=== PATIENT | female | born 1970 | race Caucasian/White ===

== ENCOUNTER → 2017-09-10 10:02 | Outpatient (REF) | payer MEDICAID, SELFPAY ==
[2017-09-10 13:17] LABS: HCT 38.7 % (36.0-46.0); Mean Corpuscular Hemoglobin 24.8 pg (27.0-33.0); Mean Corpuscular Volume 80.1 fL (80-95); Mean Platelet Volume 11.4 fL (8.0-11.0); Platelet Count 305 x1000/uL (130-400); RBC 4.83 m/cumm (4.00-5.20); RBC Distribution Width 16.2 % (11.7-14.6); White Blood Cell Count 11.66 k/cumm (4.4-10.8)
[2017-09-10 14:57] LABS: ALT 29 U/L (12-78); AST 23 U/L (15-37); Albumin 3.2 g/dL (3.4-5.0); Alkaline Phosphatase 134 U/L (46-116); Anion Gap 12.4 mmol/L (3-11); BUN 19 mg/dL (7-18); Bilirubin, Total 0.1 mg/dL (0.2-1.0); CO2 22.6 mmol/L (21.0-32.0); CREATININE 0.82 mg/dL (0.55-1.02); Calcium 9.1 mg/dL (8.5-10.1); Chloride 104 mmol/L (98-107); Glucose 220 mg/dL (70-100); Potassium 4.2 mmol/L (3.5-5.1); Sodium 139 mmol/L (136-145); Total Protein 7.4 g/dL (6.4-8.2)
[2017-09-13 06:36] LABS: Vitamin D 25 Total 29.6 ng/ml (30-100)
== END ==
LOC: NCHCN 10:02
PROVIDERS: PCP Nurse Practitioner Family; Visit Provider Nurse Practitioner Family
DX: D72.9 Disorder of white blood cells, unspecified (principal); E11.9 Type 2 diabetes mellitus without complications; E55.9 Vitamin D deficiency, unspecified
CPT/HCPCS: 80053; 82306; 85027

== ENCOUNTER 2017-10-02 12:30 | Outpatient (RCR) | payer MEDICAID, SELFPAY ==
--- NOTE | 2017-09-19 13:00 | IE_ITS ---
Date: September 19, 2017 Referring: DACIA Rebollar M.D. Diagnosis: Chronic pain due to fibromyalgia: muscle toning, poor core P.T. Diagnosis: Chronic pain, fibromyalgia. SUBJECTIVE: History of Present Illness: Patient presents with complaints of many years of pain specifically the LE's. She states that she had initially worked up for MS after a single lesion was found on MRI, although has not followed up with neurology for many years. She was eventually given a diagnosis of fibromyalgia and chronic Lyme. She was placed on several medications including pain meds and muscle relaxers, although these were discontinued about 2 years ago when she switched primary care. Since then her pain has been significantly increased. She is managing this with medical marijuana which she uses nocturnally only. She is also seeing [facility] where she received bilateral hip injections 2 weeks ago for hip bursitis and has low back injection scheduled for next week for consideration of ablation the following week. She describes pain diffusely throughout the LE's, although most concentrated through the outsides of the hip. She also has severe low back pain, stating that if any touches her low back, it can drop her to her knees. She has had a significant weight gain over the past year, stating she has been unable to continue with the exercise program she had completed regularly. She also complains brain fog, difficulty with word finding and short term memory loss, which she relates to her chronic Lyme. Pain Ratin/10 Pain Location: Lateral hips bilaterally, extending throughout the LE's, central low back, R side of the neck and shoulder, extending down the arm. Prior Level of Function: Patient had been walking up to 5 miles per day, although states she has not been able to complete this for a couple years due to pain levels. She lives with her son in [facility], not currently working. Current Level of Function: Unable to continue with regular exercise program. Patient states she is unable to work and is currently applying for disability. She reports difficulty with day to day activities due to pain levels, particularly community distance ambulation, sleep quality and prolonged positioning. Social: Comorbidities: Chronic Lyme disease, Diabetes, Fibromyalgia, anxiety, arthritis in bilateral knees, recent weight gain, asthma and thyroid dysfunction. Falls in the last year: __X__ No ____Yes - How many? ____ - (if over 2, balance SM needs to be completed) Reported hospitalizations in the last year - __X__ No ____ Yes - Dates of admission/reason: Medications: Patient does not have a list with her today, although she states she has an extensive list which she will bring next time. Quality of Life: ____ Excellent ____ Good __X__ Fair ____ Poor OBJECTIVE: Posture: Patient is obese, she demonstrates bilateral genu valgus, mild rounded shoulder, forward head posturing. Observation: (behavior, atrophy, skin color, etc.) Gait: (+) antalgia with significant hip IR noted during swing phase L greater than R. Palpation: Deferred due to self reports of hypersensitivity. ROM: Trunk motion allows forward flexion fingertips 6 from the floor with reports of pain through the hamstring and low back. Trunk extension allows 15 degrees, lateral flexion allows fingertips 2 from lateral joint line of the knee bilaterally. Hip ROM allows 100 degrees of hip flexion, limited by abdominal girth and accompanied by groin pain bilaterally. ER allows 50 degrees bilaterally, IR 15 degrees bilaterally. Knee motion allows approximately 0 to 115 degrees bilaterally with significant crepitus noted bilaterally. Strength: Hip flexion is 4-/5 R, 4/5 L. During assessment of LE strength the patient has functional core weakness noted relying on UE support and contralateral trunk lean with poor ability to stabilize. Quads are 4+/5 bilaterally, hamstrings 4/5 bilaterally. Ankle dorsiflexion is 5/5 bilaterally. Hip IR is 4/5 bilaterally, ER 4/5 bilaterally. Special Tests: (-) slump test, (-) SLR which allows for 50 degrees bilaterally. Treatment: Today session consisted of evaluation followed by discussion regarding appropriate treatment planning and goals. IE: [id number] Therapeutic procedures ([id number]). Patient was instructed in early stabilization activities with instruction in transverse abdominal activation and hook lying marching. She requires significant verbal cues and reminders for appropriate completion and avoidance of compensatory movement patterns, although with excellent carry over. Direct treatment time: 50 mins Total treatment time: 50 miins ASSESSMENT: Patient is a 47-year-old female, referred for PT services with the diagnosis of chronic pain related to fibromyalgia. Patient presents with clinical signs and symptoms consistent with diagnosis with complicating factors including chronic Lyme disease and active application for disability. During session, the patient also expresses her frustration with previous providers, etc. . . which may influence outcomes. She is currently demonstrating the following impairment level findings: 1: Chronic pain. 2: Biomechanical deficits. 3: Gait deviations. 4: LE weakness. Impairments are contributing to the following functional limitations :1: Decreased activity tolerance. 2: Unable to perform normal walking program. 3: Sleep disturbance. 4: Fear avoidance behaviors. Patient is assessed as: ____ Low 43639 __X__ Moderate 50740 ____ High 87017 complexity, based on the following: History: (list): Chronic pain with patient with fibromyalgia and chronic Lyme disease, with current application for disability and with expression of frustration with medical intervention. See comorbidities and social history. Examination: (list): X See above for functional limitations and impairments. Presentation: X Stable . Evolving Unstable Decision-Making: x Low complexity Moderate complexity High complexity % Disability based on __X__ Patient requires skilled PT intervention to remediate the above functional limitations to return to: __x__ Premorbid level of function __x__ Return to full functional mobility __x__ Improve QOL ____ Other: Prognosis: ____ Excellent ____ Good __X__ Fair ____ Poor STG: __6__ weeks. 1: Patient able to tolerate introduction of therapeutic exercise program in an aquatic setting. 2: Reduce frequency and severity of pain by self report by 25%. LTG: __12__ weeks. 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 2: Patient able to tolerate introduction of walking program. 3: VAS rating of less than 3/10 on average. PLAN: Will plan to see patient 2x a week with tapering visits over the next 12 weeks. Will initiate aquatic therapy for introduction of strengthening activities, and gait training while allowing for passive traction and decompression. Will transition her to land base activities as she is able to tolerate. Began with some early core stabilization activities today and will progress from there. Will focus on an exercise based program with encouragement for self maintenance and management of chronic pain symptoms. We discuss treatment goals at length today and patient understands that the objective is not for her to be painfree, but to be independent with management of her chronic pain symptoms. Thank you for this referral. Please do not hesitate to contact me with any questions or concerns regarding this patient's plan of care.
--- NOTE | 2017-09-25 12:04 | PTTR_ITS ---
DATE: 09/25/17 SUBJECTIVE: Alis apologizes that she is 20 minutes late. OBJECTIVE: Therapeutic procedures ([id number]). Patient completed a therapeutic exercise program in an aquatic setting for LE strengthening and general conditioning with decompression for pain relief, as per flow sheet. Patient required skilled instruction for for proper exercise performance and to avoid compensatory movement patterns. Patient ends with deep end biking, LE flex/ext , and LE abd/add. Direct treatment time: 35 minutes Total treatment time: 50 minutes
--- NOTE | 2017-09-27 11:14 | NT_ITS ---
09/27/17 Cancelled today's scheduled aquatic therapy session. Wendy Alvarez, EMERGENCY SERVICES PROFESSIONAL
--- NOTE | 2017-10-02 11:00 | AT_ITS ---
10/02/17 TPx2 See flow sheet. Complete gross whole body strengthening program with skilled cueing throughout for pro[per movement pattern and scap stabilization and intrinsic core stability. Progressions made for cardiovascular activity for central nervous system desensitization. Total time: 60 minutes Direct 30 minutes with pt able to complete warm up and cool down activities with minimal supervision.
== END 2017-10-05 23:59 | disposition home or self-care (01) ==
LOC: PT 12:30
PROVIDERS: PCP Nurse Practitioner Family; Referring Provider Nurse Practitioner Family; Visit Provider Nurse Practitioner Family
DX: G89.29 Other chronic pain (principal); M79.7 Fibromyalgia
CPT/HCPCS: 97110; 97161

== ENCOUNTER 2017-10-26 18:18 | Emergency (ER) | payer MEDICAID, SELFPAY ==
[2017-10-26 18:23] VITALS: BP 167/96; PULSE 115; RESP 23; TEMP 36.4; O2SAT 98
--- NOTE | 2017-10-26 18:45 | W.ED.GENAD ---
Discharge Plan Disposition Patient Disposition: HOME Discharge Details Chief Complaint: Urinary Clinical Impression: UTI (urinary tract infection) Primary Care Provider: Digna Lemon ED Provider: Albert Hein Home Meds and New Rx's Prescriptions: New phenazopyridine [Pyridium] 100 mg tablet 100 mg PO TID PRN (Reason: pain) 0 Days RF: 0 nitrofurantoin monohyd/m-cryst [Macrobid] 100 mg capsule 100 mg PO BID Qty: 10 RF: 0 No Action sertraline [Zoloft] 100 MG tablet 100 mg PO BID RF: 0 loratadine 10 MG tablet,disintegrating 10 mg PO DAILY RF: 0 epinephrine [EpiPen 2-Fabian] 0.3 MG/0.3 ML auto-injector 0.3 mg IM ONCE RF: 0 fluticasone [Flonase] 16 GM spray,suspension 50 mcg NS DAILY RF: 0 tizanidine 4 MG capsule 4 mg PO PRN PRNRF: 0 pregabalin [Lyrica] 100 MG capsule 150 mg PO BID RF: 0 cholecalciferol (vitamin D3) 1,000 UNITS tablet 5,000 units PO DAILY RF: 0 levalbuterol tartrate [Xopenex HFA] 200 PUFF HFA aerosol inhaler 2 gm Inhalation PRN RF: 0 hydroxyzine HCl 25 MG tablet 25 mg PO BID RF: 0 fluconazole [Diflucan] 200 MG tablet 200 mg PO QAM RF: 0 glipizide 10 MG tablet extended release 24hr 10 mg PO HS RF: 0 nystatin 500,000 UNITS tablet 500,000 units PO DIRECTED RF: 0 rosuvastatin [Crestor] 20 MG tablet 20 mg PO QPM RF: 0 Insulin Glargine,Hum.rec.anlog [Lantus] 100 UNIT/ML Vial 30 unit SQ HS RF: 0 Topiramate [Trokendi Xr] 50 MG Cap.Er.24h 50 mg PO HS RF: 0 Discharge Instructions Instructions: Urinary Tract Infection in Women (ED) Additional Instructions: Please contact your primary care physician to arrange follow-up. Return to the ER for any worsening or new concerning symptoms. Referrals: Digna Lemon [Primary Care Provider] - Medical Decision Making 47-year-old female here with symptoms consistent with urinary tract infection. Urinalysis reviewed and has significant number of red blood cells as well as white blood cells. Plan to treat with nitrofurantoin as well as Pyridium. Patient was instructed to follow-up with her primary care physician. Usual and customary discharge instructions were provided. Lab Data Lab results reviewed: Yes I reviewed the patient's lab results. Lab results narrative: Laboratory Tests 10/26/17 18:40 Urine Color Yellow Urine Clarity Sl cloudy Urine pH 6.0 Ur Specific [place] 1.010 Urine Protein Negative Urine Ketones Negative Urine Blood Large H Urine Nitrite Negative Urine Bilirubin Negative Urine Urobilinogen 0.2 Ur Leukocyte Esterase Negative Urine RBC >50 H Urine WBC 5-10 Ur Epithelial Cells Many Urine Crystals Negative Urine Bacteria Few Urine Casts 0-2 coarse granular Urine Mucus Trace Urine Other Few transitional Ur Culture Indicated? No/sq. contamination Urine Glucose Negative HPI General Mode of arrival: ambulatory. Date/Time Provider Initiated Documentation: 10/26/17 18:33. Limitations to Documentation: no limitations. Information obtained by: patient. HPI Narrative: 47-year-old female with history of insulin dependent diabetes, presents with chief complaint of urinary tract infection. Patient notes that she has had painful urination that started yesterday and has worsened today. She has associated increased urinary frequency, sense of urgency, and decreased urine. She has no associated flank pain. She has had some nausea. No vomiting. No fever. Patient is somewhat anxious and uncomfortable. Patient has had urinary tract infections in the past and notes this feels exactly like that. She states that her blood sugar is monitored closely, she takes her insulin as prescribed, and blood sugar has been normal today. Patient denies associated vaginal discharge or lesions. Related Data Home Medications Medication Instructions Recorded Confirmed cholecalciferol (vitamin D3) 5,000 units PO DAILY 05/03/12 10/26/17 pregabalin [Lyrica] 150 mg PO BID 05/03/12 10/26/17 tizanidine 4 mg PO PRN PRN 05/03/12 10/26/17 sertraline [Zoloft] 100 mg PO BID tab-cap 07/22/12 10/26/17 levalbuterol tartrate [Xopenex HFA] 2 gm INHALATION PRN 05/03/13 10/26/17 epinephrine [EpiPen 2-Fabian] 0.3 mg IM ONCE 02/26/14 10/26/17 fluticasone [Flonase] 50 mcg NS DAILY spray 02/26/14 10/26/17 loratadine 10 mg PO DAILY tab-cap 02/26/14 10/26/17 hydroxyzine HCl 25 mg PO BID 11/09/14 10/26/17 Insulin Glargine,Hum.rec.anlog 30 unit SQ HS 02/06/17 10/26/17 [Lantus] Topiramate [Trokendi Xr] 50 mg PO HS 02/06/17 10/26/17 fluconazole [Diflucan] 200 mg PO QAM 02/06/17 10/26/17 glipizide 10 mg PO HS 02/06/17 10/26/17 nystatin 500,000 units PO DIRECTED 02/06/17 10/26/17 rosuvastatin [Crestor] 20 mg PO QPM 02/06/17 10/26/17 Previous Rx's Medication Instructions Recorded nitrofurantoin monohyd/m-cryst 100 mg PO BID #10 cap 10/26/17 [Macrobid] phenazopyridine [Pyridium] 100 mg PO TID PRN 0 Days tab 10/26/17 Allergies Allergy/AdvReac Type Severity Reaction Status Date / Time amoxicillin trihydrate Allergy Intermediate Hives Unverified 08/29/17 20:35 [From Augmentin] potassium clavulanate Allergy Intermediate Hives Unverified 08/29/17 20:35 [From Augmentin] ammonium lactate AdvReac Intermediate GI UPSET Unverified 08/29/17 20:35 [From Lac-Hydrin] citalopram hydrobromide AdvReac Intermediate CHEST Unverified 08/29/17 20:35 [From Celexa] PAINS, SOB codeine AdvReac Intermediate Nausea Unverified 08/29/17 20:35 duloxetine [Duloxetine] AdvReac Intermediate SPACEY Unverified 08/29/17 20:35 duloxetine HCl AdvReac Intermediate NAUSEA, V/D Unverified 08/29/17 20:35 [From Cymbalta] hydromorphone HCl AdvReac Intermediate NAUSEA,VOMI Unverified 08/29/17 20:35 [From Dilaudid] TING,CONSTI PATION milk AdvReac Mild NAUSEA Unverified 08/29/17 20:35 environmental Allergy Severe Uncoded 08/29/17 20:35 TYLENOL WITH CODEINE AdvReac Mild NAUSEA Uncoded 08/29/17 20:35 General Stated Complaint: Urinary LANIE: 4 Review of Systems Gastrointestinal Denies abdominal pain and Reports nausea Genitourinary Reports as per HPI [facility] Medical History Anxiety Asthma Fibromyalgia Herniated cervical disc Morbid obesity with BMI of 40.0-44.9, adult Social History Smoking/Tobacco Use Status: Former Tobacco Use Surgical History section Ligation of fallopian tube discetomy and spinal fusion Exam Const General: cooperative and no acute distress HENMT Mouth: moist mucous membranes Eyes Conjunctivae: normal conjunctivae Sclera: normal sclerae Resp Auscultation: clear to auscultation bilaterally, no rales, no rhonchi and no wheezes Cardio Jugular venous pressure: no JVD Rate: regular rate and not tachycardic Rhythm: regular rhythm GI Palpation: soft, not firm, no guarding, no masses, not rigid and nontender Skin General skin exam: no rashes or lesions noted Neuro General: alert, awake, oriented x3 and tone normal Psych Appearance: grossly normal Mental Status: mental status grossly normal Speech and Movement: speech and movement normal Course Vital Signs Temperature 36.4 C L 10/26/17 18:23 Pulse 115 H 10/26/17 18:23 Respiratory Rate 23 10/26/17 18:23 Blood Pressure 167/96 H 10/26/17 18:23 Pulse Oximetry 98 10/26/17 18:23 Temperature 36.4 C L 10/26/17 18:23 Pulse 115 H 10/26/17 18:23 Respiratory Rate 23 10/26/17 18:23 Blood Pressure 167/96 H 10/26/17 18:23 Pulse Oximetry 98 10/26/17 18:23
[2017-10-26] MEDS: Phenazopyridine 100 MG TAB PO (18:50)
[2017-10-26] MEDS: MacroBID 100 MG CAP PO (18:50)
[2017-10-26 18:59] LABS: Bilirubin Negative (Negative); Blood Large (Negative); Clarity Sl Cloudy; Glucose Negative (Negative); Ketones Negative (Negative); Leukocyte Esterase Negative (Negative); Nitrite Negative (Negative); Urobilinogen 0.2 EU/dL (Up TO 0.2)
[2017-10-26 19:14] LABS: Bacteria Few HPF (Negative); Epithelial Cells Many HPF (Negative); Other Cells Few Transitional (Negative); RBC >50 (0-2)
[2017-10-26 19:15] LABS: C & S Indicated? No/Sq. Contamination; Casts 0-2 Coarse Granular LPF (Negative); Crystals Negative HPF (Negative); Mucus Trace (Negative)
== END 2017-10-26 19:44 | disposition home or self-care (01) ==
LOC: ER 19:22
PROVIDERS: Emergency Provider Student in an Organized Health Care Education/Training Program; PCP Nurse Practitioner Family
DX: N39.0 Urinary tract infection, site not specified (principal); G35 Multiple sclerosis; E11.9 Type 2 diabetes mellitus without complications; Z79.4 Long term (current) use of insulin; Z87.440 Personal history of urinary (tract) infections
CPT/HCPCS: 99283; 81003; 81015

== ENCOUNTER 2017-10-30 18:56 | Outpatient (REF) | payer MEDICAID, SELFPAY ==
--- NOTE | 2017-10-30 13:45 | PAPFT_PTH ---
PATIENT: Alis Cardenas V LOC: [facility]#:[id number] AGE/SX: 47/F ROOM: RE10/30/[address]: Digna Lemon : 1970 BED: DIS: 10/30/2017 SPEC #: [id number] RECD: 10/31/17 13:05 STATUS: CONNER REAyo #: [id number] PASCUAL: 10/30/17 13:[address]: Digna Lemon DEPT: [facility] Cytology RECD BY: Kim Wray Tissues: 1 - CX/ENDOCX FOR PAP SMEARS Procedures: PAP THIN PREP/UVM Screening HPV DNA PROBE Comments: [id number] (CHLAMYDIA/GC)
[2017-11-01 14:17] LABS: Chlamydia Result Negative; GC Result Negative; Specimen Description SEE COMMENTS
== END 2017-10-30 19:16 ==
LOC: NCHCN 18:56
PROVIDERS: PCP Nurse Practitioner Family; Referring Provider Nurse Practitioner Family; Visit Provider Nurse Practitioner Family
DX: Z12.4 Encounter for screening for malignant neoplasm of cervix (principal); Z11.51 Encounter for screening for human papillomavirus (HPV); Z11.3 Encounter for screening for infections with a predominantly sexual mode of transmission; Z00.00 Encounter for general adult medical examination without abnormal findings
CPT/HCPCS: 87491; 87591; 88142; 87480; 87510; 87624; 87660

== ENCOUNTER 2017-11-05 21:52 | Inpatient (IN) | payer MEDICAID, SELFPAY ==
[2017-11-05 21:55] VITALS: BP 159/98; PULSE 115; RESP 22; TEMP 37; O2SAT 97
--- NOTE | 2017-11-05 22:11 | DI.CT_ITS ---
SYMPTOM/DIAGNOSIS: LEFT FLANK PAIN, HX STONES ABDOMINAL AND PELVIC CT: 11/05 CT examination of the abdomen and pelvis was performed without contrast administration. Images obtained through the lung bases are unremarkable. Note is made of previous cholecystectomy. No biliary dilatation seen. Pancreas is unremarkable. The visualized portions of the liver appear intact. Small multiple splenic calcifications noted consistent with healed granulomatous disease. Abdominal aorta is of normal diameter. No abdominal or pelvic adenopathy seen. No significant abdominal wall hernia seen. Appendix appears normal. No evidence of diverticulitis or bowel obstruction. Adrenals appear normal bilaterally. There are bilateral nonobstructing renal calculi. No right hydronephrosis, hydroureter or ureterolithiasis. On the left there is mild hydronephrosis and hydroureter to the level of the distal ureter where there is an obstructing 5 mm greatest diameter calculus at the ureterovesical junction. Urinary bladder is collapsed. No additional ureteral stones seen. 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 No free pelvic fluid seen. CONCLUSION: Bilateral nephrolithiasis and obstructing 5 mm in diameter calculus of the distal left ureter.
[2017-11-05 22:18] LABS: Clarity Cloudy; Leukocyte Esterase Color Interference (Negative); Nitrite Color Interference (Negative); Specific Gravity 1.015 (1.005-1.025)
[2017-11-05 22:19] LABS: Bilirubin Color Interference (Negative); Blood Color Interference (Negative); Glucose Color Interference mg/dL (Negative); Ketones Color Interference mg/dL (Negative); Urobilinogen Color Interference EU/dL (Up TO 0.2)
--- NOTE | 2017-11-05 22:23 | W.ED.GENAD ---
Discharge Plan Disposition Patient Disposition: [facility] INPATIENT Condition: Fair Discharge Details Chief Complaint: Urinary Clinical Impression: Calculus of distal left ureter, Leukocytosis Reason For Visit: LEFT DISTAL URETERAL STONE Admit Date/Time: 11/06/17 01:04 Admit Provider: Rush Barrett Attending Provider: Rush Barrett Primary Care Provider: Digna Lemon ED Provider: Zachariah Wheatley Discharge Data Discharge Date/Time-TO BE ENTERED AT DEPARTURE: 11/06/17 02:00 Medical Decision Making <Easton Brady DO - Last Filed: 11/07/17 13:54> This is a pleasant 47-year-old female with a past medical history of kidney stones and a recent urinary tract infection. She was treated with Macrobid significant on having an improvement of her symptoms, she then switched to 3 days of Cipro as prescribed by her PCP had notable resolution of her symptomatology. Even though her symptoms improved suddenly this evening she had sudden onset left flank pain. She denies any hematuria, dysuria, increased urinary frequency. She does admit to some pressure in the region of her bladder. She states that the symptoms are similar to previous UTIs. The patient's current pain and symptoms, we will get a CT scan noncontrast to evaluate for stone, urinalysis to evaluate for UTI, and rehydrate and treat her pain. Plan: 20 5 PM Patient's pain is well controlled. We are pending CT results at this time. The case will be signed out to my colleague Dr. Wheatley. HPI <Easton Brady DO - Last Filed: 11/07/17 13:54> General Date/Time Provider Initiated Documentation: 11/05/17 22:10. HPI Narrative: This is a 47-year-old female with a past medical history of 3 C-sections, tubal ligation, diabetes mellitus, chronic Lyme disease, kidney stones, and cholecystectomy. She presents today for left-sided flank pain that began this evening. Per history the patient had a urinary tract infection roughly 11 days ago, she was treated here in the ED given Macrobid for home use. She had no improvement of her symptoms. Then when followed up with her primary care provider who started her on 3 days of Cipro. The patient states that her symptoms notably improved with the Cipro. She had been taking Pyridium during this time. She did admit to a mild burning in her bladder region, but no other significant pain. She is currently 2 days since her last dose of Cipro. Patient states that this evening she had sudden onset of severe left-sided flank pain. It was sharp in nature. There is some radiation down towards her groin. She denies any aggravating or relieving factors. She denies any systemic symptoms of fever, chills, vomiting or diarrhea. She denies any vaginal discharge. She states the symptoms feel slightly similar to her previous kidney stones. Patient denies any other complaints at this time. She denies any IV or illicit drug use or pertinent family history. Related Data Home Medications Medication Instructions Recorded Confirmed cholecalciferol (vitamin D3) 5,000 units PO DAILY 05/03/12 11/06/17 pregabalin [Lyrica] 150 mg PO QPM 05/03/12 11/06/17 tizanidine 4 mg PO PRN PRN 05/03/12 11/06/17 sertraline [Zoloft] 100 mg PO DAILY tab-cap 07/22/12 11/06/17 levalbuterol tartrate [Xopenex HFA] 2 gm INHALATION PRN 05/03/13 11/05/17 epinephrine [EpiPen 2-Fabian] 0.3 mg IM ONCE 02/26/14 11/05/17 fluticasone [Flonase] 50 mcg NS DAILY spray 02/26/14 11/05/17 loratadine 10 mg PO DAILY tab-cap 02/26/14 11/06/17 hydroxyzine HCl 25 mg PO HS 11/09/14 11/06/17 Insulin Glargine,Hum.rec.anlog 30 unit SQ HS 02/06/17 11/06/17 [Lantus] Topiramate [Trokendi Xr] 50 mg PO HS 02/06/17 11/06/17 glipizide 10 mg PO HS 02/06/17 11/06/17 rosuvastatin [Crestor] 20 mg PO QPM 02/06/17 11/06/17 Allergies Allergy/AdvReac Type Severity Reaction Status Date / Time amoxicillin trihydrate Allergy Intermediate Hives Unverified 11/05/17 21:58 [From Augmentin] potassium clavulanate Allergy Intermediate Hives Unverified 11/05/17 21:58 [From Augmentin] ammonium lactate AdvReac Intermediate GI UPSET Unverified 11/05/17 21:58 [From Lac-Hydrin] citalopram hydrobromide AdvReac Intermediate CHEST Unverified 11/05/17 21:58 [From Celexa] PAINS, SOB codeine AdvReac Intermediate Nausea Unverified 11/05/17 21:58 duloxetine [Duloxetine] AdvReac Intermediate SPACEY Unverified 11/05/17 21:58 duloxetine HCl AdvReac Intermediate NAUSEA, V/D Unverified 11/05/17 21:58 [From Cymbalta] hydromorphone HCl AdvReac Intermediate NAUSEA,VOMI Unverified 11/05/17 21:58 [From Dilaudid] TING,CONSTI PATION milk AdvReac Mild NAUSEA Unverified 11/05/17 21:58 environmental Allergy Severe Uncoded 11/05/17 21:58 TYLENOL WITH CODEINE AdvReac Mild NAUSEA Uncoded 11/05/17 21:58 General Stated Complaint: Urinary LANIE: 3 Review of Systems <Easton Brady DO - Last Filed: 11/07/17 13:54> Review of Systems All systems reviewed & are unremarkable except as noted in HPI and below Exam <Easton Brady DO - Last Filed: 11/07/17 13:54> Narrative Exam Narrative: 1.Const: Well-nourished, Well-developed, appearing stated age. Patient appears in moderate distress, pacing around the room, holding her left flank. 2.Eyes: PERRL, no conjunctival injection, and symmetrical lids. 3.ENT: Atraumatic external nose and ears. Moist MM. Neck: Symmetric, trachea midline, No thyromegaly. 4.CVS: +S1/S2, No murmurs or gallops. Peripheral pulses 2+ and equal in all extremities. Brisk capillary refill in all extremities. 5.RESP: Unlabored respiratory effort. Clear to auscultation bilaterally. No wheezes rales or rhonchi 6.GI: Soft, Nontender/Nondistended, No hepatosplenomegaly. No guarding or rebound. Minimal tenderness on palpation of the left flank. No significant CVA tenderness on the left or the right. No pain at McBurney's point. Negative Siu sign 7.MSK: Normocephalic/Atraumatic, Extremities w/o deformity or ttp No cyanosis or clubbing, Normal movement of all extremities 8.Skin: Warm, Dry. No rashes or lesions. 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 Sensation grossly intact, no focal neurologic deficits. 10.Psych: (AAO) x3. Appropriate mood and affect Course <Easton Brady DO - Last Filed: 11/07/17 13:54> Vital Signs Temperature 37 C 11/05/17 21:55 Pulse 115 H 11/05/17 21:55 Respiratory Rate 22 11/05/17 21:55 Blood Pressure 159/98 H 11/05/17 21:55 Pulse Oximetry 97 11/05/17 21:55 Temperature 37 C 11/05/17 21:55 Temperature Source Temporal Artery Scan 11/05/17 21:55 Pulse 115 H 11/05/17 21:55 Respiratory Rate 22 11/05/17 21:55 Blood Pressure 159/98 H 11/05/17 21:55 Pulse Oximetry 97 11/05/17 21:55 Oxygen Delivery Method Room Air 11/05/17 21:55 Oxygen Flow Rate 0 11/05/17 21:55 Pain Level 8 11/05/17 21:55 Lab/Test Results Lab/Test Results: Laboratory Tests Range/Units 11/05/17 22:04 Urine Color (Yellow) [place] Urine Clarity Cloudy Urine pH (5-8) Ur Specific [place] (1.005-1.025) 1.015 Urine Protein (Negative) mg/dL Color interference Urine Ketones (Negative) mg/dL Color interference Urine Blood (Negative) Color interference Urine Nitrite (Negative) Color interference Urine Bilirubin (Negative) Color interference Urine Urobilinogen (Up TO 0.2) EU/dL Color interference Ur Leukocyte Esterase (Negative) Color interference Urine Glucose (Negative) mg/dL Color interference Sign Out <Easton Brady DO - Last Filed: 11/07/17 13:54> Sign Out Data: Sign Out Comment: pending CT Last updated by Easton Brady DO at 11/05/17 23:30 Post-Handoff Eval: Patient signed out to me pending labs and CT scan. She is much more comfortable after pain medication and fluids. Laboratory studies significant for a urinalysis which is negative. Renal function is normal. Glucose is normal. White cell count elevated at almost 18,000. She is not febrile here. She does not think she has had fevers at home though she is not sure. Urinalysis from the is blood mostly with contamination of epithelial cells and never cultured. CT scan tonight shows a 3 x 5 mm left UVJ stone with mild to moderate hydronephrosis. Because of the recent antibiotic use and the elevated white count the possibility of a partially treated infected stone was entertained. Case was discussed with urology at [facility], Dr. Ovalles. Recommendation is to admit for observation with fluids and pain control. Flomax to try to help facilitate passage of stone. Urology consultation with Dr. Ramirez in the morning with the understanding that if patient becomes febrile and septic overnight [facility] would be willing to take her at that time. Case discussed with hospitalist. Patient will be admitted for observation status overnight as described above. I will attempt to contact Dr. Ramirez first thing in the morning to make him aware of the patient.
[2017-11-05 22:26] LABS: Bacteria Negative HPF (Negative); C & S Indicated? No; Casts Negative LPF (Negative); Crystals Negative HPF (Negative); Epithelial Cells Few HPF (Negative); Mucus Negative (Negative); Other Cells Negative (Negative); RBC Negative (0-2); WBC 0-2 HPF (0-5)
[2017-11-05] MEDS: MORPHine 10 MG/ML VIAL 4 MG IVP (22:28)
[2017-11-05] MEDS: Normal Saline 1,000 ML 1000 ML IV (22:28)
[2017-11-05] MEDS: Ketorolac 30 MG/ML VIAL 15 MG IM (22:28)
--- NOTE | 2017-11-05 22:28 | ED.GENADUL_ITS ---
Discharge Plan Disposition Patient Disposition: [facility] INPATIENT Condition: Fair Discharge Details Chief Complaint: Urinary Clinical Impression: Calculus of distal left ureter, Leukocytosis Reason For Visit: LEFT DISTAL URETERAL STONE Admit Date/Time: 11/06/17 01:04 Admit Provider: Rush Barrett Attending Provider: Rush Barrett Primary Care Provider: Digna Lemon ED Provider: Zachariah Wheatley Discharge Data Discharge Date/Time-TO BE ENTERED AT DEPARTURE: 11/06/17 02:00 Medical Decision Making <Easton Brady DO - Last Filed: 11/07/17 13:54> This is a pleasant 47-year-old female with a past medical history of kidney stones and a recent urinary tract infection. She was treated with Macrobid significant on having an improvement of her symptoms, she then switched to 3 days of Cipro as prescribed by her PCP had notable resolution of her symptomatology. Even though her symptoms improved suddenly this evening she had sudden onset left flank pain. She denies any hematuria, dysuria, increased urinary frequency. She does admit to some pressure in the region of her bladder. She states that the symptoms are similar to previous UTIs. The patient's current pain and symptoms, we will get a CT scan noncontrast to evaluate for stone, urinalysis to evaluate for UTI, and rehydrate and treat her pain. Plan: 20 5 PM Patient's pain is well controlled. We are pending CT results at this time. The case will be signed out to my colleague Dr. Wheatley. HPI <Easton Brady DO - Last Filed: 11/07/17 13:54> General Date/Time Provider Initiated Documentation: 11/05/17 22:10 . HPI Narrative: This is a 47-year-old female with a past medical history of 3 C-sections, tubal ligation, diabetes mellitus, chronic Lyme disease , kidney stones, and cholecystectomy. She presents today for left-sided flank pain that began this evening. Per history the patient had a urinary tract infection roughly 11 days ago, she was treated here in the ED given Macrobid for home use. She had no improvement of her symptoms. Then when followed up with her primary care provider who started her on 3 days of Cipro. The patient states that her symptoms notably improved with the Cipro. She had been taking Pyridium during this time. She did admit to a mild burning in her bladder region, but no other significant pain. She is currently 2 days since her last dose of Cipro. Patient states that this evening she had sudden onset of severe left-sided flank pain. It was sharp in nature. There is some radiation down towards her groin. She denies any aggravating or relieving factors. She denies any systemic symptoms of fever, chills, vomiting or diarrhea. She denies any vaginal discharge. She states the symptoms feel slightly similar to her previous kidney stones. Patient denies any other complaints at this time. She denies any IV or illicit drug use or pertinent family history. Related Data Home Medications Medication Instructions Recorded Confirmed cholecalciferol (vitamin D3) 5,000 units PO DAILY 05/03/12 11/06/17 pregabalin [Lyrica] 150 mg PO QPM 05/03/12 11/06/17 tizanidine 4 mg PO PRN PRN 05/03/12 11/06/17 sertraline [Zoloft] 100 mg PO DAILY tab-cap 07/22/12 11/06/17 levalbuterol tartrate [Xopenex HFA] 2 gm INHALATION PRN 05/03/13 11/05/17 epinephrine [EpiPen 2-Fabian] 0.3 mg IM ONCE 02/26/14 11/05/17 fluticasone [Flonase] 50 mcg NS DAILY spray 02/26/14 11/05/17 loratadine 10 mg PO DAILY tab-cap 02/26/14 11/06/17 hydroxyzine HCl 25 mg PO HS 11/09/14 11/06/17 Insulin Glargine,Hum.rec.anlog 30 unit SQ HS 02/06/17 11/06/17 [Lantus] Topiramate [Trokendi Xr] 50 mg PO HS 02/06/17 11/06/17 glipizide 10 mg PO HS 02/06/17 11/06/17 rosuvastatin [Crestor] 20 mg PO QPM 02/06/17 11/06/17 Allergies Allergy/AdvReac Type Severity Reaction Status Date / Time amoxicillin trihydrate Allergy Intermediate Hives Unverified 11/05/17 21:58 [From Augmentin] potassium clavulanate Allergy Intermediate Hives Unverified 11/05/17 21:58 [From Augmentin] ammonium lactate AdvReac Intermediate GI UPSET Unverified 11/05/17 21:58 [From Lac-Hydrin] citalopram hydrobromide AdvReac Intermediate CHEST Unverified 11/05/17 21:58 [From Celexa] PAINS, SOB codeine AdvReac Intermediate Nausea Unverified 11/05/17 21:58 duloxetine [Duloxetine] AdvReac Intermediate SPACEY Unverified 11/05/17 21:58 duloxetine HCl AdvReac Intermediate NAUSEA, V/D Unverified 11/05/17 21:58 [From Cymbalta] hydromorphone HCl AdvReac Intermediate NAUSEA,VOMI Unverified 11/05/17 21:58 [From Dilaudid] TING,CONSTI PATION milk AdvReac Mild NAUSEA Unverified 11/05/17 21:58 environmental Allergy Severe Uncoded 11/05/17 21:58 TYLENOL WITH CODEINE AdvReac Mild NAUSEA Uncoded 11/05/17 21:58 General Stated Complaint: Urinary LANIE: 3 Review of Systems <Easton Brady DO - Last Filed: 11/07/17 13:54> Review of Systems All systems reviewed & are unremarkable except as noted in HPI and below Exam <Easton Brady DO - Last Filed: 11/07/17 13:54> Narrative Exam Narrative: 1.Const: Well-nourished, Well-developed, appearing stated age. Patient appears in moderate distress, pacing around the room, holding her left flank. 2.Eyes: PERRL, no conjunctival injection, and symmetrical lids. 3.ENT: Atraumatic external nose and ears. Moist MM. Neck: Symmetric, trachea midline, No thyromegaly. 4.CVS: +S1/S2, No murmurs or gallops. Peripheral pulses 2+ and equal in all extremities. Brisk capillary refill in all extremities. 5.RESP: Unlabored respiratory effort. Clear to auscultation bilaterally. No wheezes rales or rhonchi 6.GI: Soft, Nontender/Nondistended, No hepatosplenomegaly. No guarding or rebound. Minimal tenderness on palpation of the left flank. No significant CVA tenderness on the left or the right. No pain at McBurney's point. Negative Siu sign 7.MSK: Normocephalic/Atraumatic, Extremities w/o deformity or ttp No cyanosis or clubbing, Normal movement of all extremities 8.Skin: Warm, Dry. No rashes or lesions. 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 Sensation grossly intact, no focal neurologic deficits. 10.Psych: (AAO) x3. Appropriate mood and affect Course <Easton Brady DO - Last Filed: 11/07/17 13:54> Vital Signs Temperature 37 C 11/05/17 21:55 Pulse 115 H 11/05/17 21:55 Respiratory Rate 22 11/05/17 21:55 Blood Pressure 159/98 H 11/05/17 21:55 Pulse Oximetry 97 11/05/17 21:55 Temperature 37 C 11/05/17 21:55 Temperature Source Temporal Artery Scan 11/05/17 21:55 Pulse 115 H 11/05/17 21:55 Respiratory Rate 22 11/05/17 21:55 Blood Pressure 159/98 H 11/05/17 21:55 Pulse Oximetry 97 11/05/17 21:55 Oxygen Delivery Method Room Air 11/05/17 21:55 Oxygen Flow Rate 0 11/05/17 21:55 Pain Level 8 11/05/17 21:55 Lab/Test Results Lab/Test Results: Laboratory Tests Range/Units 11/05/17 22:04 Urine Color (Yellow) [place] Urine Clarity Cloudy Urine pH (5-8) Ur Specific [place] (1.005-1.025) 1.015 Urine Protein (Negative) mg/dL Color interference Urine Ketones (Negative) mg/dL Color interference Urine Blood (Negative) Color interference Urine Nitrite (Negative) Color interference Urine Bilirubin (Negative) Color interference Urine Urobilinogen (Up TO 0.2) EU/dL Color interference Ur Leukocyte Esterase (Negative) Color interference Urine Glucose (Negative) mg/dL Color interference Sign Out <Easton Brady DO - Last Filed: 11/07/17 13:54> Sign Out Data: Sign Out Comment: pending CT Last updated by Easton Brady DO at 11/05/17 23:30 Post-Handoff Eval: Patient signed out to me pending labs and CT scan. She is much more comfortable after pain medication and fluids. Laboratory studies significant for a urinalysis which is negative. Renal function is normal. Glucose is normal. White cell count elevated at almost 18,000. She is not febrile here. She does not think she has had fevers at home though she is not sure. Urinalysis from the is blood mostly with contamination of epithelial cells and never cultured. CT scan tonight shows a 3 x 5 mm left UVJ stone with mild to moderate hydronephrosis. Because of the recent antibiotic use and the elevated white count the possibility of a partially treated infected stone was entertained. Case was discussed with urology at [facility], Dr. Ovalles. Recommendation is to admit for observation with fluids and pain control. Flomax to try to help facilitate passage of stone. Urology consultation with Dr. Ramirez in the morning with the understanding that if patient becomes febrile and septic overnight [facility] would be willing to take her at that time. Case discussed with hospitalist. Patient will be admitted for observation status overnight as described above. I will attempt to contact Dr. Ramirez first thing in the morning to make him aware of the patient.
[2017-11-05 22:39] LABS: ALT 27 U/L (12-78); AST 19 U/L (15-37); Albumin 3.3 g/dL (3.4-5.0); Alkaline Phosphatase 114 U/L (46-116); Anion Gap 11.1 mmol/L (3-11); BUN 17 mg/dL (7-18); Bilirubin, Total 0.2 mg/dL (0.2-1.0); CO2 22.9 mmol/L (21.0-32.0); CREATININE 0.87 mg/dL (0.55-1.02); Chloride 102 mmol/L (98-107); Glucose 139 mg/dL (70-100); Lipase 106 U/L (73-393); Potassium 3.8 mmol/L (3.5-5.1); Sodium 136 mmol/L (136-145); Total Protein 8.1 g/dL (6.4-8.2)
[2017-11-05 22:42] LABS: Abs Immature Grans 0.08 k/cumm (0.0-0.09); Absolute Basophil Count 0.05 k/cumm (0.0-0.2); Absolute Monocyte Count 1.04 k/cumm (0.11-0.7); Basophils % 0.3; Eosinophils % 1.5; HCT 40.4 % (36.0-46.0); HGB 13.1 g/dL (12.0-15.5); Immature Grans % 0.4; Lymphocytes % 29.7; Mean Corp. HGB Concentration 32.4 g/dL (32.0-36.0); Mean Corpuscular Volume 77.2 fL (80-95); Mean Platelet Volume 10.6 fL (8.0-11.0); Monocytes % 5.8; Neutrophils % 62.3; Platelet Count 344 x1000/uL (130-400); RBC 5.23 m/cumm (4.00-5.20); RBC Distribution Width 15.7 % (11.7-14.6)
[2017-11-05 22:50] LABS: Absolute Eosinophil Count 0.27 k/cumm (0.0-0.7); Absolute Lymphocyte Count 5.32 k/cumm (1.2-3.4); Absolute Neutrophil Count 11.15 k/cumm (1.2-6.7)
[2017-11-05 23:02] LABS: Diff Comment Diff Reviewed
[2017-11-05 23:03] LABS: Microcytosis 1+
--- NOTE | 2017-11-05 23:50 | DI.VRAD_ITS ---
EXAM: CT Abdomen and Pelvis Without Intravenous Contrast EXAM DATE/TIME: 11/05/2017 10:13 PM CLINICAL HISTORY: 47 years old, female; Pain; Abdominal pain; Flank; Left; Patient HX: Left flank pain, HX stones TECHNIQUE: Axial computed tomography images of the abdomen and pelvis without intravenous contrast. Coronal and sagittal reformatted images were created and reviewed. COMPARISON: CT ABD PELVIS WITH CONTRAST 03/02/2012 11:23 PM FINDINGS: Lower thorax: No acute findings. ABDOMEN: Liver: The dome of the liver is not imaged. The liver is otherwise normal Gallbladder and bile ducts: The patient is status post cholecystectomy. Pancreas: Normal. No ductal dilation. Spleen: Splenic granuloma noted Adrenals: Normal. No mass. Kidneys and ureters: Bilateral nonobstructing nephrolithiasis noted. Mild to moderate left sided hydronephrosis is present.Stone measures 3 x 5 mm. Stone located in the distal left ureter just proximal to the UVJ. Stomach and bowel: Normal. No obstruction. No mucosal thickening. Appendix: No evidence of appendicitis. PELVIS: Bladder: The urinary bladder is questionably thickwalled. This may reflect incomplete distention. However correlation with UA is recommended to exclude cystitis. Reproductive: See Bladder Finding. ABDOMEN and PELVIS: Intraperitoneal space: Normal. No free air. No significant fluid collection. Bones/joints: No acute fracture. No dislocation. Soft tissues: Unremarkable. Vasculature: Normal. No abdominal aortic aneurysm. Lymph nodes: Normal. No enlarged lymph nodes. IMPRESSION: 1. Obstructing distal left-sided ureteral stone. 2. Equivocal cystitis. Dictated and Authenticated by: Masood Perkins MD. Ordering:OSMAN MCBRIDE MD
[2017-11-06] VITALS (7 sets, daily range): BP systolic 110–129; BP diastolic 51–87; PULSE 79–94; RESP 16–20; TEMP 36.2–36.8; O2SAT 91–99
[2017-11-06] MEDS: Tamsulosin 0.4 MG CAPCR PO (01:33)
[2017-11-06] MEDS: Normal Saline 1,000 ML 150 ML IV ×4 (01:33→19:35)
[2017-11-06] MEDS: Mirtazapine 15 MG TAB 30 MG PO (02:20)
[2017-11-06] MEDS: hydrOXYzine HCL 25 MG TAB PO ×2 (02:20→19:51)
[2017-11-06] MEDS: Normal Saline Flush 10 ML SYR ×6 (03:35→09:34)
--- NOTE | 2017-11-06 06:56 | W.PM.HP.N ---
Date of service: 11/06/17 Time of Service: 06:25 Assessment and Plan (1) Left ureteral stone: Start date: 11/05/17 Current visit: Yes Status: Chronic CT scan renal colic revealed a left ureteral UVJ stone about 5 mm in its largest diameter. Patient will be given IV hydration with increased rate from 150 to 250 cc/hr of normal saline. Urology has been consulted to evaluate. Continue pain control. (2) Diabetes mellitus type 2, uncontrolled: Current visit: Yes Status: Chronic Patient states that her blood sugars have been lower recently and she has not been using Lantus but her last hemoglobin A1c was reported as greater than 8 in September. We will continue her oral therapy except for Jardiance and will hold her Lantus with AC glucometer coverage with the moderate scale. She will be on a diabetic diet and we could follow-up her hemoglobin A1c during this hospitalization with this more appropriate as an outpatient. History of Present Illness Chief Complaint: Left flank pain Narrative: Per ER HPI: This is a 47-year-old female with a past medical history of 3 C-sections, tubal ligation, diabetes mellitus, chronic Lyme disease, kidney stones, and cholecystectomy. She presents today for left-sided flank pain that began this evening. Per history the patient had a urinary tract infection roughly 11 days ago, she was treated here in the ED given Macrobid for home use. She had no improvement of her symptoms. Then when followed up with her primary care provider who started her on 3 days of Cipro. The patient states that her symptoms notably improved with the Cipro. She had been taking Pyridium during this time. She did admit to a mild burning in her bladder region, but no other significant pain. She is currently 2 days since her last dose of Cipro. Patient states that this evening she had sudden onset of severe left-sided flank pain. It was sharp in nature. There is some radiation down towards her groin. She denies any aggravating or relieving factors. She denies any systemic symptoms of fever, chills, vomiting or diarrhea. She denies any vaginal discharge. She states the symptoms feel slightly similar to her previous kidney stones. Patient denies any other complaints at this time. She denies any IV or illicit drug use or pertinent family history. Updating above she denied any fever and did take Pyridium just prior to coming to the ED which made her urine dark and orange. Overnight with IV hydration she has had very little urine output. She denies any thirst. Her diabetes by history has been well-controlled her last hemoglobin A1c was over 8. She does have significant disability with her obesity and myalgias and is not that active. She has had renal lithiasis in the past but not recently. She denies any gross hematuria. Review of Systems Review of Systems Review of systems as per HPI otherwise negative. She has had no respiratory symptoms with denying cough or dyspnea, she denies any GI symptoms with normal bowel movements, no focalizing neurological complaints, no skin rashes. Meds Home Medications Medication Instructions Recorded Confirmed Type cholecalciferol (vitamin D3) 5,000 units PO DAILY 05/03/12 11/06/17 History pregabalin [Lyrica] 150 mg PO BID 05/03/12 11/06/17 History tizanidine 4 mg PO PRN PRN 05/03/12 11/06/17 History sertraline [Zoloft] 100 mg PO BID tab-cap 07/22/12 11/06/17 History levalbuterol tartrate [Xopenex HFA] 2 gm INHALATION PRN 05/03/13 11/05/17 History epinephrine [EpiPen 2-Fabian] 0.3 mg IM ONCE 02/26/14 11/05/17 History fluticasone [Flonase] 50 mcg NS DAILY spray 02/26/14 11/05/17 History loratadine 10 mg PO DAILY tab-cap 02/26/14 11/06/17 History hydroxyzine HCl 25 mg PO BID 11/09/14 11/06/17 History Insulin Glargine,Hum.rec.anlog 30 unit SQ HS 02/06/17 11/06/17 History [Lantus] Topiramate [Trokendi Xr] 50 mg PO HS 02/06/17 11/06/17 History glipizide 10 mg PO HS 02/06/17 11/06/17 History rosuvastatin [Crestor] 20 mg PO QPM 02/06/17 11/06/17 History Allergies Allergy/AdvReac Type Severity Reaction Status Date / Time amoxicillin trihydrate Allergy Intermediate Hives Unverified 11/05/17 21:58 [From Augmentin] potassium clavulanate Allergy Intermediate Hives Unverified 11/05/17 21:58 [From Augmentin] ammonium lactate AdvReac Intermediate GI UPSET Unverified 11/05/17 21:58 [From Lac-Hydrin] citalopram hydrobromide AdvReac Intermediate CHEST Unverified 11/05/17 21:58 [From Celexa] PAINS, SOB codeine AdvReac Intermediate Nausea Unverified 11/05/17 21:58 duloxetine [Duloxetine] AdvReac Intermediate SPACEY Unverified 11/05/17 21:58 duloxetine HCl AdvReac Intermediate NAUSEA, V/D Unverified 11/05/17 21:58 [From Cymbalta] hydromorphone HCl AdvReac Intermediate NAUSEA,VOMI Unverified 11/05/17 21:58 [From Dilaudid] TING,CONSTI PATION milk AdvReac Mild NAUSEA Unverified 11/05/17 21:58 environmental Allergy Severe Uncoded 11/05/17 21:58 TYLENOL WITH CODEINE AdvReac Mild NAUSEA Uncoded 11/05/17 21:58 Exam Narrative Exam Narrative: General: Patient is in no acute distress and very talkative appearing comfortable, alert and oriented x3. She has short stature and obese. HEENT: Normocephalic, eyes normal with pupils equal react to light symmetrically, oropharynx with moist pink mucosa and normal mentation. Neck: Supple without JVD. Lungs: Clear to auscultation percussion with rhonchi vesicular breath sounds diffusely and no increased expiratory phase. Heart: Regular rate and rhythm without murmurs or gallops appreciated. Breast: Exam deferred. Abdomen: Slightly uncomfortable over the left kidney but no palpable masses, soft with bowel sounds positive in all quadrants. No palpable hepatomegaly. Genitalia/rectal: Exam deferred. Extremities: Without clubbing cyanosis or pitting edema. All joints have full range of motion. She does have diffuse muscle tenderness without spasm. Skin: Pale warm and dry with tattoos over her extremities. Neuro: No focalizing motor deficits, cranial nerves II through XII grossly intact. Psych: Patient does have increased somatic complaints with pressured speech, long-term and short-term memory intact, affect slightly euphoric and anxious. No abnormal thought processes. Results Labs : 11/06/17 06:15 11/06/17 06:15 Laboratory Results - last 24 hr 11/05/17 11/05/17 11/05/17 22:04 22:19 22:19 WBC 17.90 H RBC 5.23 H Hgb 13.1 Hct 40.4 MCV 77.2 L MCH 25.0 L MCHC 32.4 RDW 15.7 H Plt Count 344 MPV 10.6 Immature Gran % 0.4 Neutrophils % 62.3 Lymphocytes % 29.7 Monocytes % 5.8 Eosinophils % 1.5 Basophils % 0.3 Absolute Neutrophils 11.15 H Absolute Lymphocytes 5.32 H Absolute Monocytes 1.04 H Absolute Eosinophils 0.27 Absolute Basophils 0.05 Differential Comment Diff reviewed RBC Morphology See below Microcytosis 1+ Sodium 136 Potassium 3.8 Chloride 102 Carbon Dioxide 22.9 Anion Gap 11.1 H BUN 17 Creatinine 0.87 Estimated GFR/1.73 m2 >= 60.00 Glucose 139 H Calcium 9.0 Total Bilirubin 0.2 AST 19 ALT 27 Alkaline Phosphatase 114 Total Protein 8.1 Albumin 3.3 L Lipase 106 Urine Color [place] Urine Clarity Cloudy Urine pH Ur Specific [place] 1.015 Urine Protein Color interference Urine Ketones Color interference Urine Blood Color interference Urine Nitrite Color interference Urine Bilirubin Color interference Urine Urobilinogen Color interference Ur Leukocyte Esterase Color interference Urine RBC Negative Urine WBC 0-2 Ur Epithelial Cells Few Urine Crystals Negative Urine Bacteria Negative Urine Casts Negative Urine Mucus Negative Urine Other Negative Ur Culture Indicated? No Urine Glucose Color interference
[2017-11-06 06:59] LABS: Abs Immature Grans 0.06 k/cumm (0.0-0.09); Absolute Basophil Count 0.03 k/cumm (0.0-0.2); Absolute Eosinophil Count 0.17 k/cumm (0.0-0.7); Absolute Lymphocyte Count 3.36 k/cumm (1.2-3.4); Basophils % 0.3; Eosinophils % 1.5; HCT 35.4 % (36.0-46.0); HGB 11.3 g/dL (12.0-15.5); Immature Grans % 0.5; Lymphocytes % 29.4; Mean Corp. HGB Concentration 31.9 g/dL (32.0-36.0); Mean Corpuscular Hemoglobin 25.1 pg (27.0-33.0); Mean Corpuscular Volume 78.7 fL (80-95); Mean Platelet Volume 10.8 fL (8.0-11.0); Monocytes % 6.6; Neutrophils % 61.7; Platelet Count 240 x1000/uL (130-400); RBC Distribution Width 15.6 % (11.7-14.6); White Blood Cell Count 11.44 k/cumm (4.4-10.8)
[2017-11-06 07:00] LABS: Absolute Monocyte Count 0.76 k/cumm (0.11-0.7); Absolute Neutrophil Count 7.06 k/cumm (1.2-6.7)
[2017-11-06 07:02] LABS: Anion Gap 8.3 mmol/L (3-11); BUN 16 mg/dL (7-18); CO2 22.7 mmol/L (21.0-32.0); Calcium 8.2 mg/dL (8.5-10.1); Chloride 103 mmol/L (98-107); Glucose 160 mg/dL (70-100); Potassium 3.6 mmol/L (3.5-5.1); Sodium 134 mmol/L (136-145)
[2017-11-06] MEDS: Ondansetron 4 MG/2 ML VIAL IVP ×2 (08:10→16:12)
--- NOTE | 2017-11-06 10:56 | PDOC.CMIN ---
- If Service Date Differs Date of service: 11/06/17 Time of Service: 10:56 Care Management Initial Assess REASON FOR HOSPITALIZATION:: (L) ureteral stone PAST MEDICAL HISTORY/PAST SURGICAL HISTORY:: (L) Ureteral stone, Diabetes mellitus type 2, Chronic lyme disease, kidney stones, Cholecystectomy, Tubal ligation PREVIOUS FUNCTIONAL STATUS/SOCIAL/FAMILY SUPPORTS:: Alis resides in [facility]. She is currently applying for disability and is no longer able to work. She is independent at baseline, and has family/friends in the community whom are supportive. CURRENT FUNCTIONAL STATUS:: Currently Alis is lying in bed when this health underwriter visits. She is pleasant and open to discussion. ADVANCE DIRECTIVES:: None on file Has patient been provided with information about the portal?: Yes Did the patient sign up for the portal?: No CODE STATUS:: Full Code INSURANCE COVERAGE / FINANCIAL ISSUES:: Medicaid CURRENT HOME/COMMUNITY SERVICES/EQUIPMENT:: Currently Alis has no services or medical equipment in the community. PRIMARY CARE PHYSICIAN:: Digna Lemon POTENTIAL DISCHARGE NEEDS:: F/U appointment with PCP PATIENT/FAMILY EDUCATION NEEDS:: Review DC instructions, any limitations, and ongoing DC planning discussion. Review Ask Me Three ANTICIPATED BARRIERS TO DISCHARGE:: None identified at this time. TRANSPORTATION:: via private vehicle PLAN:: Alis will return home with no anticipated services. She will F/U with PCP and plan of care as prescribed. Alis to transport via private vehicle.
--- NOTE | 2017-11-06 11:00 | INITIAL_ITS ---
- If Service Date Differs Date of service: 11/06/17 Time of Service: 10:56 Care Management Initial Assess REASON FOR HOSPITALIZATION:: (L) ureteral stone PAST MEDICAL HISTORY/PAST SURGICAL HISTORY:: (L) Ureteral stone, Diabetes mellitus type 2, Chronic lyme disease, kidney stones, Cholecystectomy, Tubal ligation PREVIOUS FUNCTIONAL STATUS/SOCIAL/FAMILY SUPPORTS:: Alis resides in [facility]. She is currently applying for disability and is no longer able to work. She is independent at baseline, and has family/friends in the community whom are supportive. CURRENT FUNCTIONAL STATUS:: Currently Alis is lying in bed when this blurb writer visits. She is pleasant and open to discussion. ADVANCE DIRECTIVES:: None on file Has patient been provided with information about the portal?: Yes Did the patient sign up for the portal?: No CODE STATUS:: Full Code INSURANCE COVERAGE / FINANCIAL ISSUES:: Medicaid CURRENT HOME/COMMUNITY SERVICES/EQUIPMENT:: Currently Alis has no services or medical equipment in the community. PRIMARY CARE PHYSICIAN:: Digna Lemon POTENTIAL DISCHARGE NEEDS:: F/U appointment with PCP PATIENT/FAMILY EDUCATION NEEDS:: Review DC instructions, any limitations, and ongoing DC planning discussion. Review Ask Me Three ANTICIPATED BARRIERS TO DISCHARGE:: None identified at this time. TRANSPORTATION:: via private vehicle PLAN:: Alis will return home with no anticipated services. She will F/U with PCP and plan of care as prescribed. Alis to transport via private vehicle.
[2017-11-06] MEDS: Insulin Aspart 300 UNITS/3 ML PEN SC ×2 (13:33→17:13)
[2017-11-06] MEDS: oxyCODONE 5 mg/Acetaminophen 325 mg TAB PO ×3 (13:33→21:50)
--- NOTE | 2017-11-06 15:23 | CHAPLAIN ---
Alis was sitting up in bed working on [email or web address] puzzles when I stopped in. Her mom has been in to visit her and she may bring Alis's two teenage boys to visit later. Alis is especially missing her husky dog. She was pleasant and easily engaged in a conversation.
--- NOTE | 2017-11-06 15:32 | W.PM.PROGNOT ---
Assessment and Plan (1) Left ureteral stone: Current visit: Yes Status: Chronic CT scan revealed Bilateral nephrolithiasis and obstructing 5 mm in diameter calculus of the distal left ureter at the UVJ. There was note made of left mild hydronephrosis and hydroureter. A urology consult was placed, however, urology is not available this week. Plan to try to manage her pain with oral analgesics. If this can be accomplished, she could possibly be discharged home with close urology follow up in place. Continue analgesics, antiemetics and IV fluids. (2) Diabetes mellitus type 2, uncontrolled: Current visit: Yes Status: Chronic Her blood sugars have been in an acceptable range. Continue current regimen, continue fingersticks and carbohydrate controlled diet. Subjective Interval history since last seen: This is a 47-year-old female with a past medical history of 3 C-sections, tubal ligation, diabetes mellitus, chronic Lyme disease, kidney stones, and cholecystectomy. She oresented to the ED yesterday, on 11/05/17 with reports of left-sided flank pain. She had been seen in the ED and treated for a UTI with Macrobid previously. She did not have improvement in her symptoms and followed up with her primary care provider who started her on Cipro for 3 more days. She felt that her symptoms improved on the Cipro. 2 days later she presented back to the emergency department on 11/05/2017 with a report of a sudden onset of severe left-sided flank pain. She also noted some radiation toward her groin and nausea. She has had kidney stones in the past. She had a CT scan in the emergency department which revealed a 5 mm stone at the UVJ. She was given IV fluids overnight as well as analgesics and antiemetics. A urology consult was placed. Today she continues to report significant pain that comes in waves. Her pain is sharp in nature and is primarily left flank around to left groin. She also continues to have nausea although she was able to eat some breakfast this morning. Urology is not available this week. Will attempt to transition her to oral pain medication. If her pain is well managed on oral we could consider discharge home with follow-up with urology. If we are unable to manage her pain with oral analgesics, consider discussion with outside urologist. Other than her left-sided pain and nausea she denies any other symptoms. She denies dysuria, hematuria, urinary frequency or urgency. She has no shortness of breath, cough, wheeze, no chest pain/pressure, palpitations, no vomiting. She has not moved her bowels today, she had a normal bowel movement yesterday. Exam Const General: cooperative and comfortable Orientation: alert and oriented x3 [facility] Head: normocephalic and atraumatic Mouth: moist mucous membranes Neck Neck: supple Resp Effort & Inspection: normal respiratory effort Auscultation: clear to auscultation bilaterally, no rales, no rhonchi and no wheezes Cardio Rate: regular rate and not tachycardic Heart Sounds: S1 normal, S2 normal, no gallops, no murmurs and no rubs Pulses: dorsalis pedis pulses present GI Palpation: soft, no masses and tender (Left sided abdominal tenderness and left CVA tenderness.) Auscultation: normal bowel sounds Skin General skin exam: no rashes or lesions noted Extrem General: no clubbing, cyanosis or edema Objective Objective Clinical Data: Abnormal lab results 11/05/17 11/05/17 11/06/17 Range/Units 22:19 22:19 06:15 WBC 17.90 H (4.4-10.8) k/cumm RBC 5.23 H (4.00-5.20) m/cumm Hgb (12.0-15.5) g/dL Hct (36.0-46.0) % MCV 77.2 L (80-95) fL MCH 25.0 L (27.0-33.0) pg MCHC (32.0-36.0) g/dL RDW 15.7 H (11.7-14.6) % Absolute Neutrophils 11.15 H (1.2-6.7) k/cumm Absolute Lymphocytes 5.32 H (1.2-3.4) k/cumm Absolute Monocytes 1.04 H (0.11-0.7) k/cumm Sodium 134 L (136-145) mmol/L Anion Gap 11.1 H (3-11) mmol/L Glucose 139 H 160 H (70-100) mg/dL Calcium 8.2 L (8.5-10.1) mg/dL Albumin 3.3 L (3.4-5.0) g/dL 11/06/17 Range/Units 06:15 WBC 11.44 H D (4.4-10.8) k/cumm RBC (4.00-5.20) m/cumm Hgb 11.3 L (12.0-15.5) g/dL Hct 35.4 L (36.0-46.0) % MCV 78.7 L (80-95) fL MCH 25.1 L (27.0-33.0) pg MCHC 31.9 L (32.0-36.0) g/dL RDW 15.6 H (11.7-14.6) % Absolute Neutrophils 7.06 H (1.2-6.7) k/cumm Absolute Lymphocytes (1.2-3.4) k/cumm Absolute Monocytes 0.76 H (0.11-0.7) k/cumm Sodium (136-145) mmol/L Anion Gap (3-11) mmol/L Glucose (70-100) mg/dL Calcium (8.5-10.1) mg/dL Albumin (3.4-5.0) g/dL Vital Signs Temperature 36.3 C L 11/06/17 15:28 Temperature Source Tympanic 11/06/17 15:28 Pulse 90 11/06/17 15:28 Pulse Rhythm Regular 11/06/17 07:45 Respiratory Rate 16 11/06/17 15:28 Respiratory Effort 11/06/17 07:45 Respiratory Depth Normal 11/06/17 07:45 Respiratory Pattern Normal 11/06/17 07:45 Blood Pressure 119/83 11/06/17 15:28 Pulse Oximetry 96 11/06/17 15:28 Oxygen Delivery Method Room Air 11/06/17 15:28 Oxygen Flow Rate 0 11/06/17 15:28 Pain Level 4 11/06/17 15:28 Intake & Output 11/05/17 11/06/17 11/06/17 23:59 11:59 23:59 Intake Total 3000 / 3000 240 / 240 Output Total 500 / 500 Balance 2500 / 2500 240 / 240 Weight 141.067 kg 141.067 kg Intake: IV 3000 / 3000 Oral 240 / 240 Output: Urine 500 / 500 Other: Urine Color [place] Urine Appearance Clear Urine Odor Foul Strain Urine Result Negative-No Stones/Gravel Comment No stone found. Voiding Methods Toilet Laboratory Results WBC 11.44 k/cumm (4.4-10.8) H D 11/06/17 06:15 RBC 4.50 m/cumm (4.00-5.20) 11/06/17 06:15 Hgb 11.3 g/dL (12.0-15.5) L 11/06/17 06:15 Hct 35.4 % (36.0-46.0) L 11/06/17 06:15 MCV 78.7 fL (80-95) L 11/06/17 06:15 MCH 25.1 pg (27.0-33.0) L 11/06/17 06:15 MCHC 31.9 g/dL (32.0-36.0) L 11/06/17 06:15 RDW 15.6 % (11.7-14.6) H 11/06/17 06:15 Plt Count 240 x1000/uL (130-400) D 11/06/17 06:15 MPV 10.8 fL (8.0-11.0) 11/06/17 06:15 Immature Gran % 0.5 11/06/17 06:15 Neutrophils % 61.7 11/06/17 06:15 Lymphocytes % 29.4 11/06/17 06:15 Monocytes % 6.6 11/06/17 06:15 Eosinophils % 1.5 11/06/17 06:15 Basophils % 0.3 11/06/17 06:15 Absolute Neutrophils 7.06 k/cumm (1.2-6.7) H 11/06/17 06:15 Absolute Lymphocytes 3.36 k/cumm (1.2-3.4) 11/06/17 06:15 Absolute Monocytes 0.76 k/cumm (0.11-0.7) H 11/06/17 06:15 Absolute Eosinophils 0.17 k/cumm (0.0-0.7) 11/06/17 06:15 Absolute Basophils 0.03 k/cumm (0.0-0.2) 11/06/17 06:15 Differential Comment Diff reviewed 11/05/17 22:19 RBC Morphology See below 11/05/17 22:19 Microcytosis 1+ 11/05/17 22:19 Sodium 134 mmol/L (136-145) L 11/06/17 06:15 Potassium 3.6 mmol/L (3.5-5.1) 11/06/17 06:15 Chloride 103 mmol/L (98-107) 11/06/17 06:15 Carbon Dioxide 22.7 mmol/L (21.0-32.0) 11/06/17 06:15 Anion Gap 8.3 mmol/L (3-11) 11/06/17 06:15 BUN 16 mg/dL (7-18) 11/06/17 06:15 Creatinine 0.70 mg/dL (0.55-1.02) 11/06/17 06:15 Estimated GFR/1.73 m2 >= 60.00 (mL/min/1.73m2) 11/06/17 06:15 Glucose 160 mg/dL (70-100) H 11/06/17 06:15 Calcium 8.2 mg/dL (8.5-10.1) L 11/06/17 06:15 Total Bilirubin 0.2 mg/dL (0.2-1.0) 11/05/17 22:19 AST 19 U/L (15-37) 11/05/17 22:19 ALT 27 U/L (12-78) 11/05/17 22:19 Alkaline Phosphatase 114 U/L (46-116) 11/05/17 22:19 Total Protein 8.1 g/dL (6.4-8.2) 11/05/17 22:19 Albumin 3.3 g/dL (3.4-5.0) L 11/05/17 22:19 Lipase 106 U/L (73-393) 11/05/17 22:19 Urine Color [place] (Yellow) 11/05/17 22:04 Urine Clarity Cloudy 11/05/17 22:04 Urine pH (5-8) 11/05/17 22:04 Ur Specific [place] 1.015 (1.005-1.025) 11/05/17 22:04 Urine Protein Color interference mg/dL (Negative) 11/05/17 22:04 Urine Ketones Color interference mg/dL (Negative) 11/05/17 22:04 Urine Blood Color interference (Negative) 11/05/17 22:04 Urine Nitrite Color interference (Negative) 11/05/17 22:04 Urine Bilirubin Color interference (Negative) 11/05/17 22:04 Urine Urobilinogen Color interference EU/dL (Up TO 0.2) 11/05/17 22:04 Ur Leukocyte Esterase Color interference (Negative) 11/05/17 22:04 Urine RBC Negative (0-2) 11/05/17 22:04 Urine WBC 0-2 HPF (0-5) 11/05/17 22:04 Ur Epithelial Cells Few HPF (Negative) 11/05/17 22:04 Urine Crystals Negative HPF (Negative) 11/05/17 22:04 Urine Bacteria Negative HPF (Negative) 11/05/17 22:04 Urine Casts Negative LPF (Negative) 11/05/17 22:04 Urine Mucus Negative (Negative) 11/05/17 22:04 Urine Other Negative (Negative) 11/05/17 22:04 Ur Culture Indicated? No 11/05/17 22:04 Urine Glucose Color interference mg/dL (Negative) 11/05/17 22:04
[2017-11-06] MEDS: Rosuvastatin 10 MG TAB 20 MG PO (19:51)
[2017-11-06] MEDS: Pregabalin 50 MG CAP 150 MG PO (19:51)
[2017-11-06] MEDS: Sertraline 50 MG TAB 100 MG PO (19:52)
[2017-11-06] MEDS: Ketorolac 30 MG/ML VIAL IVP (19:52)
[2017-11-07] VITALS (9 sets, daily range): BP systolic 101–153; BP diastolic 60–87; PULSE 86–113; RESP 12–21; TEMP 36.1–37.4; O2SAT 89–99
[2017-11-07] MEDS: Normal Saline 1,000 ML 150 ML IV ×4 (01:46→23:59)
[2017-11-07] MEDS: Ondansetron 4 MG/2 ML VIAL IVP ×2 (01:46→11:05)
[2017-11-07] MEDS: oxyCODONE 5 mg/Acetaminophen 325 mg TAB PO ×3 (01:52→19:28)
[2017-11-07 07:17] LABS: HGB 12.3 g/dL (12.0-15.5); Mean Corp. HGB Concentration 31.5 g/dL (32.0-36.0); Mean Corpuscular Hemoglobin 25.3 pg (27.0-33.0); Mean Corpuscular Volume 80.2 fL (80-95); RBC 4.86 m/cumm (4.00-5.20); White Blood Cell Count 8.98 k/cumm (4.4-10.8)
[2017-11-07] MEDS: Normal Saline Flush 10 ML SYR IVP ×2 (07:22→11:06)
[2017-11-07] MEDS: Ketorolac 30 MG/ML VIAL IVP ×2 (07:23→14:34)
[2017-11-07 07:34] LABS: Anion Gap 7.7 mmol/L (3-11); BUN 13 mg/dL (7-18); CO2 24.3 mmol/L (21.0-32.0); CREATININE 0.66 mg/dL (0.55-1.02); Calcium 8.5 mg/dL (8.5-10.1); Chloride 107 mmol/L (98-107); Glucose 128 mg/dL (70-100); Potassium 4.2 mmol/L (3.5-5.1); Sodium 139 mmol/L (136-145)
[2017-11-07 07:39] LABS: Platelet Count 212 x1000/uL (130-400)
[2017-11-07] MEDS: Tamsulosin 0.4 MG CAPCR PO (10:05)
--- NOTE | 2017-11-07 10:27 | PDOC.CMDIS ---
- If Service Date Differs Date of service: 11/07/17 Time of Service: 10:27 LACE Index Scoring Tool - Questions: Length of Stay (in days): 2 Acuity (Admit via E.D.?): Yes Comorbidities: Diabetes w/o Complication E.D. Visits: 5 - Answers: Total Score: 10 Risk of Readmission: High Risk Care Management Discharge Reason for Hospitalization: (L) ureteral stone Discharge Plan: Alis will return home with no anticipated services. She will F/U with PCP and plan of care as prescribed. Alis's family will transport when ready. Patient/Family Education Needs: Review DC instructions, any limitations, and ongoing DC planning discussion.
[2017-11-07] MEDS: Insulin Aspart 300 UNITS/3 ML PEN SC (12:25)
--- NOTE | 2017-11-07 14:41 | W.PM.PROGNOT ---
Assessment and Plan (1) Left ureteral stone: Current visit: Yes Status: Chronic CT scan revealed Bilateral nephrolithiasis and obstructing 5 mm in diameter calculus of the distal left ureter at the UVJ. There was note made of left mild hydronephrosis and hydroureter. A urology consult was placed, however, urology is not available this week. She has transitioned to oral analgesics. She received IV toradol and zofran overnight. Plan to transition to oral toradol and zofran. If her symptoms can be managed with all oral medications, she could be considered for discharge home with close urology follow up in place. Continue analgesics, antiemetics and IV fluids. (2) Diabetes mellitus type 2, uncontrolled: Current visit: Yes Status: Chronic Her blood sugars have been in an acceptable range. Continue current regimen, continue fingersticks and carbohydrate controlled diet. (3) JOB (obstructive sleep apnea): Current visit: Yes Status: Chronic She has a CPAP at home but does not wear it routinely. She was noted while resting/asleep to have a low oxygen saturation of 89%. She was placed on oxygen via nasal cannula. She has been encouraged to ambulate, cough and deep breathe. After getting OOB, her oxygen saturation improved to 99%. Oxygen has since been discontinued. Oxygen available for PRN use. (4) Discharge planning issues: Current visit: Yes Status: Acute She is a FULL CODE. This case was discussed with Dr. Sanders who is in agreement. Subjective Interval history since last seen: This is a 47-year-old female with a past medical history of 3 C-sections, tubal ligation, diabetes mellitus, chronic Lyme disease, kidney stones, and cholecystectomy. She oresented to the ED yesterday, on 11/05/17 with reports of left-sided flank pain. She had been seen in the ED and treated for a UTI with Macrobid previously. She did not have improvement in her symptoms and followed up with her primary care provider who started her on Cipro for 3 more days. She felt that her symptoms improved on the Cipro. 2 days later she presented back to the emergency department on 11/05/2017 with a report of a sudden onset of severe left-sided flank pain. She also noted some radiation toward her groin and nausea. She has had kidney stones in the past. She had a CT scan in the emergency department which revealed a 5 mm stone at the UVJ. She was admitted to the med/surg floor and given IV hydration, analgesic and antiemetics. She transitioned to oral pain medication yesterday. The plan was to switch to oral pain medication and discharge her home with close urology follow up in place. She has tolerated the oral pain medication, however, nursing reports that her oxygen saturation has dropped to 89% and she was placed on oxygen via nasal cannula. She was also noted to be tachycardic. She is encourgaed to ambulated and cough and deep breathe. She remains afebrile. She has no leukocytosis. She has been straining her urine and has noted gravel, no large stones. Her pain is less in her left lower back and more in her left side. It comes in waves. She also notes that she had a migraine over night, which is improving. She continues to have some nausea. No chest pain, shortness of breath, coughing or wheezing. Exam Const General: cooperative and acute distress (Mild distress getting OOB to BR.) Orientation: alert and oriented x3 HENMT Head: normocephalic and atraumatic Mouth: moist mucous membranes Neck Neck: supple Resp Effort & Inspection: normal respiratory effort Auscultation: clear to auscultation bilaterally, no rales, no rhonchi and no wheezes Cardio Rate: regular rate and not tachycardic Heart Sounds: S1 normal, S2 normal, no gallops, no murmurs and no rubs Pulses: dorsalis pedis pulses present GI Palpation: soft, no masses and tender (Left sided abdominal tenderness and left CVA tenderness.) Auscultation: normal bowel sounds Skin General skin exam: no rashes or lesions noted Extrem General: no clubbing, cyanosis or edema Objective Objective Clinical Data: Abnormal lab results 11/07/17 11/07/17 Range/Units 06:45 06:45 MCH 25.3 L (27.0-33.0) pg MCHC 31.5 L (32.0-36.0) g/dL RDW 16.0 H (11.7-14.6) % Glucose 128 H (70-100) mg/dL Vital Signs Temperature 36.3 C L 11/07/17 11:36 Temperature Source Temporal Artery Scan 11/07/17 11:36 Pulse 100 H 11/07/17 12:12 Pulse Rhythm Regular 11/07/17 09:45 Respiratory Rate 14 11/07/17 12:12 Respiratory Effort Non-Labored 11/07/17 09:45 Respiratory Depth Normal 11/07/17 09:45 Respiratory Pattern Normal 11/07/17 09:45 Blood Pressure 109/71 11/07/17 11:36 Pulse Oximetry 98 11/07/17 12:12 Oxygen Delivery Method Nasal Cannula 11/07/17 12:12 Oxygen Flow Rate 2 11/07/17 12:12 Pain Level 5 11/07/17 14:34 Comment 11/07/17 12:12 Intake & Output 11/06/17 11/07/17 11/07/17 23:59 11:59 23:59 Intake Total 1480 / 1480 1277.5 / 1277.5 Output Total 350 / 350 1150 / 1150 Balance 1130 / 1130 127.5 / 127.5 Weight 142.6 kg Intake: IV 1000 / 1000 927.5 / 927.5 Oral 480 / 480 350 / 350 Output: Urine 350 / 350 1150 / 1150 Other: Urine Color Dark Paula Yellow [place] Urine Appearance Stones/Calculi Clear Urine Odor Strong Normal Comment gravel in the urine, no stones gravel Voiding Methods Toilet Toilet Laboratory Results WBC 8.98 k/cumm (4.4-10.8) 11/07/17 06:45 RBC 4.86 m/cumm (4.00-5.20) 11/07/17 06:45 Hgb 12.3 g/dL (12.0-15.5) 11/07/17 06:45 Hct 39.0 % (36.0-46.0) 11/07/17 06:45 MCV 80.2 fL (80-95) 11/07/17 06:45 MCH 25.3 pg (27.0-33.0) L 11/07/17 06:45 MCHC 31.5 g/dL (32.0-36.0) L 11/07/17 06:45 RDW 16.0 % (11.7-14.6) H 11/07/17 06:45 Plt Count 212 x1000/uL (130-400) 11/07/17 06:45 MPV 11.0 fL (8.0-11.0) 11/07/17 06:45 Immature Gran % 0.5 11/06/17 06:15 Neutrophils % 61.7 11/06/17 06:15 Lymphocytes % 29.4 11/06/17 06:15 Monocytes % 6.6 11/06/17 06:15 Eosinophils % 1.5 11/06/17 06:15 Basophils % 0.3 11/06/17 06:15 Absolute Neutrophils 7.06 k/cumm (1.2-6.7) H 11/06/17 06:15 Absolute Lymphocytes 3.36 k/cumm (1.2-3.4) 11/06/17 06:15 Absolute Monocytes 0.76 k/cumm (0.11-0.7) H 11/06/17 06:15 Absolute Eosinophils 0.17 k/cumm (0.0-0.7) 11/06/17 06:15 Absolute Basophils 0.03 k/cumm (0.0-0.2) 11/06/17 06:15 Differential Comment Diff reviewed 11/05/17 22:19 RBC Morphology See below 11/05/17 22:19 Microcytosis 1+ 11/05/17 22:19 Sodium 139 mmol/L (136-145) 11/07/17 06:45 Potassium 4.2 mmol/L (3.5-5.1) 11/07/17 06:45 Chloride 107 mmol/L (98-107) 11/07/17 06:45 Carbon Dioxide 24.3 mmol/L (21.0-32.0) 11/07/17 06:45 Anion Gap 7.7 mmol/L (3-11) 11/07/17 06:45 BUN 13 mg/dL (7-18) 11/07/17 06:45 Creatinine 0.66 mg/dL (0.55-1.02) 11/07/17 06:45 Estimated GFR/1.73 m2 >= 60.00 (mL/min/1.73m2) 11/07/17 06:45 Glucose 128 mg/dL (70-100) H 11/07/17 06:45 Calcium 8.5 mg/dL (8.5-10.1) 11/07/17 06:45 Total Bilirubin 0.2 mg/dL (0.2-1.0) 11/05/17 22:19 AST 19 U/L (15-37) 11/05/17 22:19 ALT 27 U/L (12-78) 11/05/17 22:19 Alkaline Phosphatase 114 U/L (46-116) 11/05/17 22:19 Total Protein 8.1 g/dL (6.4-8.2) 11/05/17 22:19 Albumin 3.3 g/dL (3.4-5.0) L 11/05/17 22:19 Lipase 106 U/L (73-393) 11/05/17 22:19 Urine Color [place] (Yellow) 11/05/17 22:04 Urine Clarity Cloudy 11/05/17 22:04 Urine pH (5-8) 11/05/17 22:04 Ur Specific Happy 1.015 (1.005-1.025) 11/05/17 22:04 Urine Protein Color interference mg/dL (Negative) 11/05/17 22:04 Urine Ketones Color interference mg/dL (Negative) 11/05/17 22:04 Urine Blood Color interference (Negative) 11/05/17 22:04 Urine Nitrite Color interference (Negative) 11/05/17 22:04 Urine Bilirubin Color interference (Negative) 11/05/17 22:04 Urine Urobilinogen Color interference EU/dL (Up TO 0.2) 11/05/17 22:04 Ur Leukocyte Esterase Color interference (Negative) 11/05/17 22:04 Urine RBC Negative (0-2) 11/05/17 22:04 Urine WBC 0-2 HPF (0-5) 11/05/17 22:04 Ur Epithelial Cells Few HPF (Negative) 11/05/17 22:04 Urine Crystals Negative HPF (Negative) 11/05/17 22:04 Urine Bacteria Negative HPF (Negative) 11/05/17 22:04 Urine Casts Negative LPF (Negative) 11/05/17 22:04 Urine Mucus Negative (Negative) 11/05/17 22:04 Urine Other Negative (Negative) 11/05/17 22:04 Ur Culture Indicated? No 11/05/17 22:04 Urine Glucose Color interference mg/dL (Negative) 11/05/17 22:04
--- NOTE | 2017-11-07 15:27 | PHARADMIT ---
Admission Pharmacy Clinical Review left distal ureteral stone Code Status Full Code Current Weight 142.6 kg Renally Cleared and Narrow Therapeutic Index Meds Crcl ~73.46 mL/min current meds okay QTc Value / Action Taken BP Control, Fever BP 127/85 afebrile Electrolytes reviewed within normal limits DVT Prophylaxis none Opiate Usage / Scheduled Bowel Regimen Ordered prn/prn Plt/SCr for Heparin / Enoxaparin plt 212 SCr 0.66 INR for Warfarin n/a H/H stable, WBC/Bands h/h 12.3/39.0 wbc 8.98 Antibiotic appropriateness n/a Cultures and Sensitivities urine culture grew gram+ yanique (possible contamination) Surgical ABX d/c within 24 hr n/a DM control / Insulin Dosing BG 128 sliding scale aspart Heart Failure (Check EF%) (CHEKO's, B-Block, Diuretics) none IV to PO Switch n/a Home Meds Reviewed yes Home Meds Not Ordered epinephrine, fluticasone(nasal), insulin glargine, vitamin D Comments
[2017-11-07] MEDS: Rosuvastatin 10 MG TAB 20 MG PO (19:27)
[2017-11-07] MEDS: Ondansetron O.D.T. 4 MG TABEF PO (21:04)
[2017-11-07] MEDS: hydrOXYzine HCL 25 MG TAB PO (21:05)
[2017-11-07] MEDS: Pregabalin 50 MG CAP 150 MG PO (21:06)
[2017-11-07] MEDS: Ketorolac 10 MG TAB PO (21:12)
[2017-11-08] MEDS: oxyCODONE 5 mg/Acetaminophen 325 mg TAB PO ×3 (00:38→12:22)
[2017-11-08 01:00] VITALS: BP 107/70; PULSE 91; RESP 22; TEMP 36.7; O2SAT 96
[2017-11-08] MEDS: Normal Saline 1,000 ML 150 ML IV ×2 (06:13→12:30)
[2017-11-08] MEDS: Ketorolac 10 MG TAB PO ×2 (06:27→12:21)
[2017-11-08] MEDS: Tamsulosin 0.4 MG CAPCR PO (07:39)
[2017-11-08] MEDS: Loratidine 10 MG TAB PO (07:39)
[2017-11-08 07:40] VITALS: BP 146/71; PULSE 98; RESP 20; TEMP 36.6; O2SAT 95
[2017-11-08] MEDS: Sertraline 50 MG TAB 100 MG PO (07:40)
[2017-11-08] MEDS: Ondansetron O.D.T. 4 MG TABEF PO (10:48)
[2017-11-08 11:52] VITALS: BP 115/76; PULSE 96; RESP 19; TEMP 37.1; O2SAT 94
[2017-11-08] MEDS: Insulin Aspart 300 UNITS/3 ML PEN SC (12:22)
--- NOTE | 2017-11-08 13:04 | W.PM.DS.N ---
Documented by User: Kateryna Galvez NP 11/08/17 14:54 Documented by User: Kateryna Galvez NP 11/08/17 14:54 Date of service: Time of Service: Exam Const General: Orientation: [facility] Head: Mouth: Neck Neck: Resp Effort & Inspection: GI Palpation: Skin General skin exam: Extrem General: DS: Data Vitals/I&O Vitals and I&O: Vital Signs Temperature 36.6 C 11/08/17 07:40 Temperature Source Tympanic 11/08/17 07:40 Pulse 98 H 11/08/17 07:40 Pulse Rhythm Regular 11/08/17 07:47 Respiratory Rate 20 11/08/17 07:40 Respiratory Effort Non-Labored 11/08/17 07:47 Respiratory Depth Normal 11/08/17 07:47 Respiratory Pattern Normal 11/08/17 07:47 Blood Pressure 146/71 H 11/08/17 07:40 Pulse Oximetry 95 11/08/17 07:40 Oxygen Delivery Method Room Air 11/08/17 07:40 Oxygen Flow Rate 0 11/08/17 07:40 Pain Level 5 11/08/17 12:22 Comment 11/07/17 12:12 Intake & Output 11/07/17 11/08/17 11/08/17 23:59 11:59 23:59 Intake Total 1986. / 1986.5 1680 / 1680 942.5 / 942.5 Output Total 200 / 200 750 / 750 Balance 1787.5 / 1787.5 930 / 930 942.5 / 942.5 Weight 150.1 kg Intake: IV 1986. / 1986. 1000 / 1000 942.5 / 942.5 Oral 680 / 680 Output: Urine 200 / 200 750 / 750 Other: Urine Color Yellow Yellow Urine Appearance Clear Clear Urine Odor Normal Strain Urine Result Negative-No Stones/Gravel Negative-No Stones/Gravel Comment gravel Strained urine no stones no gravel. Voiding Methods Toilet Toilet Completed studies during hospitalization [Text1]: ABDOMINAL AND PELVIC CT: 11/05 CT examination of the abdomen and pelvis was performed without contrast administration. Images obtained through the lung bases are unremarkable. Note is made of previous cholecystectomy. No biliary dilatation seen. Pancreas is unremarkable. The visualized portions of the liver appear intact. Small multiple splenic calcifications noted consistent with healed granulomatous disease. Abdominal aorta is of normal diameter. No abdominal or pelvic adenopathy seen. No significant abdominal wall hernia seen. Appendix appears normal. No evidence of diverticulitis or bowel obstruction. Adrenals appear normal bilaterally. There are bilateral nonobstructing renal calculi. No right hydronephrosis, hydroureter or ureterolithiasis. On the left there is mild hydronephrosis and hydroureter to the level of the distal ureter where there is an obstructing 5 mm greatest diameter calculus at the ureterovesical junction. Urinary bladder is collapsed. No additional ureteral stones seen. [employer] structures appear intact. No free pelvic fluid seen. CONCLUSION: Bilateral nephrolithiasis and obstructing 5 mm in diameter calculus of the distal left ureter. Pending studies at discharge: Closed [endoscopic] biopsy of large intestine (05/03/12) Closed [endoscopic] biopsy of rectum (05/03/12) DIGITAL RECTAL EXAM (04/17/96) DX ULTRASOUND NEC (04/17/96) MONITORING NOS (11/18/02) GYNECOLOGIC EXAMINATION (04/17/96) INTRAOPER CHOLANGIOGRAM (03/13/03) LAPAROSCOPIC CHOLECYSTECTOMY (03/13/03) LOW CERVICAL (12/07/02) WBC 8.98 k/cumm (4.4-10.8) 11/07/17 06:45 RBC 4.86 m/cumm (4.00-5.20) 11/07/17 06:45 Hgb 12.3 g/dL (12.0-15.5) 11/07/17 06:45 Hct 39.0 % (36.0-46.0) 11/07/17 06:45 MCV 80.2 fL (80-95) 11/07/17 06:45 MCH 25.3 pg (27.0-33.0) L 11/07/17 06:45 MCHC 31.5 g/dL (32.0-36.0) L 11/07/17 06:45 RDW 16.0 % (11.7-14.6) H 11/07/17 06:45 Plt Count 212 x1000/uL (130-400) 11/07/17 06:45 MPV 11.0 fL (8.0-11.0) 11/07/17 06:45 Immature Gran % 0.5 11/06/17 06:15 Neutrophils % 61.7 11/06/17 06:15 Lymphocytes % 29.4 11/06/17 06:15 Monocytes % 6.6 11/06/17 06:15 Eosinophils % 1.5 11/06/17 06:15 Basophils % 0.3 11/06/17 06:15 Absolute Neutrophils 7.06 k/cumm (1.2-6.7) H 11/06/17 06:15 Absolute Lymphocytes 3.36 k/cumm (1.2-3.4) 11/06/17 06:15 Absolute Monocytes 0.76 k/cumm (0.11-0.7) H 11/06/17 06:15 Absolute Eosinophils 0.17 k/cumm (0.0-0.7) 11/06/17 06:15 Absolute Basophils 0.03 k/cumm (0.0-0.2) 11/06/17 06:15 Differential Comment Diff reviewed 11/05/17 22:19 RBC Morphology See below 11/05/17 22:19 Microcytosis 1+ 11/05/17 22:19 Sodium 139 mmol/L (136-145) 11/07/17 06:45 Potassium 4.2 mmol/L (3.5-5.1) 11/07/17 06:45 Chloride 107 mmol/L (98-107) 11/07/17 06:45 Carbon Dioxide 24.3 mmol/L (21.0-32.0) 11/07/17 06:45 Anion Gap 7.7 mmol/L (3-11) 11/07/17 06:45 BUN 13 mg/dL (7-18) 11/07/17 06:45 Creatinine 0.66 mg/dL (0.55-1.02) 11/07/17 06:45 Estimated GFR/1.73 m2 >= 60.00 (mL/min/1.73m2) 11/07/17 06:45 Glucose 128 mg/dL (70-100) H 11/07/17 06:45 Calcium 8.5 mg/dL (8.5-10.1) 11/07/17 06:45 Total Bilirubin 0.2 mg/dL (0.2-1.0) 11/05/17 22:19 AST 19 U/L (15-37) 11/05/17 22:19 ALT 27 U/L (12-78) 11/05/17 22:19 Alkaline Phosphatase 114 U/L (46-116) 11/05/17 22:19 Total Protein 8.1 g/dL (6.4-8.2) 11/05/17 22:19 Albumin 3.3 g/dL (3.4-5.0) L 11/05/17 22:19 Lipase 106 U/L (73-393) 11/05/17 22:19 Urine Color [place] (Yellow) 11/05/17 22:04 Urine Clarity Cloudy 11/05/17 22:04 Urine pH (5-8) 11/05/17 22:04 Ur Specific [place] 1.015 (1.005-1.025) 11/05/17 22:04 Urine Protein Color interference mg/dL (Negative) 11/05/17 22:04 Urine Ketones Color interference mg/dL (Negative) 11/05/17 22:04 Urine Blood Color interference (Negative) 11/05/17 22:04 Urine Nitrite Color interference (Negative) 11/05/17 22:04 Urine Bilirubin Color interference (Negative) 11/05/17 22:04 Urine Urobilinogen Color interference EU/dL (Up TO 0.2) 11/05/17 22:04 Ur Leukocyte Esterase Color interference (Negative) 11/05/17 22:04 Urine RBC Negative (0-2) 11/05/17 22:04 Urine WBC 0-2 HPF (0-5) 11/05/17 22:04 Ur Epithelial Cells Few HPF (Negative) 11/05/17 22:04 Urine Crystals Negative HPF (Negative) 11/05/17 22:04 Urine Bacteria Negative HPF (Negative) 11/05/17 22:04 Urine Casts Negative LPF (Negative) 11/05/17 22:04 Urine Mucus Negative (Negative) 11/05/17 22:04 Urine Other Negative (Negative) 11/05/17 22:04 Ur Culture Indicated? No 11/05/17 22:04 Urine Glucose Color interference mg/dL (Negative) 11/05/17 22:04 Documented by User: Tapan Sanders MD 11/08/17 17:26 Discharge Plan Disposition Patient Disposition: HOME Condition: Fair Discharge Details Chief Complaint: Urinary Reason For Visit: LEFT DISTAL URETERAL STONE Admit Date/Time: 11/06/17 01:05 Admit Provider: Rush Barrett Attending Provider: Rush Barrett Primary Care Provider: Digna Lemon ED Provider: Zachariah Wheatley [place] [facility] Hospital Course: Alis torres is a 47-year-old female with a past medical history of 3 C-sections, tubal ligation, diabetes mellitus, chronic Lyme disease, kidney stones, and cholecystectomy. She presented to the ED on 11/05/17 with reports of left-sided flank pain. She had been seen in the ED and treated for a UTI with Macrobid previously. She did not have improvement in her symptoms and followed up with her primary care provider who started her on Cipro for 3 more days. She felt that her symptoms improved on the Cipro. 2 days later she presented back to the emergency department on 11/05/2017 with a report of a sudden onset of severe left-sided flank pain. She also noted some radiation toward her groin and nausea. She has had kidney stones in the past. She had a CT scan in the emergency department which revealed bilateral nephrolithiasis and a 5 mm stone at the UVJ, with mild hydronephrosis and hydroureter. She initially had leukocytosis with a white blood cell count of 17.9, however this resolved, her white count came down to 8.98. Her kidney function remaind normal. Her blood sugars were in an acceptable range. Her urine culture grew mixed yanique, possible contaminated specimen. She was admitted to the med/surg floor and given IV hydration, analgesic and antiemetics. She eventually transitioned to oral analgesics and antiemetics. Her symptoms were tolerable on the oral medications. Her urine has been strained, she has passed gravel, no stones as of the time of discharge. She reports intermittent nausea, but she has been able to tolerate oral intake. A Urology consultation was placed on admission, however, the Urologist was not available this week. She will be discharged home with analgesics and antiemetics. She is encouraged to take plenty of PO fluids. She will follow up in the Urology clinic as an outpatient on 11/13/17 at 9am. She will follow up with her PCP as scheduled, Digna Lemon on 11/19/17 at 1330. She will strain her urine at home. If she experiences fevers or if her pain is not controlled at home with oral analgesics, she is advised to return to the hospital. Home Meds and New Rx's Prescriptions: New ketorolac 10 mg Tablet 10 mg PO Q6H PRN PRNQty: 20 RF: 0 oxycodone-acetaminophen 5-325 mg Tablet 1 - 2 tab PO Q6H PRN PRNQty: 20 RF: 0 tamsulosin 0.4 mg Capsule 0.4 mg PO DAILY Qty: 5 RF: 0 ondansetron 4 mg Tablet,Disintegrating 4 mg PO Q8H PRN PRNQty: 20 RF: 0 Continue sertraline [Zoloft] 100 MG tablet 100 mg PO DAILY RF: 0 loratadine 10 MG tablet,disintegrating 10 mg PO DAILY RF: 0 epinephrine [EpiPen 2-Fabian] 0.3 MG/0.3 ML auto-injector 0.3 mg IM ONCE RF: 0 fluticasone [Flonase] 16 GM spray,suspension 50 mcg NS DAILY RF: 0 tizanidine 4 MG capsule 4 mg PO PRN PRNRF: 0 pregabalin [Lyrica] 100 MG capsule 150 mg PO QPM RF: 0 cholecalciferol (vitamin D3) 1,000 UNITS tablet 5,000 units PO DAILY RF: 0 levalbuterol tartrate [Xopenex HFA] 200 PUFF HFA aerosol inhaler 2 gm Inhalation PRN RF: 0 hydroxyzine HCl 25 MG tablet 25 mg PO HS RF: 0 glipizide 10 MG tablet extended release 24hr 10 mg PO HS RF: 0 rosuvastatin [Crestor] 20 MG tablet 20 mg PO QPM RF: 0 Insulin Glargine,Hum.rec.anlog [Lantus] 100 UNIT/ML Vial 30 unit SQ HS RF: 0 Topiramate [Trokendi Xr] 50 MG Cap.Er.24h 50 mg PO HS RF: 0 Discharge Instructions Instructions: Kidney Stones (DC) Additional Instructions: Take percocet as needed for pain. Take toradol as needed for pain (helps with inflammation as well). Continue to take flomax daily. Take zofran as needed for nausea. Be sure to drink plenty of fluids. A heating pad may help relieve some discomfort. Strain all urine. If you pass a stone collect it in the collection container and bring it in. If you spike a fever or if your symptoms worsen, return to the emergency department. Stand Alone Forms: Nursing Discharge Form Referrals: Lorena Castellanos NP [NURSE PRACTITIONER] - 11/13/17 8:45 am (UROLOGY follow up. Arrive at 8:45 am for a 9:00 appointment.) Digna Lemon [Primary Care Provider] - 11/19/17 1:30 pm Activity:: Activity as Tolerated Equipment/Supplies:: No Equipment Needed Diet:: Carb Counting Discharge Orders Discharge Orders: Discharge Order (Routine); Ordered 11/08/17 Ordered By: Kateryna Galvez Documented by User: Tapan Sanders MD 11/08/17 17:26 Documented by User: Kateryna Galvez NP 11/08/17 14:54 Date of service: Time of Service: Exam Const General: Orientation: [facility] Head: Mouth: Neck Neck: Resp Effort & Inspection: GI Palpation: Skin General skin exam: Extrem General: DS: Data Vitals/I&O Vitals and I&O: Vital Signs Temperature 36.6 C 11/08/17 07:40 Temperature Source Tympanic 11/08/17 07:40 Pulse 98 H 11/08/17 07:40 Pulse Rhythm Regular 11/08/17 07:47 Respiratory Rate 20 11/08/17 07:40 Respiratory Effort Non-Labored 11/08/17 07:47 Respiratory Depth Normal 11/08/17 07:47 Respiratory Pattern Normal 11/08/17 07:47 Blood Pressure 146/71 H 11/08/17 07:40 Pulse Oximetry 95 11/08/17 07:40 Oxygen Delivery Method Room Air 11/08/17 07:40 Oxygen Flow Rate 0 11/08/17 07:40 Pain Level 5 11/08/17 12:22 Comment 11/07/17 12:12 Intake & Output 11/07/17 11/08/17 11/08/17 23:59 11:59 23:59 Intake Total 1986.5 / 1986.5 1680 / 1680 942.5 / 942.5 Output Total 200 / 200 750 / 750 Balance 1787.5 / 1787.5 930 / 930 942.5 / 942.5 Weight 150.1 kg Intake: IV 1986.5 / 1986.5 1000 / 1000 942.5 / 942.5 Oral 680 / 680 Output: Urine 200 / 200 750 / 750 Other: Urine Color Yellow Yellow Urine Appearance Clear Clear Urine Odor Normal Strain Urine Result Negative-No Stones/Gravel Negative-No Stones/Gravel Comment gravel Strained urine no stones no gravel. Voiding Methods Toilet Toilet Completed studies during hospitalization [Text1]: ABDOMINAL AND PELVIC CT: 11/05 CT examination of the abdomen and pelvis was performed without contrast administration. Images obtained through the lung bases are unremarkable. Note is made of previous cholecystectomy. No biliary dilatation seen. Pancreas is unremarkable. The visualized portions of the liver appear intact. Small multiple splenic calcifications noted consistent with healed granulomatous disease. Abdominal aorta is of normal diameter. No abdominal or pelvic adenopathy seen. No significant abdominal wall hernia seen. Appendix appears normal. No evidence of diverticulitis or bowel obstruction. Adrenals appear normal bilaterally. There are bilateral nonobstructing renal calculi. No right hydronephrosis, hydroureter or ureterolithiasis. On the left there is mild hydronephrosis and hydroureter to the level of the distal ureter where there is an obstructing 5 mm greatest diameter calculus at the ureterovesical junction. Urinary bladder is collapsed. No additional ureteral stones seen. [employer] structures appear intact. No free pelvic fluid seen. CONCLUSION: Bilateral nephrolithiasis and obstructing 5 mm in diameter calculus of the distal left ureter. Pending studies at discharge: Closed [endoscopic] biopsy of large intestine (05/03/12) Closed [endoscopic] biopsy of rectum (05/03/12) DIGITAL RECTAL EXAM (04/17/96) DX ULTRASOUND NEC (04/17/96) MONITORING NOS (11/18/02) GYNECOLOGIC EXAMINATION (04/17/96) INTRAOPER CHOLANGIOGRAM (03/13/03) LAPAROSCOPIC CHOLECYSTECTOMY (03/13/03) LOW CERVICAL (12/07/02) WBC 8.98 k/cumm (4.4-10.8) 11/07/17 06:45 RBC 4.86 m/cumm (4.00-5.20) 11/07/17 06:45 Hgb 12.3 g/dL (12.0-15.5) 11/07/17 06:45 Hct 39.0 % (36.0-46.0) 11/07/17 06:45 MCV 80.2 fL (80-95) 11/07/17 06:45 MCH 25.3 pg (27.0-33.0) L 11/07/17 06:45 MCHC 31.5 g/dL (32.0-36.0) L 11/07/17 06:45 RDW 16.0 % (11.7-14.6) H 11/07/17 06:45 Plt Count 212 x1000/uL (130-400) 11/07/17 06:45 MPV 11.0 fL (8.0-11.0) 11/07/17 06:45 Immature Gran % 0.5 11/06/17 06:15 Neutrophils % 61.7 11/06/17 06:15 Lymphocytes % 29.4 11/06/17 06:15 Monocytes % 6.6 11/06/17 06:15 Eosinophils % 1.5 11/06/17 06:15 Basophils % 0.3 11/06/17 06:15 Absolute Neutrophils 7.06 k/cumm (1.2-6.7) H 11/06/17 06:15 Absolute Lymphocytes 3.36 k/cumm (1.2-3.4) 11/06/17 06:15 Absolute Monocytes 0.76 k/cumm (0.11-0.7) H 11/06/17 06:15 Absolute Eosinophils 0.17 k/cumm (0.0-0.7) 11/06/17 06:15 Absolute Basophils 0.03 k/cumm (0.0-0.2) 11/06/17 06:15 Differential Comment Diff reviewed 11/05/17 22:19 RBC Morphology See below 10/01/18 22:19 Microcytosis 1+ 10/01/18 22:19 Sodium 139 mmol/L (136-145) 11/07/17 06:45 Potassium 4.2 mmol/L (3.5-5.1) 11/07/17 06:45 Chloride 107 mmol/L (98-107) 11/07/17 06:45 Carbon Dioxide 24.3 mmol/L (21.0-32.0) 11/07/17 06:45 Anion Gap 7.7 mmol/L (3-11) 11/07/17 06:45 BUN 13 mg/dL (7-18) 11/07/17 06:45 Creatinine 0.66 mg/dL (0.55-1.02) 11/07/17 06:45 Estimated GFR/1.73 m2 >= 60.00 (mL/min/1.73m2) 11/07/17 06:45 Glucose 128 mg/dL (70-100) H 11/07/17 06:45 Calcium 8.5 mg/dL (8.5-10.1) 11/07/17 06:45 Total Bilirubin 0.2 mg/dL (0.2-1.0) 11/05/17 22:19 AST 19 U/L (15-37) 11/05/17 22:19 ALT 27 U/L (12-78) 11/05/17 22:19 Alkaline Phosphatase 114 U/L (46-116) 11/05/17 22:19 Total Protein 8.1 g/dL (6.4-8.2) 11/05/17 22:19 Albumin 3.3 g/dL (3.4-5.0) L 11/05/17 22:19 Lipase 106 U/L (73-393) 11/05/17 22:19 Urine Color [place] (Yellow) 11/05/17 22:04 Urine Clarity Cloudy 11/05/17 22:04 Urine pH (5-8) 11/05/17 22:04 Ur Specific [place] 1.015 (1.005-1.025) 11/05/17 22:04 Urine Protein Color interference mg/dL (Negative) 11/05/17 22:04 Urine Ketones Color interference mg/dL (Negative) 11/05/17 22:04 Urine Blood Color interference (Negative) 11/05/17 22:04 Urine Nitrite Color interference (Negative) 11/05/17 22:04 Urine Bilirubin Color interference (Negative) 11/05/17 22:04 Urine Urobilinogen Color interference EU/dL (Up TO 0.2) 11/05/17 22:04 Ur Leukocyte Esterase Color interference (Negative) 11/05/17 22:04 Urine RBC Negative (0-2) 11/05/17 22:04 Urine WBC 0-2 HPF (0-5) 11/05/17 22:04 Ur Epithelial Cells Few HPF (Negative) 11/05/17 22:04 Urine Crystals Negative HPF (Negative) 11/05/17 22:04 Urine Bacteria Negative HPF (Negative) 11/05/17 22:04 Urine Casts Negative LPF (Negative) 11/05/17 22:04 Urine Mucus Negative (Negative) 11/05/17 22:04 Urine Other Negative (Negative) 11/05/17 22:04 Ur Culture Indicated? No 11/05/17 22:04 Urine Glucose Color interference mg/dL (Negative) 11/05/17 22:04 Documented by User: Tapan Sanders MD 11/08/17 17:26 Discharge Plan Disposition Patient Disposition: HOME Condition: Fair Discharge Details Chief Complaint: Urinary Reason For Visit: LEFT DISTAL URETERAL STONE Admit Date/Time: 11/06/17 01:05 Admit Provider: Rush Barrett Attending Provider: Rush Barrett Primary Care Provider: Digna Lemon ED Provider: Zachariah Wheatley [place] [facility] Hospital Course: Alis torres is a 47-year-old female with a past medical history of 3 C-sections, tubal ligation, diabetes mellitus, chronic Lyme disease, kidney stones, and cholecystectomy. She presented to the ED on 11/05/17 with reports of left-sided flank pain. She had been seen in the ED and treated for a UTI with Macrobid previously. She did not have improvement in her symptoms and followed up with her primary care provider who started her on Cipro for 3 more days. She felt that her symptoms improved on the Cipro. 2 days later she presented back to the emergency department on 11/05/2017 with a report of a sudden onset of severe left-sided flank pain. She also noted some radiation toward her groin and nausea. She has had kidney stones in the past. She had a CT scan in the emergency department which revealed bilateral nephrolithiasis and a 5 mm stone at the UVJ, with mild hydronephrosis and hydroureter. She initially had leukocytosis with a white blood cell count of 17.9, however this resolved, her white count came down to 8.98. Her kidney function remaind normal. Her blood sugars were in an acceptable range. Her urine culture grew mixed yanique, possible contaminated specimen. She was admitted to the med/surg floor and given IV hydration, analgesic and antiemetics. She eventually transitioned to oral analgesics and antiemetics. Her symptoms were tolerable on the oral medications. Her urine has been strained, she has passed gravel, no stones as of the time of discharge. She reports intermittent nausea, but she has been able to tolerate oral intake. A Urology consultation was placed on admission, however, the Urologist was not available this week. She will be discharged home with analgesics and antiemetics. She is encouraged to take plenty of PO fluids. She will follow up in the Urology clinic as an outpatient on 11/13/17 at 9am. She will follow up with her PCP as scheduled, Digna Lemon on 11/19/17 at 1330. She will strain her urine at home. If she experiences fevers or if her pain is not controlled at home with oral analgesics, she is advised to return to the hospital. Home Meds and New Rx's Prescriptions: New ketorolac 10 mg Tablet 10 mg PO Q6H PRN PRNQty: 20 RF: 0 oxycodone-acetaminophen 5-325 mg Tablet 1 - 2 tab PO Q6H PRN PRNQty: 20 RF: 0 tamsulosin 0.4 mg Capsule 0.4 mg PO DAILY Qty: 5 RF: 0 ondansetron 4 mg Tablet,Disintegrating 4 mg PO Q8H PRN PRNQty: 20 RF: 0 Continue sertraline [Zoloft] 100 MG tablet 100 mg PO DAILY RF: 0 loratadine 10 MG tablet,disintegrating 10 mg PO DAILY RF: 0 epinephrine [EpiPen 2-Fabian] 0.3 MG/0.3 ML auto-injector 0.3 mg IM ONCE RF: 0 fluticasone [Flonase] 16 GM spray,suspension 50 mcg NS DAILY RF: 0 tizanidine 4 MG capsule 4 mg PO PRN PRNRF: 0 pregabalin [Lyrica] 100 MG capsule 150 mg PO QPM RF: 0 cholecalciferol (vitamin D3) 1,000 UNITS tablet 5,000 units PO DAILY RF: 0 levalbuterol tartrate [Xopenex HFA] 200 PUFF HFA aerosol inhaler 2 gm Inhalation PRN RF: 0 hydroxyzine HCl 25 MG tablet 25 mg PO HS RF: 0 glipizide 10 MG tablet extended release 24hr 10 mg PO HS RF: 0 rosuvastatin [Crestor] 20 MG tablet 20 mg PO QPM RF: 0 Insulin Glargine,Hum.rec.anlog [Lantus] 100 UNIT/ML Vial 30 unit SQ HS RF: 0 Topiramate [Trokendi Xr] 50 MG Cap.Er.24h 50 mg PO HS RF: 0 Discharge Instructions Instructions: Kidney Stones (DC) Additional Instructions: Take percocet as needed for pain. Take toradol as needed for pain (helps with inflammation as well). Continue to take flomax daily. Take zofran as needed for nausea. Be sure to drink plenty of fluids. A heating pad may help relieve some discomfort. Strain all urine. If you pass a stone collect it in the collection container and bring it in. If you spike a fever or if your symptoms worsen, return to the emergency department. Stand Alone Forms: Nursing Discharge Form Referrals: Lorena Castellanos NP [NURSE PRACTITIONER] - 11/13/17 8:45 am (UROLOGY follow up. Arrive at 8:45 am for a 9:00 appointment.) Digna Lmeon [Primary Care Provider] - 11/19/17 1:30 pm Activity:: Activity as Tolerated Equipment/Supplies:: No Equipment Needed Diet:: Carb Counting Discharge Orders Discharge Orders: Discharge Order (Routine); Ordered 11/08/17 Ordered By: Kateryna Galvez
--- NOTE | 2017-11-08 13:08 | DSE_ITS ---
Addendum entered and electronically signed by Kateryna Galvez NP 11/08/17 14:54 : Urology discussed this case with Raul vu as a potential OR case. It was determined that it would not be safe for Alis Cardenas to undergo surgery here at [facility] should she need that service. She would require transfer to a facility that has equipment that could manage her safely as her BMI is 58.6. This case was discussed with Dr. Sanders who is in agreement. Original Note: Documented by User: Kateryna Galvez NP 11/08/17 14:54 Documented by User: Kateryna Galvez NP 11/08/17 14:54 Date of service: Time of Service: Exam Const General: Orientation: [facility] Head: Mouth: Neck Neck: Resp Effort & Inspection: GI Palpation: Skin General skin exam: Extrem General: DS: Data Vitals/I&O Vitals and I&O: Vital Signs Temperature 36.6 C 11/08/17 07:40 Temperature Source Tympanic 11/08/17 07:40 Pulse 98 H 11/08/17 07:40 Pulse Rhythm Regular 11/08/17 07:47 Respiratory Rate 20 11/08/17 07:40 Respiratory Effort Non-Labored 11/08/17 07:47 Respiratory Depth Normal 11/08/17 07:47 Respiratory Pattern Normal 11/08/17 07:47 Blood Pressure 146/71 H 11/08/17 07:40 Pulse Oximetry 95 11/08/17 07:40 Oxygen Delivery Method Room Air 11/08/17 07:40 Oxygen Flow Rate 0 11/08/17 07:40 Pain Level 5 11/08/17 12:22 Comment 11/07/17 12:12 Intake & Output 11/07/17 11/08/17 11/08/17 23:59 11:59 23:59 Intake Total 1680 / 1680 942.5 / 942.5 Output Total 200 / 200 750 / 750 Balance 1787.5 / 1787.5 930 / 930 942.5 / 942.5 Weight 150.1 kg Intake: IV 1000 / 1000 942.5 / 942.5 Oral 680 / 680 Output: Urine 200 / 200 750 / 750 Other: Urine Color Yellow Yellow Urine Appearance Clear Clear Urine Odor Normal Strain Urine Result Negative-No Stones/Gravel Negative-No Stones/Gravel Comment gravel Strained urine no stones no gravel. Voiding Methods Toilet Toilet Completed studies during hospitalization [Text1]: ABDOMINAL AND PELVIC CT: 11/05 CT examination of the abdomen and pelvis was performed without contrast administration. Images obtained through the lung bases are unremarkable. Note is made of previous cholecystectomy. No biliary dilatation seen. Pancreas is unremarkable. The visualized portions of the liver appear intact. Small multiple splenic calcifications noted consistent with healed granulomatous disease. Abdominal aorta is of normal diameter. No abdominal or pelvic adenopathy seen. No significant abdominal wall hernia seen. Appendix appears normal. No evidence of diverticulitis or bowel obstruction. Adrenals appear normal bilaterally. There are bilateral nonobstructing renal calculi. No right hydronephrosis, hydroureter or ureterolithiasis. On the left there is mild hydronephrosis and hydroureter to the level of the distal ureter where there is an obstructing 5 mm greatest diameter calculus at the ureterovesical junction. Urinary bladder is collapsed. No additional ureteral stones seen. [employer] structures appear intact. No free pelvic fluid seen. CONCLUSION: Bilateral nephrolithiasis and obstructing 5 mm in diameter calculus of the distal left ureter. Pending studies at discharge: Closed [endoscopic] biopsy of large intestine (05/03/12) Closed [endoscopic] biopsy of rectum (05/03/12) DIGITAL RECTAL EXAM (04/17/96) DX ULTRASOUND NEC (04/17/96) MONITORING NOS (11/18/02) GYNECOLOGIC EXAMINATION (04/17/96) INTRAOPER CHOLANGIOGRAM (03/13/03) LAPAROSCOPIC CHOLECYSTECTOMY (03/13/03) LOW CERVICAL (12/07/02) WBC 8.98 k/cumm (4.4-10.8) 11/07/17 06:45 RBC 4.86 m/cumm (4.00-5.20) 11/07/17 06:45 Hgb 12.3 g/dL (12.0-15.5) 11/07/17 06:45 Hct 39.0 % (36.0-46.0) 11/07/17 06:45 MCV 80.2 fL (80-95) 11/07/17 06:45 MCH 25.3 pg (27.0-33.0) L 11/07/17 06:45 MCHC 31.5 g/dL (32.0-36.0) L 11/07/17 06:45 RDW 16.0 % (11.7-14.6) H 11/07/17 06:45 Plt Count 212 x1000/uL (130-400) 11/07/17 06:45 MPV 11.0 fL (8.0-11.0) 11/07/17 06:45 Immature Gran % 0.5 11/06/17 06:15 Neutrophils % 61.7 11/06/17 06:15 Lymphocytes % 29.4 11/06/17 06:15 Monocytes % 6.6 11/06/17 06:15 Eosinophils % 1.5 11/06/17 06:15 Basophils % 0.3 11/06/17 06:15 Absolute Neutrophils 7.06 k/cumm (1.2-6.7) H 11/06/17 06:15 Absolute Lymphocytes 3.36 k/cumm (1.2-3.4) 11/06/17 06:15 Absolute Monocytes 0.76 k/cumm (0.11-0.7) H 11/06/17 06:15 Absolute Eosinophils 0.17 k/cumm (0.0-0.7) 11/06/17 06:15 Absolute Basophils 0.03 k/cumm (0.0-0.2) 11/06/17 06:15 Differential Comment Diff reviewed 11/05/17 22:19 RBC Morphology See below 11/05/17 22:19 Microcytosis 1+ 11/05/17 22:19 Sodium 139 mmol/L (136-145) 11/07/17 06:45 Potassium 4.2 mmol/L (3.5-5.1) 11/07/17 06:45 Chloride 107 mmol/L (98-107) 11/07/17 06:45 Carbon Dioxide 24.3 mmol/L (21.0-32.0) 11/07/17 06:45 Anion Gap 7.7 mmol/L (3-11) 11/07/17 06:45 BUN 13 mg/dL (7-18) 11/07/17 06:45 Creatinine 0.66 mg/dL (0.55-1.02) 11/07/17 06:45 Estimated GFR/1.73 m2 >= 60.00 (mL/min/1.73m2) 11/07/17 06:45 Glucose 128 mg/dL (70-100) H 11/07/17 06:45 Calcium 8.5 mg/dL (8.5-10.1) 11/07/17 06:45 Total Bilirubin 0.2 mg/dL (0.2-1.0) 11/05/17 22:19 AST 19 U/L (15-37) 11/05/17 22:19 ALT 27 U/L (12-78) 11/05/17 22:19 Alkaline Phosphatase 114 U/L (46-116) 11/05/17 22:19 Total Protein 8.1 g/dL (6.4-8.2) 11/05/17 22:19 Albumin 3.3 g/dL (3.4-5.0) L 11/05/17 22:19 Lipase 106 U/L (73-393) 11/05/17 22:19 Urine Color [place] (Yellow) 11/05/17 22:04 Urine Clarity Cloudy 11/05/17 22:04 Urine pH (5-8) 11/05/17 22:04 Ur Specific [place] 1.015 (1.005-1.025) 11/05/17 22:04 Urine Protein Color interference mg/dL (Negative) 11/05/17 22:04 Urine Ketones Color interference mg/dL (Negative) 11/05/17 22:04 Urine Blood Color interference (Negative) 11/05/17 22:04 Urine Nitrite Color interference (Negative) 11/05/17 22:04 Urine Bilirubin Color interference (Negative) 11/05/17 22:04 Urine Urobilinogen Color interference EU/dL (Up TO 0.2) 11/05/17 22:04 Ur Leukocyte Esterase Color interference (Negative) 11/05/17 22:04 Urine RBC Negative (0-2) 11/05/17 22:04 Urine WBC 0-2 HPF (0-5) 11/05/17 22:04 Ur Epithelial Cells Few HPF (Negative) 11/05/17 22:04 Urine Crystals Negative HPF (Negative) 11/05/17 22:04 Urine Bacteria Negative HPF (Negative) 11/05/17 22:04 Urine Casts Negative LPF (Negative) 11/05/17 22:04 Urine Mucus Negative (Negative) 11/05/17 22:04 Urine Other Negative (Negative) 11/05/17 22:04 Ur Culture Indicated? No 11/05/17 22:04 Urine Glucose Color interference mg/dL (Negative) 11/05/17 22:04 Documented by User: Tapan Sanders MD 11/08/17 17:26 Discharge Plan Disposition Patient Disposition: HOME Condition: Fair Discharge Details Chief Complaint: Urinary Reason For Visit: LEFT DISTAL URETERAL STONE Admit Date/Time: 11/06/17 01:05 Admit Provider: Rush Barrett Attending Provider: Rush Barrett Primary Care Provider: Digna Lemon ED Provider: Zachariah Wheatley [facility] Course Hospital Course: Alis torres is a 47-year-old female with a past medical history of 3 C-sections, tubal ligation, diabetes mellitus, chronic Lyme disease, kidney stones, and cholecystectomy. She presented to the ED on 11/05/17 with reports of left-sided flank pain. She had been seen in the ED and treated for a UTI with Macrobid previously. She did not have improvement in her symptoms and followed up with her primary care provider who started her on Cipro for 3 more days. She felt that her symptoms improved on the Cipro. 2 days later she presented back to the emergency department on 11/05/2017 with a report of a sudden onset of severe left-sided flank pain. She also noted some radiation toward her groin and nausea. She has had kidney stones in the past. She had a CT scan in the emergency department which revealed bilateral nephrolithiasis and a 5 mm stone at the UVJ, with mild hydronephrosis and hydroureter. She initially had leukocytosis with a white blood cell count of 17.9, however this resolved, her white count came down to 8.98. Her kidney function remaind normal. Her blood sugars were in an acceptable range. Her urine culture grew mixed yanique, possible contaminated specimen. She was admitted to the med/surg floor and given IV hydration, analgesic and antiemetics. She eventually transitioned to oral analgesics and antiemetics. Her symptoms were tolerable on the oral medications. Her urine has been strained, she has passed gravel, no stones as of the time of discharge. She reports intermittent nausea, but she has been able to tolerate oral intake. A Urology consultation was placed on admission, however, the Urologist was not available this week. She will be discharged home with analgesics and antiemetics. She is encouraged to take plenty of PO fluids. She will follow up in the Urology clinic as an outpatient on 11/13/17 at 9am. She will follow up with her PCP as scheduled, Digna Lemon on 11/19/17 at 1330. She will strain her urine at home. If she experiences fevers or if her pain is not controlled at home with oral analgesics, she is advised to return to the hospital. Home Meds and New Rx's Prescriptions: New ketorolac 10 mg Tablet 10 mg PO Q6H PRN PRNQty: 20 RF: 0 oxycodone-acetaminophen 5-325 mg Tablet 1 - 2 tab PO Q6H PRN PRNQty: 20 RF: 0 tamsulosin 0.4 mg Capsule 0.4 mg PO DAILY Qty: 5 RF: 0 ondansetron 4 mg Tablet,Disintegrating 4 mg PO Q8H PRN PRNQty: 20 RF: 0 Continue sertraline [Zoloft] 100 MG tablet 100 mg PO DAILY RF: 0 loratadine 10 MG tablet,disintegrating 10 mg PO DAILY RF: 0 epinephrine [EpiPen 2-Fabian] 0.3 MG/0.3 ML auto-injector 0.3 mg IM ONCE RF: 0 fluticasone [Flonase] 16 GM spray,suspension 50 mcg NS DAILY RF: 0 tizanidine 4 MG capsule 4 mg PO PRN PRNRF: 0 pregabalin [Lyrica] 100 MG capsule 150 mg PO QPM RF: 0 cholecalciferol (vitamin D3) 1,000 UNITS tablet 5,000 units PO DAILY RF: 0 levalbuterol tartrate [Xopenex HFA] 200 PUFF HFA aerosol inhaler 2 gm Inhalation PRN RF: 0 hydroxyzine HCl 25 MG tablet 25 mg PO HS RF: 0 glipizide 10 MG tablet extended release 24hr 10 mg PO HS RF: 0 rosuvastatin [Crestor] 20 MG tablet 20 mg PO QPM RF: 0 Insulin Glargine,Hum.rec.anlog [Lantus] 100 UNIT/ML Vial 30 unit SQ HS RF: 0 Topiramate [Trokendi Xr] 50 MG Cap.Er.24h 50 mg PO HS RF: 0 Discharge Instructions Instructions: Kidney Stones (DC) Additional Instructions: Take percocet as needed for pain. Take toradol as needed for pain (helps with inflammation as well). Continue to take flomax daily. Take zofran as needed for nausea. Be sure to drink plenty of fluids. A heating pad may help relieve some discomfort. Strain all urine. If you pass a stone collect it in the collection container and bring it in. If you spike a fever or if your symptoms worsen, return to the emergency department. Stand Alone Forms: Nursing Discharge Form Referrals: Lorena Castellanos NP [NURSE PRACTITIONER] - 11/13/17 8:45 am (UROLOGY follow up. Arrive at 8:45 am for a 9:00 appointment.) Digna Lemon [Primary Care Provider] - 11/19/17 1:30 pm Activity:: Activity as Tolerated Equipment/Supplies:: No Equipment Needed Diet:: Carb Counting Discharge Orders Discharge Orders: Discharge Order (Routine); Ordered 11/08/17 Ordered By: Kateryna Galvez Documented by User: Tapan Sanders MD 11/08/17 17:26 Documented by User: Kateryna Galvez NP 11/08/17 14:54 Date of service: Time of Service: Exam Const General: Orientation: [facility] Head: Mouth: Neck Neck: Resp Effort & Inspection: GI Palpation: Skin General skin exam: Extrem General: DS: Data Vitals/I&O Vitals and I&O: Vital Signs Temperature 36.6 C 11/08/17 07:40 Temperature Source Tympanic 11/08/17 07:40 Pulse 98 H 11/08/17 07:40 Pulse Rhythm Regular 11/08/17 07:47 Respiratory Rate 20 11/08/17 07:40 Respiratory Effort Non-Labored 11/08/17 07:47 Respiratory Depth Normal 11/08/17 07:47 Respiratory Pattern Normal 11/08/17 07:47 Blood Pressure 146/71 H 11/08/17 07:40 Pulse Oximetry 95 11/08/17 07:40 Oxygen Delivery Method Room Air 11/08/17 07:40 Oxygen Flow Rate 0 11/08/17 07:40 Pain Level 5 11/08/17 12:22 Comment 11/07/17 12:12 Intake & Output 11/07/17 11/08/17 11/08/17 23:59 11:59 23:59 Intake Total 1986.5 / 1986.5 1680 / 1680 942.5 / 942.5 Output Total 200 / 200 750 / 750 Balance 1787.5 / 1787.5 930 / 930 942.5 / 942.5 Weight 150.1 kg Intake: IV 1986.5 / 1986.5 1000 / 1000 942.5 / 942.5 Oral 680 / 680 Output: Urine 200 / 200 750 / 750 Other: Urine Color Yellow Yellow Urine Appearance Clear Clear Urine Odor Normal Strain Urine Result Negative-No Stones/Gravel Negative-No Stones/Gravel Comment gravel Strained urine no stones no gravel. Voiding Methods Toilet Toilet Completed studies during hospitalization [Text1]: ABDOMINAL AND PELVIC CT: 11/05 CT examination of the abdomen and pelvis was performed without contrast administration. Images obtained through the lung bases are unremarkable. Note is made of previous cholecystectomy. No biliary dilatation seen. Pancreas is unremarkable. The visualized portions of the liver appear intact. Small multiple splenic calcifications noted consistent with healed granulomatous disease. Abdominal aorta is of normal diameter. No abdominal or pelvic adenopathy seen. No significant abdominal wall hernia seen. Appendix appears normal. No evidence of diverticulitis or bowel obstruction. Adrenals appear normal bilaterally. There are bilateral nonobstructing renal calculi. No right hydronephrosis, hydroureter or ureterolithiasis. On the left there is mild hydronephrosis and hydroureter to the level of the distal ureter where there is an obstructing 5 mm greatest diameter calculus at the ureterovesical junction. Urinary bladder is collapsed. No additional ureteral stones seen. [employer] structures appear intact. No free pelvic fluid seen. CONCLUSION: Bilateral nephrolithiasis and obstructing 5 mm in diameter calculus of the distal left ureter. Pending studies at discharge: Closed [endoscopic] biopsy of large intestine (05/03/12) Closed [endoscopic] biopsy of rectum (05/03/12) DIGITAL RECTAL EXAM (04/17/96) DX ULTRASOUND NEC (04/17/96) MONITORING NOS (11/18/02) GYNECOLOGIC EXAMINATION (04/17/96) INTRAOPER CHOLANGIOGRAM (03/13/03) LAPAROSCOPIC CHOLECYSTECTOMY (03/13/03) LOW CERVICAL (12/07/02) WBC 8.98 k/cumm (4.4-10.8) 11/07/17 06:45 RBC 4.86 m/cumm (4.00-5.20) 11/07/17 06:45 Hgb 12.3 g/dL (12.0-15.5) 11/07/17 06:45 Hct 39.0 % (36.0-46.0) 11/07/17 06:45 MCV 80.2 fL (80-95) 11/07/17 06:45 MCH 25.3 pg (27.0-33.0) L 11/07/17 06:45 MCHC 31.5 g/dL (32.0-36.0) L 11/07/17 06:45 RDW 16.0 % (11.7-14.6) H 11/07/17 06:45 Plt Count 212 x1000/uL (130-400) 11/07/17 06:45 MPV 11.0 fL (8.0-11.0) 11/07/17 06:45 Immature Gran % 0.5 11/06/17 06:15 Neutrophils % 61.7 11/06/17 06:15 Lymphocytes % 29.4 11/06/17 06:15 Monocytes % 6.6 11/06/17 06:15 Eosinophils % 1.5 11/06/17 06:15 Basophils % 0.3 11/06/17 06:15 Absolute Neutrophils 7.06 k/cumm (1.2-6.7) H 11/06/17 06:15 Absolute Lymphocytes 3.36 k/cumm (1.2-3.4) 11/06/17 06:15 Absolute Monocytes 0.76 k/cumm (0.11-0.7) H 11/06/17 06:15 Absolute Eosinophils 0.17 k/cumm (0.0-0.7) 11/06/17 06:15 Absolute Basophils 0.03 k/cumm (0.0-0.2) 11/06/17 06:15 Differential Comment Diff reviewed 11/05/17 22:19 RBC Morphology See below 11/05/17 22:19 Microcytosis 1+ 11/05/17 22:19 Sodium 139 mmol/L (136-145) 11/07/17 06:45 Potassium 4.2 mmol/L (3.5-5.1) 11/07/17 06:45 Chloride 107 mmol/L (98-107) 11/07/17 06:45 Carbon Dioxide 24.3 mmol/L (21.0-32.0) 11/07/17 06:45 Anion Gap 7.7 mmol/L (3-11) 11/07/17 06:45 BUN 13 mg/dL (7-18) 11/07/17 06:45 Creatinine 0.66 mg/dL (0.55-1.02) 11/07/17 06:45 Estimated GFR/1.73 m2 >= 60.00 (mL/min/1.73m2) 11/07/17 06:45 Glucose 128 mg/dL (70-100) H 11/07/17 06:45 Calcium 8.5 mg/dL (8.5-10.1) 11/07/17 06:45 Total Bilirubin 0.2 mg/dL (0.2-1.0) 11/05/17 22:19 AST 19 U/L (15-37) 11/05/17 22:19 ALT 27 U/L (12-78) 11/05/17 22:19 Alkaline Phosphatase 114 U/L (46-116) 11/05/17 22:19 Total Protein 8.1 g/dL (6.4-8.2) 11/05/17 22:19 Albumin 3.3 g/dL (3.4-5.0) L 11/05/17 22:19 Lipase 106 U/L (73-393) 11/05/17 22:19 Urine Color [place] (Yellow) 11/05/17 22:04 Urine Clarity Cloudy 11/05/17 22:04 Urine pH (5-8) 11/05/17 22:04 Ur Specific [place] 1.015 (1.005-1.025) 11/05/17 22:04 Urine Protein Color interference mg/dL (Negative) 11/05/17 22:04 Urine Ketones Color interference mg/dL (Negative) 11/05/17 22:04 Urine Blood Color interference (Negative) 11/05/17 22:04 Urine Nitrite Color interference (Negative) 11/05/17 22:04 Urine Bilirubin Color interference (Negative) 11/05/17 22:04 Urine Urobilinogen Color interference EU/dL (Up TO 0.2) 11/05/17 22:04 Ur Leukocyte Esterase Color interference (Negative) 11/05/17 22:04 Urine RBC Negative (0-2) 11/05/17 22:04 Urine WBC 0-2 HPF (0-5) 11/05/17 22:04 Ur Epithelial Cells Few HPF (Negative) 11/05/17 22:04 Urine Crystals Negative HPF (Negative) 11/05/17 22:04 Urine Bacteria Negative HPF (Negative) 11/05/17 22:04 Urine Casts Negative LPF (Negative) 11/05/17 22:04 Urine Mucus Negative (Negative) 11/05/17 22:04 Urine Other Negative (Negative) 11/05/17 22:04 Ur Culture Indicated? No 11/05/17 22:04 Urine Glucose Color interference mg/dL (Negative) 11/05/17 22:04 Documented by User: Tapan Sanders MD 11/08/17 17:26 Discharge Plan Disposition Patient Disposition: HOME Condition: Fair Discharge Details Chief Complaint: Urinary Reason For Visit: LEFT DISTAL URETERAL STONE Admit Date/Time: 11/06/17 01:05 Admit Provider: Rush Barrett Attending Provider: Rush Barrett Primary Care Provider: Digna Lemon ED Provider: Dioni,Zachariah J Hospital Course Hospital Course: Alis Anair is is a 47-year-old female with a past medical history of 3 C-sections, tubal ligation, diabetes mellitus, chronic Lyme disease, kidney stones, and cholecystectomy. She presented to the ED on 11/05/17 with reports of left-sided flank pain. She had been seen in the ED and treated for a UTI with Macrobid previously. She did not have improvement in her symptoms and followed up with her primary care provider who started her on Cipro for 3 more days. She felt that her symptoms improved on the Cipro. 2 days later she presented back to the emergency department on 11/05/2017 with a report of a sudden onset of severe left-sided flank pain. She also noted some radiation toward her groin and nausea. She has had kidney stones in the past. She had a CT scan in the emergency department which revealed bilateral nephrolithiasis and a 5 mm stone at the UVJ, with mild hydronephrosis and hydroureter. She initially had leukocytosis with a white blood cell count of 17.9, however this resolved, her white count came down to 8.98. Her kidney function remaind normal. Her blood sugars were in an acceptable range. Her urine culture grew mixed yanique, possible contaminated specimen. She was admitted to the med/surg floor and given IV hydration, analgesic and antiemetics. She eventually transitioned to oral analgesics and antiemetics. Her symptoms were tolerable on the oral medications. Her urine has been strained, she has passed gravel, no stones as of the time of discharge. She reports intermittent nausea, but she has been able to tolerate oral intake. A Urology consultation was placed on admission, however, the Urologist was not available this week. She will be discharged home with analgesics and antiemetics. She is encouraged to take plenty of PO fluids. She will follow up in the Urology clinic as an outpatient on 11/13/17 at 9am. She will follow up with her PCP as scheduled, Digna Lemon on 11/19/17 at 1330. She will strain her urine at home. If she experiences fevers or if her pain is not controlled at home with oral analgesics, she is advised to return to the hospital. Home Meds and New Rx's Prescriptions: New ketorolac 10 mg Tablet 10 mg PO Q6H PRN PRNQty: 20 RF: 0 oxycodone-acetaminophen 5-325 mg Tablet 1 - 2 tab PO Q6H PRN PRNQty: 20 RF: 0 tamsulosin 0.4 mg Capsule 0.4 mg PO DAILY Qty: 5 RF: 0 ondansetron 4 mg Tablet,Disintegrating 4 mg PO Q8H PRN PRNQty: 20 RF: 0 Continue sertraline [Zoloft] 100 MG tablet 100 mg PO DAILY RF: 0 loratadine 10 MG tablet,disintegrating 10 mg PO DAILY RF: 0 epinephrine [EpiPen 2-Fabian] 0.3 MG/0.3 ML auto-injector 0.3 mg IM ONCE RF: 0 fluticasone [Flonase] 16 GM spray,suspension 50 mcg NS DAILY RF: 0 tizanidine 4 MG capsule 4 mg PO PRN PRNRF: 0 pregabalin [Lyrica] 100 MG capsule 150 mg PO QPM RF: 0 cholecalciferol (vitamin D3) 1,000 UNITS tablet 5,000 units PO DAILY RF: 0 levalbuterol tartrate [Xopenex HFA] 200 PUFF HFA aerosol inhaler 2 gm Inhalation PRN RF: 0 hydroxyzine HCl 25 MG tablet 25 mg PO HS RF: 0 glipizide 10 MG tablet extended release 24hr 10 mg PO HS RF: 0 rosuvastatin [Crestor] 20 MG tablet 20 mg PO QPM RF: 0 Insulin Glargine,Hum.rec.anlog [Lantus] 100 UNIT/ML Vial 30 unit SQ HS RF: 0 Topiramate [Trokendi Xr] 50 MG Cap.Er.24h 50 mg PO HS RF: 0 Discharge Instructions Instructions: Kidney Stones (DC) Additional Instructions: Take percocet as needed for pain. Take toradol as needed for pain (helps with inflammation as well). Continue to take flomax daily. Take zofran as needed for nausea. Be sure to drink plenty of fluids. A heating pad may help relieve some discomfort. Strain all urine. If you pass a stone collect it in the collection container and bring it in. If you spike a fever or if your symptoms worsen, return to the emergency department. Stand Alone Forms: Nursing Discharge Form Referrals: Lorena Castellanos NP [NURSE PRACTITIONER] - 11/13/17 8:45 am (UROLOGY follow up. Arrive at 8:45 am for a 9:00 appointment.) Digna Lemon [Primary Care Provider] - 11/19/17 1:30 pm Activity:: Activity as Tolerated Equipment/Supplies:: No Equipment Needed Diet:: Carb Counting Discharge Orders Discharge Orders: Discharge Order (Routine); Ordered 11/08/17 Ordered By: Kateryna Galvez
--- NOTE | 2017-11-08 14:38 | PDOC.CMDIS ---
- If Service Date Differs Date of service: 11/08/17 Time of Service: 14:38 LACE Index Scoring Tool - Questions: Length of Stay (in days): 3 Acuity (Admit via E.D.?): Yes Comorbidities: Diabetes w/o Complication E.D. Visits: 5 - Answers: Total Score: 11 Risk of Readmission: High Risk Care Management Discharge Reason for Hospitalization: (L) ureteral stone Discharge Plan: Alis will return home today with no services. She will transport via private vehicle. Alis will F/U with PCP and plan of care as prescribed. Patient/Family Education Needs: Review DC instructions, any limitations, and discuss Ask Me Three
== END 2017-11-08 17:11 | disposition home or self-care (01) | DRG 694 ==
LOC: ER 11-06 01:18 → MS 11-06 02:07
PROVIDERS: Nurse Practitioner; Student in an Organized Health Care Education/Training Program; Admitting Provider Family Medicine; Emergency Provider Emergency Medicine; PCP Nurse Practitioner Family; Visit Provider Internal Medicine
DX: N13.2 Hydronephrosis with renal and ureteral calculous obstruction; Z68.43 Body mass index [BMI] 50.0-59.9, adult; N20.0 Calculus of kidney; Z87.442 Personal history of urinary calculi; E11.65 Type 2 diabetes mellitus with hyperglycemia; E66.01 Morbid (severe) obesity due to excess calories; G47.33 Obstructive sleep apnea (adult) (pediatric); R09.02 Hypoxemia
CPT/HCPCS: 36415; 80048; 80053; 81025; 83690; 85027; 96361; 96372; 96374; 96376; 99220; 99225; 99232; 99239; 99285; 74176; 81003; 81015; 85025; 87086; 99238; G0378; J1885; J2270; J2405

== ENCOUNTER 2017-12-04 12:13 | Outpatient (CLI) | payer MEDICAID, SELFPAY ==
[2017-12-04 13:02] LABS: Abs Immature Grans 0.06 k/cumm (0.0-0.09); Absolute Basophil Count 0.03 k/cumm (0.0-0.2); Absolute Eosinophil Count 0.29 k/cumm (0.0-0.7); Absolute Lymphocyte Count 3.37 k/cumm (1.2-3.4); Absolute Monocyte Count 0.63 k/cumm (0.11-0.7); Basophils % 0.2; Eosinophils % 2.3; HCT 41.4 % (36.0-46.0); HGB 13.2 g/dL (12.0-15.5); Immature Grans % 0.5; Lymphocytes % 26.6; Mean Corp. HGB Concentration 31.9 g/dL (32.0-36.0); Mean Corpuscular Hemoglobin 25.2 pg (27.0-33.0); Mean Platelet Volume 10.2 fL (8.0-11.0); Neutrophils % 65.4; Platelet Count 323 x1000/uL (130-400); RBC 5.24 m/cumm (4.00-5.20); RBC Distribution Width 16.1 % (11.7-14.6); White Blood Cell Count 12.68 k/cumm (4.4-10.8)
[2017-12-04 13:03] LABS: Absolute Neutrophil Count 8.29 k/cumm (1.2-6.7)
[2017-12-04 14:04] LABS: ALT 25 U/L (12-78); AST 18 U/L (15-37); Albumin 3.4 g/dL (3.4-5.0); Alkaline Phosphatase 100 U/L (46-116); Anion Gap 8.7 mmol/L (3-11); BUN 20 mg/dL (7-18); Bilirubin, Total 0.3 mg/dL (0.2-1.0); C-Reactive Protein 2.01 mg/dL (0.0-0.3); CO2 27.3 mmol/L (21.0-32.0); CREATININE 0.75 mg/dL (0.55-1.02); Calcium 9.2 mg/dL (8.5-10.1); Chloride 102 mmol/L (98-107); Glucose 189 mg/dL (70-100); Potassium 4.2 mmol/L (3.5-5.1); Sodium 138 mmol/L (136-145); Total Protein 7.7 g/dL (6.4-8.2)
[2017-12-04 14:10] LABS: ESR 46 MM/HR (0-20)
[2017-12-05 16:27] LABS: Angiotensin Converting Enzyme 62 U/L (8 - 53)
[2017-12-06 07:12] LABS: Rheumatoid Factor <8 IU/mL (<12.5)
[2017-12-06 10:02] LABS: Lysozyme (Muramidase), P 5.9 mcg/mL (2.7 - 9.4)
== END 2017-12-04 12:33 ==
PROVIDERS: PCP Nurse Practitioner Family; Visit Provider Internal Medicine Rheumatology
DX: M25.50 Pain in unspecified joint (principal); R70.0 Elevated erythrocyte sedimentation rate; Z79.899 Other long term (current) drug therapy
CPT/HCPCS: 36415; 80053; 82164; 85549; 85652; 85025; 86140; 86431

== ENCOUNTER 2017-12-11 12:28 | Outpatient (CLI) | payer MEDICAID, SELFPAY ==
[2017-12-11 14:20] LABS: Glucose 127 mg/dL (70-100); TSH 1.04 uIU/mL (0.358-3.74)
[2017-12-12 17:20] LABS: Fructosamine 241 mcmol/L (200 - 285)
== END 2017-12-11 12:48 ==
PROVIDERS: PCP Nurse Practitioner Family; Visit Provider Internal Medicine Endocrinology, Diabetes & Metabolism
DX: E11.65 Type 2 diabetes mellitus with hyperglycemia (principal); Z68.43 Body mass index [BMI] 50.0-59.9, adult
CPT/HCPCS: 36415; 82533; 82947; 82985; 84439; 84443

== ENCOUNTER 2018-01-16 12:31 | Outpatient (REF) | payer MEDICAID, SELFPAY ==
[2018-01-19 16:11] LABS: Midnight Cortisol <50 ng/dL (<100)
== END 2018-01-16 12:51 ==
LOC: LBN 12:31
PROVIDERS: PCP Nurse Practitioner Family; Visit Provider Internal Medicine Endocrinology, Diabetes & Metabolism
DX: E11.65 Type 2 diabetes mellitus with hyperglycemia (principal); Z68.43 Body mass index [BMI] 50.0-59.9, adult
CPT/HCPCS: 82530

== ENCOUNTER 2018-03-07 13:10 | Emergency (ER) | payer MEDICAID, SELFPAY ==
[2018-03-07 13:12] VITALS: BP 150/87; PULSE 95; RESP 16; TEMP 36.6; O2SAT 98
--- NOTE | 2018-03-07 13:42 | DI.CT_ITS ---
SYMPTOM/DIAGNOSIS: ABD PAIN, TENDERNESS UPPER ABD ABDOMEN AND PELVIC CT: Comparison is made with noncontrast exam dated 11/05/17. There are two adjacent non obstructing stones at the lower pole of the left kidney. There is a tiny stone in the right kidney. There are no ureteral or bladder calculi or evidence of hydronephrosis. The lung bases show respiratory motion but appear clear. The liver shows fatty infiltration. The patient is status post cholecystectomy. There is no biliary dilatation. The pancreas, adrenals and spleen appear normal. The appendix appears normal. There is bowl dilatation or inflammatory change. There is no free air or free fluid or evidence of adenopathy. The uterus, ovaries and bladder appear normal. No inguinal or abdominal wall hernias are seen. IMPRESSION: No acute abnormality. There are non obstructing renal calculi but no evidence of hydronephrosis.
--- NOTE | 2018-03-07 13:48 | W.ED.GENAD ---
Discharge Plan Disposition Patient Disposition: HOME Discharge Details Chief Complaint: Abd Prob Clinical Impression: Abdominal pain Primary Care Provider: Digna Lemon ED Provider: Albert Hein Home Meds and New Rx's Prescriptions: New famotidine [Pepcid] 20 mg tablet 20 mg PO BID 42 Days Qty: 84 RF: 0 ondansetron 4 mg tablet,disintegrating 4 mg PO TID PRN (Reason: nausea and vomiting) 5 Days Qty: 7 RF: 0 Continued tamsulosin 0.4 mg capsule 0.8 mg PO DAILY Qty: 20 RF: 0 ondansetron 4 mg tablet,disintegrating 4 mg PO Q8H PRN PRN (Reason: nausea and vomiting) Qty: 20 RF: 0 sertraline [Zoloft] 100 MG tablet 100 mg PO DAILY RF: 0 loratadine 10 MG tablet,disintegrating 10 mg PO DAILY RF: 0 epinephrine [EpiPen 2-Fabian] 0.3 MG/0.3 ML auto-injector 0.3 mg IM ONCE RF: 0 fluticasone [Flonase] 16 GM spray,suspension 50 mcg NS DAILY RF: 0 tizanidine 4 MG capsule 4 mg PO PRN PRNRF: 0 Lyrica 100 MG capsule 150 mg PO QPM RF: 0 cholecalciferol (vitamin D3) 1,000 UNITS tablet 5,000 units PO DAILY RF: 0 levalbuterol tartrate [Xopenex HFA] 200 PUFF HFA aerosol inhaler 2 gm Inhalation PRN RF: 0 hydroxyzine HCl 25 MG tablet 25 mg PO HS RF: 0 glipizide 10 MG tablet extended release 24hr 10 mg PO HS RF: 0 rosuvastatin [Crestor] 20 MG tablet 20 mg PO QPM RF: 0 Insulin Glargine,Hum.rec.anlog [Lantus] 100 UNIT/ML Vial 30 unit SQ HS RF: 0 Topiramate [Trokendi Xr] 50 MG Cap.Er.24h 50 mg PO HS RF: 0 Discharge Instructions Instructions: Abdominal Pain (ED) Additional Instructions: Please do not use any medications containing ibuprofen. Avoid NSAIDs. Please contact your primary care physician to arrange follow-up. If pain persist, you may need additional diagnostic testing including an endoscopy. Return to the ER for any worsening or new concerning symptoms. Stand Alone Forms: Work Release Referrals: Vivian Enriquez MD [ [facility] STAFF PHYSICIAN] - Digna Lemon [Primary Care Provider] - Medical Decision Making 13:53 --47-year-old female with history of diverticulitis here with severe abdominal pain worsening over the past 3 days. Tender in her upper abdomen with rebound tenderness. Patient is also had foul smelling belching. Plan to check screening labs for pancreatitis and hepatitis. Consider acute surgical intra-abdominal process. Plan to CT abdomen pelvis. 15:22 --labs reviewed and nondiagnostic. Leukocytosis noted. Normal LFTs. Normal lipase. Slightly elevated BUN with no anion gap. Suspect gastric ulcer versus gastritis. Plan to have the patient follow-up with primary care physician and she will likely need an endoscopy should symptoms persist. CT of the abdomen and pelvis interpreted by radiology: Fatty liver present, status post cholecystectomy, nonobstructing stone lower pole left kidney. Results were discussed with the patient. Disposition decision was made weighing the risks and benefits of hospitalization versus outpatient treatment, the risk for further decompensation, and the patient's wishes. The patient was stable and requested discharge. Prior to discharge, my usual and customary return precautions were reviewed with the patient - this included follow-up instructions and reason to return to the emergency department if condition worsens, does not improve as expected, or other new concerns arise. HPI General Mode of arrival: ambulatory. Date/Time Provider Initiated Documentation: 03/07/18 13:27. Limitations to Documentation: no limitations. Information obtained by: patient. HPI Narrative: 47-year-old female with history of other insulin-dependent diabetes, diverticulitis here with chief complaint of abdominal pain. Patient notes that for the past 3 days she has had persistent abdominal pain. Pain is now severe. No modifiers. Pain is localized to her upper abdomen. She is associated nausea. No vomiting. She has been using Zofran which did not help today. Patient notes she has had excessive burping that smells strongly like sulfur. She denies associated fever. No bright red blood per rectum. No black stool. Related Data Home Medications Medication Instructions Recorded Confirmed Lyrica 150 mg PO QPM 05/03/12 03/07/18 cholecalciferol (vitamin D3) 5,000 units PO DAILY 05/03/12 03/07/18 tizanidine 4 mg PO PRN PRN 05/03/12 03/07/18 sertraline [Zoloft] 100 mg PO DAILY tab-cap 07/22/12 03/07/18 levalbuterol tartrate [Xopenex HFA] 2 gm INHALATION PRN 05/03/13 03/07/18 epinephrine [EpiPen 2-Fabian] 0.3 mg IM ONCE 02/26/14 03/07/18 fluticasone [Flonase] 50 mcg NS DAILY spray 02/26/14 03/07/18 loratadine 10 mg PO DAILY tab-cap 02/26/14 03/07/18 hydroxyzine HCl 25 mg PO HS 11/09/14 03/07/18 Insulin Glargine,Hum.rec.anlog 30 unit SQ HS 02/06/17 03/07/18 [Lantus] Topiramate [Trokendi Xr] 50 mg PO HS 02/06/17 03/07/18 glipizide 10 mg PO HS 02/06/17 03/07/18 rosuvastatin [Crestor] 20 mg PO QPM 02/06/17 03/07/18 ondansetron 4 mg disintegrating 4 mg PO Q8H PRN PRN #20 tab 11/13/17 03/07/18 tablet tamsulosin 0.4 mg capsule 0.8 mg PO DAILY #20 cap 11/13/17 03/07/18 famotidine [Pepcid] 20 mg PO BID 42 Days #84 tab 03/07/18 ondansetron 4 mg PO TID PRN 5 Days #7 tab 03/07/18 Previous Rx's Medication Instructions Recorded ondansetron 4 mg disintegrating 4 mg PO Q8H PRN PRN #20 tab 11/13/17 tablet tamsulosin 0.4 mg capsule 0.8 mg PO DAILY #20 cap 11/13/17 famotidine [Pepcid] 20 mg PO BID 42 Days #84 tab 03/07/18 ondansetron 4 mg PO TID PRN 5 Days #7 tab 03/07/18 Allergies Allergy/AdvReac Type Severity Reaction Status Date / Time amoxicillin trihydrate Allergy Intermediate Hives Verified 03/07/18 13:21 [From Augmentin] potassium clavulanate Allergy Intermediate Hives Verified 03/07/18 13:21 [From Augmentin] ammonium lactate AdvReac Intermediate GI UPSET Verified 03/07/18 13:21 [From Lac-Hydrin] citalopram hydrobromide AdvReac Intermediate CHEST Verified 03/07/18 13:21 [From Celexa] PAINS, SOB codeine AdvReac Intermediate Nausea Verified 03/07/18 13:21 duloxetine [Duloxetine] AdvReac Intermediate SPACEY Verified 03/07/18 13:21 duloxetine HCl AdvReac Intermediate NAUSEA, V/D Verified 03/07/18 13:21 [From Cymbalta] hydromorphone HCl AdvReac Intermediate NAUSEA,VOMI Verified 03/07/18 13:21 [From Dilaudid] TING,CONSTI PATION milk AdvReac Mild NAUSEA Verified 03/07/18 13:21 environmental Allergy Severe Uncoded 03/07/18 13:21 General Stated Complaint: Abd Prob LANIE: 4 Review of Systems Cardiovascular Denies chest pain Respiratory Denies cough Gastrointestinal Reports as per HPI [facility] Medical History Anxiety Asthma Fibromyalgia Herniated cervical disc Morbid obesity with BMI of 40.0-44.9, adult Surgical History section Ligation of fallopian tube discetomy and spinal fusion Social History Smoking/Tobacco Use Status: Former Tobacco Use alcohol intake: never substance use type: marijuana Exam Const General: cooperative, uncomfortable and no acute distress HENMT Head: normocephalic and atraumatic Mouth: moist mucous membranes Eyes Conjunctivae: normal conjunctivae Sclera: normal sclerae EOM: EOM intact bilaterally Neck Neck: trachea midline and supple Resp Auscultation: clear to auscultation bilaterally, no rales, no rhonchi and no wheezes Cardio Jugular venous pressure: no JVD Rate: regular rate and not tachycardic Rhythm: regular rhythm GI Palpation: soft, not firm, no guarding, no masses, not rigid and tender in the epigastrum, in the LUQ and in the RUQ Auscultation: normal bowel sounds Skin General skin exam: no rashes or lesions noted Neuro General: alert, awake, oriented x3 and tone normal Extrem General: no edema Psych Appearance: grossly normal Mental Status: mental status grossly normal Speech and Movement: speech and movement normal Course Vital Signs Temperature 36.6 C 03/07/18 13:12 Pulse 95 H 03/07/18 13:12 Respiratory Rate 16 03/07/18 13:12 Blood Pressure 150/87 H 03/07/18 13:12 Pulse Oximetry 98 03/07/18 13:12 Temperature 36.6 C 03/07/18 13:12 Temperature Source Skin 03/07/18 13:12 Pulse 95 H 03/07/18 13:12 Respiratory Rate 16 03/07/18 13:12 Respiratory Effort Non-Labored 03/07/18 13:17 Blood Pressure 150/87 H 03/07/18 13:12 Blood Pressure Position Sitting 03/07/18 13:12 Pulse Oximetry 98 03/07/18 13:12 Oxygen Delivery Method Room Air 03/07/18 13:12 Oxygen Flow Rate 0 03/07/18 13:12 Pain Level 9 03/07/18 13:12
[2018-03-07] MEDS: FAMOTIDINE 20 MG/50 ML BAG 200 MG IVPB (13:51)
[2018-03-07] MEDS: Lactated Ringers 1,000 ML 1000 ML IV (13:51)
--- NOTE | 2018-03-07 13:54 | ED.GENADUL_ITS ---
Discharge Plan Disposition Patient Disposition: HOME Discharge Details Chief Complaint: Abd Prob Clinical Impression: Abdominal pain Primary Care Provider: Digna Lemon ED Provider: Ablert Hein Home Meds and New Rx's Prescriptions: New famotidine [Pepcid] 20 mg tablet 20 mg PO BID 42 Days Qty: 84 RF: 0 ondansetron 4 mg tablet,disintegrating 4 mg PO TID PRN (Reason: nausea and vomiting) 5 Days Qty: 7 RF: 0 Continued tamsulosin 0.4 mg capsule 0.8 mg PO DAILY Qty: 20 RF: 0 ondansetron 4 mg tablet,disintegrating 4 mg PO Q8H PRN PRN (Reason: nausea and vomiting) Qty: 20 RF: 0 sertraline [Zoloft] 100 MG tablet 100 mg PO DAILY RF: 0 loratadine 10 MG tablet,disintegrating 10 mg PO DAILY RF: 0 epinephrine [EpiPen 2-Fabian] 0.3 MG/0.3 ML auto-injector 0.3 mg IM ONCE RF: 0 fluticasone [Flonase] 16 GM spray,suspension 50 mcg NS DAILY RF: 0 tizanidine 4 MG capsule 4 mg PO PRN PRNRF: 0 Lyrica 100 MG capsule 150 mg PO QPM RF: 0 cholecalciferol (vitamin D3) 1,000 UNITS tablet 5,000 units PO DAILY RF: 0 levalbuterol tartrate [Xopenex HFA] 200 PUFF HFA aerosol inhaler 2 gm Inhalation PRN RF: 0 hydroxyzine HCl 25 MG tablet 25 mg PO HS RF: 0 glipizide 10 MG tablet extended release 24hr 10 mg PO HS RF: 0 rosuvastatin [Crestor] 20 MG tablet 20 mg PO QPM RF: 0 Insulin Glargine,Hum.rec.anlog [Lantus] 100 UNIT/ML Vial 30 unit SQ HS RF: 0 Topiramate [Trokendi Xr] 50 MG Cap.Er.24h 50 mg PO HS RF: 0 Discharge Instructions Instructions: Abdominal Pain (ED) Additional Instructions: Please do not use any medications containing ibuprofen. Avoid NSAIDs. Please contact your primary care physician to arrange follow-up. If pain persist, you may need additional diagnostic testing including an en doscopy. Return to the ER for any worsening or new concerning symptoms. Stand Alone Forms: Work Release Referrals: Vivian Enriquez MD [ [facility] STAFF PHYSICIAN] - Digna Lemon [Primary Care Provider] - Medical Decision Making 13:53 --47-year-old female with history of diverticulitis here with severe abdominal pain worsening over the past 3 days. Tender in her upper abdomen with rebound tenderness. Patient is also had foul smelling belching. Plan to check screening labs for pancreatitis and hepatitis. Consider acute surgical intra-abdominal process. Plan to CT abdomen pelvis. 15:22 --labs reviewed and nondiagnostic. Leukocytosis noted. Normal LFTs. Normal lipase. Slightly elevated BUN with no anion gap. Suspect gastric ulcer versus gastritis. Plan to have the patient follow-up with primary care physician and she will likely need an endoscopy should symptoms persist. CT of the abdomen and pelvis interpreted by radiology: Fatty liver present, status post cholecystectomy, nonobstructing stone lower pole left kidney. Results were discussed with the patient. Disposition decision was made weighing the risks and benefits of hospitalization versus outpatient treatment, the risk for further decompensation, and the patient's wishes. The patient was stable and requested discharge. Prior to discharge, my usual and customary return precautions were reviewed with the patient - this included follow-up instructions and reason to return to the emergency department if condition worsens, does not improve as expected, or other new concerns arise. HPI General Mode of arrival: ambulatory . Date/Time Provider Initiated Documentation: 03/07/18 13:27 . Limitations to Documentation: no limitations . Information obtained by: patient . HPI Narrative: 47-year-old female with history of other insulin-dependent diabetes, diverticulitis here with chief complaint of abdominal pain. Patient notes that for the past 3 days she has had persistent abdominal pain. Pain is now severe. No modifiers. Pain is localized to her upper abdomen. She is associated nausea. No vomiting. She has been using Zofran which did not help today. Patient notes she has had excessive burping that smells strongly like sulfur. She denies associated fever. No bright red blood per rectum. No black stool. Related Data Home Medications Medication Instructions Recorded Confirmed Lyrica 150 mg PO QPM 05/03/12 03/07/18 cholecalciferol (vitamin D3) 5,000 units PO DAILY 05/03/12 03/07/18 tizanidine 4 mg PO PRN PRN 05/03/12 03/07/18 sertraline [Zoloft] 100 mg PO DAILY tab-cap 07/22/12 03/07/18 levalbuterol tartrate [Xopenex HFA] 2 gm INHALATION PRN 05/03/13 03/07/18 epinephrine [EpiPen 2-Fabian] 0.3 mg IM ONCE 02/26/14 03/07/18 fluticasone [Flonase] 50 mcg NS DAILY spray 02/26/14 03/07/18 loratadine 10 mg PO DAILY tab-cap 02/26/14 03/07/18 hydroxyzine HCl 25 mg PO HS 11/09/14 03/07/18 Insulin Glargine,Hum.rec.anlog 30 unit SQ HS 02/06/17 03/07/18 [Lantus] Topiramate [Trokendi Xr] 50 mg PO HS 02/06/17 03/07/18 glipizide 10 mg PO HS 02/06/17 03/07/18 rosuvastatin [Crestor] 20 mg PO QPM 02/06/17 03/07/18 ondansetron 4 mg disintegrating 4 mg PO Q8H PRN PRN #20 tab 11/13/17 03/07/18 tablet tamsulosin 0.4 mg capsule 0.8 mg PO DAILY #20 cap 11/13/17 03/07/18 famotidine [Pepcid] 20 mg PO BID 42 Days #84 tab 03/07/18 ondansetron 4 mg PO TID PRN 5 Days #7 tab 03/07/18 Previous Rx's Medication Instructions Recorded ondansetron 4 mg disintegrating 4 mg PO Q8H PRN PRN #20 tab 11/13/17 tablet tamsulosin 0.4 mg capsule 0.8 mg PO DAILY #20 cap 11/13/17 famotidine [Pepcid] 20 mg PO BID 42 Days #84 tab 03/07/18 ondansetron 4 mg PO TID PRN 5 Days #7 tab 03/07/18 Allergies Allergy/AdvReac Type Severity Reaction Status Date / Time amoxicillin trihydrate Allergy Intermediate Hives Verified 03/07/18 13:21 [From Augmentin] potassium clavulanate Allergy Intermediate Hives Verified 03/07/18 13:21 [From Augmentin] ammonium lactate AdvReac Intermediate GI UPSET Verified 03/07/18 13:21 [From Lac-Hydrin] citalopram hydrobromide AdvReac Intermediate CHEST Verified 03/07/18 13:21 [From Celexa] PAINS, SOB codeine AdvReac Intermediate Nausea Verified 03/07/18 13:21 duloxetine [Duloxetine] AdvReac Intermediate SPACEY Verified 03/07/18 13:21 duloxetine HCl AdvReac Intermediate NAUSEA, V/D Verified 03/07/18 13:21 [From Cymbalta] hydromorphone HCl AdvReac Intermediate NAUSEA,VOMI Verified 03/07/18 13:21 [From Dilaudid] TING,CONSTI PATION milk AdvReac Mild NAUSEA Verified 03/07/18 13:21 environmental Allergy Severe Uncoded 03/07/18 13:21 General Stated Complaint: Abd Prob LANIE: 4 Review of Systems Cardiovascular Denies chest pain Respiratory Denies cough Gastrointestinal Reports as per HPI [facility] Medical History Anxiety Asthma Fibromyalgia Herniated cervical disc Morbid obesity with BMI of 40.0-44.9, adult Surgical History section Ligation of fallopian tube discetomy and spinal fusion Social History Smoking/Tobacco Use Status: Former Tobacco Use alcohol intake: never substance use type: marijuana Exam Const General: cooperative, uncomfortable and no acute distress HENMT Head: normocephalic and atraumatic Mouth: moist mucous membranes Eyes Conjunctivae: normal conjunctivae Sclera: normal sclerae EOM: EOM intact bilaterally Neck Neck: trachea midline and supple Resp Auscultation: clear to auscultation bilaterally, no rales, no rhonchi and no wheezes Cardio Jugular venous pressure: no JVD Rate: regular rate and not tachycardic Rhythm: regular rhythm GI Palpation: soft, not firm, no guarding, no masses, not rigid and tender in the epigastrum, in the LUQ and in the RUQ Auscultation: normal bowel sounds Skin General skin exam: no rashes or lesions noted Neuro General: alert, awake, oriented x3 and tone normal Extrem General: no edema Psych Appearance: grossly normal Mental Status: mental status grossly normal Speech and Movement: speech and movement normal Course Vital Signs Temperature 36.6 C 03/07/18 13:12 Pulse 95 H 03/07/18 13:12 Respiratory Rate 16 03/07/18 13:12 Blood Pressure 150/87 H 03/07/18 13:12 Pulse Oximetry 98 03/07/18 13:12 Temperature 36.6 C 03/07/18 13:12 Temperature Source Skin 03/07/18 13:12 Pulse 95 H 03/07/18 13:12 Respiratory Rate 16 03/07/18 13:12 Respiratory Effort Non-Labored 03/07/18 13:17 Blood Pressure 150/87 H 03/07/18 13:12 Blood Pressure Position Sitting 03/07/18 13:12 Pulse Oximetry 98 03/07/18 13:12 Oxygen Delivery Method Room Air 03/07/18 13:12 Oxygen Flow Rate 0 03/07/18 13:12 Pain Level 9 03/07/18 13:12
[2018-03-07 13:55] LABS: Lactate 1.2 mmol/L (0.6-1.4)
[2018-03-07 13:58] VITALS: PULSE 80; TEMP 36.8; O2SAT 97
[2018-03-07 13:58] LABS: Abs Immature Grans 0.05 k/cumm (0.0-0.09); Absolute Lymphocyte Count 3.63 k/cumm (1.2-3.4); Absolute Monocyte Count 0.81 k/cumm (0.11-0.7); Basophils % 0.2; Eosinophils % 2.3; HCT 42.1 % (36.0-46.0); HGB 13.4 g/dL (12.0-15.5); Immature Grans % 0.4; Lymphocytes % 27.2; Mean Corp. HGB Concentration 31.8 g/dL (32.0-36.0); Mean Corpuscular Hemoglobin 25.1 pg (27.0-33.0); Mean Platelet Volume 10.9 fL (8.0-11.0); Monocytes % 6.1; Neutrophils % 63.8; Platelet Count 309 x1000/uL (130-400); RBC 5.33 m/cumm (4.00-5.20); RBC Distribution Width 15.5 % (11.7-14.6); White Blood Cell Count 13.33 k/cumm (4.4-10.8)
[2018-03-07 14:04] LABS: Absolute Basophil Count 0.03 k/cumm (0.0-0.2); Absolute Eosinophil Count 0.31 k/cumm (0.0-0.7)
[2018-03-07 14:14] LABS: ALT 22 U/L (12-78); AST 16 U/L (15-37); Albumin 3.2 g/dL (3.4-5.0); Alkaline Phosphatase 122 U/L (46-116); Anion Gap 10.3 mmol/L (3-11); BUN 26 mg/dL (7-18); Bilirubin, Total 0.2 mg/dL (0.2-1.0); CO2 25.7 mmol/L (21.0-32.0); CREATININE 0.74 mg/dL (0.55-1.02); Calcium 9.1 mg/dL (8.5-10.1); Chloride 102 mmol/L (98-107); Glucose 158 mg/dL (70-100); Lipase 255 U/L (73-393); Potassium 4.1 mmol/L (3.5-5.1); Sodium 138 mmol/L (136-145)
[2018-03-07] MEDS: Omnipaque 350 MG/ML 100 ML BTL IJ (14:27)
[2018-03-07] MEDS: Normal Saline Flush 10 ML SYR IVP (14:41)
[2018-03-07 14:45] VITALS: BP 127/99; PULSE 80; RESP 20; TEMP 36.6; O2SAT 100
== END 2018-03-07 15:32 | disposition home or self-care (01) ==
PROVIDERS: Emergency Provider Student in an Organized Health Care Education/Training Program; PCP Nurse Practitioner Family
DX: R10.10 Upper abdominal pain, unspecified (principal); N20.0 Calculus of kidney; E11.9 Type 2 diabetes mellitus without complications; Z79.4 Long term (current) use of insulin
CPT/HCPCS: 80053; 83690; 96361; 96365; 99285; 74177; 83605; 85025; 99284; J3490

== ENCOUNTER 2018-06-12 21:10 | Emergency (ER) | payer MEDICAID, SELFPAY ==
[2018-06-12 21:18] VITALS: BP 140/80; PULSE 100; RESP 18; TEMP 36.4; O2SAT 96
--- NOTE | 2018-06-12 21:19 | W.ED.GENAD ---
Discharge Plan Disposition Patient Disposition: HOME Condition: Stable Discharge Details Chief Complaint: Orthopedic Clinical Impression: Hamstring strain, Acute pain of left knee Primary Care Provider: Digna Lemon ED Provider: Saskia Patel Home Meds and New Rx's Prescriptions: Continued sertraline [Zoloft] 100 MG tablet 100 mg PO DAILY RF: 0 loratadine 10 MG tablet,disintegrating 10 mg PO DAILY RF: 0 epinephrine [EpiPen 2-Fabian] 0.3 MG/0.3 ML auto-injector 0.3 mg IM ONCE RF: 0 fluticasone propionate [Flonase] 16 GM spray,suspension 50 mcg NS DAILY RF: 0 tizanidine 4 MG capsule 4 mg PO PRN PRNRF: 0 Lyrica 100 MG capsule 150 mg PO QPM RF: 0 cholecalciferol (vitamin D3) 1,000 UNITS tablet 5,000 units PO DAILY RF: 0 levalbuterol tartrate [Xopenex HFA] 200 PUFF HFA aerosol inhaler 2 gm Inhalation PRN RF: 0 hydroxyzine HCl 25 MG tablet 25 mg PO HS RF: 0 glipizide 10 MG tablet extended release 24hr 10 mg PO HS RF: 0 rosuvastatin [Crestor] 20 MG tablet 20 mg PO QPM RF: 0 Insulin Glargine,Hum.rec.anlog [Lantus] 100 UNIT/ML Vial 30 unit SQ HS RF: 0 Topiramate [Trokendi Xr] 50 MG Cap.Er.24h 50 mg PO HS RF: 0 Discharge Instructions Instructions: Muscle Strain (ED), Knee Pain (ED) Additional Instructions: Encourage rest, ice, elevation. Tylenol and/or Ibuprofen as needed for pain. At this point, your pain is diffuse about the knee and hamstring, consistent with strain. No evidence of ligamentous injury or fracture. If you develop redness, warmth, increased pain, fevers/chills, shortness of breath, fevers/chills or other new/worsening symptoms please seek care urgently once again. Follow up with primary care in one week if not improving. Stand Alone Forms: Work Release Referrals: Digna Lemon [Primary Care Provider] - Medical Decision Making Patient is a 47 year old female presenting today with c/c of left knee pain. States that pain began yesterday after stretching' in the car. Immediately noted pain in posterior and lateral knee. No trauma. Pain particularly with ambulation, pain largely subsides when at rest. Pain can radiate proximally. No previous injury or surgery. No erythema, warmth, no open areas of skin. No recent travel, no estrogen use. Patient is a nonsmoker. No personal or immediate family history of clot. On exam, irving is obese. She is diffusely tender about the joint line of the left knee. Ligamentous exam intact although she has tender with palpation during the exam. Calf is soft and nontender, 2+ distal pulses. Pain diffusely about posterior thigh. Pain maximal with flexion against resistance of the knee. Pain follows the hamstring and ends at proximal insertion. Concidered dx of DVT, find this unlikely without risk factors, physical exam supporting this or history to suggest clot. Pain came on suddenly primarily in the knee after provocative movement. Wells' score for DVT -2 putting patient low risk. Do not suspect fracture as patient did not fall or have true trauma. No bony tenderness on exam. Advised strain. Ivan wrap applied. Encouraged rest, ice, elevation. Tyelnol and/or Ibuprofen as needed for discomfort. We discussed new/worsening symptpoms and when to seek care urgently once again. ADvised f/u with PCP in 1 week if pain persists. All of her questions and concerns were addressed, she is in agreement with this plan. HPI General Mode of arrival: ambulatory. Date/Time Provider Initiated Documentation: 06/12/18 21:18. Limitations to Documentation: no limitations. Information obtained by: patient, family and RN notes reviewed. History of Present Illness 47 year old F presents to the emergency department with the chief complaint of left knee pain, described as moderate, with intensity rated at 8. Quality is described as aching and sharp, and is localized to the left and lower extremity. Patient proximal. Patient started experiencing this day(s) (1) and it has been constant. Immobilization improves symptom(s), Movement worsens symptoms . Patient notes no other symptoms.. Patient did receive the following treatments prior to arrival, none Related Data Home Medications Medication Instructions Recorded Confirmed Lyrica 150 mg PO QPM 05/03/12 06/12/18 cholecalciferol (vitamin D3) 5,000 units PO DAILY 05/03/12 06/12/18 tizanidine 4 mg PO PRN PRN 05/03/12 06/12/18 sertraline [Zoloft] 100 mg PO DAILY tab-cap 07/22/12 06/12/18 levalbuterol tartrate [Xopenex HFA] 2 gm INHALATION PRN 05/03/13 06/12/18 epinephrine [EpiPen 2-Fabian] 0.3 mg IM ONCE 02/26/14 06/12/18 fluticasone propionate [Flonase] 50 mcg NS DAILY spray 02/26/14 06/12/18 loratadine 10 mg PO DAILY tab-cap 02/26/14 06/12/18 hydroxyzine HCl 25 mg PO HS 11/09/14 06/12/18 Insulin Glargine,Hum.rec.anlog 30 unit SQ HS 02/06/17 06/12/18 [Lantus] Topiramate [Trokendi Xr] 50 mg PO HS 02/06/17 06/12/18 glipizide 10 mg PO HS 02/06/17 06/12/18 rosuvastatin [Crestor] 20 mg PO QPM 02/06/17 06/12/18 Allergies Allergy/AdvReac Type Severity Reaction Status Date / Time amoxicillin trihydrate Allergy Intermediate Hives Verified 06/12/18 21:22 [From Augmentin] potassium clavulanate Allergy Intermediate Hives Verified 06/12/18 21:22 [From Augmentin] ammonium lactate AdvReac Intermediate GI UPSET Verified 06/12/18 21:22 [From Lac-Hydrin] citalopram hydrobromide AdvReac Intermediate CHEST Verified 06/12/18 21:22 [From Celexa] PAINS, SOB codeine AdvReac Intermediate Nausea Verified 06/12/18 21:22 duloxetine [Duloxetine] AdvReac Intermediate SPACEY Verified 06/12/18 21:22 duloxetine HCl AdvReac Intermediate NAUSEA, V/D Verified 06/12/18 21:22 [From Cymbalta] hydromorphone HCl AdvReac Intermediate NAUSEA,VOMI Verified 06/12/18 21:22 [From Dilaudid] TING,CONSTI PATION milk AdvReac Mild NAUSEA Verified 06/12/18 21:22 environmental Allergy Severe Uncoded 06/12/18 21:22 General LANIE: 4 Review of Systems Constitutional Reports as per HPI, Denies chills, Denies fever(s), Denies headache(s) and Denies weakness ENT Denies headache(s) Cardiovascular Reports as per HPI, Denies chest pain, Denies dyspnea and Denies dyspnea on exertion Respiratory Reports as per HPI, Denies cough, Denies dyspnea and Denies dyspnea on exertion Musculoskeletal Reports as per HPI, Denies muscle cramps, Denies muscle weakness, Denies numbness, Reports radiating pain into limb and Denies tingling Integumentary/Breasts Reports as per HPI, Denies rash and Denies wounds Neurologic Reports as per HPI, Denies headache(s), Denies numbness, Denies tingling, Denies paresthesias and Denies weakness [facility] Medical History Anxiety Asthma Fibromyalgia Herniated cervical disc Morbid obesity with BMI of 40.0-44.9, adult Surgical History section Ligation of fallopian tube discetomy and spinal fusion Social History Smoking/Tobacco Use Status: Former Tobacco Use Alcohol Intake: never Drug use: Daily Substance use type: marijuana Do you feel safe in your relationship?: Yes Exam Const General: cooperative, healthy appearing, comfortable, no acute distress, well developed and well groomed Nutritional Appearance: well nourished and obese Orientation: alert and awake Resp Effort & Inspection: normal respiratory effort, able to speak in complete sentences and no respiratory distress Cardio Rate: regular rate Rhythm: regular rhythm Skin General skin exam: no rashes or lesions noted Lesions: no lesions Rashes: no rashes Trauma: no lacerations or abrasions Neuro General: alert and awake Cognition: normal cognition Speech: speech normal Gait: normal gait Motor: muscle tone normal throughout Sensory Exam: no sensory deficits noted Extrem General: full ROM, normal capillary refill, no joint enlargement, no pedal edema and no calf tenderness Right lower extremity: full ROM, normal capillary refill, no joint enlargement, hip/thigh Details: tenderness Location: of the mid upper leg (diffusely tender) Location: posteriorly and normal ROM; no abrasions, no ecchymosis, no crepitus, no deformity and no unusual warmth, knee Details: tenderness (diffusely tender, maximal lateral joint line), normal ROM and knee ligament exam normal Details: anterior drawer test normal, posterior drawer test normal, valgus stress test normal and varus stress test normal; no pain with axial loading; no swelling, no abrasions, no deformity and no unusual warmth and lower leg Details: no edema; no erythema, no tenderness, no localized swelling, no palpable cords, no lacerations, no ecchymosis, no crepitus and no unusual warmth; no edema Psych Appearance: grossly normal and well kempt Mental Status: mental status grossly normal Speech and Movement: speech and movement normal
--- NOTE | 2018-06-12 21:49 | ED.GENADUL_ITS ---
Discharge Plan Disposition Patient Disposition: HOME Condition: Stable Discharge Details Chief Complaint: Orthopedic Clinical Impression: Hamstring strain, Acute pain of left knee Primary Care Provider: Digna Lemon ED Provider: Saskia Patel Home Meds and New Rx's Prescriptions: Continued sertraline [Zoloft] 100 MG tablet 100 mg PO DAILY RF: 0 loratadine 10 MG tablet,disintegrating 10 mg PO DAILY RF: 0 epinephrine [EpiPen 2-Fabian] 0.3 MG/0.3 ML auto-injector 0.3 mg IM ONCE RF: 0 fluticasone propionate [Flonase] 16 GM spray,suspension 50 mcg NS DAILY RF: 0 tizanidine 4 MG capsule 4 mg PO PRN PRNRF: 0 Lyrica 100 MG capsule 150 mg PO QPM RF: 0 cholecalciferol (vitamin D3) 1,000 UNITS tablet 5,000 units PO DAILY RF: 0 levalbuterol tartrate [Xopenex HFA] 200 PUFF HFA aerosol inhaler 2 gm Inhalation PRN RF: 0 hydroxyzine HCl 25 MG tablet 25 mg PO HS RF: 0 glipizide 10 MG tablet extended release 24hr 10 mg PO HS RF: 0 rosuvastatin [Crestor] 20 MG tablet 20 mg PO QPM RF: 0 Insulin Glargine,Hum.rec.anlog [Lantus] 100 UNIT/ML Vial 30 unit SQ HS RF: 0 Topiramate [Trokendi Xr] 50 MG Cap.Er.24h 50 mg PO HS RF: 0 Discharge Instructions Instructions: Muscle Strain (ED), Knee Pain (ED) Additional Instructions: Encourage rest, ice, elevation. Tylenol and/or Ibuprofen as needed for pain. At this point, your pain is diffuse about the knee and hamstring, consistent with strain. No evidence of ligamentous injury or fracture. If you develop redness, warmth, increased pain, fevers/chills, shortness of breath, fevers/chills or other new/worsening symptoms please seek care urgently once again. Follow up with primary care in one week if not improving. Stand Alone Forms: Work Release Referrals: Digna Lemon [Primary Care Provider] - Medical Decision Making Patient is a 47 year old female presenting today with c/c of left knee pain. States that pain began yesterday after stretching' in the car. Immediately noted pain in posterior and lateral knee. No trauma. Pain particularly with ambulation, pain largely subsides when at rest. Pain can radiate proximally. No previous injury or surgery. No erythema, warmth, no open areas of skin. No recent travel, no estrogen use. Patient is a nonsmoker. No personal or immediate family history of clot. On exam, irving is obese. She is diffusely tender about the joint line of the left knee. Ligamentous exam intact although she has tender with palpation during the exam. Calf is soft and nontender, 2+ distal pulses. Pain diffusely about posterior thigh. Pain maximal with flexion against resistance of the knee. Pain follows the hamstring and ends at proximal insertion. Concidered dx of DVT, find this unlikely without risk factors, physical exam supporting this or history to suggest clot. Pain came on suddenly primarily in the knee after provocative mov ement. Wells' score for DVT -2 putting patient low risk. Do not suspect fracture as patient did not fall or have true trauma. No bony tenderness on exam. Advised strain. Ivan wrap applied. Encouraged rest, ice, elevation. Tyelnol and/or Ibuprofen as needed for discomfort. We discussed new/worsening symptpoms and when to seek care urgently once again. ADvised f/u with PCP in 1 week if pain persists. All of her questions and concerns were addressed, she is in agreement with this plan. [facility] General Mode of arrival: ambulatory . Date/Time Provider Initiated Documentation: 06/12/18 21:18 . Limitations to Documentation: no limitations . Information obtained by: patient, family and RN notes reviewed . History of Present Illness 47 year old F presents to the emergency department with the chief complaint of left knee pain, described as moderate, with intensity rated at 8. Quality is described as aching and sharp, and is localized to the left and lower extremity. Patient proximal. Patient started experiencing this day(s) (1) and it has been constant. Immobilization improves symptom(s), Movement worsens symptoms . Patient notes no other symptoms.. Patient did receive the following treatments prior to arrival, none Related Data Home Medications Medication Instructions Recorded Confirmed Lyrica 150 mg PO QPM 05/03/12 06/12/18 cholecalciferol (vitamin D3) 5,000 units PO DAILY 05/03/12 06/12/18 tizanidine 4 mg PO PRN PRN 05/03/12 06/12/18 sertraline [Zoloft] 100 mg PO DAILY tab-cap 07/22/12 06/12/18 levalbuterol tartrate [Xopenex HFA] 2 gm INHALATION PRN 05/03/13 06/12/18 epinephrine [EpiPen 2-Fabian] 0.3 mg IM ONCE 02/26/14 06/12/18 fluticasone propionate [Flonase] 50 mcg NS DAILY spray 02/26/14 06/12/18 loratadine 10 mg PO DAILY tab-cap 02/26/14 06/12/18 hydroxyzine HCl 25 mg PO HS 11/09/14 06/12/18 Insulin Glargine,Hum.rec.anlog 30 unit SQ HS 02/06/17 06/12/18 [Lantus] Topiramate [Trokendi Xr] 50 mg PO HS 02/06/17 06/12/18 glipizide 10 mg PO HS 02/06/17 06/12/18 rosuvastatin [Crestor] 20 mg PO QPM 02/06/17 06/12/18 Allergies Allergy/AdvReac Type Severity Reaction Status Date / Time amoxicillin trihydrate Allergy Intermediate Hives Verified 06/12/18 21:22 [From Augmentin] potassium clavulanate Allergy Intermediate Hives Verified 06/12/18 21:22 [From Augmentin] ammonium lactate AdvReac Intermediate GI UPSET Verified 06/12/18 21:22 [From Lac-Hydrin] citalopram hydrobromide AdvReac Intermediate CHEST Verified 06/12/18 21:22 [From Celexa] PAINS, SOB codeine AdvReac Intermediate Nausea Verified 06/12/18 21:22 duloxetine [Duloxetine] AdvReac Intermediate SPACEY Verified 06/12/18 21:22 duloxetine HCl AdvReac Intermediate NAUSEA, V/D Verified 06/12/18 21:22 [From Cymbalta] hydromorphone HCl AdvReac Intermediate NAUSEA,VOMI Verified 06/12/18 21:22 [From Dilaudid] TING,CONSTI PATION milk AdvReac Mild NAUSEA Verified 06/12/18 21:22 environmental Allergy Severe Uncoded 06/12/18 21:22 General LANIE: 4 Review of Systems Constitutional Reports as per HPI, Denies chills, Denies fever(s), Denies headache(s) and Denies weakness ENT Denies headache(s) Cardiovascular Reports as per HPI, Denies chest pain, Denies dyspnea and Denies dyspnea on exertion Respiratory Reports as per HPI, Denies cough, Denies dyspnea and Denies dyspnea on exertion Musculoskeletal Reports as per HPI, Denies muscle cramps, Denies muscle weakness, Denies numbness, Reports radiating pain into limb and Denies tingling Integumentary/Breasts Reports as per HPI, Denies rash and Denies wounds Neurologic Reports as per HPI, Denies headache(s), Denies numbness, Denies tingling, Denies paresthesias and Denies weakness [facility] Medical History Anxiety Asthma Fibromyalgia Herniated cervical disc Morbid obesity with BMI of 40.0-44.9, adult Surgical History section Ligation of fallopian tube discetomy and spinal fusion Social History Smoking/Tobacco Use Status: Former Tobacco Use Alcohol Intake: never Drug use: Daily Substance use type: marijuana Do you feel safe in your relationship?: Yes Exam Const General: cooperative, healthy appearing, comfortable, no acute distress, well developed and well groomed Nutritional Appearance: well nourished and obese Orientation: alert and awake Resp Effort & Inspection: normal respiratory effort, able to speak in complete sentences and no respiratory distress Cardio Rate: regular rate Rhythm: regular rhythm Skin General skin exam: no rashes or lesions noted Lesions: no lesions Rashes: no rashes Trauma: no lacerations or abrasions Neuro General: alert and awake Cognition: normal cognition Speech: speech normal Gait: normal gait Motor: muscle tone normal throughout Sensory Exam: no sensory deficits noted Extrem General: full ROM, normal capillary refill, no joint enlargement, no pedal edema and no calf tenderness Right lower extremity: full ROM, normal capillary refill, no joint enlargement, hip/thigh Details: tenderness Location: of the mid upper leg (diffusely tender) Location: posteriorly and normal ROM; no abrasions, no ecchymosis, no crepitus, no deformity and no unusual warmth, knee Details: tenderness (diffusely tender, maximal lateral joint line), normal ROM and knee ligament exam normal Details: anterior drawer test normal, posterior drawer test normal, valgus stress test normal and varus stress test normal; no pain with axial loading; no swelling, no abrasions, no deformity and no unusual warmth and lower leg Details: no edema; no erythema, no tenderness, no localized swelling, no palpable cords, no lacerations, no ecchymosis, no crepitus and no unusual warmth; no edema Psych Appearance: grossly normal and well kempt Mental Status: mental status grossly normal Speech and Movement: speech and movement normal
== END 2018-06-12 21:51 | disposition home or self-care (01) ==
PROVIDERS: Emergency Provider Physician Assistant; PCP Nurse Practitioner Family
DX: S76.312A Strain of muscle, fascia and tendon of the posterior muscle group at thigh level, left thigh, initial encounter (principal); M25.562 Pain in left knee; X50.9XXA Other and unspecified overexertion or strenuous movements or postures, initial encounter
CPT/HCPCS: 99282

== ENCOUNTER 2018-11-05 15:41 | Outpatient (REF) | payer MEDICAID, SELFPAY ==
[2018-11-05 19:21] LABS: COMMENT (LAB VIEW ONLY) 50.09 mg/dL; Microalb ug/mg Crea 12.4 ug/mg Cr
[2018-11-05 19:26] LABS: ALT 26 U/L (14-59); AST 18 U/L (15-37); Albumin 3.6 g/dL (3.4-5.0); Alkaline Phosphatase 106 U/L (46-116); Anion Gap 10.7 mmol/L (3-11); BUN 16 mg/dL (7-18); Bilirubin, Total 0.3 mg/dL (0.2-1.0); CO2 24.3 mmol/L (21.0-32.0); CREATININE 0.69 mg/dL (0.55-1.02); Calcium 9.1 mg/dL (8.5-10.1); Calculated LDL 116 mg/dL; Chloride 102 mmol/L (98-107); Cholesterol 182 mg/dL (50-200); Glucose 125 mg/dL (70-100); HDL Cholesterol 49 mg/dL (40-60); Potassium 4.2 mmol/L (3.5-5.1); Sodium 137 mmol/L (136-145); Total Protein 7.6 g/dL (6.4-8.2); Triglyceride 89 mg/dL (30-150)
[2018-11-05 19:31] LABS: HCT 43.1 % (36.0-46.0); HGB 13.8 g/dL (12.0-15.5); Mean Corpuscular Hemoglobin 25.2 pg (27.0-33.0); Mean Corpuscular Volume 78.6 fL (80-95); Mean Platelet Volume 11.3 fL (8.0-11.0); Platelet Count 352 x1000/uL (130-400); RBC 5.48 m/cumm (4.00-5.20); RBC Distribution Width 16.2 % (11.7-14.6); White Blood Cell Count 11.16 k/cumm (4.4-10.8)
== END 2018-11-05 16:01 ==
LOC: NCHCN 15:41
PROVIDERS: PCP Nurse Practitioner Family; Visit Provider Nurse Practitioner Family
DX: E11.9 Type 2 diabetes mellitus without complications (principal); R20.0 Anesthesia of skin; G89.29 Other chronic pain; E66.9 Obesity, unspecified
CPT/HCPCS: 80053; 80061; 85027; 82043; 82570

== ENCOUNTER 2018-12-03 01:50 | Outpatient (CLI) | payer MEDICAID, SELFPAY ==
--- NOTE | 2018-12-03 13:32 | DI.RAD_ITS ---
EXAM: XR LUMBAR SPINE COMPLETE INDICATION: LOW BACK PAIN CHRONIC, M54.5. COMPARISON: No exams were available for comparison TECHNIQUE: 2D digital imaging was performed. FINDINGS: There are 5 lumbar-type vertebral bodies. No spondylolysis or spondylolisthesis is present. The dis c heights are well maintained. Small anterior osteophytes are seen in the lower lumbar spine. There are mild degenerative changes of the facets at L4-5 and L5-S1. No acute fracture or subluxation is seen. There are surgical clips in the upper abdomen. There is a rounded calcification to the left o f the spine, which may represent a renal stone. IMPRESSION: Mild degenerative changes in the lumbar spine.
--- NOTE | 2018-12-03 14:18 | DI.RAD_ITS ---
EXAM: XR HIP AND PELVIS ADULT BL INDICATION: HEATHER HIP PAIN, [id number]. COMPARISON: No exams were available for comparison TECHNIQUE: 2D digital imaging was performed. FINDINGS: No bone, joint or soft tissue abnormalities appreciated. IMPRESSION: Negative examination.
== END 2018-12-03 02:10 ==
PROVIDERS: PCP Nurse Practitioner Family; Visit Provider Nurse Practitioner Family
DX: M54.5 Low back pain (principal); M47.817 Spondylosis without myelopathy or radiculopathy, lumbosacral region; M25.551 Pain in right hip; M25.552 Pain in left hip
CPT/HCPCS: 73521; 72110

== ENCOUNTER 2019-01-09 13:03 | Outpatient (REF) | payer MEDICAID, SELFPAY ==
[2019-01-13 15:09] LABS: 2-Hydroxy Ethyl Flurazepam Not Detected ng/mL (Cutoff: 10); 6-monoacetylmorphine Not Detected ng/mL (Cutoff: 25); Alpha-Hydroxy Midazolam Not Detected ng/mL (Cutoff: 10); Alpha-Hydroxy Triazolam Not Detected ng/mL (Cutoff: 10); Alpha-Hydroxyalprazolam Not Detected ng/mL (Cutoff: 10); Alpha-OH-alprazolam Glucuronid Not Detected ng/mL (Cutoff: 50); Alprazolam Not Detected ng/mL (Cutoff: 10); Amphetamines Negative ng/mL (Cutoff: 500); Barbiturates Negative ng/mL (Cutoff: 200); Buprenorphine Not Detected ng/mL (Cutoff: 5); Chlordiazepoxide Not Detected ng/mL (Cutoff: 10); Clobazam Not Detected ng/mL (Cutoff: 10); Clonazepam Not Detected ng/mL (Cutoff: 10); Cocaine Negative ng/mL (Cutoff: 150); Codeine Not Detected ng/mL (Cutoff: 25); Comment Normal; Creatinine, U 45.4 mg/dL; Diazepam Not Detected ng/mL (Cutoff: 10); Dihydrocodeine Not Detected ng/mL (Cutoff: 25); EDDP Not Detected ng/mL (Cutoff: 25); Fentanyl Not Detected ng/mL (Cutoff: 2); Flurazepam Not Detected ng/mL (Cutoff: 10); Hydrocodone Not Detected ng/mL (Cutoff: 25); Hydromorphone Not Detected ng/mL (Cutoff: 25); Hydromorphone-3-beta-glucuroni Not Detected ng/mL (Cutoff: 100); Lorazepam Not Detected ng/mL (Cutoff: 10); Lorazepam Glucuronide Not Detected ng/mL (Cutoff: 50); Meperidine Not Detected ng/mL (Cutoff: 25); Methadone Not Detected ng/mL (Cutoff: 25); Midazolam Not Detected ng/mL (Cutoff: 10); Morphine Not Detected ng/mL (Cutoff: 25); N-Desmethylclobazam Not Detected ng/mL (Cutoff: 200); N-desmethyltapentadol Not Detected ng/mL (Cutoff: 50); Naloxone Not Detected ng/mL (Cutoff: 25); Norbuprenorphine Not Detected ng/mL (Cutoff: 5); Norfentanyl Not Detected ng/mL (Cutoff: 2); Norhydrocodone Not Detected ng/mL (Cutoff: 25); Normeperidine Not Detected ng/mL (Cutoff: 25); Noroxycodone Not Detected ng/mL (Cutoff: 25); Noroxymorphone Not Detected ng/mL (Cutoff: 25); O-desmethyltramadol Not Detected ng/mL (Cutoff: 25); Oxazepam Glucuronide Not Detected ng/mL (Cutoff: 50); Phencyclidine Negative ng/mL (Cutoff: 25); Prazepam Not Detected ng/mL (Cutoff: 10); Propoxyphene Not Detected ng/mL (Cutoff: 25); Tapentadol Not Detected ng/mL (Cutoff: 25); Temazepam Not Detected ng/mL (Cutoff: 10); Temazepam Glucuronide Not Detected ng/mL (Cutoff: 50); Tetrahydrocannabinol Presumptive Positive ng/mL (Cutoff: 50); Tramadol Not Detected ng/mL (Cutoff: 25); Triazolam Not Detected ng/mL (Cutoff: 10); Zolpidem Phenyl-4-Carboxy acid Not Detected ng/mL (Cutoff: 10); pH 5.3
[2019-01-13 20:25] LABS: Carboxy-THC Interpretation Positive.; Delta-9 CarboxyThc by LC-MS/MS 31 ng/mL (Cutoff:<3)
== END 2019-01-09 13:23 ==
LOC: LBN 13:03
PROVIDERS: PCP Nurse Practitioner Family; Visit Provider Nurse Practitioner Family
DX: M96.1 Postlaminectomy syndrome, not elsewhere classified (principal); Z79.899 Other long term (current) drug therapy
CPT/HCPCS: 80307; 80347; 80349; 80364

== ENCOUNTER 2020-04-07 15:39 | Outpatient (REF) | payer MEDICAID, SELFPAY ==
[2020-04-07 20:24] LABS: HCT 40.6 % (36.0-46.0); HGB 12.6 g/dL (11.2-15.7); MCH 24.6 pg (27.0-33.0); MCV 79.3 fL (80-95); MPV 11.7 fL (8.0-11.0); Platelet Count 327 10^3/uL (130-400); RBC 5.12 10^6/uL (3.93-5.22); RDW 14.6 % (11.7-14.6); WBC 12.52 10^3/uL (4.4-10.8)
[2020-04-07 20:40] LABS: COMMENT (LAB VIEW ONLY) 173.37 mg/dL; Microalb ug/mg Crea 5.8 ug/mg Cr
[2020-04-07 20:50] LABS: ALT 41 U/L (14-59); AST 43 U/L (15-37); Albumin 3.3 g/dL (3.4-5.0); Alkaline Phosphatase 105 U/L (46-116); Anion Gap 8.5 mmol/L (3-11); BUN 16 mg/dL (7-18); Bilirubin, Total 0.2 mg/dL (0.2-1.0); CO2 24.5 mmol/L (21.0-32.0); CREATININE 0.7 mg/dL (0.55-1.02); Calcium 8.8 mg/dL (8.5-10.1); Calculated LDL 68 mg/dL (<100); Chloride 105 mmol/L (98-107); Cholesterol 131 mg/dL (<200); Glucose 186 mg/dL (74-106); HDL Cholesterol 44 mg/dL (40-60); Potassium 4.3 mmol/L (3.5-5.1); Sodium 138 mmol/L (136-145); Total Protein 7.2 g/dL (6.4-8.2); Triglyceride 96 mg/dL (<150)
== END 2020-04-07 15:40 | disposition home or self-care (01) ==
LOC: NCHCN 15:39
PROVIDERS: PCP Nurse Practitioner Family; Visit Provider Nurse Practitioner Family
DX: E11.9 Type 2 diabetes mellitus without complications (principal); D72.9 Disorder of white blood cells, unspecified; E78.5 Hyperlipidemia, unspecified
CPT/HCPCS: 80053; 80061; 85027; 82043; 82570

== ENCOUNTER 2020-06-22 20:21 | Emergency (ER) | payer MEDICAID, SELFPAY ==
[2020-06-22 20:30] VITALS: BP 147/107; PULSE 108; RESP 18; TEMP 36.5; O2SAT 96
--- NOTE | 2020-06-22 20:33 | ED.GENADUL_ITS ---
Discharge Plan Disposition Patient Disposition: HOME Condition: Improving Discharge Details Clinical Impression: Migraine Primary Care Provider: Ashleigh Gaston ED Provider: Florencia Guzman Home Meds and New Rx's Prescriptions: New prochlorperazine maleate [Compazine] 10 mg tablet 10 mg PO TID PRN (Reason: nausea and vomiting) Qty: 7 RF: 0 Continued Victoza 2-Fabian 0.6 mg/0.1 mL (18 mg/3 mL) Pen Injector 0.6 mg SUBCUT DAILY RF: 0 sumatriptan succinate 25 mg Tablet 25 mg PO ONCE RF: 0 omeprazole 40 mg Capsule,Delayed Release(Dr/Ec) 40 mg PO DAILY RF: 0 hydroxyzine HCl 25 mg Tablet 25 mg PO HS PRNRF: 0 mirtazapine [Remeron] 15 mg Tablet 15 mg PO DAILY RF: 0 albuterol sulfate [Proventil HFA] 90 mcg/actuation Hfa Aerosol Inhaler 2 puff INHALATION Q4H PRNRF: 0 cholecalciferol (vitamin D3) [Vitamin D3] 1,000 unit Capsule 1,000 unit PO DAILY RF: 0 Advair HFA 115-21 mcg/actuation Hfa Aerosol Inhaler 2 puff INHALATION BID RF: 0 Bydureon 2 mg/0.65 mL Pen Injector 2 mg SUBCUT Q7D RF: 0 Jardiance 25 mg Tablet 25 mg PO DAILY RF: 0 tamsulosin 0.4 mg Capsule 0.8 mg PO DAILY RF: 0 rosuvastatin 40 mg Tablet 40 mg PO DAILY RF: 0 Lantus Solostar U-100 Insulin 100 unit/mL (3 mL) Insulin Pen 60 unit SUBCUT QPM RF: 0 ibuprofen 800 mg Tablet 800 mg PO TID PRNRF: 0 sertraline [Zoloft] 100 MG tablet 200 mg PO DAILY RF: 0 loratadine 10 MG tablet,disintegrating 10 mg PO DAILY RF: 0 epinephrine [EpiPen 2-Fabian] 0.3 MG/0.3 ML auto-injector 0.3 mg IM ONCE RF: 0 fluticasone propionate [Flonase] 16 GM spray,suspension 50 mcg NS DAILY RF: 0 tizanidine 4 MG capsule 4 mg PO BID RF: 0 pregabalin [Lyrica] 100 MG capsule 150 mg PO BID RF: 0 Topiramate [Trokendi Xr] 50 MG Cap.Er.24h 50 mg PO BID RF: 0 Discharge Instructions Instructions: Migraine Headache (ED) Additional Instructions: Drink plenty of fluids and get plenty of rest. Alternate tylenol and motrin as needed and directed for pain. Take your sumatriptan that you have at home as needed and directed for pain. Take the Compazine as needed and directed for nausea and vomiting. Your prescription has been sent electronically to your pharmacy. Call the pharmacy to make sure your prescription is ready before pickup. Take the prescription as directed. You can take your next dose of ibuprofen or Motrin at 3 AM. You can take your next dose of Compazine for your nausea or vomiting at 3 AM. Follow-up with your primary care doctor in 1 week. Return to the emergency department with any worsening or new concerning symptoms. Discharge Data Discharge Date/Time-TO BE ENTERED AT DEPARTURE: 06/22/20 22:45 Discharge Physician: Florencia Guzman Medical Decision Making 2044 -- 49-year-old female with a history of migraines presents with right-sided headache consistent with her usual migraine for the past few days. Patient appears uncomfortable. She is covering her eyes and complaining of nausea. Blood pressure mildly hypertensive. Heart rate low 100s. She has no focal deficits. Suspect most likely migraine. Do not see indication for labs and imaging at this time. Presentation does not appear consistent with meningitis or acute CVA. Will place an IV, bolus IV fluids, IV Toradol, Decadron, Compazine and Benadryl. He has history of she has a history of tubal ligation and denies any chance of . 2149 -- patient reassessed -still complaining of head pressure. She admits to some relief but still with some pain. Will give another liter of fluids and a dose of morphine. Her chart notes an allergy to Dilaudid but she states this was not an allergy and only cause constipation. 2229 --patient reassessed and she feels much better and is requesting to go home. She was given Compazine here to go as well as a prescription sent electronically to her pharmacy. Advised to follow up with the primary care doctor for re-evaluation. Usual and customary return precautions given prior to discharge. Medical Records Medical records reviewed: Yes I reviewed the patient's medical records. HPI General Mode of arrival: ambulatory . Date/Time Provider Initiated Documentation: 06/22/20 20:25 . Limitations to Documentation: no limitations . Information obtained by: patient . HPI Narrative: Patient is a 49-year-old female with a history of migraines presents to the ED with a complaint of migraine type headache for the past few days. Patient states the headache is located on the right side of her neck and head and radiating up to the top of her head and forehead. She states the pain is aching and throbbing and feels consistent with her usual migraines. She states she has taken her usual medication that she takes at home for her migraines including sumatriptan and, but has not had any relief. She denies take any medication for her headache today. She admits to nausea but denies any vomiting. She does also admits to sensitivity to light and intermittent dizziness. She denies any fever, neck p ain, sore throat. Related Data Home Medications Medication Instructions Recorded Confirmed pregabalin [Lyrica] 150 mg PO BID 05/03/12 06/22/20 tizanidine 4 mg PO BID 05/03/12 06/22/20 sertraline [Zoloft] 200 mg PO DAILY tab-cap 07/22/12 06/22/20 epinephrine [EpiPen 2-Fabian] 0.3 mg IM ONCE 02/26/14 06/22/20 fluticasone propionate [Flonase] 50 mcg NS DAILY spray 02/26/14 06/22/20 loratadine 10 mg PO DAILY tab-cap 02/26/14 06/22/20 Topiramate [Trokendi Xr] 50 mg PO BID 02/06/17 06/22/20 Advair HFA 2 puff INHALATION BID 12/30/18 06/22/20 Bydureon 2 mg SUBCUT Q7D 12/30/18 06/22/20 Jardiance 25 mg PO DAILY 12/30/18 06/22/20 albuterol sulfate [Proventil HFA] 2 puff INHALATION Q4H PRN 12/30/18 06/22/20 cholecalciferol (vitamin D3) 1,000 unit PO DAILY 12/30/18 06/22/20 [Vitamin D3] hydroxyzine HCl 25 mg PO HS PRN 12/30/18 06/22/20 mirtazapine [Remeron] 15 mg PO DAILY 12/30/18 06/22/20 omeprazole 40 mg PO DAILY 12/30/18 06/22/20 sumatriptan succinate 25 mg PO ONCE 12/30/18 06/22/20 Lantus Solostar U-100 Insulin 60 unit SUBCUT QPM 08/11/19 06/22/20 ibuprofen 800 mg PO TID PRN 08/11/19 06/22/20 rosuvastatin 40 mg PO DAILY 08/11/19 06/22/20 tamsulosin 0.8 mg PO DAILY 08/11/19 06/22/20 Victoza 2-Fabian 0.6 mg SUBCUT DAILY 06/09/20 06/22/20 prochlorperazine maleate 10 mg PO TID PRN #7 tab 06/22/20 [Compazine] Previous Rx's Medication Instructions Recorded prochlorperazine maleate 10 mg PO TID PRN #7 tab 06/22/20 [Compazine] Allergies Allergy/AdvReac Type Severity Reaction Status Date / Time amoxicillin trihydrate Allergy Intermediate Hives Verified 08/11/19 15:54 [From Augmentin] potassium clavulanate Allergy Intermediate Hives Verified 08/11/19 15:54 [From Augmentin] lactose Allergy Unverified 08/11/19 15:54 Milk Containing Products Allergy Unverified 08/11/19 15:54 ammonium lactate AdvReac Intermediate GI UPSET Verified 01/09/19 11:51 [From Lac-Hydrin] citalopram hydrobromide AdvReac Intermediate CHEST Verified 01/09/19 11:51 [From Celexa] PAINS, SOB codeine AdvReac Intermediate Nausea Verified 01/09/19 11:51 duloxetine [Duloxetine] AdvReac Intermediate SPACEY Verified 01/09/19 11:51 duloxetine HCl AdvReac Intermediate NAUSEA, V/D Verified 08/11/19 15:54 [From Cymbalta] hydromorphone HCl AdvReac Intermediate NAUSEA,VOMI Verified 08/11/19 15:54 [From Dilaudid] TING,CONSTI PATION milk AdvReac Mild NAUSEA Verified 01/09/19 11:51 environmental Allergy Severe Uncoded 01/09/19 11:51 General Stated Complaint: Headache LANIE: 3 Review of Systems All systems reviewed & are unremarkable except as noted in HPI and below Constitutional Constitutional: Reports as per HPI, Denies chills, Denies fever(s) and Reports headache(s) Eyes Eyes: Denies blurry vision ENT Ears, Nose, Mouth, and Throat: Denies dizziness, Reports headache(s), Denies sore throat and Denies throat swelling Cardiovascular Cardiovascular: Denies chest pain and Denies dyspnea Respiratory Respiratory: Denies cough and Denies dyspnea Gastrointestinal Gastrointestinal: Denies abdominal pain, Denies diarrhea, Reports nausea and Denies vomiting Genitourinary Genitourinary: Denies hematuria and Denies dysuria Musculoskeletal Musculoskeletal: Denies back pain and Denies numbness Integumentary/Breasts Skin/Breast: Denies lesions and Denies rash Neurologic Neurologic: Denies dizziness, Reports headache(s), Denies localized weakness and Denies numbness Allergic/Immunologic Allergic/Immunologic: Denies throat swelling [facility] Medical History (Updated 06/22/20 @ 22:27 by Florencia Guzman DO) Abnormal white blood cell leukocytes Allergic rhinitis Anxiety Anxiety and depression Asthma Flores's esophagus Bilateral hand numbness Chronic low back pain Chronic pain Diabetes mellitus, type II Fibromyalgia Herniated cervical disc Hip pain, bilateral History of tobacco use Hyperlipidemia Lyme disease Migraine headache Morbid obesity with BMI of 40.0-44.9, adult Renal calculus Sleep apnea Vitamin D deficiency Surgical History section x 3 discetomy and spinal fusion Ligation of fallopian tube Social History (Updated 01/09/19 @ 11:56 by Letty Delarosa RN) Smoking/Tobacco Use Status: Former Tobacco Use Smoking risk assessment performed?: Yes Alcohol Intake: never Drug use: Daily Substance use type: marijuana Household members: children Housing: apartment Number of Children: 3 current occupation: [employer] What is your relationship status?: Panel score (0-1 are the most socially isolated patients): 0 What type of physical activity do you participate in: walking Do you feel safe in your relationship?: Yes Exam Const General: cooperative and uncomfortable Nutritional Appearance: obese morbidly obese Orientation: alert, awake and oriented x3 HENMT Head: normal to inspection Face and sinus: normal facial exam Eyes General: appearance normal, both eyes and all related structures Pupils: PERRL EOM: EOM intact bilaterally Direct ophthalmoscopy: photophobia Neck Neck: normal visual inspection and No submandibular swelling Lymphatic: no lymphadenopathy noted Chest Chest: normal inspection of the chest and no tenderness Resp Effort & Inspection: normal respiratory effort and able to speak in complete sentences Auscultation: clear to auscultation bilaterally Cardio Rate: regular rate Rhythm: regular rhythm GI Inspection: normal to inspection and obesity Palpation: soft, not firm, not rigid and nontender Auscultation: normal bowel sounds Skin General skin exam: no rashes or lesions noted Neuro General: patient alert, patient awake, patient oriented x3, moves all extremities, no meningeal signs and no focal motor deficits Cranial Nerves: CN's II-XI intact bilaterally Cognition: normal cognition Speech: speech normal Motor: muscle tone normal throughout and strength 5/5 throughout Sensory Exam: no sensory deficits noted Extrem General: normal to inspection, full ROM, capillary refill normal, no calf tenderness bilaterally and no edema Psych Appearance: grossly normal Mental Status: mental status grossly normal Speech and Movement: speech and movement normal Affect: normal affect Course Vital Signs Vital signs: Vital Signs Temperature 97.7 F 06/22/20 20:30 Pulse 108 H 06/22/20 20:30 Respiratory Rate 18 06/22/20 20:30 Blood Pressure 147/107 H 06/22/20 20:30 Pulse Oximetry 96 06/22/20 20:30 Temperature 97.7 F 06/22/20 20:30 Temperature Source Temporal Artery Scan 06/22/20 20:30 Pulse 108 H 06/22/20 20:30 Respiratory Rate 18 06/22/20 20:30 Blood Pressure 147/107 H 06/22/20 20:30 Blood Pressure Position Sitting 06/22/20 20:30 Pulse Oximetry 96 06/22/20 20:30 Oxygen Delivery Method Room Air 06/22/20 20:30 Oxygen Flow Rate 0 06/22/20 20:30 Pain Level 8 06/22/20 20:30
[2020-06-22] MEDS: Normal Saline 1,000 ML 1000 ML IV ×2 (21:06→22:04)
[2020-06-22] MEDS: diphenhydrAMINE 50 MG/ML VIAL 25 MG IVP (21:06)
[2020-06-22] MEDS: Dexamethasone 10 MG/ML VIAL IVP (21:06)
[2020-06-22] MEDS: Ketorolac 30 MG/ML VIAL IVP (21:06)
[2020-06-22] MEDS: Prochlorperazine 10 MG/2 ML VIAL IVP (21:07)
[2020-06-22 22:31] VITALS: BP 135/76; PULSE 71; RESP 18; TEMP 36.4; O2SAT 97
== END 2020-06-22 22:45 | disposition home or self-care (01) ==
PROVIDERS: Emergency Provider Physician Assistant; PCP Nurse Practitioner Family
DX: G43.809 Other migraine, not intractable, without status migrainosus (principal)
CPT/HCPCS: 96374; 96375; 99284; 99283; J0780; J1100; J1200; J1885

== ENCOUNTER 2020-07-16 14:30 | Outpatient (CLI) | payer MEDICAID, SELFPAY ==
--- NOTE | 2020-07-16 13:52 | DI.RAD_ITS ---
Exam(s) XR CHEST 2V PA LATERAL EXAM: XR CHEST 2V PA LATERAL CLINICAL HISTORY: SUSPICION FOR SARCOIDOSIS AND LOFGRENS, FIBROMYALGIA, POLYARTHRALGIA TECHNIQUE: 2D digital imaging was performed. COMPARISON: CR CHEST 2 VIEWS PA,LAT from 05/21/2017 FINDINGS: HEART: Normal. PULMONARY VASCULATURE: Normal. LUNGS: Clear. No fibrotic changes are visible emphysematous changes. No pulmonary nodules visible. PLEURAL SPACE: No pleural effusion or pneumothorax. BONE:Mild degenerative disc changes. OTHER FINDINGS:Normal. IMPRESSION: No acute pulmonary findings. DATA REPOSITORY: RADIATION DOSE DELIVERED:
--- OUTSIDE RECORDS SUMMARY | 2020-07-18 05:13 | XMS_ITS ---
:1970 Author Care Team Providers Name Role Phone ENY CASTRO Primary Care Provider [phone] NEY M. JASEN Referring Provider [phone] Allergies Code Code System Name Reaction Severity Status Onset 736345 RxNorm Augmentin ? ? Active ? 879181 RxNorm Cymbalta ? ? Active ? 768120 RxNorm Dilaudid ? ? Active ? 6211 RxNorm Lactose ? ? Active ? 333443 RxNorm Milk ? ? Active ? 651428 RxNorm Tylenol-codein ? ? Active ? e #3 Medications Name Status Start Date Stop Date ? ? Accu-Chek Saniya Plus test strp Active ? N ot available Advair HFA 115 mcg-21 mcg/actuation aerosol inhaler Active ? Not available Inhale 2 puffs twice a day by inhalation route. Bio-Statin 1 million unit capsule Completed ? 12/05/2017 Take 2 capsules 4 times a day by oral route. Bydureon 2 mg/0.65 mL subcutaneous pen injector Active ? Not available Inject 2 mg every week by subcutaneous route for 28 days. cholecalciferol(vit D3) 1,000 unit-vit K2 90 mcg disintegrating tablet Active ? Not available Take 1 tablet every day by oral route. Crestor 40 mg tablet Active ? Not availab le Take 1 tablet every day by oral route. Flonase 50 mcg/actuation nasal spray,suspension Active ? Not available [place] 1 spray every day by intranasal route. Glipizide XL 10 mg tablet,extended release Active ? Not available Take 1 tablet every day by oral route. hydroxyzine HCl 25 mg tablet Active ? Not available Take 1 tablet every day by oral route at bedtime. ibuprofen 800 mg tablet Active ? Not avai lable Take 1 tablet 3 times a day by oral route. Imitrex 25 mg tablet Active ? Not availab le take 1 tablet as needed for headache, may repeat in 2 hours if not improved iron 325 mg (65 mg iron) tablet Active ? Not available Take 1 tablet every day by oral route. Jardiance 25 mg tablet Active ? Not avail able Take 1 tablet every day by oral route. Lantus Solostar U-100 Insulin 100 unit/mL (3 mL) subcutaneous pe n Active ? Not available inject 25 units in the morning and 35 units at bedtime loratadine 10 mg tablet Active ? Not avai lable Take 1 tablet every day by oral route as needed. Lyrica 150 mg capsule Active ? Not availa ble Take 1 capsule twice a day by oral route. OneTouch UltraMini Active ? Not available Pen [place] 31 X 5/16 Active ? Not avail able Proventil HFA 90 mcg/actuation aerosol inhaler Active ? Not available Inhale 2 puffs every 4 hours by inhalation route as needed. Remeron 15 mg tablet Active ? Not availab le Take 1 tablet every day by oral route. tizanidine 4 mg tablet Active ? Not avail able Take 1 tablet twice a day by oral route. Topamax 50 mg tablet Active ? Not availab le Take 1 tablet twice a day by oral route. Zoloft 100 mg tablet Active ? Not availab le Take 2 tablets every day by oral route. Problems Name Status Onset Date Source ? Type II Diabetes Mellitus Uncontrolled Active 8 ? Lyme Disease Active ? ? Type 2 Diabetes Mellitus Unknown ? ? Vitamin Deficiency Active ? ? Obesity Active ? ? Mixed Anxiety and Depressive Disorder Active ? ? Chronic Pain Active ? ? Migraine Active ? ? Asthma Active ? ? Flores's Esophagus Active ? ? Kidney Stone Active ? ? Hip Pain Active ? ? Low Back Pain Active ? ? Fibromyalgia Active ? ? Sleep Apnea Active ? ? Malaise and Fatigue Active ? ? Nausea Active ? ? White Blood Cell Count Abnormal Active ? ? History of Tobacco Use Active ? ? History of Cervical Discectomy Active ? ? Procedures Date Name Performed by ? ? Tonsilectomy/adenoids Information not av ailable ? Cholecystectomy Information not avai lable ? Neck Spine Disk Surgery Information not available ? Delivery Information not avai lable Notes: x3 Results Lab Results Date Name Specimen Result Interpretation Description Value Range Status Address ? 01/14/2018 Cortisol, ? No observation ? ? ? [facility] Baseline, recorded. [facility]: [address] [place] [address] 12/11/2017 TSH + Free ? No observation ? ? ? [facility] T4, Serum recorded. [facility]: [address] [place] 12/11/2017 Fructosamine ? No observation ? ? ? [facility] , Serum recorded. [facility]: [address] [place] 12/11/2017 Cortisol, ? No observation ? ? ? [facility] Saliva recorded. [facility]: [address] [place] 12/05/2017 Glucose, Blood ? Blood 172 ? ? [facility] - Fingerstick, capillary Glucose: mg/dl Specialty: [address] [place] [address] Past Encounters None recorded. Social History Tobacco Smoking Status Current Every Day Smoker Notes: me dical marijuana for pain Vaccine List None recorded. Plan of Care Reminders Provider Appointments None ? ? recorded. Lab None ? ? recorded. Referral None ? ? recorded. Procedures None ? ? recorded. Surgeries None ? ? recorded. Imaging None ? ? recorded. Vitals Height Weight BMI Blood Pressure 160.02 cm 138.35 kg 54 kg/m2 120/90 mm[Hg]
== END 2020-07-16 14:50 ==
PROVIDERS: PCP Nurse Practitioner Family; Visit Provider Internal Medicine
DX: M25.59 Pain in other specified joint (principal); M79.7 Fibromyalgia; Z13.83 Encounter for screening for respiratory disorder NEC
CPT/HCPCS: 71046

== ENCOUNTER 2021-06-09 21:06 | Outpatient (REF) | payer MEDICAID, SELFPAY ==
[2021-06-09 15:11] LABS: Abs Immature Grans 0.04 10^3/uL (0.0-0.06); Absolute Basophil Count 0.07 10^3/uL (0.0-0.2); Absolute Lymphocyte Count 3.32 10^3/uL (1.2-3.4); Absolute Monocyte Count 0.45 10^3/uL (0.1-0.8); Absolute Neutrophil Count 6.82 10^3/uL (1.2-6.7); Basophils % 0.6; Eosinophils % 1.8; HCT 42.5 % (36.0-46.0); HGB 13.3 g/dL (11.2-15.7); Immature Grans % 0.4; Lymphocytes % 30.5; MCH 24.9 pg (27.0-33.0); MCHC 31.3 % (32.0-36.0); MCV 79 fL (80-95); MPV 11.1 fL (8.0-11.0); Monocytes % 4.1; Neutrophils % 62.6; Platelet Count 332 10^3/uL (130-400); RBC 5.35 10^6/uL (3.93-5.22); RDW 15.2 % (11.7-14.6); RDW-SD 43.7 fL
[2021-06-09 15:28] LABS: ALT 29 U/L (14-59); AST 25 U/L (15-37); Albumin 3.6 g/dL (3.4-5.0); Alkaline Phosphatase 123 U/L (46-116); Anion Gap 13.1 mmol/L (3-11); BUN 17 mg/dL (7-18); Bilirubin, Total 0.2 mg/dL (0.2-1.0); CO2 21.9 mmol/L (21.0-32.0); CREATININE 0.7 mg/dL (0.55-1.02); Calcium 8.9 mg/dL (8.5-10.1); Calculated LDL 135 mg/dL (<100); Chloride 106 mmol/L (98-107); Cholesterol 214 mg/dL (<200); Glucose 171 mg/dL (74-106); HDL Cholesterol 49 mg/dL (40-60); Potassium 3.9 mmol/L (3.5-5.1); Sodium 141 mmol/L (136-145); Total Protein 7.5 g/dL (6.4-8.2); Triglyceride 153 mg/dL (<150)
== END 2021-06-09 21:07 | disposition home or self-care (01) ==
LOC: NCHCN 21:06
PROVIDERS: PCP Nurse Practitioner Family; Visit Provider Nurse Practitioner Family
DX: E78.5 Hyperlipidemia, unspecified (principal); E11.9 Type 2 diabetes mellitus without complications; D72.9 Disorder of white blood cells, unspecified
CPT/HCPCS: 80053; 80061; 85025

== ENCOUNTER 2021-12-09 16:22 | Outpatient (REF) | payer MEDICAID, SELFPAY ==
[2021-12-09 18:20] LABS: Abs Immature Grans 0.05 10^3/uL (0.0-0.06); Absolute Eosinophil Count 0.24 10^3/uL (0.0-0.7); Absolute Lymphocyte Count 3.64 10^3/uL (1.2-3.4); Absolute Monocyte Count 0.47 10^3/uL (0.1-0.8); Basophils % 0.6; Eosinophils % 2.2; HCT 42.2 % (36.0-46.0); Immature Grans % 0.5; Lymphocytes % 33.5; MCH 25.3 pg (27.0-33.0); MCHC 30.8 % (32.0-36.0); MCV 82 fL (80-95); MPV 10.5 fL (8.0-11.0); Monocytes % 4.3; Neutrophils % 58.9; Platelet Count 270 10^3/uL (130-400); RBC 5.13 10^6/uL (3.93-5.22); RDW 13.9 % (11.7-14.6); RDW-SD 41.4 fL; WBC 10.86 10^3/uL (4.4-10.8)
[2021-12-09 18:21] LABS: Absolute Basophil Count 0.07 10^3/uL (0.0-0.2)
== END 2021-12-09 16:23 | disposition home or self-care (01) ==
LOC: NCHCN 16:22
PROVIDERS: PCP Nurse Practitioner Family; Visit Provider Nurse Practitioner Family
DX: D72.9 Disorder of white blood cells, unspecified (principal)
CPT/HCPCS: 85025

== ENCOUNTER 2022-05-30 16:56 | Outpatient (REF) | payer MEDICAID, SELFPAY ==
[2022-05-30 19:41] LABS: Abs Immature Grans 0.05 10^3/uL (0.0-0.06); Absolute Basophil Count 0.04 10^3/uL (0.0-0.2); Absolute Eosinophil Count 0.21 10^3/uL (0.0-0.7); Absolute Lymphocyte Count 3.26 10^3/uL (1.2-3.4); Absolute Monocyte Count 0.42 10^3/uL (0.1-0.8); Absolute Neutrophil Count 4.72 10^3/uL (1.2-6.7); Basophils % 0.5; Eosinophils % 2.4; HCT 37.2 % (36.0-46.0); HGB 12.1 g/dL (11.2-15.7); Immature Grans % 0.6; Lymphocytes % 37.5; MCHC 32.5 % (32.0-36.0); MCV 80 fL (80-95); MPV 11.5 fL (8.0-11.0); Monocytes % 4.8; Neutrophils % 54.2; Platelet Count 328 10^3/uL (130-400); RBC 4.66 10^6/uL (3.93-5.22); RDW 13.9 % (11.7-14.6); RDW-SD 40.2 fL
[2022-05-30 19:44] LABS: ALT 29 U/L (14-59); AST 31 U/L (15-37); Albumin 3.1 g/dL (3.4-5.0); Alkaline Phosphatase 152 U/L (46-116); BUN 14 mg/dL (7-18); Bilirubin, Total 0.2 mg/dL (0.2-1.0); CREATININE 1.1 mg/dL (0.55-1.02); Calcium 8.8 mg/dL (8.5-10.1); Calculated LDL 104 mg/dL (<100); Chloride 99 mmol/L (98-107); Cholesterol 177 mg/dL (<200); Glucose 413 mg/dL (74-106); HDL Cholesterol 42 mg/dL (40-60); Sodium 135 mmol/L (136-145); Total Protein 7.5 g/dL (6.4-8.2); Triglyceride 158 mg/dL (<150)
[2022-05-30 19:51] LABS: Bilirubin Negative (Negative); Blood Large (Negative); Clarity Cloudy (Clear); Glucose >=1000 mg/dL (Negative); Ketones Trace mg/dL (Negative); Leukocyte Esterase Negative (Negative); Nitrite Negative (Negative); Specific Gravity 1.015 (1.005-1.025); Urobilinogen 0.2 mg/dL (Up to 0.2)
[2022-05-30 20:05] LABS: Bacteria Negative HPF (Negative); C & S Indicated? No; Casts Negative LPF (Negative); Crystals Negative HPF (Negative); Epithelial Cells Few HPF (Negative); Mucus Negative (Negative); RBC >50 HPF (0-2); WBC 0-2 HPF (0-5)
[2022-05-30 20:10] LABS: Hemoglobin A1C 10.4 % (<5.7)
[2022-06-01 15:21] LABS: Chlamydia Result Negative (Negative); GC Result Negative (Negative)
== END 2022-05-30 16:57 | disposition home or self-care (01) ==
LOC: NCHCN 16:56
PROVIDERS: PCP Nurse Practitioner Family; Visit Provider Nurse Practitioner Family
DX: R10.2 Pelvic and perineal pain (principal); E11.9 Type 2 diabetes mellitus without complications; Z11.3 Encounter for screening for infections with a predominantly sexual mode of transmission; R79.89 Other specified abnormal findings of blood chemistry; R82.998 Other abnormal findings in urine
CPT/HCPCS: 80053; 80061; 87491; 87591; 81003; 81015; 83036; 85025

== ENCOUNTER 2022-05-31 08:49 | Outpatient (CLI) | payer MEDICAID, SELFPAY ==
--- NOTE | 2022-05-31 | DI.US_ITS ---
Exam(s) US PELVIS TRANSVAGINAL EXAM: US PELVIS TRANSVAGINAL CLINICAL HISTORY: PELVIC PAIN R10.2 AUB N93.9 TECHNIQUE: Transabdominal and transvaginal imaging was performed using standard protocol. FINDINGS: Exam somewhat limited by patient body habitus. The bladder was empty. UTERUS: Not visible transabdominally due to lack of urinary bladder distention. Heterogeneous. Anteverted. 7.3 x 4.7 x 4.7 cm Endometrium: 9 mm question of a hypoechoic focus. Myometrium: Heterogeneous. Question of a 2.5 centimeter posterior fundal fibroid. Cervix: Unremarkable. OVARIES: Not visualized. Ovaries are unremarkable on prior CT. CUL-DE-SAC: Free fluid: None. IMPRESSION: 1. Limited exam. Heterogeneous myometrium with question of 2.5 centimeter fibroid. 2. Endometrium heterogeneous with question of small hypoechoic focus. 3. Ovaries not visualized. DATA REPOSITORY:
== END 2022-05-31 09:09 ==
LOC: DI 08:51
PROVIDERS: PCP Nurse Practitioner Family; Visit Provider Nurse Practitioner Family
DX: R10.2 Pelvic and perineal pain (principal); N93.9 Abnormal uterine and vaginal bleeding, unspecified
CPT/HCPCS: 76830; 76856

== ENCOUNTER 2022-06-26 02:14 | Outpatient (CLI) | payer MEDICAID, SELFPAY ==
[2022-06-26 16:31] LABS: HCT 40.6 % (36.0-46.0); HGB 13.4 g/dL (11.2-15.7); MCH 26.3 pg (27.0-33.0); MCV 80 fL (80-95); Platelet Count 359 10^3/uL (130-400); RDW-SD 40.6 fL; WBC 13.07 10^3/uL (4.4-10.8)
[2022-06-26 18:16] LABS: BUN 14 mg/dL (7-18); CREATININE 0.8 mg/dL (0.55-1.02); Calcium 8.8 mg/dL (8.5-10.1); Chloride 105 mmol/L (98-107); Estimated GFR 90.27 (mL/min/1.73m2); Glucose 342 mg/dL (74-106); Potassium 3.6 mmol/L (3.5-5.1); Sodium 136 mmol/L (136-145)
[2022-06-26 18:18] LABS: HCG Quant, Pregnancy < 1 mIU/mL (1-3)
== END 2022-06-26 02:15 | disposition home or self-care (01) ==
LOC: LBO 02:14
PROVIDERS: Obstetrics & Gynecology Gynecology; PCP Nurse Practitioner Family; Visit Provider Obstetrics & Gynecology
DX: Z01.812 Encounter for preprocedural laboratory examination (principal)
CPT/HCPCS: 36415; 80048; 85027; 86850; 86900; 86901; 84702

== ENCOUNTER 2022-06-28 11:04 | Day surgery (SDC) | payer MEDICAID, SELFPAY ==
[2022-06-28] VITALS (10 sets, daily range): BP systolic 121–171; BP diastolic 50–107; PULSE 86–103; RESP 15–24; TEMP 35.6–36.6; O2SAT 93–98; BMI 48.4
[2022-06-28] MEDS: Lactated Ringers 1,000 ML 125 ML IV (11:48)
--- NOTE | 2022-06-28 13:33 | W.ANESPRE ---
General Info Date of Service Date Performed: 06/28/22 Height: 5 ft 2 in Weight: 120 kg Body Mass Index (BMI): 48.4 Surgical Procedure: Operation Date: 06/28/22 12:40 Proposed Procedure Side Surgeon p Dilation & Curettage with Hysteroscopy Luz Elena Stahl DO Meds Allergies and Home Medications Allergies Allergy/AdvReac Type Severity Reaction Status Date / Time amoxicillin trihydrate Allergy Intermediate Hives Verified 06/27/22 15:29 [From Augmentin] potassium clavulanate Allergy Intermediate Hives Verified 06/27/22 15:29 [From Augmentin] lactose Allergy Unverified 06/27/22 15:29 Milk Containing Products Allergy Unverified 06/27/22 15:29 (Dairy) [Milk Containing Products] ammonium lactate AdvReac Intermediate GI UPSET Verified 06/27/22 15:29 [From Lac-Hydrin] citalopram hydrobromide AdvReac Intermediate CHEST Verified 06/27/22 15:29 [From Celexa] PAINS, SOB codeine AdvReac Intermediate Nausea Verified 06/27/22 15:29 duloxetine [Duloxetine] AdvReac Intermediate SPACEY Verified 06/27/22 15:29 duloxetine HCl AdvReac Intermediate NAUSEA, V/D Verified 06/27/22 15:29 [From Cymbalta] hydromorphone HCl AdvReac Intermediate NAUSEA,VOMI Verified 06/27/22 15:29 [From Dilaudid] TING,CONSTI PATION milk AdvReac Mild NAUSEA Verified 06/27/22 15:29 environmental Allergy Severe Uncoded 06/27/22 15:29 Home Medication Medication Instructions Recorded pregabalin 100 mg capsule (Lyrica) 150 mg PO BID 05/03/12 tizanidine 4 mg capsule 4 mg PO BID 05/03/12 sertraline 100 mg tablet (Zoloft) 200 mg PO DAILY 07/22/12 epinephrine 0.3 mg/0.3 mL 0.3 mg IM ONCE 02/26/14 injection, auto-injector (EpiPen 2-Fabian) fluticasone propionate 50 50 mcg NS DAILY 02/26/14 mcg/actuation nasal spray,suspension (Flonase) loratadine 10 mg disintegrating 10 mg PO DAILY 02/26/14 tablet Topiramate [Trokendi Xr] 50 mg PO BID 02/06/17 albuterol sulfate 90 mcg/actuation 2 puff inhalation Q4H PRN 12/30/18 aerosol inhaler (Proventil HFA) cholecalciferol (vitamin D3) 25 1,000 unit PO DAILY 12/30/18 mcg (1,000 unit) capsule (Vitamin D3) fluticasone propionate 115 2 puff inhalation BID 12/30/18 mcg-salmeterol 21 mcg/actuation HFA inhaler (Advair HFA) hydroxyzine HCl 25 mg tablet 25 mg PO HS PRN 12/30/18 omeprazole 40 mg capsule,delayed 40 mg PO DAILY 12/30/18 release sumatriptan succinate 25 mg tablet 25 mg PO ONCE 12/30/18 ibuprofen 800 mg tablet 800 mg PO TID PRN 08/11/19 insulin glargine 100 unit/mL (3 60 unit subcut QPM 08/11/19 mL) subcutaneous pen (Lantus Solostar U-100 Insulin) rosuvastatin 40 mg tablet 40 mg PO DAILY 08/11/19 liraglutide 0.6 mg/0.1 mL (18 mg/3 0.6 mg subcut DAILY 06/09/20 mL) subcutaneous pen injector (Workspot 2-Fabian) prochlorperazine maleate 10 mg 10 mg PO TID PRN nausea and 06/22/20 tablet (Compazine) vomiting #7 tabs norethindrone acetate 5 mg tablet 10 mg PO BID #120 tabs 06/19/22 (Aygestin) Current Visit Medications: Current Medications Generic Name Dose Route Start Last Admin Trade Name Marc PRN Reason Stop Dose Admin Ringer's Solution 1,000 mls @ 125 mls/hr 06/28/22 06:00 06/28/22 11:48 IV 07/27/22 23:59 125 mls/hr INFUSION RALF Administration IV Miscellaneous Supplies 1 each 06/28/22 06:00 Iv Access IV 07/27/22 23:59 DIRECTED RALF Sodium Chloride 0 ml 06/28/22 06:00 Normal Saline Flush 10 Ml Syr IV 07/27/22 23:59 PRN PRN Sodium Chloride 0 ml 06/28/22 06:00 Normal Saline 10 Ml Vial IJ 07/27/22 23:59 DIRECTED PRN Sterile Water 0 ml 06/28/22 06:00 Water,Injection,Sterile 10 Ml Vial IJ 07/27/22 23:59 DIRECTED PRN PFSH Active Problems Active Problems: Problem Status Onset Code Pre-operative laboratory examination Z01.812 Uterine fibroid D25.9 Thickened endometrium R93.89 Obesity E66.9 Migraine G43.909 Menorrhagia 09/10/13 N92.0 Cervical myelopathy 07/25/12 G95.9 History of kidney stones Z87.442 History of cholecystectomy Z90.49 Discharge planning issues Z02.9 JOB (obstructive sleep apnea) G47.33 Left ureteral stone N20.1 Diabetes mellitus type 2, uncontrolled E11.65 Medical History Medical History Abnormal white blood cell leukocytes Allergic rhinitis Anxiety Anxiety and depression Asthma Flores's esophagus Bilateral hand numbness Chronic low back pain Chronic pain Diabetes mellitus, type II Fibromyalgia Herniated cervical disc Hip pain, bilateral History of tobacco use Hyperlipidemia Lyme disease Migraine headache Morbid obesity with BMI of 40.0-44.9, adult Renal calculus Sleep apnea Vitamin D deficiency Surgical History Surgical History section x 3 discetomy and spinal fusion Ligation of fallopian tube Tobacco Smoking/Tobacco Use Status: Former Tobacco Use Alcohol Alcohol Intake: never Substance Use Substance use: Never Substance use type: does not use Prental History History 5 Para 3 Hx # Term Pregnancies 2 Multiple births Hx # Pregnancies 1 Ectopic pregnancies AB induced 2 Hx Number of Living Children 3 AB spontaneous Past Pregnancies Del. Date GA/Weeks # Preg Succ Route Wgt Sex Labor Lgth Anesthesia Location Prov Complic 12/31/93 36 Yes 2721.554 g Male [facility] 05/08/01 38 Yes Male [facility] 12/07/02 37 Yes Male [facility] Delivery Date: 12/31/93 Last Updated by: Kesha Barrett patient reports preeclampsia, post infection Vital Signs and Lab Results Vital Signs Most Recent Vital Signs in EMR: Most Recent Vital Signs Temp Pulse Resp BP Pulse Ox 35.9 C L 103 H 18 122/91 H 96 06/28/22 11:27 06/28/22 11:27 06/28/22 11:27 06/28/22 11:27 06/28/22 11:27 Point of Care Results Point of Care Results: Finger Stick Blood Glucose 226 06/28/22 11:55 Lab Results Blood Type / Crossmatch: Patient ABO/Rh O Positive 06/26/22 Antibody Screen NEGATIVE 06/26/22 Complete Blood Count: White Blood Count 13.07 10^3/uL (4.4-10.8) H 06/26/22 16:23 Red Blood Count 5.10 10^6/uL (3.93-5.22) 06/26/22 16:23 Hemoglobin 13.4 g/dL (11.2-15.7) 06/26/22 16:23 Hematocrit 40.6 % (36.0-46.0) 06/26/22 16:23 Platelet Count 359 10^3/uL (130-400) 06/26/22 16:23 Complete Metabolic Panel: Sodium 136 mmol/L (136-145) 06/26/22 16:23 Potassium 3.6 mmol/L (3.5-5.1) 06/26/22 16:23 Chloride 105 mmol/L (98-107) 06/26/22 16:23 Carbon Dioxide 20.0 mmol/L (21.0-32.0) L 06/26/22 16:23 BUN 14 mg/dL (7-18) 06/26/22 16:23 Creatinine 0.8 mg/dL (0.55-1.02) 06/26/22 16:23 Est GFR (CKD-EPI 2020) 90.27 (mL/min/1.73m2) 06/26/22 16:23 Calcium 8.8 mg/dL (8.5-10.1) 06/26/22 16:23 Albumin 3.1 g/dL (3.4-5.0) L 05/30/22 14:30 Glucose 342 mg/dL (74-106) H 06/26/22 16:23 Hemoglobin A1c 10.4 % (<5.7) H 05/30/22 14:30 Liver Function Panel: Alanine Aminotransferase (ALT/SGPT) 29 U/L (14-59) 05/30/22 14:30 Aspartate Amino Transf (AST/SGOT) 31 U/L (15-37) 05/30/22 14:30 Coagulation Panel: No Data to Display Cardiac Panel: No Data to Display Arterial Blood Gas: No Data to Display Venous Blood Gas: No Data to Display Pancreas Panel: No Data to Display Thyroid Panel: No Data to Display Infectious Disease: Neisseria gonorrhoeae DNA Probe Negative (Negative) 05/30/22 14:30 Blood Cultures: No Data to Display Toxicology Panel: No Data to Display Panel: Beta HCG, Quantitative < 1 mIU/mL (1-3) L 06/26/22 16:23 Anesthesia Assessment and Plan Anesthesia History Personal History: Delayed Emergence Family History: No Family History of Anesthesia Complications Exercise Tolerance Exercise Tolerance: Metabolic Equivalents>4 Pertinent Negatives Pertinent Negatives: No Symptoms of GERD and No Major Cardiovascular Symptoms or Complaints Cardiac & Pulmonary Exam Cardiac Exam: Normal S1/S2 Heart Sounds Pulmonary Exam: Clear Bilateral Breath Sounds Implantable Cardiac Device Does patient have a Pacemaker or an ICD?: No Airway Exam Known Difficult Airway: No Mallampati Class: 2 Mouth Opening: Narrow (< 3cm) Thyromental Distance: Less than 3 cm Neck Range of Motion: Full ROM Neck Circumference: Normal Teeth Condition: Normal Dentition ASA Classification ASA Score: ASA 3 Emergency Case?: No NPO Status NPO Status: NPO Clears >2 hours, Solids >8 hours Status Status: Negative HCG Anesthesia Plan Resuscitation Status: Full Code Anesthesia Technique: General Anesthesia Airway Planned: Endotracheal Tube Monitors Used: Standard Monitors
--- NOTE | 2022-06-28 15:05 | ENDO_PTH ---
PATIENT: Alis Cardenas V LOC: [facility] U#:[id number] AGE/SX: 51/F ROOM: RE06/28/[address]: Luz Elena Stahl DO : 1970 BED: DIS: 06/28/2022 SPEC #: [id number] RECD: 06/28/22 17:18 STATUS: CONNER REQ #: [id number] PASCUAL: 06/28/22 15:[address]: Luz Elena Stahl DEPT: Surgical Specimen RECD BY: Kim Wray ENTERED: 06/28/22 17:19 SP TYPE: Endo OTHR DR: ADALGISA ANTOINE Tissues: 1 - ENDOCERVICAL BX/CURRETTE 2 - ENDOMETRIUM BX/CURRETTE Procedures: GROSS AND MICRO LEVEL 4 Comments: [id number]
--- NOTE | 2022-06-28 15:15 | W.PM.OP ---
Date of service: 06/28/22 Time of Service: 15:15 Operative Note Operative Note DATE OF PROCEDURE: 06/28/22 PRE-OP DIAGNOSIS: Thickened endometrium, postmenopausal bleeding POST-OP DIAGNOSIS: same PROCEDURE: Hysteroscopy with dilation and curettage SURGEON: Luz Elena Stahl ANESTHESIA TYPE: General:No Airway Refer to Anesthesia Record ESTIMATED BLOOD LOSS: 10 PATHOLOGY: other (1. Endocervical curettage 2. Endometrial curettage) COMPLICATIONS: None Patient was transported to: same day Patient's condition: stable Indications: Thickened endometrium, postmenopausal bleeding Findings: Globally diffusely thickened endometrium Procedure Description: After full informed consent was obtained, patient was taken the operating suite where she had general anesthesia administered via natural air. She was then placed in the modified dorsolithotomy position and prepped and draped in the usual fashion. Exam under anesthesia was limited due to body habitus though the uterus was mobile and midline. Speculum was inserted into the vaginal vault and a single-tooth tenaculum used to grasp the anterior lip of the cervix. Cervical os dilated to the point that a 5 mm hysteroscope could be passed with ease. With instillation of normal saline, the endometrial cavity was inspected and found to be diffusely thickened plush, without any other irregularities. At this point the hysteroscope portion was terminated and a fractional dilation and curettage was performed with initial collection of endocervical cells followed by endometrial curettage. Single-tooth tenaculum was removed and puncture sites were hemostatic. Speculum was removed and the patient was returned to the dorsal supine position. She awoke from anesthesia with ease and was taken the recovery room in stable condition. Fluids: Crystalloid per anesthesia Findings: Diffusely thickened endometrium Pathology: 1. Endocervical curettage 2. Endometrial curettage Complications: None apparent EBL: 10 mL.
[2022-06-28] MEDS: fentaNYL 100 MCG/2 ML VIAL IVP ×2 (15:39→15:49)
--- NOTE | 2022-06-28 15:40 | W.ANESPOSTOP ---
Postoperative Evaluation Date, Time and Location Date Performed: 06/28/22 Time Performed: 15:41 Patient Location: PACU Vital Signs Most Recent Imported Vital Signs: Most Recent Vital Signs Temp Pulse Resp BP Pulse Ox 35.9 C L 103 H 18 122/91 H 96 06/28/22 11:27 06/28/22 11:27 06/28/22 11:27 06/28/22 11:27 06/28/22 11:27 Pain Score Most Recent Pain Score: Most Recent Pain Score Pain Level 0 06/28/22 11:27 Assessment Mental Status: Awake (Alert & Oriented to Patient Baseline) Airway and Respiratory Function: Patent airway with normal (patient baseline) respiratory exam Cardiovascular Function: Hemodynamically Stable Hydration Status: Adequately Hydrated Nausea & Vomiting: No Nausea or Vomiting Pain: Pt. Denies Any Pain Peripheral Nerve Block: Patient did not receive a nerve block
== END 2022-06-28 17:30 | disposition home or self-care (01) ==
PROVIDERS: PCP Nurse Practitioner Family; Visit Provider Obstetrics & Gynecology
PROC: 0UDB8ZZ Extraction of Endometrium, Via Natural or Artificial Opening Endoscopic (ICD-10-PCS; CPT 58558; principal; 2022-06-28 12:30)
DX: N95.0 Postmenopausal bleeding (principal); R93.89 Abnormal findings on diagnostic imaging of other specified body structures; N85.8 Other specified noninflammatory disorders of uterus
CPT/HCPCS: 58558; 88305; J1100; J1885; J2001; J2250; J2405; J2704; J3010

== ENCOUNTER 2022-09-10 18:35 | Emergency (ER) | payer MEDICAID, SELFPAY ==
[2022-09-10] VITALS (23 sets, daily range): BP systolic 113–133; BP diastolic 71–101; PULSE 94–141; RESP 11–22; TEMP 36.6; O2SAT 95–99
--- NOTE | 2022-09-10 18:30 | RT.EKG_ITS ---
APPROVED REPORT Exam: Resting ECG Reason for Exam: sob Patient Location: E HR:115 bpm ECG Measurements Heart Rate 115 AXIS LA 172 P 46 QRSd 81 QRS 254 QT 331 T -4 QTc 459 Conclusion Sinus tachycardia...rate> 99 Left anterior fascicular block...axis(240,-40), init forces inf Anterior infarct, old...Q >40mS, abnormal ST-T, V2-V5 inf Q waves, Q wave in V1-V#. No STEMI
--- NOTE | 2022-09-10 19:30 | DI.RAD_ITS ---
Exam(s) XR CHEST 2V PA LATERAL EXAM: XR CHEST 2V PA LATERAL CLINICAL HISTORY: Shortness of breath TECHNIQUE: 2D digital imaging was performed. COMPARISON: CR XR CHEST 2V PA LATERAL from 07/16/2020 FINDINGS: HEART: Normal size. Aorta: Not dilated. PULMONARY VASCULATURE: Normal. LUNGS: Clear. PLEURAL SPACE: No pleural effusion or pneumothorax. BONE:Unremarkable for age. IMPRESSION: No acute abnormality. DATA REPOSITORY: RADIATION DOSE DELIVERED:
--- NOTE | 2022-09-10 19:30 | DI.RAD_ITS ---
Exam(s) XR SINUS COMPLETE 3+V EXAM: XR SINUS COMPLETE 3+V CLINICAL HISTORY: cough, SOB. TECHNIQUE: 2D digital imaging was performed. COMPARISON: No exams were available for comparison FINDINGS: BONES: No evidence of fracture. Temporomandibular joints appear normally aligned. Sinuses: No evidence sinus opacification. No air-fluid levels. SOFT TISSUES: Unremarkable. IMPRESSION: Unremarkable radiographs of the facial bones. No sinus opacification. DATA REPOSITORY: RADIATION DOSE DELIVERED:
--- NOTE | 2022-09-10 19:42 | W.ED.GENAD ---
Discharge Plan Disposition Patient Disposition: Home Discharge Details Clinical Impression: Viral URI Primary Care Provider: Clari Hernandez ED Provider: Jessica Guthrie Home Meds and New Rx's Prescriptions: New cetirizine 10 mg capsule 10 mg PO DAILY PRNQty: 7 0RF fluticasone propionate 50 mcg/actuation spray,suspension 1 spray intranasal DAILY PRNQty: 16 0RF Rx Instructions: administer into each nostril Continued Ozempic 0.25 mg or 0.5 mg (2 mg/3 mL) pen injector 0.5 mg subcut QWEEK medroxyprogesterone [Provera] 10 mg tablet 10 mg PO BID Qty: 90 1RF sumatriptan succinate 25 mg Tablet 25 mg PO ONCE Rx Instructions: may repeat in 2 hours if needed omeprazole 40 mg Capsule,Delayed Release(Dr/Ec) 40 mg PO DAILY hydroxyzine HCl 25 mg Tablet 25 mg PO HS PRN albuterol sulfate [Proventil HFA] 90 mcg/actuation Hfa Aerosol Inhaler 2 puff INHALATION Q4H PRN cholecalciferol (vitamin D3) [Vitamin D3] 1,000 unit Capsule 1,000 unit PO DAILY fluticasone propion-salmeterol [Advair HFA] 115-21 mcg/actuation Hfa Aerosol Inhaler 2 puff INHALATION BID rosuvastatin 40 mg Tablet 40 mg PO DAILY insulin glargine [Lantus Solostar U-100 Insulin] 100 unit/mL (3 mL) Insulin Pen 60 unit SUBCUT QPM ibuprofen 800 mg Tablet 800 mg PO TID PRN sertraline [Zoloft] 100 MG tablet 200 mg PO DAILY loratadine 10 MG tablet,disintegrating 10 mg PO DAILY epinephrine [EpiPen 2-Fabian] 0.3 MG/0.3 ML auto-injector 0.3 mg IM ONCE fluticasone propionate [Flonase] 16 GM spray,suspension 50 mcg NS DAILY Victoza 2-Fabian 0.6 mg/0.1 mL (18 mg/3 mL) Pen Injector 0.6 mg SUBCUT DAILY tizanidine 4 MG capsule 4 mg PO BID pregabalin [Lyrica] 100 MG capsule 150 mg PO BID prochlorperazine maleate [Compazine] 10 mg tablet 10 mg PO TID PRN (Reason: nausea and vomiting) Qty: 7 0RF mirtazapine 30 mg tablet 30 mg PO DAILY Patient Comments: TAKE 1 TABLET BY MOUTH EVERY NIGHT NEEDED FOR SLEEP Topiramate [Trokendi Xr] 50 MG Cap.Er.24h 50 mg PO BID Discharge Instructions Instructions: Upper Respiratory Infection (ED) Additional Instructions: Please read all of the information that accompanies these instructions. You were seen in the emergency department for your cough and cold symptoms. Your x-rays showed no sign of any pneumonias nor any signs of infections. Please schedule an appointment with your primary care provider later this week. Please return to the emergency department if develop fevers chills cannot eat or drink or have any other concerns. 2 medications have been sent to pharmacy which should help with your symptoms. Medical Decision Making Medical Records Medical records narrative: This is a pleasant 52-year-old female who presents with cold symptoms. Initially states that she was short of breath but did not endorse that on my history. She does state that she has had a cough rhinorrhea and a and sneezing. She has not done a COVID test at home and has not had changes in taste or smell. She certainly could have COVID or another respiratory viral illness. Other considerations are pneumonia, RSV. I doubt she has a PE since she has had fever and her 2 sons have also had similar symptoms. My plan is to check blood work including a CBC and LFTs in case she does have COVID needs Paxlovid. We will check a Monospot test on her and obtain an x-ray of her chest and sinuses. HPI General Date/Time Provider Initiated Documentation: 09/10/22 19:36. Information obtained by: patient. History of Present Illness described as moderate, Quality is described as aching, HPI Narrative: The patient is a 52-year-old female who presents with sore throat and cold symptoms that began approximately a week ago. Her to sons have also had similar symptoms that preceded her own. 2 weeks ago she had a stomach bug. She states she has had a cough sneezing feeling tired bilateral ear pain radiating from a sore throat. She does have a history of asthma. She has had a subjective fever at home. She denies any change in taste. She did not do a COVID test at home. She has had sneezing rhinorrhea and fatigue. She has been immunized against COVID. She denies any facial pain. She denies any other aggravating or alleviating factors. She has had previous symptoms in the past which were similar. Related Data Home Medications Medication Instructions Recorded Confirmed pregabalin 100 mg capsule (Lyrica) 150 mg PO BID 05/03/12 09/10/22 tizanidine 4 mg capsule 4 mg PO BID 05/03/12 09/10/22 sertraline 100 mg tablet (Zoloft) 200 mg PO DAILY 07/22/12 09/10/22 epinephrine 0.3 mg/0.3 mL 0.3 mg IM ONCE 02/26/14 09/10/22 injection, auto-injector (EpiPen 2-Fabian) fluticasone propionate 50 50 mcg NS DAILY 02/26/14 09/10/22 mcg/actuation nasal spray,suspension (Flonase) loratadine 10 mg disintegrating 10 mg PO DAILY 02/26/14 09/10/22 tablet Topiramate [Trokendi Xr] 50 mg PO BID 02/06/17 09/10/22 albuterol sulfate 90 mcg/actuation 2 puff inhalation Q4H PRN 12/30/18 09/10/22 aerosol inhaler (Proventil HFA) cholecalciferol (vitamin D3) 25 1,000 unit PO DAILY 12/30/18 09/10/22 mcg (1,000 unit) capsule (Vitamin D3) fluticasone propionate 115 2 puff inhalation BID 12/30/18 09/10/22 mcg-salmeterol 21 mcg/actuation HFA inhaler (Advair HFA) hydroxyzine HCl 25 mg tablet 25 mg PO HS PRN 12/30/18 09/10/22 omeprazole 40 mg capsule,delayed 40 mg PO DAILY 12/30/18 09/10/22 release sumatriptan succinate 25 mg tablet 25 mg PO ONCE 12/30/18 09/10/22 ibuprofen 800 mg tablet 800 mg PO TID PRN 08/11/19 09/10/22 insulin glargine 100 unit/mL (3 60 unit subcut QPM 08/11/19 09/10/22 mL) subcutaneous pen (Lantus Solostar U-100 Insulin) rosuvastatin 40 mg tablet 40 mg PO DAILY 08/11/19 09/10/22 liraglutide 0.6 mg/0.1 mL (18 mg/3 0.6 mg subcut DAILY 06/09/20 09/10/22 mL) subcutaneous pen injector (Playchemyza 2-Fabian) prochlorperazine maleate 10 mg 10 mg PO TID PRN nausea and 06/22/20 09/10/22 tablet (Compazine) vomiting #7 tabs semaglutide 0.25 mg or 0.5 mg (2 0.5 mg subcut QWEEK 07/25/22 09/10/22 mg/3 mL) subcutaneous pen injector (Ozempic) medroxyprogesterone 10 mg tablet 10 mg PO BID #90 tabs 08/03/22 09/10/22 (Provera) cetirizine 10 mg capsule 10 mg PO DAILY PRN #7 caps 09/10/22 fluticasone propionate 50 1 spray intranasal DAILY PRN #16 09/10/22 mcg/actuation nasal grams spray,suspension mirtazapine 30 mg tablet 30 mg PO DAILY 09/10/22 09/10/22 Previous Rx's Medication Instructions Recorded prochlorperazine maleate 10 mg 10 mg PO TID PRN nausea and 06/22/20 tablet (Compazine) vomiting #7 tabs medroxyprogesterone 10 mg tablet 10 mg PO BID #90 tabs 08/03/22 (Provera) cetirizine 10 mg capsule 10 mg PO DAILY PRN #7 caps 09/10/22 fluticasone propionate 50 1 spray intranasal DAILY PRN #16 09/10/22 mcg/actuation nasal grams spray,suspension Allergies Allergy/AdvReac Type Severity Reaction Status Date / Time amoxicillin trihydrate Allergy Intermediate Hives Verified 09/10/22 19:12 [From Augmentin] potassium clavulanate Allergy Intermediate Hives Verified 09/10/22 19:12 [From Augmentin] lactose Allergy Unverified 09/10/22 19:12 Milk Containing Products Allergy Unverified 09/10/22 19:12 (Dairy) [Milk Containing Products] ammonium lactate AdvReac Intermediate GI UPSET Verified 09/10/22 19:12 [From Lac-Hydrin] citalopram hydrobromide AdvReac Intermediate CHEST Verified 09/10/22 19:12 [From Celexa] PAINS, SOB codeine AdvReac Intermediate Nausea Verified 09/10/22 19:12 duloxetine [Duloxetine] AdvReac Intermediate SPACEY Verified 09/10/22 19:12 duloxetine HCl AdvReac Intermediate NAUSEA, V/D Verified 09/10/22 19:12 [From Cymbalta] hydromorphone HCl AdvReac Intermediate NAUSEA,VOMI Verified 09/10/22 19:12 [From Dilaudid] LIA WILSON PATION milk AdvReac Mild NAUSEA Verified 09/10/22 19:12 environmental Allergy Severe Uncoded 09/10/22 19:12 General Stated Complaint: SOB LANIE: 2 Review of Systems Eyes Eyes: Denies photophobia ENT Ears, Nose, Mouth, and Throat: Denies dysphagia Comments: Sore throat and swollen glands pain radiates to both the ears. No discharge no change in hearing Cardiovascular Cardiovascular: Denies dyspnea Comments: No chest pain Respiratory Respiratory: Denies dyspnea Comments: Cough primarily nonproductive occasionally productive of nonpurulent sputum. Wheezing Gastrointestinal Gastrointestinal: Denies dysphagia Genitourinary Comments: No urinary symptoms Musculoskeletal Comments: No leg pain or swelling Neurologic Comments: History of migraines no headache presently PFSH All Active Problems Diabetes mellitus type 2, uncontrolled (Chronic) JOB (obstructive sleep apnea) (Chronic) Cervical myelopathy (Acute 07/25/12) Migraine (Chronic) Obesity (Chronic) Abnormal uterine bleeding (Acute) Viral URI (Acute) Medical History Abnormal white blood cell leukocytes Allergic rhinitis Anxiety and depression Asthma Flores's esophagus Bilateral hand numbness Chronic low back pain Chronic pain Discharge planning issues Fibromyalgia Herniated cervical disc Hip pain, bilateral History of kidney stones History of tobacco use Hyperlipidemia Left ureteral stone Lyme disease Migraine headache Morbid obesity with BMI of 40.0-44.9, adult Sleep apnea Thickened endometrium Uterine fibroid Vitamin D deficiency Surgical History section x 3 discetomy and spinal fusion History of cholecystectomy Ligation of fallopian tube Postoperative state Status post hysteroscopy with dilation and curettage 06/28/2022 Family History Other Blood clotting disorder Breast cancer Diabetes Heart disease Hyperlipidemia Hypertension Osteoporosis Ovarian cancer Stroke Thyroid disorder Social History Smoking/Tobacco Use Status: Former Tobacco Use Quit Date: 02/06/16 Smoking risk assessment performed?: Yes Alcohol Intake: never Drug use: Never Substance use type: marijuana Household members: children Housing: apartment Number of Children: 3 current occupation: [employer] What is your relationship status?: Panel score (0-1 are the most socially isolated patients): 0 What type of physical activity do you participate in: walking Do you feel safe at home: Yes Do you feel safe in your relationship?: Yes Female Reproductive History Menstrual Age of Menarche: 12 Duration of menses: other control method: permanent sterilization History History 5 Para 3 Hx # Term Pregnancies 2 Multiple births Hx # Pregnancies 1 Ectopic pregnancies AB induced 2 Hx Number of Living Children 3 AB spontaneous Past Pregnancies Del. Date GA/Weeks # Preg Succ Route Wgt Sex Labor Lgth Anesthesia Location Prov Complic 12/31/93 36 Yes 2721.554 g Male [facility] 05/08/01 38 Yes Male [facility] 12/07/02 37 Yes Male [facility] Delivery Date: 12/31/93 Last Updated by: Kesha Barrett patient reports preeclampsia, post infection Exam Const General: cooperative, healthy appearing, comfortable, no acute distress, well developed, well groomed and well hydrated Nutritional Appearance: average body habitus and well nourished Orientation: alert, awake and oriented x3 HENMT Head: normal to inspection, normocephalic and atraumatic Ears: hearing grossly normal bilaterally and external ears normal General nose exam: external nose normal, nares normal and no nasal discharge Face and sinus: normal facial exam, sinuses nontender and face symmetric Mouth: oral mucosae normal, lip normal, tongue normal, oropharynx normal, moist mucous membranes and other (Normal phonation. The patient is handling secretions.) Throat: posterior oropharynx normal and uvula midline Eyes General: appearance normal, both eyes and all related structures Eyelids: eyelids normal Conjunctivae: conjunctivae normal Sclera: sclerae normal Cornea: corneas normal Pupils: PERRL EOM: EOM intact bilaterally and No nystagmus Neck Neck: normal visual inspection, full ROM, no lymphadenopathy, no meningeal signs, trachea midline and supple Lymphatic: no lymphadenopathy noted Chest Chest: normal inspection of the chest Resp Effort & Inspection: normal respiratory effort, able to speak in complete sentences, no audible wheezes, no nasal flaring, no respiratory distress, no retractions, no stridor, not tachypneic, no tracheal deviation, no use of accessory muscles, No prolonged expiratory phase and other (Normal inspiratory to expiratory ratio.) Auscultation: clear to auscultation bilaterally, no rales, no rhonchi, no wheezes and no rubs Tactile Fremitus: tactile fremitus absent Cardio Jugular venous pressure: no JVD Palpation: normal PMI Rate: regular rate Rhythm: regular rhythm Heart Sounds: S1 normal, S2 normal, no gallops, no murmurs and no rubs GI Inspection: normal to inspection and non-distended Palpation: soft, no hepatosplenomegaly, no guarding and nontender Percussion: normal to percussion Auscultation: normal bowel sounds General: No CVA tenderness Back/Spine/Pelvis Back: no CVA tenderness and No back tenderness Cervical Spine: normal cervical lordosis, cervical ROM normal, No cervical muscular tenderness, No pain with cervical ROM, No cervical spinal tenderness and No step off deformity Thoracic/Lumbar Spine: thoracic and lumbar spine normal to inspection, No thoracic spinal tenderness and No lumbar spinal tenderness Pelvis: no pain with anterior-posterior compression and no pain with lateral compression Skin General skin exam: no rashes or lesions noted, turgor normal, no petechiae, no purpura and other (Skin is normal for ethnicity.) Lesions: no lesions Rashes: no rashes Trauma: no lacerations or abrasions Neuro General: patient alert, patient awake, patient oriented x3, moves all extremities, no meningeal signs, no focal motor deficits and CN's II-XI intact bilaterally Cranial Nerves: CN's II-XI intact bilaterally, PERRL, accommodation normal, EOM intact bilaterally, no nystagmus, facial strength normal, tongue midline, hearing normal and no nystagmus Cognition: normal cognition Speech: speech normal Gait: normal gait Motor: muscle tone normal throughout and strength 5/5 throughout Sensory Exam: no sensory deficits noted Extrem General: normal to inspection, full ROM, capillary refill normal, no clubbing, cyanosis or edema and no calf tenderness Psych Appearance: grossly normal Affect: normal affect Attitude: cooperative Thought Process: normal Thought Content: normal Insight: insight good Judgment: judgment good Other: The patient appears to have capacity make medical decisions. Course I have signed her out to Dr. Lynn with labs and radiographs pending. Vital Signs Vital signs: Vital Signs Temperature 36.6 C 09/10/22 18:36 Pulse 141 H 09/10/22 18:36 Respiratory Rate 22 09/10/22 18:36 Blood Pressure 133/92 H 09/10/22 18:36 Pulse Oximetry 96 09/10/22 18:36 Temperature 36.6 C 09/10/22 18:36 Temperature Source Tympanic 09/10/22 18:36 Pulse 105 H 09/10/22 19:15 Pulse 101 H 09/10/22 19:20 Respiratory Rate 16 09/10/22 19:23 Respiratory Effort Normal, Short of Breath 09/10/22 19:23 Respiratory Depth Normal 09/10/22 19:23 Respiratory Pattern Normal 09/10/22 19:23 Blood Pressure 123/73 09/10/22 19:15 Blood Pressure Mean 85 09/10/22 19:15 Blood Pressure Position Sitting 09/10/22 18:36 Pulse Oximetry 97 09/10/22 19:20 Oxygen Delivery Method Room Air 09/10/22 18:36 Oxygen Flow Rate 0 09/10/22 18:36 Pain Level 7 09/10/22 18:36
[2022-09-10 20:07] LABS: HCT 40.8 % (36.0-46.0); HGB 13.2 g/dL (11.2-15.7); Lymphocytes % 30.4; MCH 25.8 pg (27.0-33.0); MCHC 32.4 % (32.0-36.0); MCV 80 fL (80-95); MPV 10.8 fL (8.0-11.0); Monocytes % 5.4; Neutrophils % 61.6; Platelet Count 292 10^3/uL (130-400); RBC 5.11 10^6/uL (3.93-5.22); RDW 13.3 % (11.7-14.6); RDW-SD 38.1 fL; WBC 12.21 10^3/uL (4.4-10.8)
[2022-09-10 20:08] LABS: Abs Immature Grans 0.06 10^3/uL (0.0-0.06); Absolute Basophil Count 0.06 10^3/uL (0.0-0.2); Absolute Lymphocyte Count 3.71 10^3/uL (1.2-3.4); Absolute Monocyte Count 0.66 10^3/uL (0.1-0.8); Absolute Neutrophil Count 7.52 10^3/uL (1.2-6.7); Basophils % 0.5; Eosinophils % 1.6; Immature Grans % 0.5
[2022-09-10 20:17] LABS: Mono Screening Negative (Negative)
[2022-09-10 20:18] LABS: ALT 15 U/L (14-59); AST 14 U/L (15-37); Albumin 3.2 g/dL (3.4-5.0); Alkaline Phosphatase 105 U/L (46-116); Anion Gap 12.3 mmol/L (3-11); BUN 16 mg/dL (7-18); Bilirubin, Total 0.3 mg/dL (0.2-1.0); CO2 21.7 mmol/L (21.0-32.0); CREATININE 0.9 mg/dL (0.55-1.02); Chloride 101 mmol/L (98-107); Estimated GFR 77.88 (mL/min/1.73m2); Glucose 326 mg/dL (74-106); Potassium 3.8 mmol/L (3.5-5.1); Sodium 135 mmol/L (136-145); Total Protein 7.6 g/dL (6.4-8.2)
--- NOTE | 2022-09-10 20:51 | DI.VRAD_ITS ---
PROCEDURE INFORMATION: Exam: XR Chest Exam date and time: 09/10/2022 8:22 PM Age: 52 years old Clinical indication: Cough and shortness of breath; Patient HX: SOB, cough TECHNIQUE: Imaging protocol: Radiologic exam of the chest. Views: 2 views. COMPARISON: CR XR CHEST 2V PA LATERAL 07/16/2020 1:48 PM FINDINGS: Lungs: No consolidation. No Mass Pleural spaces: No pleural effusion. No pneumothorax. Heart/Mediastinum: Unremarkable Bones/joints: Small osteophytes in the thoracic spine. IMPRESSION: No acute cardiopulmonary disease Dictated and Authenticated by: Donovan Mejia MD. Ordering:JERRY Lopez MD
--- NOTE | 2022-09-10 20:52 | DI.VRAD_ITS ---
PROCEDURE INFORMATION: Exam: XR Sinus Exam date and time: 09/10/2022 8:28 PM Age: 52 years old Clinical indication: Patient HX: Cough, sinus pain bilat TECHNIQUE: Imaging protocol: XR of the sinuses and paranasal structures. Views: Minimum of 3 views. COMPARISON: No relevant prior studies available. FINDINGS: Sinuses: Well aerated. No opacification. No air-fluid levels Bones/joints: No fracture. Soft tissues: Unremarkable. IMPRESSION: No sinus disease Dictated and Authenticated by: Donovan Mejia MD. Ordering:JERRY Lopez MD
--- NOTE | 2022-09-10 21:02 | ED.PROG_ITS ---
Date of service: 09/10/22 Time of Service: 21:03 Medical Decision Making I received signout on this 52-year-old female with a 2-week history of cough. She arrived as an LANIE level 2 secondary to tachycardia into the 140s in triage box. She had an ECG showing sinus tachycardia which was improving to the 110s. On the monitor at the time of signout her heart rate was in the 90s. This change occurred without intervention. She was pending an x-ray of her chest and her sinuses. Both of these were negative for any acute processes. Her comprehensive metabolic panel showed a very mild anion gap with hyperglycemia but a normal bicarbonate not consistent with DKA. She had no HERMILO. She had mild hypoalbuminemia similar to prior. She had a Monospot drawn which was negative. Her CBC did show leukocytosis but this was improved compared to prior. No anemia nor thrombocytopenia. We will discharge with prescription for Flonase and cetirizine. Patient most likely has a viral URI. I met with the patient and explained her reassuring evaluation in the ED. We will give return indications including any fevers worsening shortness of breath. Patient was not hypoxic in the ED. Discharge Plan Disposition Patient Disposition: Home Discharge Details Clinical Impression: Viral URI Primary Care Provider: Clari Hernandez ED Provider: Jessica Guthrie Home Meds and New Rx's Prescriptions: New cetirizine 10 mg capsule 10 mg PO DAILY PRNQty: 7 0RF fluticasone propionate 50 mcg/actuation spray,suspension 1 spray intranasal DAILY PRNQty: 16 0RF Rx Instructions: administer into each nostril Continued Ozempic 0.25 mg or 0.5 mg (2 mg/3 mL) pen injector 0.5 mg subcut QWEEK medroxyprogesterone [Provera] 10 mg tablet 10 mg PO BID Qty: 90 1RF sumatriptan succinate 25 mg Tablet 25 mg PO ONCE Rx Instructions: may repeat in 2 hours if needed omeprazole 40 mg Capsule,Delayed Release(Dr/Ec) 40 mg PO DAILY hydroxyzine HCl 25 mg Tablet 25 mg PO HS PRN albuterol sulfate [Proventil HFA] 90 mcg/actuation Hfa Aerosol Inhaler 2 puff INHALATION Q4H PRN cholecalciferol (vitamin D3) [Vitamin D3] 1,000 unit Capsule 1,000 unit PO DAILY fluticasone propion-salmeterol [Advair HFA] 115-21 mcg/actuation Hfa Aerosol Inhaler 2 puff INHALATION BID rosuvastatin 40 mg Tablet 40 mg PO DAILY insulin glargine [Lantus Solostar U-100 Insulin] 100 unit/mL (3 mL) Insulin Pen 60 unit SUBCUT QPM ibuprofen 800 mg Tablet 800 mg PO TID PRN sertraline [Zoloft] 100 MG tablet 200 mg PO DAILY loratadine 10 MG tablet,disintegrating 10 mg PO DAILY epinephrine [EpiPen 2-Fabian] 0.3 MG/0.3 ML auto-injector 0.3 mg IM ONCE fluticasone propionate [Flonase] 16 GM spray,suspension 50 mcg NS DAILY Victoza 2-Fabian 0.6 mg/0.1 mL (18 mg/3 mL) Pen Injector 0.6 mg SUBCUT DAILY tizanidine 4 MG capsule 4 mg PO BID pregabalin [Lyrica] 100 MG capsule 150 mg PO BID prochlorperazine maleate [Compazine] 10 mg tablet 10 mg PO TID PRN (Reason: nausea and vomiting) Qty: 7 0RF mirtazapine 30 mg tablet 30 mg PO DAILY Patient Comments: TAKE 1 TABLET BY MOUTH EVERY NIGHT NEEDED FOR SLEEP Topiramate [Trokendi Xr] 50 MG Cap.Er.24h 50 mg PO BID Discharge Instructions Instructions: Upper Respiratory Infection (ED) Additional Instructions: Please read all of the information that accompanies these instructions. You were seen in the emergency department for your cough and cold symptoms. Your x- rays showed no sign of any pneumonias nor any signs of infections. Please schedule an appointment with your primary care provider later this week. Please return to the emergency department if develop fevers chills cannot eat or drink or have any other concerns. 2 medications have been sent to pharmacy which should help with your symptoms.
== END 2022-09-10 21:42 | disposition home or self-care (01) ==
PROVIDERS: Emergency Provider Emergency Medicine Emergency Medical Services; PCP Nurse Practitioner Family
DX: J06.9 Acute upper respiratory infection, unspecified (principal); R06.02 Shortness of breath
CPT/HCPCS: 36415; 80053; 87426; 93005; 99283; 70220; 71046; 85025; 86308; 93010; 99284

== ENCOUNTER 2023-02-08 17:16 | Emergency (ER) | payer MEDICAID, SELFPAY ==
[2023-02-08] VITALS (24 sets, daily range): BP systolic 95–138; BP diastolic 56–89; PULSE 86–142; RESP 12–23; TEMP 36–36.5; O2SAT 96–99
--- OUTSIDE RECORDS SUMMARY | 2023-02-08 17:22 | XMS_ITS | Continuity of Care Document ---
Author Name Unknown Organization [facility] Address [address] [place] [address] Care Team Providers Care Wholesale Account Manager Name Role Phone Clari Hernandez MD Primary Care Physician Encounter [facility] NBR [id number] Date(s): 11/14/22 - 11/14/22 [facility] [address] [place] [address]- [place] Encounter Diagnosis Abnormal uterine bleeding(Discharge Diagnosis) - 11/14/22 Discharge Disposition: Home or Self Care Attending Physician: Nghia Lorenz MD Allergies, Adverse Reactions, Alerts Substance Reaction Severity Status Augmentin Hives Unknown Active Tylenol with Codeine Nausea Unknown Active Dilaudid Unknown Active Tylenol with Codeine #3 Unknown Acti ve Cymbalta Nausea and vomiting Unknown Active Lactose Nausea Unknown Active Milk Unknown Active Seasonal Moderate Active Medications Advair HFA 115 mcg-21 mcg/inh inhalation aerosol 2 puffs, Inhale, BID, 0 Refill(s) Start Date: 10/27/22 Status: Ordered Blood Glucose Lancets Accu-check soft touch lancets. use 1 strip three times a day as directed., Supply, See instructions, # 1 EA, 0 Refill(s) Start Date: 10/31/22 Status: Ordered blood glucose monitor Accu-Chek Saniya Plus Meter (blood glucose meter). Use once a day as directed., Supply, See instructions, # 1 EA, 0 Refill(s) Start Date: 10/31/22 Status: Ordered Blood Glucose Monitor Kit OneTouch UltraMini Kit (blood glucose meter) may substitute with any onetouch model., Supply, See instructions, # 1 EA, 0 Refill(s) Start Date: 10/31/22 Status: Ordered Crestor 40 mg oral tablet 40 mg = 1 tab, Oral, every night at bedtime, 0 Refill(s) Start Date: 10/31/22 Status: Ordered Delica Lancets Onetouch Delica safety lancet 30 gauge 30 gauge (lancets). Use 1 lancet as directed four times a day, 0 Refill(s) Start Date: 10/31/22 Status: Ordered diazePAM 10 mg oral tablet 10 mg = 1 tab, Oral, Once, Take 1 hour prior to procedure, # 1 tab, 0 Refill(s), Pharmacy: [id number] Start Date: 11/03/22 Status: Ordered EpiPen 2-Fabian 0.3 mg injectable kit EpiPen 2-Fabian 0.3mg/0.3mL auto-injector (epinephrine). Use 1 pen injector intramuscularly as directed., 0 Refill(s) Start Date: 10/27/22 Status: Ordered Flonase 50 mcg, 2 spray in both nostrils once a day as needed., 0 Refill(s) Start Date: 10/31/22 Status: Ordered hydrOXYzine hydrochloride 25 mg oral tablet 25 mg = 1 tab, Oral, every night as needed., 0 Refill(s) Start Date: 10/27/22 Status: Ordered ibuprofen 800 mg =, take 1 tablet by mouth three times a day as needed., 0 Refill(s) Start Date: 10/31/22 Status: Ordered insulin pen needles 32G 5 mm Easy comfort pen needles 32 gauge x 5/32' needle (pen needle, diabetic) use 2 needle every night, Supply, See instructions, # 1 EA, 0 Refill(s) Start Date: 10/31/22 Status: Ordered Lantus Solostar Pen 100 units/mL subcutaneous solution Lantus solostar U-100 insulin 100 unit/mL (3mL) insulin pen (insulin glargine). Inject 60 unit subcutaneously every night., 0 Refill(s) Start Date: 10/27/22 Status: Ordered loratadine 10 mg =, Oral, Daily, tablet, as needed., 0 Refill(s) Start Date: 10/31/22 Status: Ordered Lyrica 150 mg =, Oral, Daily, 0 Refill(s) Start Date: 10/27/22 Status: Ordered medroxyPROGESTERone 10 mg oral tablet 10 mg = 1 tab, Oral, BID, 0 Refill(s) Start Date: 10/27/22 Status: Ordered mirtazapine 30 mg oral tablet 30 mg = 1 tab, Oral, every night at bedtime, as needed for sleep, 0 Refill(s) Start Date: 10/27/22 Status: Ordered omeprazole 40 mg =, Delayed release (DR/EC). Omeprazole take 1 tablet by mouth once a day., 0 Refill(s) Start Date: 10/31/22 Status: Ordered One Touch Verio Test Strips use 1 strip three times a day, Supply, See instructions, # 1 EA, 0 Refill(s) Start Date: 10/31/22 Status: Ordered Ozempic (1 mg dose) 4 mg/3 mL subcutaneous solution 1 mg =, Subcutaneous, once a week for 4 weeks, then bump up to 0.5mg once a week., 0 Refill(s) Start Date: 10/27/22 Status: Ordered tiZANidine 4 mg oral tablet 4 mg = 1 tab, Oral, BID, as needed., 0 Refill(s) Start Date: 10/27/22 Status: Ordered Topamax 50 mg oral tablet 50 mg = 1 tab, Oral, BID, 0 Refill(s) Start Date: 10/31/22 Status: Ordered Valium 10 mg oral tablet See Instructions, 1 tab Orally to be taken immediately prior to procedure., # 1 tab, 0 Refill(s), Pharmacy: [id number] Start Date: 11/01/22 Status: Ordered Ventolin HFA 90 mcg/inh inhalation aerosol 2 puffs, every 4-6 hours as needed, 0 Refill(s) Start Date: 10/27/22 Status: Ordered Vitamin D3 25 mcg =, Chewed, Daily, 0 Refill(s) Start Date: 10/31/22 Status: Ordered Zoloft 100 mg oral tablet 200 mg = 2 tab, Oral, Daily, 0 Refill(s) Start Date: 10/27/22 Status: Ordered Problem List Condition Confirmation Course Effective Dates Status H ealth Status Informant Perimenopausal menorrhagia Confirmed Active Abnormal uterine bleeding Confirmed Active Allergic rhinitis, unspecified 1 Confirmed Active Asthma Confirmed Active Barretts esophagus Confirmed Active BMI 45.0-49.9, adult Confirmed Active Chronic low back pain Confirmed Active Depression Confirmed Active Diabetes 2 Confirmed Active Fibromyalgia Confirmed Active History of tobacco use Confirmed Active Pain, generalized 3 Confirmed Active History of back pain Confirmed Active History of depression Confirmed Active History of stomach ulcers Confirmed Active Hx of migraines Confirmed Active History of allergy to milk products Confirmed Active Hip pain, bilateral Confirmed Active Hyperlipidemia Confirmed Active Disc disorder 4 Confirmed Active Renal calculus Confirmed Active Kidney stones 5 Confirmed Active Lyme disease Confirmed Active Headache, migraine 6 Confirmed Active Asthma, mild persistent Confirmed Active Anxiety and depression Confirmed Active Morbid obesity Confirmed Active Pelvic pain in female Confirmed Active Encounter for preventive care Confirmed Active Perimenopausal Confirmed Active Persistent cough Confirmed Active Reactive airway disease Confirmed Active Apnea, sleep Confirmed Active Uterine fibroid Confirmed Active Viral meningitis 7 Confirmed Active Vitamin D deficiency Confirmed Active 1NOS 2Type 2 3Chronic 4History of slipped disc 5Nephrolithiasis times two, 05/1994 & ?. 6Abdominal migraine 7Hospitalized at age 6 months in 11/1994. Procedures Procedure Date Related Diagnosis Body Site Status Biopsy 2022 Completed Anterior Disckectomy and cer vical fusion C5-6 Completed section 2 Comple sonu History of blood transfusion Completed History of spinal fusion 3 Completed Insertion of subclavian line Completed Laparoscopic cholecystectomy Completed [facility] Uterus 23x. Multiple terminations. 3T&A Anterior Discectomy & Spinal Fusion C5-6, hardware in place 03/19/08 Vital Signs Most recent to oldest [Reference Range]: 1 Blood Pressure [90-140/60-90 mmHg] 118/8 4mmHg (11/14/22 11:27 AM) Weight 119.6 kg (11/14/22 11:27 AM) Weight Measured (lbs) 263.673 lb (11/14/22 11:27 AM) Social History Social History Type Response Smoking Status Smoking tobacco use: Former tobacco user;Never; Number used per day: Patient stopped smoking 10-15 years ago.; entered on: 10/31/22 Sex Physician Outpatient Note * Nghia Lorenz MD: PERFORM Event Display: Office Clinic Note Physician Authored Date: [id number] BRIAN COOLEY V :1970 Age:52 years Sex:Female Visit Date:11/14/2022 Primary Care Physician: Clari Hernandez MD Chief Complaint Mirena insertion. No questions. History of Present Illness 52-year-old??presents today for IUD insertion. ??She has been managed for abnormal bleeding.?? She did have a hysteroscopy D&C??earlier in the year??at [facility]??with findings of a possible benign endometrial polyp.?? Her ultrasound did reveal??a 2.5 cm posterior fundal fibroid.?? Her bleeding has been irregular since the procedure and she had originally desired to undergo hysterectomy for management. It was elected to attempt IUD placement for management of her bleeding. Review of Systems As per [facility] Physical Exam Vitals & Measurements BP:??118/84?? WT:??119.6??kg?? Attempted IUD placement ?? The patient has been pretreated with 10 mg of oral Valium prior to the procedure. ??A speculum was placed in the vagina.?? The patient was??very intolerant of??the speculum and it was difficult toaccess her cervix on exam.?? It was felt that she would not be able to tolerate??a paracervical block or IUD placement and the procedure was abandoned. Assessment/Plan 1.??Abnormal uterine bleeding??N93.9 Attempted IUD placement today. ??Patient was intolerant??of even placement of the speculum.?? We discussed options. ??I do feel that she is a high??risk in terms of surgery??and that with a benign endometrium??she may be better off??continue to pursue IUD placement. ??We will schedule her for hysteroscopy D&C and IUD placement or anesthesia. ??We will add hysteroscopy D&C??due to her previous findings of thickened endometrium and endometrial polyp.?? Problem List/Past Medical History Ongoing Abnormal uterine bleeding Allergic rhinitis, unspecified Anxiety and depression Apnea, sleep Asthma Asthma, mild persistent Barretts esophagus BMI 45.0-49.9, adult Chronic low back pain Depression Diabetes Disc disorder Encounter for preventive care Fibromyalgia Headache, migraine Hip pain, bilateral History of allergy to milk products History of back pain History of depression History of stomach ulcers History of tobacco use Hx of migraines Hyperlipidemia Kidney stones Lyme disease Morbid obesity Pain, generalized Pelvic pain in female Perimenopausal Perimenopausal menorrhagia Persistent cough Reactive airway disease Renal calculus Uterine fibroid Viral meningitis Vitamin D deficiency Historical Procedure/Surgical History ???Biopsy (2022)??? section???Anterior Disckectomy and cervical fusion C5-6???History of blood transfusion???History of spinal fusion???Insertion of subclavian line???Laparoscopic cholecystectomy???Lumbar puncture Medications Advair HFA 115 mcg-21 mcg/inh inhalation aerosol, 2 puffs, Inhale, BID Blood Glucose Lancets, See instructions blood glucose monitor, See instructions Blood Glucose Monitor Kit, See instructions Crestor 40 mg oral tablet, 40 mg= 1 tab, Oral, every night at bedtime Delica Lancets diazePAM 10 mg oral tablet, 10 mg= 1 tab, Oral, Once EpiPen 2-Fabian 0.3 mg injectable kit Flonase, 50 mcg hydrOXYzine hydrochloride 25 mg oral tablet, 25 mg= 1 tab, Oral ibuprofen, 800 mg insulin pen needles 32G 5 mm, See instructions Lantus Solostar Pen 100 units/mL subcutaneous solution loratadine, 10 mg, Oral, Daily Lyrica, 150 mg, Oral, Daily medroxyPROGESTERone 10 mg oral tablet, 10 mg= 1 tab, Oral, BID mirtazapine 30 mg oral tablet, 30 mg= 1 tab, Oral, every night at bedtime omeprazole, 40 mg One Touch Verio Test Strips, See instructions Ozempic (1 mg dose) 4 mg/3 mL subcutaneous solution, 1 mg, Subcutaneous tiZANidine 4 mg oral tablet, 4 mg= 1 tab, Oral, BID Topamax 50 mg oral tablet, 50 mg= 1 tab, Oral, BID Valium 10 mg oral tablet, See Instructions Ventolin HFA 90 mcg/inh inhalation aerosol, 2 puffs Vitamin D3, 25 mcg, Chewed, Daily Zoloft 100 mg oral tablet, 200 mg= 2 tab, Oral, Daily Allergies Seasonal Augmentin??(Hives) Cymbalta??(Nausea and vomiting) Dilaudid Lactose??(Nausea) Milk Tylenol with Codeine??(Nausea) Tylenol with Codeine #3 Social History Alcohol Past Electronic Cigarette/Vaping Electronic Cigarette Use: Never. Employment/School Employed, Work/School description: Full-time. [employer]. Home/Environment Lives with Children. Living situation: Home/Independent. Sexual Sexually active: No. Substance Use Current, Marijuana, Daily- Comments: Per patient once night. Tobacco Former tobacco user Tobacco Use:. Patient stopped smoking 10-15 years ago. per day. Never SmokelessTobacco use:. Family History Breast cancer: Mother and Aunt/Uncle. Multiple sclerosis: Father. Electronically Signed on 11/14/22 02:17 PM Nghia Lorenz MD Patient Care team information Care Team Personnel Name: Clari Hernandez MD Position: Physician Member Role: Primary Care Physician Address: Address: [address] [place] [id number]
--- OUTSIDE RECORDS SUMMARY | 2023-02-08 17:22 | XMS_ITS | Continuity of Care Document ---
Author Name Unknown Organization [facility] Address [address] [place] [address] Encounter [facility] NBR [id number] Date(s): 10/31/22 - 10/31/22 [facility] [address] [place] [address]- [place] Encounter Diagnosis Abnormal uterine and vaginal bleeding, unspecified(Final) - Discharge Disposition: Home or Self Care Attending Physician: Nghia Lorenz MD Admitting Physician: Nghia Lorenz MD Allergies, Adverse Reactions, Alerts Substance Reaction Severity Status Augmentin Hives Unknown Active Tylenol with Codeine Nausea Unknown Active Dilaudid Unknown Active Tylenol with Codeine #3 Unknown Acti ve Cymbalta Nausea and vomiting Unknown Active Lactose Nausea Unknown Active Milk Unknown Active Seasonal Moderate Active Assessment and Plan Future Appointments Medications Advair HFA 115 mcg-21 mcg/inh inhalation [...] 0 Refill(s) Start Date: 10/31/22 Status: Ordered EpiPen 2-Fabian 0.3 mg injectable [...] procedure., # 1 tab, 0 Refill(s), Pharmacy: [id number] Start Date: 11/01/22 Status: Ordered Ventolin [...] Completed Laparoscopic cholecystectomy Completed [facility] Uterus 23x. Multiple terminations. 3T&A Anterior Discectomy & Spinal Fusion C5-6, hardware in place 03/19/08 Results Laboratory List Name Date Automated Diff 10/31/22 CBC w/ Diff 10/31/22 Comprehensive Metabolic Panel (CMP) 10/31 Hgb A1c 10/31/22 Iron Panel 10/31/22 TSH w/ Rflx to Free T4 10/31/22 Most recent to oldest [Reference Range]: 1 WBC [4.8-10.8 K/mcL] 12.7 K/mcL *HI* (10/31/22 10:36 AM) RBC [4.20-5.40 Million/mcL] 5.18 Million /mcL (10/31/22 10:36 AM) Neutro Auto [42.2-75.2 %] 63.3 % (10/31/22 10:36 AM) Lymph Auto [20.5-51.1 %] 28.5 % (10/31/22 10:36 AM) [place] Auto [1.7-9.3 %] 5.0 % (10/31/22 10:36 AM) Basophil Auto [0.0-0.8 %] 0.6 % (10/31/22 10:36 AM) BUN [8-26 mg/dL] 18 mg/dL (10/31/22 10:36 AM) Glucose Level [74-106 mg/dL] 159 mg/dL *HI* (10/31/22 10:36 AM) Potassium Level [3.5-5.1 mmol/L] 4.0 mmo l/L (10/31/22 10:36 AM) Baso Absolute [0.0-0.2 K/mcL] 0.1 K/mcL (10/31/22 10:36 AM) MCV [81.0-99.0 fL] 81.1 fL (10/31/22 10:36 AM) AST [15-41 IntlUnit/L] 35 IntlUnit/L (10/31/22 10:36 AM) ALT [14-54 IntlUnit/L] 25 IntlUnit/L (10/31/22 10:36 AM) MCHC [32.0-36.0 g/dL] 32.4 g/dL (10/31/22 10:36 AM) Osmolality [275-295 mOsm/kg] 277 mOsm/kg (10/31/22 10:36 AM) Sodium Level [134-143 mmol/L] 136 mmol/L (10/31/22 10:36 AM) Lymph Absolute [1.2-3.4 K/mcL] 3.6 K/mcL *HI* (10/31/22 10:36 AM) Hct [37.0-47.0 %] 42.0 % (10/31/22 10:36 AM) Calcium Level [8.9-10.3 mg/dL] 9.2 mg/dL (10/31/22 10:36 AM) [place] Absolute [0.1-0.6 K/mcL] 0.6 K/mcL (10/31/22 10:36 AM) Albumin Level [3.5-5.0 g/dL] 3.7 g/dL (10/31/22 10:36 AM) Protein Total [6.5-8.1 g/dL] 6.8 g/dL (10/31/22 10:36 AM) Iron Sat [20-55 %] 14 % *LOW* (10/31/22 10:36 AM) MCH [27.0-31.0 pg] 26.3 pg *LOW* (10/31/22 10:36 AM) Neutro Absolute [1.4-6.5 K/mcL] 8.0 K/mc L *HI* (10/31/22 10:36 AM) Bilirubin Total [0.2-1.2 mg/dL] 0.5 mg/d L (10/31/22 10:36 AM) Hgb [12.0-16.0 g/dL] 13.6 g/dL (10/31/22 10:36 AM) Transferrin [192-382 mg/dL] 253 mg/dL (10/31/22 10:36 AM) Alk Phos [38-130 IntlUnit/L] 85 IntlUnit /L (10/31/22 10:36 AM) MPV [7.4-10.4 fL] 10.0 fL (10/31/22 10:36 AM) Platelets [130-400 K/mcL] 323 K/mcL (10/31/22 10:36 AM) CO2 [22-32 mmol/L] 23 mmol/L (10/31/22 10:36 AM) Eos Absolute [0.0-0.2 K/mcL] 0.3 K/mcL *HI* (10/31/22 10:36 AM) TIBC 354 *NA* (10/31/22 10:36 AM) TSH [0.45-5.33 mcIntlUnit/mL] 0.88 mcInt lUnit/mL (10/31/22 10:36 AM) Iron [28-170 mcg/dL] 50 mcg/dL (10/31/22 10:36 AM) eAvg Glucose [70-105 mg/dL] 200 mg/dL *HI* (10/31/22 10:36 AM) Chloride Level [98-111 mmol/L] 104 mmol/ L (10/31/22 10:36 AM) RDW-CV [11.5-14.5 %] 13.8 % (10/31/22 10:36 AM) A/G Ratio [1.0-2.5 g/dL] 1.2 g/dL (10/31/22 10:36 AM) BUN/Creat Ratio [8.0-20.0] 26.5 *HI* (10/31/22 10:36 AM) Globulin [2.3-3.5 g/dL] 3.1 g/dL (10/31/22 10:36 AM) Imm Gran Absolute 0.06 *NA* (10/31/22 10:36 AM) Imm Gran Auto [0.0-0.5 %] 0.5 % (10/31/22 10:36 AM) Slide Review Not Indicated (10/31/22 10:36 AM) Hgb A1c Percent [4.0-6.0 %] 8.6 % *HI* (10/31/22 10:36 AM) .Hb 14.2 g/dL *NA* (10/31/22 10:36 AM) .Hgb A1c 1.0 g/dL *NA* (10/31/22 10:36 AM) Creatinine Level [0.44-1.00 mg/dL] 0.68 mg/dL (10/31/22 10:36 AM) Anion Gap [3.0-12.0] 9.0 (10/31/22 10:36 AM) Eos, Auto [0.00-3.00 %] 2.10 % (10/31/22 10:36 AM) eGFR CKD-EPI [>=60 mL/min/1.73 m2] 106 m L/min/1.73 m2 (10/31/22 10:36 AM) Social History Social History Type Response Smoking Status Smoking tobacco use: Former tobacco user;Never; Number used per day: Patient stopped smoking 10-15 years ago.; entered on: 10/31/22 Sex
--- OUTSIDE RECORDS SUMMARY | 2023-02-08 17:22 | XMS_ITS | Continuity of Care Document ---
Author Name Unknown Organization [facility] Address [address] [place] [address] Care Team Providers Care Shank Pinner Name Role Phone Clari Hernandez MD Primary Care Physician Encounter [facility] FIN NBR [id number] Date(s): 01/02/23 - 01/02/[address] [phone] Encounter Diagnosis Abnormal uterine bleeding(Discharge Diagnosis) - 01/02/23 Discharge Disposition: Home or Self Care Attending Physician: Nghia Lorenz MD Admitting Physician: Nghia Lorenz MD Referring Physician: Nghia Lorenz MD Allergies, Adverse Reactions, Alerts Substance Reaction Severity Status Adhesive Bandage Rash Mild Active Augmentin Hives Mild Active Tylenol with Codeine Nausea Mild Active Dilaudid Unknown Active Cymbalta Nausea and vomiting Mild Active Lactose Nausea Mild Active Milk Unknown Active Seasonal Moderate Active Assessment and Plan Future Appointments Diagnostic Tests Pending * Pathology Request 01/02/23 Functional Status 01/02/23 ADLs Independent Medications Advair HFA 115 mcg-21 mcg/inh inhalation aerosol 2 puffs, Inhale, BID, 0 Refill(s) Start Date: 10/27/22 Status: Ordered Crestor 40 mg oral tablet 40 mg = 1 tab, Oral, every night at bedtime, 0 Refill(s) Start Date: 10/31/22 Status: Ordered EpiPen 2-Fabian 0.3 mg injectable kit 0.3 mg =, IM, PRN anaphylaxis, 0 Refill(s) Start Date: 10/27/22 Status: Ordered Flonase 50 mcg, Subacromial, Daily, PRN allergy symptoms, 0 Refill(s) Start Date: 10/31/22 Status: Ordered hydrOXYzine hydrochloride 25 mg oral tablet 25 mg = 1 tab, Oral, every night at bedtime, PRN as needed for anxiety, 0 Refill(s) Start Date: 10/27/22 Status: Ordered ibuprofen 800 mg =, Oral, every 8 hr, PRN as needed for pain, 0 Refill(s) Start Date: 10/31/22 Status: Ordered Lantus Solostar Pen 100 units/mL subcutaneous solution 60 units =, Subcutaneous, every night at bedtime, 0 Refill(s) Start Date: 10/27/22 Status: Ordered loratadine 10 mg =, Oral, Daily, tablet, as needed., 0 Refill(s) Start Date: 10/31/22 Status: Ordered Lyrica 150 mg oral capsule 150 mg = 1 cap, Oral, every evening, 0 Refill(s) Start Date: 12/26/22 Status: Ordered medroxyPROGESTERone 10 mg oral tablet 10 mg = 1 tab, Oral, BID, PRN bleeding, 0 Refill(s) Start Date: 10/27/22 Status: Ordered mirtazapine 30 mg oral tablet 30 mg = 1 tab, Oral, every night at bedtime, PRN sleep, 0 Refill(s) Start Date: 10/27/22 Status: Ordered Ozempic (1 mg dose) 4 mg/3 mL subcutaneous solution 1 mg =, Subcutaneous, every week, 0 Refill(s) Start Date: 10/27/22 Status: Ordered SUMAtriptan 25 mg oral tablet 25 mg = 1 tab, Oral, Daily, PRN as needed for migraine headache, 0 Refill(s) Start Date: 12/26/22 Status: Ordered tiZANidine 4 mg oral tablet 4 mg = 1 tab, Oral, BID, PRN muscle pain, 0 Refill(s) Start Date: 10/27/22 Status: Ordered Topamax 50 mg oral tablet 50 mg = 1 tab, Oral, every night at bedtime, 0 Refill(s) Start Date: 10/31/22 Status: Ordered Ventolin HFA 90 mcg/inh inhalation aerosol 2 puffs, Inhale, every 4 hr, PRN as needed for wheezing, 0 Refill(s) Start Date: 10/27/22 Status: Ordered Vitamin D3 25 mcg =, Chewed, Daily, 0 Refill(s) Start Date: 10/31/22 Status: Ordered Zoloft 100 mg oral tablet 200 mg = 2 tab, Oral, every night at bedtime, 0 Refill(s) Start Date: 10/27/22 Status: Ordered Problem List Condition Confirmation Course Effective Dates Status H ealth Status Informant Perimenopausal menorrhagia Confirmed Active Abnormal uterine bleeding Confirmed Active Allergic rhinitis, unspecified 1 Confirmed Active Asthma Confirmed Active Barretts esophagus Confirmed Active 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 2 Confirmed Active Bilateral TMJ (temporomandibular joint) pain Confirmed Active BMI 45.0-49.9, adult Confirmed Active Chronic low back pain Confirmed Active Depression Confirmed Active Diabetes 3 Confirmed Active Fibromyalgia Confirmed Active History of tobacco use Confirmed Active Pain, generalized 4 Confirmed Active History of back pain Confirmed Active History of depression Confirmed Active History of stomach ulcers Confirmed Active Hx of migraines Confirmed Active History of allergy to milk products Confirmed Active Hip pain, bilateral Confirmed Active Hyperlipidemia Confirmed Active Disc disorder 5 Confirmed Active Renal calculus Confirmed Active Kidney stones 6 Confirmed Active Lyme disease Confirmed Active Headache, migraine 7 Confirmed Active Asthma, mild persistent Confirmed Active Anxiety and depression Confirmed Active Morbid obesity Confirmed Active Numbness 8 Confirmed Active Pelvic pain in female Confirmed Active Encounter for preventive care Confirmed Active Perimenopausal Confirmed Active Persistent cough Confirmed Active Reactive airway disease Confirmed Active Apnea, sleep 9 Confirmed Active Uterine fibroid Confirmed Active Vitamin D deficiency Confirmed Active 1NOS 2slight per pt 3Type 2 4Chronic 5History of slipped disc 6Nephrolithiasis times two, 05/1994 & ?. 7Abdominal migraine 8right side of body 9wears cpap at [facility] Procedures Procedure Date Related Diagnosis Body Site Status Hysteroscopy 1 01/02/23 Completed Insertion Device Intrauterine 2 01/02/23 Completed Biopsy 3 2022 Completed 4 Completed Anterior Disckectomy and cer vical fusion C5-6 Completed section 5 Comple sonu History of blood transfusion Completed History of spinal fusion 6 Completed Insertion of subclavian line Completed Laparoscopic cholecystectomy Completed Lumbar puncture Completed 1auto-populated from documented surgical case 2auto-populated from documented surgical case 3[facility]. Uterus 4x2 53x. Multiple terminations. 6T&A Anterior Discectomy & Spinal Fusion C5-6, hardware in place 03/19/08 Results Laboratory List Name Date Glucose POCT 01/02/23 Most recent to oldest [Reference Range]: 1 Glucose POC 225 *NA* (01/02/23 7:19 AM) Vital Signs Most recent to oldest [Reference Range]: 1 2 3 Temperature Temporal Artery [36-38 Deg C] 36 Deg C (01/02/23 8:00 AM) 36 Deg C (01/02/23 6:41 AM) Temperature Temporal Artery (DegF) [97.3-100 Deg F] 96.8 Deg F *LOW* (01/02/23 8:00 AM) Peripheral Pulse Rate [60-100 bpm] 93 bpm (01/02/23 8:30 AM) 101 bpm *HI* (01/02/23 8:15 AM) 118 bpm *HI* (01/02/23 8:00 AM) Heart Rate Monitored [60-100 bpm] 93 bpm (01/02/23 8:30 AM) 102 bpm *HI* (01/02/23 8:15 AM) 116 bpm *HI* (01/02/23 8:00 AM) Respiratory Rate [12-24 br/min] 18 br/min (01/02/23 6:41 AM) Blood Pressure [90-140/60-90 mmHg] 134/50mmHg (01/02/23 8:30 AM) 141/74mmHg *HI* (01/02/23 8:15 AM) 132/69mmHg (01/02/23 8:00 AM) Mean Arterial Pressure, Cuff [70-110 mmHg] 78 mmHg (01/02/23 8:30 AM) 96 mmHg (01/02/23 8:15 AM) 90 mmHg (01/02/23 8:00 AM) Mean Arterial Pressure Cuff 72 mmHg (01/02/23 8:30 AM) 93 mmHg (01/02/23 8:15 AM) 88 mmHg (01/02/23 8:00 AM) Blood Pressure Location Left arm (01/02/23 8:00 AM) Blood Pressure Method Automatic (01/02/23 8:00 AM) Weight 122 kg (01/01/23 5:09 PM) Weight Dosing 122.000 kg (01/01/23 5:09 PM) Height 160 cm (01/01/23 5:09 PM) Social History Social History Type Response Smoking Status Smoking tobacco use: Former tobacco user;Never; Number used per day: Patient stopped smoking 10-15 years ago.; entered on: 10/31/22 Sex Implantable Device List Procedure Provider Procedure Date Device Type Site Insertion of intrauterine device (IUD) Unknown 01/02/23 Unknown Uterus Device Identifier Serial Number Lot or Batch Number Manufacturing Date Expiration Date Distinct Identification Code MRI Safety Implantable Status Assigning Authority Unknown Unknown [id number] Unknown 12/04/24 Unknown Unknown Active Un known Discharge instructions * Nela Jorge: PERFORM Event Display: Discharge Instructions Authored Date: [id number] PRINCESS COOLEYAMIRA Snow :1970 Age:52 years Sex:Female Visit Date:01/02/2023 Primary Care Physician: Clari Hernandez MD Hospital Discharge Instructions We would like to thank you for allowing us to assist you with your healthcare needs. The following includes patient education materials and information regarding your injury/illness. Your Next Steps Discharge Orders Discharge Follow Up Instructions, 01/02/23 8:08:00 EST, When following are met: Alert and awake, Follow-up appointment as scheduled Scheduled Future Appointments Sunday 1:00 PM EST ?? With: Nghia Lorenz MD Where: [facility] Status: Confirmed Sunday 1:00 PM EST ?? With: Nghia Lorenz MD Where: [facility] Status: Confirmed Medications What How Much When Instructions Next Dose Changed pregabalin (Lyrica 150 mg oral capsule) 1 Capsules Oral (given by mouth) Every evening Unchanged albuterol (Ventolin HFA 90 mcg/ inh inhalation aerosol) 2 Puffs Inhale (breathe in) Every 4 hours as needed for as needed for wheezing Unchanged cholecalciferol (Vitamin D3) 25 Micrograms Chewed Every day Unchanged EPINEPHrine (EpiPen 2-Fabian 0.3 mg injectable kit) 0.3 Milligrams Intramuscular (in a muscle) As needed for anaphylaxis Unchanged fluticasone nasal (Flonase) 50 Micrograms Subacromial Every day as needed for allergy symptoms Unchanged fluticasone-salmeterol (Advair HFA 115 mcg-21 mcg/ inh inhalation aerosol) 2 Puffs Inhale (breathe in) 2 times a day Unchanged hydrOXYzine (hydrOXYzine hydrochloride 25 mg oral tablet) 1 tab Oral (given by mouth) Every night at bedtime as needed for as needed for anxiety Unchanged ibuprofen 800 Milligrams Oral (given by mouth) Every 8 hours as needed for as needed for pain Unchanged insulin glargine (Lantus Solostar Pen 100 units/ mL subcutaneous solution) 60 Units Subcutaneous (under the skin) Every night at bedtime Unchanged loratadine 10 Milligrams Oral (given by mouth) Every day tablet, as needed. ?? Unchanged medroxyPROGESTERone (medroxyPROGESTERone 10 mg oral tablet) 1 tab Oral (given by mouth) 2 times a day as needed for bleeding Unchanged mirtazapine (mirtazapine 30 mg oral tablet) 1 tab Oral (given by mouth) Every night at bedtime as needed for sleep Unchanged rosuvastatin (Crestor 40 mg oral tablet) 1 tab Oral (given by mouth) Every night at bedtime Unchanged semaglutide (Ozempic (1 mg dose) 4 mg/ 3 mL subcutaneous solution) 1 Milligrams Subcutaneous (under the skin) Every week Unchanged sertraline (Zoloft 100 mg oral tablet) 2 tab Oral (given by mouth) Every night at bedtime Unchanged SUMAtriptan (SUMAtriptan 25 mg oral tablet) 1 tab Oral (given by mouth) Every day as needed for as needed for migraine headache Unchanged tiZANidine (tiZANidine 4 mg oral tablet) 1 tab Oral (given by mouth) 2 times a day as needed for muscle pain Unchanged topiramate (Topamax 50 mg oral tablet) 1 tab Oral (given by mouth) Every night at bedtime Your Summary Your Care Team Admitting Physician - Nghia Lorenz MD Attending Physician - Nghia Lorenz MD Primary Care Physician - Clari Hernandez MD Referring Physician - Nghia Lorenz MD Your Diagnosis Abnormal uterine bleeding Problems Ongoing - Any problem that you are currently receiving treatment for. 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 Bilateral TMJ (temporomandibular joint) pain BMI 45.0-49.9, adult Chronic low back pain Depression Diabetes Disc disorder Encounter for preventive care Fibromyalgia Headache, migraine Hip pain, bilateral History of allergy to milk products History of back pain History of depression History of stomach ulcers History of tobacco use Hx of migraines Hyperlipidemia Kidney stones Lyme disease Morbid obesity Numbness Pain, generalized Pelvic pain in female Perimenopausal Perimenopausal menorrhagia Persistent cough Reactive airway disease Renal calculus Uterine fibroid Vitamin D deficiency Historical - Any problem that you are no longer receiving treatment for. Viral meningitis Procedures Performed ???Hysteroscopy (01/02/2023)???Insertion Device Intrauterine (01/02/2023)??? Tests Performed/Pending Glucose POCT Discharge Vitals Temperature??(Temporal Artery) 96.8 ??F (36 ??C) Heart Rate??(Peripheral) 93 Heart Rate??(Monitored) 93 Respiratory Rate?? 18 Blood Pressure?? 134/50?? Height?? 62.99 in (160 cm) Weight?? 269.01 lb (122 kg) Allergies Seasonal Adhesive Bandage??(Rash) Augmentin??(Hives) Cymbalta??(Nausea and vomiting) Lactose??(Nausea) Tylenol with Codeine??(Nausea) Dilaudid Milk Devices Implanted/Removed This Visit Notice: You have devices implanted this visit that may not be MRI compatible. Implanted Insertion Device Intrauterine Uterus ???IUD KIT MIRENA 01/02/2023 Patient/Android Software Engineer Signature Patient Name:LENORA BRIAN V I have received this information and my questions have been answered. Patient/Android Software Engineer Name: Patient/Android Software Engineer Signature: Relationship to Patient: Witness Name/Signature: Date: Electronically Signed on: 01/02/2023 09:08 ESTSigned by:AM History and physical note * Nghia Lorenz MD: PERFORM Event Display: History and Physical Authored Date: [id number] BRIAN COOLEY V :1970 Age:52 years Sex:Female Visit Date:01/02/2023 Primary Care Physician: Clari Hernandez MD Chief Complaint hysteroscopy D&C with mirena insertion History of Present Illness 52 year old presents today for hysteroscopy, D&C and Mirena IUD placement. She has had difficulty with irregular and heavy vaginal bleeding and did undergo hysteroscopy D&C at [facility] earlier inthe year. An endometrial polyp had been identified on US leading up to the procedure. Following this her bleeding continued to be abnormal and we attempted IUD placement in the office which was unsuccessful due to intolerance. It was elected to perform this under anesthesia. Review of Systems Constitutional:?No??fevers,?No??chills,?No??sweats Eye:?No??recent visual problems ENT:?No??ear pain,?No??nasal congestion,?No??sore throat Respiratory:?No??shortness of breath,?No??cough Cardiovascular:?No??Chest pain,?No??palpitations,?No??syncope Gastrointestinal:?Nonausea,?No??vomiting,?No??diarrhea Genitourinary:?No??hematuria Remigio/Lymph:?No??bruising tendency,?No??swollen lymph glands Endocrine:?No??excessive thirst,??No??excessive hunger Musculoskeletal:??No??back pain,??No??neck pain,??No??joint pain,??No??muscle pain,??No??decreased range of motion Integumentary:?No??rash,?No??pruritus,?No??abrasions Neurologic: Alert & oriented X 4 Psychiatric:?No??anxiety,?No??depression Physical Exam Vitals & Measurements T:??36?C ??(Temporal Artery)?? HR:??118??(Peripheral)?? HR:??116??(Monitored)?? RR:??18?? BP:??132/69?? SpO2:??91%?? HT:??160??cm?? WT:??122??kg?? Pain Score:??6?? O2 Flow Rate:??2?? O2 Therapy:??Nasal cannula?? Lungs: CTA CVS: RRR Assessment/Plan 1.??Abnormal uterine bleeding??N93.9 Plan to proceed with hysteroscopy, D&C and Mirena IUD placement under anesthesia. Risk of surgery were reviewed. All questions answered and consent was obtained. Orders: Lactated Ringers Injection 1,000 mL, Total Volume (mL): 1,000, 1,000 mL, Soln- IV, IV, 125 mL/hr, Start Date: 01/02/23 6:40:00 EST, 122 kg, Populate Charting Weight From Order, 2.33, m2 Lactated Ringers Injection 1,000 mL, Total Volume (mL): 1,000, 1,000 mL, Soln- IV, IV, 125 mL/hr, Start Date: 01/02/23 5:40:00 EST, 122 kg, Populate Charting Weight From Order, 2.33, m2 Normal Saline Flush, 10 mL, IV Flush, Injection, As Directed, PRN line worker, First Dose: 01/02/23 6:40:00 EST, Routine Ambulate, 01/02/23 5:40:00 EST, Stop date 01/02/23 5:40:00 EST, As tolerated Peripheral IV Insertion, 01/02/23 6:40:00 EST Vital Signs, 01/02/23 5:40:00 EST, Stop date 01/02/23 5:40:00 EST, as per PACU standard of care Vital Signs, 01/02/23 6:40:00 EST, Stop date 01/02/23 6:40:00 EST, Routine Vital Signs, 01/02/23 5:40:00 EST, Stop date 01/02/23 5:40:00 EST, as per SDS standard of care Problem List/Past Medical History Ongoing 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 Bilateral TMJ (temporomandibular joint) pain BMI 45.0-49.9, adult Chronic low back pain Depression Diabetes Disc disorder Encounter for preventive care Fibromyalgia Headache, migraine Hip pain, bilateral History of allergy to milk products History of back pain History of depression History of stomach ulcers History of tobacco use Hx of migraines Hyperlipidemia Kidney stones Lyme disease Morbid obesity Numbness Pain, generalized Pelvic pain in female Perimenopausal Perimenopausal menorrhagia Persistent cough Reactive airway disease Renal calculus Uterine fibroid Vitamin D deficiency Historical Viral meningitis Procedure/Surgical History ???Hysteroscopy (01/02/2023)???Insertion Device Intrauterine (01/02/2023)???Biopsy (2022)? section???Anterior Disckectomy and cervical fusion C5-6???History of blood transfusion???History of spinal fusion???Insertion of subclavian line???Laparoscopic cholecystectomy???Lumbar puncture Medications Inpatient fentaNYL, 25 mcg= 0.5 mL, IV Push, every 5 min, PRN HYDROmorphone, 0.25 mg= 0.13 mL, IV Push, every 5 min, PRN Lactated Ringers Injection 1,000 mL, 1000 mL, IV Lactated Ringers Injection 1,000 mL, 1000 mL, IV metoclopramide, 10 mg= 2 mL, IV Push, Once, PRN Normal Saline Flush, 10 mL, IV Flush, As Directed, PRN ondansetron, 4 mg= 2 mL, IV Push, every 1 hr, PRN oxyCODONE, 5 mg= 1 tab, Oral, Once, PRN oxyCODONE, 10 mg= 2 tab, Oral, Once, PRN Home Advair HFA 115 mcg-21 mcg/inh inhalation aerosol, 2 puffs, Inhale, BID Crestor 40 mg oral tablet, 40 mg= 1 tab, Oral, every night at bedtime EpiPen 2-Fabian 0.3 mg injectable kit, 0.3 mg, Intramuscular, PRN Flonase, 50 mcg, Subacromial, Daily, PRN hydrOXYzine hydrochloride 25 mg oral tablet, 25 mg= 1 tab, Oral, every night at bedtime, PRN ibuprofen, 800 mg, Oral, every 8 hr, PRN Lantus Solostar Pen 100 units/mL subcutaneous solution, 60 units, Subcutaneous, every night at bedtime loratadine, 10 mg, Oral, Daily Lyrica 150 mg oral capsule, 150 mg= 1 cap, Oral, every evening medroxyPROGESTERone 10 mg oral tablet, 10 mg= 1 tab, Oral, BID, PRN mirtazapine 30 mg oral tablet, 30 mg= 1 tab, Oral, every night at bedtime, PRN Ozempic (1 mg dose) 4 mg/3 mL subcutaneous solution, 1 mg, Subcutaneous, every week SUMAtriptan 25 mg oral tablet, 25 mg= 1 tab, Oral, Daily, PRN tiZANidine 4 mg oral tablet, 4 mg= 1 tab, Oral, BID, PRN Topamax 50 mg oral tablet, 50 mg= 1 tab, Oral, every night at bedtime Ventolin HFA 90 mcg/inh inhalation aerosol, 2 puffs, Inhale, every 4 hr, PRN Vitamin D3, 25 mcg, Chewed, Daily Zoloft 100 mg oral tablet, 200 mg= 2 tab, Oral, every night at bedtime Allergies Seasonal Adhesive Bandage??(Rash) Augmentin??(Hives) Cymbalta??(Nausea and vomiting) Lactose??(Nausea) Tylenol with Codeine??(Nausea) Dilaudid Milk Social History Alcohol Past Electronic Cigarette/Vaping Electronic Cigarette Use: Never. Employment/School Employed, Work/School description: Full-time. [employer]. Home/Environment Lives with Children. Living situation: Home/Independent. Sexual Sexually active: No. Substance Use Current, Marijuana, Daily- Comments: Per patient once night. Tobacco Former tobacco user Tobacco Use:. Patient stopped smoking 10-15 years ago. per day. Never SmokelessTobacco use:. Family History Breast cancer: Mother and Aunt/Uncle. Multiple sclerosis: Father. Implanted Devices Notice: This patient has devices implanted this visit that may not be MRI compatible. Implanted This Visit Insertion Device Intrauterine Uterus ???IUD KIT MIRENA 01/02/2023 Lab Results Test Name Test Result Date/Time Glucose POC 225 01/02/2023 07:19 EST Electronically Signed on 01/02/23 08:07 AM Nghia Lorenz MD Patient Care team information Care Team Personnel Name: Clari Hernandez MD Position: No Access Member Role: Primary Care Physician Address: Address: [address] [place] [id number]
--- OUTSIDE RECORDS SUMMARY | 2023-02-08 17:22 | XMS_ITS | Continuity of Care Document ---
Author Name Unknown Organization [facility] Ambulatory Clinics Address [address] [place] [address] Encounter [facility] FIN NBR [id number] Date(s): 10/31/22 - 10/31/22 [facility] Ambulatory Clinics [address] [place] [address]- [place] Encounter Diagnosis Abnormal uterine bleeding(Discharge Diagnosis) - 11/01/22 Uterine fibroid(Discharge Diagnosis) - 11/01/22 Discharge Disposition: Home or Self Care Attending [...] procedure., # 1 tab, 0 Refill(s), Pharmacy: [id number] Start Date: 11/01/22 Status: Ordered Ventolin [...] Completed Laparoscopic cholecystectomy Completed [facility]bar [facility] Uterus 23x. Multiple terminations. 3T&A Anterior Discectomy & Spinal Fusion C5-6, hardware in place 03/19/08 Vital Signs Most recent to oldest [Reference Range]: 1 Blood Pressure [90-140/60-90 mmHg] 120/7 6mmHg (10/31/22 9:41 AM) Weight 119.9 kg (10/31/22 9:41 AM) Weight Measured (lbs) 264.334 lb (10/31/22 9:41 AM) [place] Body Weight Calculated 52.4 kg (10/31/22 9:41 AM) Height 160.02 cm (10/31/22 9:41 AM) Height/Length Measured (inches) 63 inch (10/31/22 9:41 AM) BSA Measured 2.31 m2 (10/31/22 9:41 AM) Body Mass Index 46.82 kg/m2 (10/31/22 9:41 AM) Social History Social History Type Response Smoking Status Smoking tobacco use: Former tobacco user;Never; Number used per day: Patient stopped smoking 10-15 years ago.; entered on: 10/31/22 Sex Physician Outpatient Note * Nghia Lorenz MD: PERFORM Event Display: Office Clinic Note Physician Authored Date: [id number] BRIAN COOLEY V :1970 Age:52 years Sex:Female Visit Date:10/31/2022 Chief Complaint Consult. Fibroids on uterus, would like surgery. Patient was experiencing discomfort along with fatigue. Patient explained she has had D&Cs and scrappings completed as well. She stated [facility] exmplained the fibroid is embeeded into the uterus. Additional Information ?? Terminations between oldest - middle soon. History of Present Illness 52-year-old??para 3 presents today??for??evaluation of abnormal bleeding.?? She recently sought care at [facility] and??had desired to undergo hysterectomy??but was told??that due to medical comorbidities??that hysterectomy was not recommended. She reports??uterine fibroids on ultrasound??that she feels may be contributing to??her abnormal bleeding pattern.?? She??had initially been placed on Aygestin??and previously Provera which she states??greatly affected her blood sugars which subsequently went to the 600s. ??She reports her last A1c was 10??and has had??a lot of difficulty with??glycemic control. ?? She does report that her last episode of bleeding was began in April and lasted for??weeks??thereafter??but currently has no bleeding at this point.?? She did have a hysteroscopy D&C in June??which returned endometrial polyps??and pathology was benign.?? Her ultrasound did demonstrate??a normal size uterus??and a 2.5 cm posterior fundal fibroid. ??Ovaries were not visualized. ?? Obstetrical history significant for x3 Review of Systems As per HPI Physical Exam Vitals & Measurements BP:??120/76?? HT:??160.02??cm?? WT:??119.9??kg?? BMI:??46.82?? BSA:??2.31?? Deferred Assessment/Plan 1.??Abnormal uterine bleeding??N93.9 She really has not had much??difficulty with bleeding since her??D&C with Dr. Stahl??at [facility].?? Based on her imaging the fibroid that she notes is very small and not impinging on the endometrial cavity. ??Likely this is not contributing to her bleeding. ?? In the long-term the patient does have??risk factors for endometrial hyperplasia and I do not??feel??comfortable with endometrial ablation??in her case as this would limit??ability to adequately sample her endometrium in the future.?? I also feel that because of her poor glycemic control that perhaps??surgical intervention should approach with caution. ??I discussed that her 3 prior C- sections also puts her at high risk for??complications such as??bladder injury??when it comes to hysterectomy. ?? Her abnormal bleeding pattern may be nothing more than menopausal transition??and we will check a CBC and A1c today as well as thyroid function.?? We discussed??a Mirena IUD as an option which I feel would be??the least invasive??form of management for her.?? She is concerned about??significant d iscomfort when it comes to an attempted endometrial biopsy in the office.?? After some discussion she is agreeable to an attempt??and I feel that we could pretreat her with Valium and a paracervical block.?? Should this fail then we certainly could revisit??the idea of surgical intervention at thatpoint. 2.??Uterine fibroid??D25.9 Orders: Valium 10 mg oral tablet, See Instructions, 1 tab Orally to be taken immediately prior to procedure., # 1 tab, 0 Refill(s), Pharmacy: [id number] Problem List/Past Medical History Ongoing Abnormal uterine [...] 1 tab, Oral, every night at bedtime Delherminio Lancets EpiPen 2-Fabian 0.3 mg injectable kit Flonase, [...] Use: Never. Employment/School Employed, Work/School description: Full-time. [employer]. Home/Environment Lives with Children. Living situation: Home/Independent. Sexual Sexually active: No. Substance Use Current, Marijuana, Daily- Comments: Per patient once night. Tobacco Former tobacco user Tobacco Use:. Patient stopped smoking 10-15 years ago. per day. Never SmokelessTobacco use:. Family History Breast cancer: Mother and Aunt/Uncle. Multiple sclerosis: Father. Electronically Signed on 11/01/22 08:12 AM Nghia Lorenz MD Reviewed by: Clari Hernandez MD
--- NOTE | 2023-02-08 17:30 | DI.RAD_ITS ---
Exam(s) XR CHEST 2V PA LATERAL EXAM: XR CHEST 2V PA LATERAL CLINICAL HISTORY: fever tachycardia TECHNIQUE: 2D digital imaging was performed. COMPARISON: CR,XR XR CHEST 2V PA LATERAL from 09/10/2022 FINDINGS: HEART: Normal size. Aorta: Not dilated. PULMONARY VASCULATURE: Normal. LUNGS: Clear. PLEURAL SPACE: No pleural effusion or pneumothorax. BONE:Unremarkable for age. Soft tissues: Unremarkable. IMPRESSION: No acute abnormality. DATA REPOSITORY: RADIATION DOSE DELIVERED:
[2023-02-08] MEDS: Ondansetron 4 MG/2 ML VIAL IVP (17:35)
[2023-02-08] MEDS: Normal Saline 1,000 ML 1000 ML IV (17:35)
[2023-02-08] MEDS: ACETAMINOPHEN 1,000 MG/100 ML BTL 400 MG IVPB (17:35)
--- NOTE | 2023-02-08 17:35 | W.ED.GENAD ---
HPI General Stated Complaint: Nausea/Vomit/Diar LANIE: 3 Date/Time Provider Initiated Documentation: 02/08/23 17:19. HPI Narrative: 52-year-old female history of diabetes presents with body ache fatigue nausea vomiting diarrhea over the last couple of days. Related Data Home Medications Medication Instructions Recorded Confirmed pregabalin 100 mg capsule (Lyrica) 150 mg PO BID 05/03/12 02/08/23 tizanidine 4 mg capsule 4 mg PO BID 05/03/12 02/08/23 sertraline 100 mg tablet (Zoloft) 200 mg PO DAILY 07/22/12 02/08/23 epinephrine 0.3 mg/0.3 mL 0.3 mg IM ONCE 02/26/14 02/08/23 injection, auto-injector (EpiPen 2-Fabian) fluticasone propionate 50 50 mcg NS DAILY 02/26/14 09/10/22 mcg/actuation nasal spray,suspension (Flonase) loratadine 10 mg disintegrating 10 mg PO DAILY 02/26/14 02/08/23 tablet Topiramate [Trokendi Xr] 50 mg PO BID 02/06/17 02/08/23 albuterol sulfate 90 mcg/actuation 2 puff inhalation Q4H PRN 12/30/18 02/08/23 aerosol inhaler (Proventil HFA) cholecalciferol (vitamin D3) 25 1,000 unit PO DAILY 12/30/18 02/08/23 mcg (1,000 unit) capsule (Vitamin D3) fluticasone propionate 115 2 puff inhalation BID 12/30/18 02/08/23 mcg-salmeterol 21 mcg/actuation HFA inhaler (Advair HFA) hydroxyzine HCl 25 mg tablet 25 mg PO HS PRN 12/30/18 02/08/23 sumatriptan succinate 25 mg tablet 25 mg PO ONCE 12/30/18 02/08/23 ibuprofen 800 mg tablet 800 mg PO TID PRN 08/11/19 02/08/23 insulin glargine 100 unit/mL (3 60 unit subcut QPM 08/11/19 02/08/23 mL) subcutaneous pen (Lantus Solostar U-100 Insulin) rosuvastatin 40 mg tablet 40 mg PO DAILY 08/11/19 02/08/23 semaglutide 0.25 mg or 0.5 mg (2 0.5 mg subcut QWEEK 07/25/22 02/08/23 mg/3 mL) subcutaneous pen injector (Ozempic) cetirizine 10 mg capsule 10 mg PO DAILY PRN #7 caps 09/10/22 02/08/23 fluticasone propionate 50 1 spray intranasal DAILY PRN #16 09/10/22 02/08/23 mcg/actuation nasal grams spray,suspension mirtazapine 30 mg tablet 30 mg PO DAILY 09/10/22 02/08/23 Previous Rx's Medication Instructions Recorded cetirizine 10 mg capsule 10 mg PO DAILY PRN #7 caps 09/10/22 fluticasone propionate 50 1 spray intranasal DAILY PRN #16 09/10/22 mcg/actuation nasal grams spray,suspension Allergies Allergy/AdvReac Type Severity Reaction Status Date / Time amoxicillin trihydrate Allergy Intermediate Hives Verified 02/08/23 17:24 [From Augmentin] potassium clavulanate Allergy Intermediate Hives Verified 02/08/23 17:24 [From Augmentin] lactose Allergy Unverified 02/08/23 17:24 Milk Containing Products Allergy Unverified 02/08/23 17:24 (Dairy) [Milk Containing Products] ammonium lactate AdvReac Intermediate GI UPSET Verified 02/08/23 17:24 [From Lac-Hydrin] citalopram hydrobromide AdvReac Intermediate CHEST Verified 02/08/23 17:24 [From Celexa] PAINS, SOB codeine AdvReac Intermediate Nausea Verified 02/08/23 17:24 duloxetine [Duloxetine] AdvReac Intermediate SPACEY Verified 02/08/23 17:24 duloxetine HCl AdvReac Intermediate NAUSEA, V/D Verified 02/08/23 17:24 [From Cymbalta] hydromorphone HCl AdvReac Intermediate NAUSEA,VOMI Verified 02/08/23 17:24 [From Dilaudid] TING,CONSTI PATION milk AdvReac Mild NAUSEA Verified 02/08/23 17:24 environmental Allergy Severe Uncoded 02/08/23 17:24 Review of Systems Narrative: Review of Systems Constitutional: Fever fatigue Eyes: negative ENT: negative Cardiovascular: negative Respiratory: Nausea vomiting diarrhea Gastrointestinal: negative : negative Musculoskeletal: negative Skin: negative Neurologic: negative Psych: negative PFSH All Active Problems (Updated 02/08/23 @ 21:37 by Praveen Benito MD) Vomiting (Acute) Diarrhea (Acute) Abnormal uterine bleeding (Acute) Obesity (Chronic) Migraine (Chronic) Cervical myelopathy (Acute 07/25/12) JOB (obstructive sleep apnea) (Chronic) Diabetes mellitus type 2, uncontrolled (Chronic) Medical History Abnormal white blood cell leukocytes Allergic rhinitis Anxiety and depression Asthma Flores's esophagus Bilateral hand numbness Chronic low back pain Chronic pain Discharge planning issues Fibromyalgia Herniated cervical disc Hip pain, bilateral History of kidney stones History of tobacco use Hyperlipidemia Left ureteral stone Lyme disease Migraine headache Morbid obesity with BMI of 40.0-44.9, adult Sleep apnea Thickened endometrium Uterine fibroid Vitamin D deficiency Surgical History section x 3 discetomy and spinal fusion History of cholecystectomy Ligation of fallopian tube Postoperative state Status post hysteroscopy with dilation and curettage 06/28/2022 Family History Other Blood clotting disorder Breast cancer Diabetes Heart disease Hyperlipidemia Hypertension Osteoporosis Ovarian cancer Stroke Thyroid disorder Social History Smoking/Tobacco Use Status: Former Tobacco Use Quit Date: 02/06/16 Smoking risk assessment performed?: Yes Alcohol Intake: never Drug use: Never Substance use type: marijuana Household members: children Housing: apartment Number of Children: 3 current occupation: [employer] What is your relationship status?: Panel score (0-1 are the most socially isolated patients): 0 What type of physical activity do you participate in: walking Do you feel safe at home: Yes Do you feel safe in your relationship?: Yes Female Reproductive History Menstrual Age of Menarche: 12 Duration of menses: other control method: permanent sterilization History History 5 Para 3 Hx # Term Pregnancies 2 Multiple births Hx # Pregnancies 1 Ectopic pregnancies AB induced 2 Hx Number of Living Children 3 AB spontaneous Past Pregnancies Del. Date GA/Weeks # Preg Succ Route Wgt Sex Labor Lgth Anesthesia Location Prov Complic 12/31/93 36 Yes 2721.554 g Male [facility] 05/08/01 38 Yes Male [facility] 12/07/02 37 Yes Male [facility] Delivery Date: 12/31/93 Last Updated by: Kesha Barrett patient reports preeclampsia, post infection Exam Narrative Exam Narrative: Physical Examination General: alert, awake, cooperative, resting comfortably, no acute distress HEENT: normocephalic, atraumatic; PERRL, EOM intact, conjunctiva normal; no nasal discharge; moist mucous membranes, oral and pharyngeal mucosa normal, tolerating secretions Neck: supple, trachea midline; full ROM Chest: normal to inspection Respiratory: normal respiratory effort, speaking in full sentences, clear to auscultation, no wheezing, rales or rhonchi Cardiac: Tachycardia, regular rhythm, S1S2 intact, no murmurs rubs or gallops GI: abdomen soft, non-tender, non-distended; no palpable mass or hepatosplenomegaly Skin: no lesions, rashes or trauma appreciated Neuro: AAOx3, normal speech, moving all extremities Psych: Appropriate mood and affect Course Vital Signs Vital signs: Vital Signs Temperature 36.0 C L 02/08/23 17:19 Pulse 142 H 02/08/23 17:19 Respiratory Rate 18 02/08/23 17:19 Blood Pressure 113/72 02/08/23 17:19 Pulse Oximetry 96 02/08/23 17:19 Temperature 36.0 C L 02/08/23 17:19 Pulse 142 H 02/08/23 17:19 Respiratory Rate 18 02/08/23 17:19 Respiratory Effort Normal 02/08/23 17:23 Blood Pressure 113/72 02/08/23 17:19 Blood Pressure Position Sitting 02/08/23 17:19 Pulse Oximetry 96 02/08/23 17:19 Oxygen Delivery Method Room Air 02/08/23 17:19 Oxygen Flow Rate 0 02/08/23 17:19 Medical Decision Making 52-year-old female presents with nausea vomiting diarrhea body aches fatigue over the last couple of days. Noted be tachycardic to the 140s. Normotensive nontoxic however appears mildly uncomfortable. Abdomen soft nontender nondistended. Consider flu versus COVID versus other viral illness versus gastroenteritis versus enterocolitis versus low suspicion for pneumonia versus UTI. Screening labs chest x-ray, flu and COVID swab, fluids antiemetics analgesia anti-inflammatory. 18: 59 patient resting comfortably, no further vomiting, heart rate greatly improved now at 98 bpm. Will continue with another fluid bolus. 21: 36 patient resting actively no acute distress. No further vomiting or diarrhea here in department. Feeling much better after hydration. Likely viral gastroenteritis resolving. Home care instructions and return precautions given Quality:SDOH Health Related Social Needs: No Data to Display Discharge Plan Disposition Patient Disposition: Home Condition: Improving Discharge Details Chief Complaint: Nausea/Vomit/Diar Clinical Impression: Diarrhea, Vomiting Primary Care Provider: Clari Hernandez ED Provider: Praveen Benito Home Meds and New Rx's Prescriptions: No Action Ozempic 0.25 mg or 0.5 mg (2 mg/3 mL) pen injector 0.5 mg subcut QWEEK sumatriptan succinate 25 mg Tablet 25 mg PO ONCE Rx Instructions: may repeat in 2 hours if needed hydroxyzine HCl 25 mg Tablet 25 mg PO HS PRN albuterol sulfate [Proventil HFA] 90 mcg/actuation Hfa Aerosol Inhaler 2 puff INHALATION Q4H PRN cholecalciferol (vitamin D3) [Vitamin D3] 1,000 unit Capsule 1,000 unit PO DAILY fluticasone propion-salmeterol [Advair HFA] 115-21 mcg/actuation Hfa Aerosol Inhaler 2 puff INHALATION BID rosuvastatin 40 mg Tablet 40 mg PO DAILY insulin glargine [Lantus Solostar U-100 Insulin] 100 unit/mL (3 mL) Insulin Pen 60 unit SUBCUT QPM ibuprofen 800 mg Tablet 800 mg PO TID PRN sertraline [Zoloft] 100 MG tablet 200 mg PO DAILY loratadine 10 MG tablet,disintegrating 10 mg PO DAILY epinephrine [EpiPen 2-Faiban] 0.3 MG/0.3 ML auto-injector 0.3 mg IM ONCE fluticasone propionate [Flonase] 16 GM spray,suspension 50 mcg NS DAILY tizanidine 4 MG capsule 4 mg PO BID pregabalin [Lyrica] 100 MG capsule 150 mg PO BID mirtazapine 30 mg tablet 30 mg PO DAILY Patient Comments: TAKE 1 TABLET BY MOUTH EVERY NIGHT NEEDED FOR SLEEP cetirizine 10 mg capsule 10 mg PO DAILY PRNQty: 7 0RF fluticasone propionate 50 mcg/actuation spray,suspension 1 spray intranasal DAILY PRNQty: 16 0RF Rx Instructions: administer into each nostril Topiramate [Trokendi Xr] 50 MG Cap.Er.24h 50 mg PO BID Discharge Instructions Instructions: Acute Diarrhea (ED) Additional Instructions: Please follow-up closely with your primary care physician Stand Alone Forms: Work Release
[2023-02-08 17:46] LABS: Abs Immature Grans 0.05 10^3/uL (0.0-0.06); Absolute Basophil Count 0.05 10^3/uL (0.0-0.2); Absolute Neutrophil Count 12.26 10^3/uL (1.2-6.7); Basophils % 0.3; Eosinophils % 0.8; HCT 48.3 % (36.0-46.0); HGB 15.6 g/dL (11.2-15.7); Immature Grans % 0.3; MCH 25.2 pg (27.0-33.0); MCHC 32.3 % (32.0-36.0); MCV 78 fL (80-95); Monocytes % 3.9; Neutrophils % 76.7; Platelet Count 402 10^3/uL (130-400); RDW 14.3 % (11.7-14.6); RDW-SD 39.8 fL; WBC 15.98 10^3/uL (4.4-10.8)
[2023-02-08 17:47] LABS: Absolute Eosinophil Count 0.13 10^3/uL (0.0-0.7); Absolute Lymphocyte Count 2.88 10^3/uL (1.2-3.4); Absolute Monocyte Count 0.62 10^3/uL (0.1-0.8)
[2023-02-08 18:09] LABS: ALT 32 U/L (14-59); AST 25 U/L (15-37); Alkaline Phosphatase 97 U/L (46-116); Anion Gap 16.1 mmol/L (3-11); BUN 21 mg/dL (7-18); Bilirubin, Total 0.5 mg/dL (0.2-1.0); CO2 20.9 mmol/L (21.0-32.0); CREATININE 1.2 mg/dL (0.55-1.02); Calcium 9.6 mg/dL (8.5-10.1); Chloride 101 mmol/L (98-107); Estimated GFR 55.15 (mL/min/1.73m2); Glucose 201 mg/dL (74-106); Lipase 23 U/L (16-77); Potassium 3.1 mmol/L (3.5-5.1); Sodium 138 mmol/L (136-145); TSH (W/Ref FT4) 0.93 uIU/mL (0.36-3.74); Total Protein 9.1 g/dL (6.4-8.2)
[2023-02-08] MEDS: Lactated Ringers 1,000 ML 1000 ML IV (19:29)
[2023-02-08 21:16] LABS: Bilirubin Small (Negative); Blood Moderate (Negative); Clarity Clear (Clear); Glucose Negative (Negative); Ketones Negative (Negative); Leukocyte Esterase Negative (Negative); Nitrite Negative (Negative); Specific Gravity >= 1.030 (1.005-1.025); Urobilinogen 0.2 mg/dL (Up to 0.2); pH 5.5 (5-8)
[2023-02-08 21:31] LABS: Bacteria Few HPF (Negative); Epithelial Cells Many HPF (Negative); WBC Negative HPF (0-5)
[2023-02-08 21:32] LABS: C & S Indicated? No/Sq. Contamination; Casts Negative LPF (Negative); Crystals Negative HPF (Negative); Mucus Negative (Negative)
[2023-02-08] MEDS: Ondansetron O.D.T. 4 MG TABEF, 3 TABS/BTL PO (21:48)
== END 2023-02-08 21:59 | disposition home or self-care (01) ==
PROVIDERS: Emergency Provider Emergency Medicine; PCP Nurse Practitioner Family
DX: R11.2 Nausea with vomiting, unspecified (principal); R19.7 Diarrhea, unspecified; R50.9 Fever, unspecified; E11.9 Type 2 diabetes mellitus without complications; Z79.84 Long term (current) use of oral hypoglycemic drugs; Z87.891 Personal history of nicotine dependence
CPT/HCPCS: 80053; 83690; 96361; 96374; 96375; 99284; 71046; 81003; 81015; 84443; 85025; 99283; J0131; J2405

== ENCOUNTER 2023-02-13 15:09 | Outpatient (REF) | payer MEDICAID, SELFPAY ==
[2023-02-13 20:19] LABS: COMMENT (LAB VIEW ONLY) 200.89 mg/dL; Microalb ug/mg Crea 6.1 ug/mg Cr
== END 2023-02-13 15:10 | disposition home or self-care (01) ==
LOC: NCHCN 15:09
PROVIDERS: PCP Nurse Practitioner Family; Visit Provider Nurse Practitioner Family
DX: E11.9 Type 2 diabetes mellitus without complications (principal)
CPT/HCPCS: 82043; 82570

== ENCOUNTER 2023-10-18 18:34 | Emergency (ER) | payer MEDICAID, SELFPAY ==
[2023-10-18] VITALS (69 sets, daily range): BP systolic 134–154; BP diastolic 83–94; PULSE 87–125; RESP 10–28; TEMP 36.6–37.2; O2SAT 93–98
--- NOTE | 2023-10-18 18:45 | DI.CT_ITS ---
Exam(s) CT ABDOMEN PELVIS W EXAM: CT ABDOMEN PELVIS W CLINICAL HISTORY: llq pain, tachycardia. TECHNIQUE: Imaging Protocol: Axial computed tomography images with coronal and sagittal reformatted images were created and reviewed CONTRAST MATERIAL: Intravenous: Omnipaque 350 Contrast volume:85ml Oral: no FINDINGS: ABDOMEN and PELVIS: Lung Bases: No acute findings. Liver: Mild hepatic steatosis.. No suspicious mass. Gallbladder and biliary tract: Status post cholecystectomy. No biliary dilation. Pancreas: Normal density. No abnormal calcifications or inflammatory process. No evidence of mass. Spleen: Normal. Kidneys: Normal size, contour and axis. 7 millimeter stone lower pole left kidney. No obstructive u ropathy. No suspicious masses seen. Adrenal glands: No masses seen. Vasculature: Abdominal aorta non-dilated. Soft tissues: Unremarkable. Bladder: No gross wall thickening. No calculi.No focal mass. Bowel: No obstruction. Mild wall thickening of the distal rectum. Mild nonspecific dilatation of lo ops of small bowel with fluid. Some fluid in the right side of the colon. The left colon is nearly empty. The findings could indicate enteritis/diarrheal illness.. Appendix normal. Peritoneal cavity: No ascites. No focal collection. No mesenteric inflammatory response. Bones: Unremarkable for age. Reproductive organs: Unremarkable. IUD in place. Lymph nodes: No pathologically enlarged lymph nodes. IMPRESSION:: Mild distal rectal wall thickening could indicate proctitis. Clinical correlation rambo mmended. Some fluid in the colon and small bowel could indicate diarrheal illness. Nonobstructing stone lower pole left kidney. RADIATION DOSE DELIVERED: 1,073.78mGy.cm Total DLP DATA REPOSITORY: All CT scans at this facility are submitted to the National Radiology Data Registry (NRDR) Dose Index Registry (DIR) with the [employer] (ACR). RADIATION OPTIMIZATION: All CT scans at this facility use at least one of these dose optimization te chniques: automated exposure control; mA and/or kV adjustment per patient size (includes targeted exa ms where dose is matched to clinical indication); or iterative reconstruction.
--- NOTE | 2023-10-18 19:15 | RT.EKG_ITS ---
APPROVED REPORT Exam: Resting ECG Reason for Exam: abd epigastric pain Patient Location: E HR:92 bpm ECG Measurements Heart Rate 92 AXIS IL 184 P 34 QRSd 93 QRS -33 QT 369 T 2 QTc 457 Conclusion Age and gender not entered, assume 52 yo male for purpose of ECG interpretation Sinus rhythm...normal P axis, V-rate 60- 99 Left axis deviation...QRS axis (-30,-90) Low voltage, precordial leads...precordial leads <1.0mV sinus rhtyhm, left axis, normal intervals, no ischemic
[2023-10-18 19:51] LABS: Abs Immature Grans 0.05 10^3/uL (0.0-0.06); Absolute Basophil Count 0.05 10^3/uL (0.0-0.2); Absolute Lymphocyte Count 3.07 10^3/uL (1.2-3.4); Absolute Monocyte Count 0.58 10^3/uL (0.1-0.8); Basophils % 0.5 %; Eosinophils % 1.8 %; HCT 43.2 % (36.0-46.0); HGB 14.4 g/dL (11.2-15.7); Immature Grans % 0.5 %; MCH 26.9 pg (27.0-33.0); MCHC 33.3 % (32.0-36.0); MCV 81 fL (80-95); MPV 10.2 fL (8.0-11.0); Monocytes % 5.3 %; Neutrophils % 63.9 %; Platelet Count 288 10^3/uL (130-400); RBC 5.36 10^6/uL (3.93-5.22); RDW 13.4 % (11.7-14.6); RDW-SD 38.5 fL; WBC 10.96 10^3/uL (4.4-10.8)
[2023-10-18] MEDS: Normal Saline 1,000 ML 1000 ML IV (19:51)
[2023-10-18] MEDS: ACETAMINOPHEN 1,000 MG/100 ML BTL 400 MG IVPB (19:56)
[2023-10-18 20:15] LABS: ALT 29 U/L (14-59); AST 22 U/L (15-37); Albumin 3.6 g/dL (3.4-5.0); Alkaline Phosphatase 92 U/L (46-116); BUN 12 mg/dL (7-18); Bilirubin, Total 0.64 mg/dL (0.2-1.0); C-Reactive Protein 1.83 mg/dL (<or=0.5); CREATININE 0.8 mg/dL (0.55-1.02); Calcium 9.3 mg/dL (8.5-10.1); Chloride 103 mmol/L (98-107); Estimated GFR 89.15 (mL/min/1.73m2); Glucose 161 mg/dL (74-106); Lipase 23 U/L (16-77); Potassium 3.2 mmol/L (3.5-5.1); Sodium 138 mmol/L (136-145); Total Protein 7.9 g/dL (6.4-8.2)
[2023-10-18] MEDS: Normal Saline - Diluent 50 ML VIAL IJ (20:47)
[2023-10-18] MEDS: Omnipaque 350 MG/ML 100 ML BTL IJ (20:47)
--- NOTE | 2023-10-18 21:14 | W.ED.GENAD ---
Discharge Plan Disposition Patient Disposition: Home Condition: Stable Discharge Details Clinical Impression: Enterocolitis Primary Care Provider: Clari Hernandez ED Provider: Kim Rutherford Home Meds and New Rx's Prescriptions: New hyoscyamine sulfate [Levsin] 0.125 mg tablet 0.125 mg PO BID-QID PRNQty: 6 0RF prochlorperazine maleate [Compazine] 5 mg tablet 5 mg PO QID PRNQty: 10 0RF potassium chloride 20 mEq tablet extended release 20 meq PO DAILY Qty: 5 0RF Continued Ozempic 0.25 mg or 0.5 mg (2 mg/3 mL) pen injector 0.5 mg subcut QWEEK sumatriptan succinate 25 mg Tablet 25 mg PO ONCE Rx Instructions: may repeat in 2 hours if needed hydroxyzine HCl 25 mg Tablet 25 mg PO HS PRN albuterol sulfate [Proventil HFA] 90 mcg/actuation Hfa Aerosol Inhaler 2 puff INHALATION Q4H PRN fluticasone propion-salmeterol [Advair HFA] 115-21 mcg/actuation Hfa Aerosol Inhaler 2 puff INHALATION BID rosuvastatin 40 mg Tablet 40 mg PO DAILY insulin glargine [Lantus Solostar U-100 Insulin] 100 unit/mL (3 mL) Insulin Pen 60 unit SUBCUT QPM ibuprofen 800 mg Tablet 800 mg PO TID PRN sertraline [Zoloft] 100 MG tablet 200 mg PO DAILY loratadine 10 MG tablet,disintegrating 10 mg PO DAILY epinephrine [EpiPen 2-Fabian] 0.3 MG/0.3 ML auto-injector 0.3 mg IM ONCE fluticasone propionate [Flonase] 16 GM spray,suspension 50 mcg NS DAILY tizanidine 4 MG capsule 4 mg PO BID pregabalin [Lyrica] 100 MG capsule 150 mg PO BID mirtazapine 30 mg tablet 30 mg PO DAILY Patient Comments: TAKE 1 TABLET BY MOUTH EVERY NIGHT NEEDED FOR SLEEP fluticasone propionate 50 mcg/actuation spray,suspension 1 spray intranasal DAILY PRNQty: 16 0RF Rx Instructions: administer into each nostril Topiramate [Trokendi Xr] 50 MG Cap.Er.24h 50 mg PO BID lisinopril 5 mg tablet 5 mg PO ONCE Patient Comments: TAKE ONE TABLET BY MOUTH EVERY MORNING Discharge Instructions Instructions: Viral gastroenteritis in adults Additional Instructions: Take Reglan as needed for nausea and vomiting You may take the Levsin as needed for cramping abdominal pain Make sure you keep yourself hydrated at least eight 8 ounce glasses of water daily Please follow-up with your doctor next week for reassessment and return earlier should you have new or worsening complaints Stand Alone Forms: Work Release Referrals: Clari Hernandez [Primary Care Provider] - 3 days Discharge Data Discharge Date/Time-TO BE ENTERED AT DEPARTURE: 10/18/23 23:26 HPI General Date/Time Provider Initiated Documentation: 10/18/23 18:53. HPI Narrative: 53-year-old female presents with left lower quadrant pain that started a week ago mild nausea vomiting and intermittent diarrhea. Denies recent antibiotics. Has had chills and subjective fevers. Does not take Tylenol premature ago. Denies any urinary complaints. No exacerbating or alleviating factors. History of diverticulitis, feels similar for. Patient. Related Data Home Medications ?Medication ?Instructions ?Recorded ?Confirmed pregabalin 100 mg capsule (Lyrica) 150 mg PO BID 05/03/12 10/18/23 tizanidine 4 mg capsule 4 mg PO BID 05/03/12 10/18/23 sertraline 100 mg tablet (Zoloft) 200 mg PO DAILY 07/22/12 10/18/23 epinephrine 0.3 mg/0.3 mL 0.3 mg IM ONCE 02/26/14 10/18/23 injection, auto-injector (EpiPen 2-Fabian) fluticasone propionate 50 50 mcg NS DAILY 02/26/14 09/10/22 mcg/actuation nasal spray,suspension (Flonase) loratadine 10 mg disintegrating 10 mg PO DAILY 02/26/14 10/18/23 tablet Topiramate [Trokendi Xr] 50 mg PO BID 02/06/17 10/18/23 albuterol sulfate 90 mcg/actuation 2 puff inhalation Q4H PRN 12/30/18 10/18/23 aerosol inhaler (Proventil HFA) fluticasone propionate 115 2 puff inhalation BID 12/30/18 10/18/23 mcg-salmeterol 21 mcg/actuation HFA inhaler (Advair HFA) hydroxyzine HCl 25 mg tablet 25 mg PO HS PRN 12/30/18 10/18/23 sumatriptan succinate 25 mg tablet 25 mg PO ONCE 12/30/18 10/18/23 ibuprofen 800 mg tablet 800 mg PO TID PRN 08/11/19 10/18/23 insulin glargine 100 unit/mL (3 60 unit subcut QPM 08/11/19 10/18/23 mL) subcutaneous pen (Lantus Solostar U-100 Insulin) rosuvastatin 40 mg tablet 40 mg PO DAILY 08/11/19 10/18/23 semaglutide 0.25 mg or 0.5 mg (2 0.5 mg subcut QWEEK 07/25/22 10/18/23 mg/3 mL) subcutaneous pen injector (Ozempic) fluticasone propionate 50 1 spray intranasal DAILY PRN #16 09/10/22 10/18/23 mcg/actuation nasal grams spray,suspension mirtazapine 30 mg tablet 30 mg PO DAILY 09/10/22 10/18/23 hyoscyamine sulfate 0.125 mg 0.125 mg PO BID-QID PRN #6 tabs 10/18/23 tablet (Levsin) lisinopril 5 mg tablet 5 mg PO ONCE 10/18/23 10/18/23 potassium chloride 20 mEq 20 meq PO DAILY #5 tabs 10/18/23 tablet,extended release prochlorperazine maleate 5 mg 5 mg PO QID PRN #10 tabs 10/18/23 tablet (Compazine) Previous Rx's ?Medication ?Instructions ?Recorded fluticasone propionate 50 1 spray intranasal DAILY PRN #16 09/10/22 mcg/actuation nasal grams spray,suspension hyoscyamine sulfate 0.125 mg 0.125 mg PO BID-QID PRN #6 tabs 10/18/23 tablet (Levsin) potassium chloride 20 mEq 20 meq PO DAILY #5 tabs 10/18/23 tablet,extended release prochlorperazine maleate 5 mg 5 mg PO QID PRN #10 tabs 10/18/23 tablet (Compazine) Allergies Allergy/AdvReac Type Severity Reaction Status Date / Time amoxicillin trihydrate (From Allergy Intermediate Hives Verified 02/08/23 17:24 Augmentin) potassium clavulanate (From Allergy Intermediate Hives Verified 02/08/23 17:24 Augmentin) lactose Allergy Other (See Unverified 10/18/23 18:43 Comment) Milk Containing Products Allergy Nausea Unverified 10/18/23 18:43 (Dairy) (Milk Containing Products) ammonium lactate (From AdvReac Intermediate GI UPSET Verified 02/08/23 17:24 Lac-Hydrin) citalopram hydrobromide AdvReac Intermediate CHEST Verified 02/08/23 17:24 (From Celexa) PAINS, SOB codeine AdvReac Intermediate Nausea Verified 02/08/23 17:24 duloxetine (Duloxetine) AdvReac Intermediate SPACEY Verified 02/08/23 17:24 duloxetine HCl (From AdvReac Intermediate NAUSEA, V/D Verified 02/08/23 17:24 Cymbalta) hydromorphone HCl (From AdvReac Intermediate NAUSEA,VOMI Verified 02/08/23 17:24 Dilaudid) TING,CONSTI PATION milk AdvReac Mild NAUSEA Verified 02/08/23 17:24 environmental Allergy Severe Swelling/Ed Uncoded 10/18/23 18:43 gema General Stated Complaint: Abd Prob LANIE: 3 Exam Narrative Exam Narrative: Pupils equal round reactive to light and accommodation, lungs clear to auscultation, cardiac rhythm regular, left lower quadrant tenderness without rebound or guarding, no CVA tenderness distal pulses intact, no abdominal bruit or pulsatile mass. Course Vital Signs Vital signs: Vital Signs Temperature 36.6 C 10/18/23 18:36 Pulse 125 H 10/18/23 18:36 Respiratory Rate 14 10/18/23 18:36 Blood Pressure 135/85 10/18/23 18:36 Pulse Oximetry 96 10/18/23 18:36 Temperature 37.2 C 10/18/23 19:28 Temperature Source Oral 10/18/23 19:28 Pulse 99 H 10/18/23 19:28 Respiratory Rate 11 L 10/18/23 19:28 Respiratory Effort Normal 10/18/23 18:46 Blood Pressure 137/89 10/18/23 19:28 Pulse Oximetry 96 10/18/23 19:28 Oxygen Delivery Method Room Air 10/18/23 19:28 Oxygen Flow Rate 0 10/18/23 18:36 Pain Level 7 10/18/23 19:28 Lab/Test Results Lab/Test Results: Laboratory Tests Range/Units 10/18/23 19:30 WBC (4.4-10.8) 10^3/uL 10.96 H RBC (3.93-5.22) 10^6/uL 5.36 H Hgb (11.2-15.7) g/dL 14.4 Hct (36.0-46.0) % 43.2 MCV (80-95) fL 81 MCH (27.0-33.0) pg 26.9 L MCHC (32.0-36.0) % 33.3 RDW (11.7-14.6) % 13.4 Plt Count (130-400) 10^3/uL 288 MPV (8.0-11.0) fL 10.2 Immature Gran % % 0.5 Neutrophils % % 63.9 Lymphocytes % % 28.0 Monocytes % % 5.3 Eosinophils % % 1.8 Basophils % % 0.5 Nucleated RBC % (0.0-0.3) % 0.0 Absolute Neutrophils (1.2-6.7) 10^3/uL 7.00 H Absolute Lymphocytes (1.2-3.4) 10^3/uL 3.07 Absolute Monocytes (0.1-0.8) 10^3/uL 0.58 Absolute Eosinophils (0.0-0.7) 10^3/uL 0.20 Absolute Basophils (0.0-0.2) 10^3/uL 0.05 Sodium (136-145) mmol/L 138 Potassium (3.5-5.1) mmol/L 3.2 L Chloride (98-107) mmol/L 103 Carbon Dioxide (21.0-32.0) mmol/L 25.0 Anion Gap (3-11) mmol/L 10.0 BUN (7-18) mg/dL 12 Creatinine (0.55-1.02) mg/dL 0.8 Est GFR (CKD-EPI 2020) (mL/min/1.73m2) 89.15 Glucose (74-106) mg/dL 161 H Calcium (8.5-10.1) mg/dL 9.3 Total Bilirubin (0.2-1.0) mg/dL 0.64 AST (15-37) U/L 22 ALT (14-59) U/L 29 Alkaline Phosphatase (46-116) U/L 92 C-Reactive Protein (<or=0.5) mg/dL 1.83 H Total Protein (6.4-8.2) g/dL 7.9 Albumin (3.4-5.0) g/dL 3.6 Lipase (16-77) U/L 23 Medical Decision Making This 53-year-old female is presenting with lower abdominal discomfort, nausea, vomiting, intermittent diarrhea. Patient denies any blood in her stool or vomitus. Afebrile and nontoxic in appearance. CT abdomen and pelvis per radiology interpretation my review potassium 3.2, supplemented with magnesium in the emergency department. Does not show evidence of significant acute abnormality, possible enterocolitis. Placed on antiemetics and feeling symptomatically improved, able to tolerate p.o. Administered antispasmodic with improvement in symptoms, Levsin. Patient feeling symptomatically improved, will supply patient with Compazine and Levsin for home. Discharged home in stable condition with stable vitals, tolerate p.o. trial return precautions reviewed and patient expressed understanding. Quality:SDOH Health Related Social Needs: No Data to Display PFSH All Active Problems (Updated 10/18/23 @ 23:01 by SHASHANK Quiñones) Enterocolitis (Acute) Abnormal uterine bleeding (Acute) Obesity (Chronic) Migraine (Chronic) Cervical myelopathy (Acute 07/25/12) JOB (obstructive sleep apnea) (Chronic) Diabetes mellitus type 2, uncontrolled (Chronic) Medical History Abnormal white blood cell leukocytes Allergic rhinitis Anxiety and depression Asthma Flores's esophagus Bilateral hand numbness Chronic low back pain Chronic pain Discharge planning issues Fibromyalgia Herniated cervical disc Hip pain, bilateral History of kidney stones History of tobacco use Hyperlipidemia Left ureteral stone Lyme disease Migraine headache Morbid obesity with BMI of 40.0-44.9, adult Sleep apnea Thickened endometrium Uterine fibroid Vitamin D deficiency Surgical History section x 3 discetomy and spinal fusion History of cholecystectomy Ligation of fallopian tube Postoperative state Status post hysteroscopy with dilation and curettage 06/28/2022 Family History Other Blood clotting disorder Breast cancer Diabetes Heart disease Hyperlipidemia Hypertension Osteoporosis Ovarian cancer Stroke Thyroid disorder Social History Smoking/Tobacco Use Status: Former Tobacco Use Quit Date: 02/06/16 Smoking risk assessment performed?: Yes Alcohol Intake: never Drug use: Daily Substance use type: marijuana Household members: children Housing: apartment Number of Children: 3 current occupation: [employer] What is your relationship status?: Panel score (0-1 are the most socially isolated patients): 0 What type of physical activity do you participate in: walking Do you feel safe at home: Yes Do you feel safe in your relationship?: Yes Female Reproductive History Menstrual Age of Menarche: 12 Duration of menses: other control method: permanent sterilization History History 5 Para 3 Hx # Term Pregnancies 2 Multiple births Hx # Pregnancies 1 Ectopic pregnancies AB induced 2 Hx Number of Living Children 3 AB spontaneous Past Pregnancies Del. Date GA/Weeks # Preg Succ Route Wgt Sex Labor Lgth Anesthesia Location [facility] 12/31/93 36 Yes 2721.554 g Male [facility] 05/08/01 38 Yes Male [facility] 12/07/02 37 Yes Male [facility] Delivery Date: 12/31/93 Last Updated by: Kesha Barrett patient reports preeclampsia, post infection
--- OUTSIDE RECORDS SUMMARY | 2023-10-18 21:27 | XMS_ITS | Encounter Summary ---
Author Organization [facility] [place] [address] Care Team Providers Care Environmental Health Safety Engineer Name Role Phone Ion Digna Betzaida ZAVALA Primary Care Provider [phone] Reason for Visit * Reason Comments Pain Management medical marijuana re newal Encounter Details Date Type Department Care Team (Late st Contact Info) Description 06/25/2017 10:30 AM EDT Office Visit [place] [address] Felicitas Rendon [facility] [place] [address] Midline low back pain, unspecified chronicity, with sciatica presence unspecified Social History Tobacco Use Types Packs/Day Years Used Date Smoking Tobacco: Former Cigarettes 0.5 10 0 04/04/2005 - 04/04/2015 Smokeless Tobacco: Never Alcohol Use Standard Drinks/Week Comments Yes 0 (1 standard drink = 0.6 oz pur e alcohol) Socially, 1-2 times per month Sex and Gender Information Value Date Recorded Sex Assigned at Not on file Gender Identity Not on file Sexual Orientation Not on file documented as of this encounter Last Filed Vital Signs Vital Sign Reading Time Taken Comments Blood Pressure 144/90 06/25/2017 10:46 AM EDT Pulse 91 06/25/2017 10:46 AM EDT Temperature - - Respiratory Rate - - Oxygen Saturation 99% 06/25/2017 10:46 AM EDT Inhaled Oxygen Concentration - - Weight 138.8 kg (306 lb) 06/25/2017 10:46 AM EDT Height - - Body Mass Index 54.21 06/08/2016 3:14 PM EDT documented in this encounter Progress Notes * Felicitas Rendon, LANDSCAPING CREW LEADER - 06/25/2017 10:30 AM EDT PAIN CLINIC FOLLOW-UP DATE OF VISIT 06/25/2017 Patient Alis Cardenas 1970 REFERRING PROVIDER Digna Lemon APRN [address], [facility] [address] [place] [address] PRIMARY CARE PROVIDER Digna Lemon APRN Cannabis Certification Form Completed ORT score and date: Most recent UDT results and date: ID and [place] Prescription Monitoring Program were checked and no concerns were identified. Home storage of cannbis: CHIEF COMPLAINT: Back pain and post laminectomy syndrome. HPI: Alis Cardenas is a 46 y.o. female initially seen in the [facility] by Dr Venegas whowas doing her cannabis attestation's for her chronic back pain. Remain off opiates, be able to carefor her children and GOALS OF THERAPY: Become physically active INTERVAL HISTORY: ED visits, hospitalizations, new medical problems or surgeries since previous visit? No Changes in family, social, or functional history since previous visit? Increasing her activity now that the weather is getting better. PAIN ASSESSMENT: - - nonumbness, tingling, weakness - No saddle anesthesia Mostly back pain but also has other joint pains she is trying to get off of her other medications and minimize the number of pills that she has to take. MEDICATIONS Medications 06/25/17 1045 Medication Sig Taking? ONETOUCH ULTRA TEST Strip Yes fluconazole (DIFLUCAN) 200 mg Tablet take 1 tablet by mouth once daily or as directed Yes hydrOXYzine (ATARAX) 25 mg Tablet TAKE ONE TABLET BY MOUTH AT BEDTIME NEEDED Yes LANTUS SOLOSTAR U-100 INSULIN pen INJECT 20 UNITS UNDER THE SKIN EVERY MORNING AND 30 UNITS AT BEDTIME Yes nystatin (MYCOSTATIN) 500,000 unit Tablet TAKE TWO TABLETS BY MOUTH FOUR TIMES A DAY OR DIRECTEDYes rosuvastatin (CRESTOR) 40 mg Tablet nightly. Yes topiramate (TOPAMAX) 50 mg Tablet 50 mg daily. Yes LYRICA 150 mg Capsule Take 150 mg by mouth nightly. Yes glipiZIDE (GLUCOTROL XL) 10 mg Tablet Extended Rel 24 hr Take 10 mg by mouth daily. Yes ADVAIR HFA 115-21 mcg/actuation HFA Aerosol Inhaler Inhale 2 puffs into the lungs daily as needed. Yes MARIJUANA INHL Inhale into the lungs as needed. Yes SUMAtriptan (IMITREX) 25 mg Tablet Take 25 mg by mouth as needed. Yes loratadine (CLARITIN) 10 mg Tablet Take 10 mg by mouth daily. Yes mirtazapine (REMERON) 15 mg Tablet Take 15 mg by mouth nightly. Yes tiZANidine (ZANAFLEX) 4 mg Tablet Take 4 mg by mouth every 6 hours as needed. Yes sertraline (ZOLOFT) 100 mg tablet Take 100 mg by mouth 2 times daily. Yes EPINEPHrine (EPIPEN) 0.3 mg/0.3 mL (1:1,000) injection Inject 0.3 mLs into the muscle once as needed (difficulty breathing, throat swelling, loss of consciousness) for up to 1 dose. Call 911. Yes LEVALBUTEROL HCL (XOPENEX INHL) Inhale 2 puffs into the lungs daily as needed. Yes ferrous sulfate 325 mg (65 mg iron) EC tablet Take 325 mg by mouth daily. Yes Cholecalciferol, Vitamin D3, (VITAMIN D-3) 2,000 unit Cap Take 2,000 Units by mouth daily. Yes ADVERSE DRUG REACTIONS Allergies as of 06/25/2017 - Review Complete 06/25/2017 Allergen Reaction Noted ??? Codeine Nausea And Vomiting 03/16/2011 ??? Augmentin [amoxicillin-pot clavulanate] Hives 08/20/2015 ??? Cymbalta [duloxetine] Other (See Comments) 05/05/2014 ??? Lactose Diarrhea and Nausea And Vomiting 03/16/2011 CURRENT THERAPIES: marijuana PAST THERAPIES: Opiates LANIE Hip injections PT TENS Yoga mindfulness Analgesia: Average pain level in past month: 6-7 Sleep: bouts of insomnia, depends upon cannabis use, has apnea, has CPAP , does ot use it ocnsidtently Activities of Daily Living/Psychosocial Functioning: Physical functioning & exercise: Work: trying to get disability Mood: goes to therapy weekly personality disorder and bipolar Adverse effects/ROS: Negative for: - Feeling impaired - Falls/injuries - Anxiety/panic - Dryness of mouth - Increased appetite/weight gain - Rapid heart rate/increased BP - Wheeze/cough Aberrant behaviors/Risk Assessment: Smoking: does not, quit a couple of years ago. Smoked off and on between age 21 and 44. Smoked about 2 ppd. Alcohol:no Other drugs: Cannabis use disorder??--??DSM-5 diagnostic criteria for cannabis use disorder are described below A problematic pattern of cannabis use leading to clinically significant impairment or distress, as manifested by two or more of the following within a 12-month period: Symptom YES/NO Comments Cannabis is often taken in larger amounts or over a longer period than was intended There is a persistent desire or unsuccessful efforts to cut down or control cannabis use A great deal of time is spent in activities necessary to obtain cannabis, use cannabis, or recover from its effects Craving, or a strong desire or urge to use cannabis Recurrent cannabis use resulting in a failure to fulfill major role obligations at work, school, orhome Continued cannabis use despite having persistent or recurrent social or interpersonal problems caused or exacerbated by the effects of cannabis Important social, occupational, or recreational activities are given up or reduced because of cannabis use Recurrent cannabis use in situations in which it is physically hazardous Continued cannabis use despite knowledge of having a persistent or recurrent physical or psychological problem that is likely to have been caused or exacerbated by cannabis Tolerance Withdrawal (see below) Total number of symptoms: 0 The severity of cannabis use disorder at the time of diagnosis can be specified as a subtype based on the number of symptoms present: ?Mild: Two to three symptoms ?Moderate: Four to five symptoms ?Severe: Six or more symptoms Cannabis withdrawal??--??Diagnostic criteria for cannabis withdrawal DSM-5: ?Cessation of cannabis use that has been heavy and prolonged (ie, usually daily or almost daily over a period of at least a few months) ?Three or more of the following signs and symptoms develop within approximately one week after the cannabis cessation: Symptom YES/NO Comments Irritability, anger, or aggression Nervousness or anxiety Sleep difficulty (eg, insomnia, disturbing dreams) Decreased appetite or weight loss Restlessness Depressed mood At least one of the following physical symptoms causing significant discomfort: abdominal pain, shakiness/tremors, sweating, fever, chills, or headache The signs or symptoms cause clinically significant distress or impairment in social, occupational, or other important areas of functioning The signs or symptoms are not attributable to another medical condition and are not better explained by another mental disorder, including intoxication or withdrawal from another substance Total number of signs/symptoms: 0 PHYSICAL EXAMINATION Body mass index is 54.21 kg/(m^2). BP 144/90 Pulse 91 Wt (!) 138.8 kg (306 lb) SpO2 99% BMI 54.21 kg/m2 PHQ-9 QUESTIONNAIRE SCORE ONLY (AMB) 03/16/2011 PHQ - 9 Score (Patient) 9 (Mild Depression) Appearance/ Behavior Well groomed, good eye contact, relaxed, cooperative. No acute distress. Her paperwork will be scanned into the system. Mood. HEENT Sclera non-icteric, conjunctiva clear. Hearing grossly intact. Lungs Non-labored, clear to ausculation bilaterally. Cardiovascular Regular rate and rhythm without murmur Musculoskeletal moves about the room without discomfort ASSESSMENT Chronic low back pain managed well with cannabis. Her pain level is around 5 on a scale of 10. PLAN/RECOMMENDATIONS I did do her cannabis attestation for her today but I did tell her that our clinic will no longer be doing these next year she will need to find a provider for this. I suggested she talk to her primary care provider or talk to a pain clinic closer to home such as [facility].I did recommend that she not smoke marijuana because of the danger of increasing lung disease. She has sleep apnea and does not use her CPAP regularly. I also think that behaviorally can encourage people to return to tobacco use. Alis Cardenas had the opportunity to ask questions and indicated that all questions were answeredto her satisfaction. Felicitas Rendon, MS, SPRING UP SUPERVISOR-BC, LANDSCAPING CREW LEADER Nurse Practitioner [facility] documented in this encounter Plan of Treatment Not on file documented as of this encounter Visit Diagnoses Diagnosis Midline low back pain, unspecified chronicity, with sciatica presence unspecified documented in this encounter Care Teams Environmental Health Safety Engineer Relationship Specialty Start Date End Date Digna Lemon APRN PCP - General Family Medicine 01/19/15 09/04/18 documented as of this encounter
--- OUTSIDE RECORDS SUMMARY | 2023-10-18 21:27 | XMS_ITS | Encounter Summary ---
Author Organization [facility] [place] [address] Care Team Providers Care Check Out Cashier Name Role Phone Digna Lemon APRN Primary Care Provider [phone]- [phone] Encounter Details Date Type Department Care Team (Late st Contact Info) Description 11/23/2015 Telephone [place]ematology [place] [address] Mena Eagle MD [facility] [address] [place]Y [place] [address] Social History Tobacco Use Types Packs/Day Years [...] on file documented as of this encounter Miscellaneous Notes * Telephone Encounter - Mena Eagle MD - 11/23/2015 9:33 AM EDT Mailbox is full on cell phone. Can not leave a message. Message left on home phone to call me back. documented in this encounter Plan of Treatment Not on file documented as of this encounter Visit Diagnoses Not on filedocumented in this encounter Care Teams Check Out Cashier Relationship Specialty Start Date End Date Digna Lemon APRN PCP - General Family Medicine 01/19/15 09/04/18 documented as of this encounter
--- OUTSIDE RECORDS SUMMARY | 2023-10-18 21:27 | XMS_ITS | Encounter Summary ---
Author Organization [facility] [place] [address] Care Team Providers Care Amr Physician Name Role Phone Digna Lemon APRN Primary Care Provider Encounter Details Date Type Department Care Team (Late st Contact Info) Description 06/25/2017 Orders [place] [address] Altagracia Hoskins, DAYNA Social History Tobacco Use Types Packs/Day Years [...] on file documented as of this encounter Plan of Treatment Not on file documented as of this encounter Visit Diagnoses Not on filedocumented in this encounter Care Teams Amr Physician Relationship Specialty Start Date End Date Digna Lemon APRN PCP - General Family Medicine 01/19/15 09/04/18 documented as of this encounter
--- OUTSIDE RECORDS SUMMARY | 2023-10-18 21:27 | XMS_ITS | Clinical Summary ---
Author Organization [facility] Address [facility] [place] [address] Care Team Providers Care Civil Technician Name Role Phone Clari Hernandez APRN Primary Care Provider [phone] Allergies Active Allergy Reactions Criticality Noted Date Comments Amoxicillin-Pot Clavulanate Hives 08/20/2015 Codeine Nausea And Vomiting High 03/16/2011 Duloxetine Other (See Comments) 05/05/2014 Nausea and chest pain Lactose Diarrhea,Nausea And Vomiting 03/16/2011 Medications Medication Sig Dispensed Refills Start Date End Date Status LEVALBUTEROL HCL (XOPENEX INHL) Inhale 2 puffs into the lungs daily as needed. Active ferrous sulfate 325 mg (65 mg iron) EC tablet Take 325 mg by mouth daily. Active sertraline (ZOLOFT) 100 mg tablet Take 100 mg by mouth 2 times daily. Active EPINEPHrine (EPIPEN) 0.3 mg/0.3 mL (1:1,000) injection Inject 0.3 mLs into the muscle once as needed (difficulty breathing, throat swelling, loss of consciousness) for up to 1 dose. Call 911. 2 each 1 09/17/2013 Active tiZANidine (ZANAFLEX) 4 mg Tablet Take 4 mg by mouth every 6 hours as needed. Active loratadine (CLARITIN) 10 mg Tablet Take 10 mg by mouth daily. Active mirtazapine (REMERON) 15 mg Tablet Take 15 mg by mouth nightly. Active SUMAtriptan (IMITREX) 25 mg Tablet Take 25 mg by mouth as needed. 3 09/30/2015 Active LYRICA 150 mg Capsule Take 150 mg by mouth nightly. 1 04/15/2016 Active ADVAIR HFA 115-21 mcg/actuation HFA Aerosol Inhaler Inhale 2 puffs into the lungs daily as needed. 3 05/29/2016 Active MARIJUANA INHL Inhale into the lungs as needed. Active ONETOUCH ULTRA TEST Strip 03/14/2017 Active hydrOXYzine (ATARAX) 25 mg Tablet TAKE ONE TABLET BY MOUTH AT BEDTIME NEEDED 3 05/16/2017 Active LANTUS SOLOSTAR U-100 INSULIN pen INJECT 20 UNITS UNDER THE SKIN EVERY MORNING AND 30 UNITS AT BEDTIME 5 06/11/2017 Active nystatin (MYCOSTATIN) 500,000 unit Tablet TAKE TWO TABLETS BY MOUTH FOUR TIMES A DAY OR DIRECTED 5 05/09/2017 Active rosuvastatin (CRESTOR) 40 mg Tablet nightly. 06/01/2017 Active topiramate (TOPAMAX) 50 mg Tablet 50 mg daily. 05/01/2017 Active Victoza 3-Fabian 0.6 mg/0.1 mL (18 mg/3 mL) Pen Injector Inject 0.6mg daily. After 1 week, increase to 1.2mg daily. 9 mL 3 05/30/2019 Active omeprazole (PriLOSEC) 40 mg Capsule, Delayed Release(E.C.) Take 40 mg by mouth daily. 04/09/2019 Active BD Ultra-Fine Mini Pen Needle 31 gauge x 3/16 Needle Inject 1 each subcutaneously nightly. 05/06/2019 Active cholecalciferol, Vitamin D3, (Vitamin D3) 1,000 unit Tablet Take 1,000 Units by mouth daily. 03/25/2019 Active fluconazole (Diflucan) 150 mg Tablet Take 1 tablet. 1 tablet 06/03/2019 Active Hospital, Clinic, or Other Facility Administered Medication Ordered Dose Route Frequency Start Date End Date Status albuterol (PROVENTIL) nebulizer solution 2.5 mg 2.5 mg NEBULIZATION CONTINUOUS PRN 07/03/2014 Active Active Problems Patient Care Coordination No te Formatting of this note migh t be different from the original. [facility] Medical Marijuana Registry Signed with Pain Management on 06/08/2016. Problem Noted Date Diagnosed Date Encounter for long-term (current) use of other m edications 06/08/2014 Radiculopathy of cervical region 06/08/2014 Neck pain 05/05/2014 Allergic reaction to spider bite 09/17/2013 Nasal congestion 09/17/2013 Mold exposure 09/17/2013 Moderate persistent asthma 09/17/2013 Fibromyalgia 03/16/2011 Back pain 03/16/2011 S/P cervical discectomy 03/16/2011 Depression 03/16/2011 Vitamin D deficiency 03/16/2011 Family History Medical History Relation Comments Allergic Rhinitis Brother Asthma Brother Allergic Rhinitis Father Asthma Father Allergic Rhinitis Mother Asthma Mother Allergic Rhinitis Sister Asthma Sister Relation Status Comments Brother Father Mother Sister Social History Tobacco Use Types Packs/Day Years [...] on file Sexual Orientation Not on file Last Filed Vital Signs Vital Sign Reading Time Taken Comments Blood Pressure 144/90 06/25/2017 10:46 AM EDT Pulse 91 06/25/2017 10:46 AM EDT Temperature 36.7 ??C (98.1 ??F) 11/22/2015 12:35 PM E DT Respiratory Rate 22 11/22/2015 12:35 PM EDT Oxygen Saturation 99% 06/25/2017 10:46 AM EDT Inhaled Oxygen Concentration - - Weight 138.8 kg (306 lb) 06/25/2017 10:46 AM EDT Height 160 cm (5' 3) 06/08/2016 3:14 PM EDT Body Mass Index 54.21 06/08/2016 3:14 PM EDT Plan of Treatment Health Maintenance Due Date Last Done Comments CT Colonography 1972 Colonoscopy 1972 Colorectal Cancer Screening 1972 FIT DNA 1972 FIT 1972 Sigmoidoscopy (10 year) with FIT yearly 1972 Sigmoidoscopy 1972 HIV screen 1990 Hepatitis B vaccine (0-59 yrs) (1) 08/24/1991 Tdap adult 08/24/1991 Tetanus vaccine 08/24/1991 HPV test 2002 PAP Smear 2002 Breast Cancer Share Decision Needed 2012 Breast Cancer screening 2012 Zoster vaccine (1 of 2) 2022 Covid-19 Vaccine ( - 2023-24 season) 2023 Influenza (Flu) vaccine (1 o f 1 - Influenza standard series) 10/07/2023 Diabetes Screening (HgbA1C or Glucose) Discontinued Hepatitis C Screening Completed 09/25/2016 Procedures Procedure Name Priority Date/Time Associated Diagnosis Comments HEPATITIS C ANTIBODY Routine 09/25/2016 12:50 PM EDT BASIC METABOLIC PANEL Routine 03/16/2011 2:51 PM EST Paresthesias from Last 3 Months or Most Recently Relevant to Health Maintenance Results * (ABNORMAL) Hepatitis C Antibody (09/25/2016 12:50 PM EDT) Hepatitis C Antibody <0.1(Exter nal Lab) 0.0 - 0.9 SHELIA TURNER CONVERSION 09/25/2016 12:5 0 PM EDT Results Provider Apd Conversion MD CORTES TELLEZ ORDERABLES SHELIA TURNER CONVERSION * (ABNORMAL) Basic Metabolic Panel (non-fasting) (03/16/2011 2:51 PM EST) Glucose 90 60 - 199 mg/dL [facility]ER MILLENNIUM Comment:Diabetes: >=200 mg/d L plus symptoms Blood Urea Nitrogen 17 8 - 18 mg/dL [facility]ERNER MILLENNIUM Creatinine 0.69(L) 0.70 - 1.20 mg/dL [facility]ERN[facility] MILLENNIUM Sodium 140 135 - 145 mmol/L [facility]ERN[facility] MILLENNIUM Potassium 3.9 3.5 - 5.0 mmol/L [facility] MILLENNIUM Comment: Please note: ??Patients with WBC >100,000 may have falsely elevated Potassium levels. ??For accurate Potassium quantification in these patients send serum separator tube (gold top) for subsequent determinations. ??Contact the Clinical Chemistry Laboratory if there are any questions. Chloride 107 98 - 107 mmol/L CERNER MILLENNIUM Carbon Dioxide 22 22 - 31 mmol/L [facility]ERN[facility] MILLENNIUM Anion Gap 11 5 - 15 mmol/L CERNER MILLENNIUM Calcium 9.3 8.5 - 10.5 mg/dL CERNER MILLENNIUM Est Glomerular Filtration Rate >60 >=60 [facility] Comment: The National Kidney Disease Education Program (NKDEP) has recommended all laboratories report estimated GFR (eGFR) along with plasma creatinine measurements to assist you with recognition of early kidney disease. Caveats: ??Plasma creatinine should be at steady-state (unchanged within the past week). For patients multiply eGFR by 1.2. The MDRD equation has not been validated for pediatric patients and is only valid for patients with age >= 18 years. At present, NKDEP does NOT recommend using the MDRD equation for drug dosing purposes and pharmacists should continue to use their current dosing methods. In addition, numerical eGFR values greater than 60 ml/min/1.73 square meters should be treated as > 60, and not an exact number due to greater inaccuracies at these higher values. Per NKDEP, they classify normal renal function as any GFR >60ml/min/1.73 square meters; chronic kidney disease when GFR <60, and renal failure when GFR <15. ??This calculation may not be valid for patients with atypical muscle mass (very lean or obese), acute renal failure, and in patients with diabetic kidney disease. References: http://nkdep.nih.gov/resources/NKDEP_Suggestn4Labs_0606_508.pdf http://www.kidney.org/professionals/kls/pdf/faq_gfr.pdf Blood specimen (specimen) 03/16/2011 2:51 PM EST 03/16/2011 2:57 PM EST Nader Crawford MD CHEMISTRY ORDERABLES [facility] from Last 3 Months or Most Recently Relevant to Health Maintenance Care Teams Civil Technician Relationship Specialty Start Date End Date Clari Hernandez, [employer] [address] PCP - General Family Medicine 08/03/22
--- OUTSIDE RECORDS SUMMARY | 2023-10-18 21:27 | XMS_ITS | Encounter Summary ---
Author Organization [facility] Address [facility] [place] [address] Care Team Providers Care Development Advisor Name Role Phone Ashleigh Gaston APRN Primary Care Provider Encounter Details Date Type Department Care Team (Late st Contact Info) Description 06/03/2019 Orders [place] [address] [facility] [place] [address] Social History Tobacco Use Types Packs/Day Years [...] on filedocumented in this encounter Care Teams Development Advisor Relationship Specialty Start Date End Date Ashleigh Gaston APRN [address] [place], [place] [id number] PCP - General Family Medicine 11/11/18 08/02/22 documented as of this encounter
--- OUTSIDE RECORDS SUMMARY | 2023-10-18 21:27 | XMS_ITS | Encounter Summary ---
Author Organization [facility] [place] [address] Care Team Providers Care Technical Operations Specialist Name Role Phone Ion Digna Huston APRN Primary Care Provider [phone] Encounter Details Date Type Department Care Team (Late st Contact Info) Description 09/09/2015 Telephone Hematology [place] [id number] Mena Eagle MD [facility] [address] [place] [address] Social History Tobacco Use Types Packs/Day Years [...] Telephone Encounter - Mena Eagle MD - 09/09/2015 9:15 AM EDT Called back. Left a message. * Telephone Encounter - Mena Eagle MD - 09/09/2015 9:15 AM EDT ----- Message from Kati Euceda RN sent at 09/08/2015 4:01 PM EDT ----- Regarding: FW: DR EAGLE PT- NEEDS NURSE CALL- NAUSEA, MIGRAINE, FACE BLEEDING Contact: ----- Message ----- From: Genny Jennie E Sent: 09/08/2015 11:21 AM To: [facility] T[facility] H[facility]ology Subject: DR EAGLE PT- NEEDS NURSE CALL- NAUSEA, MIGRA# Hi, Alis called asking for results of CT scan done last week, then proceeded to say she wanted to talk with the nurse about that she picked at her face and she can't get it to stop bleeding, and she has a migraine and has been nauseas. Please call her back at [phone]. Vira Schneider documented in this encounter Plan of Treatment Not on file documented as of this encounter Visit Diagnoses Not on filedocumented in this encounter Care Teams Technical Operations Specialist Relationship Specialty Start Date End Date Digna Lemon APRN PCP - General Family Medicine 01/19/15 09/04/18 documented as of this encounter
--- OUTSIDE RECORDS SUMMARY | 2023-10-18 21:27 | XMS_ITS | Encounter Summary ---
Author Organization [facility] Address [facility] [place] [address] Care Team Providers Care Signaler Name Role Phone Digna Lemon APRN Primary Care Provider [phone] Encounter Details Date Type Department Care Team (Latest Contact Info) Description 11/22/2015 12:08 PM EDT - 11/22/2015 11:59 PM EDT Hospital Encounter [place]ematology [place] [address] Neutrophilia Discharge Disposition: Home Social History Tobacco Use Types Packs/Day Years [...] on file documented as of this encounter Medications at Time of Discharge Medication Sig Dispensed Refills Start Date End Date SUMAtriptan (IMITREX) 25 mg Tablet Take 25 mg by mouth as needed. 3 09/30/2015 loratadine (CLARITIN) 10 mg Tablet Take 10 mg by mouth daily. mirtazapine (REMERON) 15 mg Tablet Take 15 mg by mouth nightly. tiZANidine (ZANAFLEX) 4 mg Tablet Take 4 mg by mouth every 6 hours as needed. sertraline (ZOLOFT) 100 mg tablet Take 100 mg by mouth 2 times daily. EPINEPHrine (EPIPEN) 0.3 mg/0.3 mL (1:1,000) injection Inject 0.3 mLs into the muscle once as needed (difficulty breathing, throat swelling, loss of consciousness) for up to 1 dose. Call 911. 2 each 1 09/17/2013 LEVALBUTEROL HCL (XOPENEX INHL) Inhale 2 puffs into the lungs daily as needed. ferrous sulfate 325 mg (65 mg iron) EC tablet Take 325 mg by mouth daily. prochlorperazine (COMPAZINE) 10 mg Tablet Take 10 mg by mouth as needed. 3 09/30/2015 06/25/2017 topiramate (TOPAMAX) 25 mg Tablet Take 25 mg by mouth 2 times daily as needed. 1 09/30/2015 06/25/2017 hydrOXYzine (ATARAX) 10 mg Tablet Take 10 mg by mouth 3 times daily as needed for Itching. 06/25/2017 propranolol (INDERAL) 10 mg Tablet Take 30 mg by mouth every evening. 06/08/2016 cloNIDine HCl (CATAPRES) 0.1 mg Tablet Take 0.1 mg by mouth nightly. 06/25/2017 pregabalin (LYRICA) 75 mg capsule Take 100 mg by mouth 2 times daily. 06/25/2017 Cholecalciferol, Vitamin D3, (VITAMIN D-3) 2,000 unit Cap Take 2,000 Units by mouth daily. 05/30/2019 documented as of this encounter Plan of Treatment Not on file documented as of this encounter Procedures Procedure Name Priority Date/Time Associated Diagnosis Comments HEMOGRAM Routine 11/22/2015 12:17 PM EDT Neutrophilia DIFFERENTIAL, AUTOMATED Routine 11/22/2015 12:17 PM EDT Neutrophilia SEDIMENTATION RATE Routine 11/22/2015 12 :17 PM EDT Neutrophilia CBC (WITH DIFF) Routine 11/22/2015 12:17 PM EDT Neutrophilia CRP, CARDIAC RISK (HS CRP) Routine 11/22/2015 12:17 PM EDT Neutrophilia documented in this encounter Results * (ABNORMAL) Differential, Automated (11/22/2015 12:17 PM EDT) Neutrophil % 65.4 % [facility] Neutrophil Absolute 7.50(H) 1.70 - 6.10 x10(3)/[facility] Lymph % 26.1 % [facility] Lymphocytes Abs 3.0 0.9 - 3.2 x10(3)/[facility] Monocyte % 4.5 % [facility] Monocyte Abs 0.5 0.3 - 0.9 x10(3)/[facility] Eos % 2.8 % [facility] Eosinophils Abs 0.3 0.0 - 0.4 x10(3)/[facility] Basophil % 0.5 % [facility] Baso Absolute 0.1 0.0 - 0.1 x10(3)/[facility] Immature Gran % 0.70 % [facility] Comment: Immature granulocytes(IG's)percentage and absolute count will include metamyelocytes, myelocytes, and promyelocytes. Blood smears from CBCs yielding IG's will be scanned manually for concordance. If this scan disagrees with the automated IG or if promyelocytes are noted, a manual differential will be performed. Immature Gran Absolute 0.08(H) 0.00 - 0.04 x10(3)/[facility] Blood specimen (specimen) 11/22/2015 12:17 PM EDT 11/22/2015 12:31 PM EDT Narrative Resulting Agency Comment Spec In Lab Mena Eagle MD HEMATOLOGY ORDERABLE S [facility] [place] [address] * (ABNORMAL) Hemogram (11/22/2015 12:17 PM EDT) White Blood Cell 11.5(H) 4.0 - 9.5 x10(3)/[facility] Red Blood Cell 5.06 4.00 - 5.21 x10(6)/[facility] Hemoglobin 13.0 11.7 - 15.5 gm/dL [facility] Hematocrit 40.6 35.7 - 45.8 % [facility] Mean Cell Volume 80.2(L) 82.6 - 94.4 fL [facility] Mean Cell Hemoglobin 25.7(L) 27.1 - 32.0 pg [facility] Mean Cell Hemoglobin Concentration 32.0 31.7 - 35.0 gm/dL [facility] Platelet 313 145 - 357 x10(3)/mc L [facility] RDW Standard Deviation 40.4 37.0 - 46.0 fL [facility] RDW coefficient of variation 13.9 11.5 - 14.1 % [facility] Mean Platelet Volume 10.7 7.6 - 12.9 fL [facility] NRBC% auto 0.0 % [facility] NRBC Absolute 0.000 0.000 - 0.000 x10(3)/mc L [facility] Blood specimen (specimen) 11/22/2015 12:17 PM EDT 11/22/2015 12:31 PM EDT Narrative Resulting Agency Comment Spec In Lab Mena Eagle MD HEMATOLOGY ORDERABLE S [facility] [place] [address] * High Sensitivity CRP (11/22/2015 12:17 PM EDT) C-Reactive Protein High Sensitivity 26.7 mg/L [facility] Comment: Interpretations: 1) For accurate cardiac risk assessment, the average of 2 values >2 weeks apart should be obtained (ref 1&2). A value >10 mg/L indicates an inflammatory condition, concentrations >10 mg/L should not be used for cardiac risk assessment. ?<1.0 mg/L: low risk ?1.0 - 3.0 mg/L: moderate risk ?>3.0 mg/L: high risk groups for future cardiovascular events 2) The general reference range of apparently healthy individuals using this test is <5.0 mg/L (derived from the test package insert) References: 1. Pau DIAZ et. al. ??AHA/CDC Scientific Statement: Markers of Inflammation and Cardiovascular Disease. ??Circulation 2003; 107:499-511 2. Ridker PM. ??Clinical applications of C-reactive protein for cardiovascular disease detection and prevention. ??Circulation 2003; 107:363-369 Blood specimen (specimen) 11/22/2015 12:17 PM EDT 11/22/2015 12:31 PM EDT Narrative Resulting Agency Comment Spec In Lab Mena Eagle MD CHEMISTRY ORDERABLES Performing Organization Address [facility]/ZIP Co de Phone Number [facility] [place] [address] * (ABNORMAL) Sedimentation rate (11/22/2015 12:17 PM EDT) Sedimentation Rate Automated 29(H) 0 - 20 mm/hr [facility] Blood specimen (specimen) 11/22/2015 12:17 PM EDT 11/22/2015 12:31 PM EDT Narrative Resulting Agency Comment Spec In Lab Mena Eagle MD HEMATOLOGY ORDERABLE S Performing Organization Address [facility] Co de Phone Number [facility] [place] [address] documented in this encounter Visit Diagnoses Diagnosis Neutrophilia Other specified disease of white blood cells documented in this encounter Care Teams Signaler Relationship Specialty Start Date End Date Digna Lemon APRN PCP - General Family Medicine 01/19/15 09/04/18 documented as of this encounter
--- OUTSIDE RECORDS SUMMARY | 2023-10-18 21:27 | XMS_ITS | Encounter Summary ---
Author Organization [facility] Address [facility] [place] [address] Care Team Providers Care Business Development Representative Name Role Phone Digna Lemon APRN Primary Care Provider [phone] Reason for Visit * Reason Onset Date Comments Migraine 09/13/2015 Encounter Details Date Type Department Care Team ([facility] Contact Info) Description 09/13/2015 Telephone [place]ematology [place] [phone] Meghan Mathias RN Migraine Social History Tobacco Use Types Packs/Day Years [...] encounter Miscellaneous Notes * Telephone Encounter - Meghan Mathias RN - 09/13/2015 11:05 AM EDT Message received from pathology secretary/transcriptionist: Alis called, she has been having terrible migraines, and needs help. Please call her? [phone] Right side of head around ear and towards top side of her head, light sensitive and nausea. This episode onset was mid to late August 2015, pt states she has a few good days defines as minimal nausea followed by a few bad days where the head pain and nausea ramp right up. Pt reports that Dr. Herzog her previous PCP managed her migraines, but he is now an ER MD and when she called [facility] they could not get her in for 2 months. Pt would also like to know her results of her09/06/15 CT scan. RN discussed pt call with Dr. 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 Dr. Eagle states CT scans were negative. RN spoke with Kym of [facility] scheduling who states that pt has missed many appt with Digna Lemon APRN and may be discharged from practice if she misses this appt on September 29 @ 0915. RN spoke with instructing her on importance of making 09/30/15 appt with PCP and relayed Dr. Eagle report of negative CT scan. Pt verbalized understanding. documented in this encounter Plan of Treatment Not on file documented as of this encounter Visit Diagnoses Not on filedocumented in this encounter Care Teams Business Development Representative Relationship Specialty Start Date End Date Digna Lemon APRN PCP - General Family Medicine 01/19/15 09/04/18 documented as of this encounter
--- OUTSIDE RECORDS SUMMARY | 2023-10-18 21:27 | XMS_ITS | Encounter Summary ---
Author Organization [facility] Address [facility] [place] [address] Care Team Providers Care Grizzlyman Name Role Phone Ashleigh Gaston APRN Primary Care Provider [phone] Encounter Details Date Type Department Care Team ([facility] st Contact Info) Description 09/25/2016 Orders Only Radiology and Cardiology Results [address] [place] [address] Apd Conversion, Results Provider, Social History Tobacco Use Types Packs/Day Years [...] Procedure Name Priority Date/Time Associated Diagnosis Comments RPR Routine 09/25/2016 12:50 PM EDT documented in this encounter Results * (ABNORMAL) RPR (09/25/2016 12:50 PM EDT) RPR ([facility]) NON REACTIVE(E xternal Lab) NONREACTIVE SHELIA TURNER CONVERSION 09/25/2016 12:5 0 PM EDT Results Provider Apd Conversion IMMUN OLOGY ORDERABLES SHELIA WOODS DAY CONVERSION documented in this encounter Visit Diagnoses Not on filedocumented in this encounter Care Teams Grizzlyman Relationship Specialty Start Date End Date Ashleigh Gaston, FLEET DRIVER [address] [facility] [place] [address] PCP - General Family Medicine 11/11/18 08/02/22 documented as of this encounter
--- OUTSIDE RECORDS SUMMARY | 2023-10-18 21:27 | XMS_ITS | Encounter Summary ---
Author Organization [facility] Address [facility] [place] [address] Care Team Providers Care Spout Positioner Name Role Phone Ashleigh Gaston APRN Primary Care Provider Encounter Details Date Type Department Care Team (Late st Contact Info) Description 06/03/2019 Orders [place] [address] Jennifer Michel MD [facility] [place] [address] Social History Tobacco Use Types Packs/Day Years [...] on filedocumented in this encounter Care Teams Spout Positioner Relationship Specialty Start Date End Date Ashleigh Gaston APRN [address] [place], [place] [id number] PCP - General Family Medicine 11/11/18 08/02/22 documented as of this encounter
--- OUTSIDE RECORDS SUMMARY | 2023-10-18 21:27 | XMS_ITS | Encounter Summary ---
Author Organization [facility] [place] [address] Care Team Providers Care Boilermaker Ship Name Role Phone Ion Digna Huston APRN Primary Care Provider [phone] Encounter Details Date Type Department Care Team (Latest Contact Info) Description 09/06/2015 2:50 PM EDT Laboratory Appointment Lab [address] [place] [id number] Neutrophilia; Leukocytosis, unspecified type Social History Tobacco Use Types Packs/Day Years [...] Priority Date/Time Associated Diagnosis Comments HEMOGRAM Routine 09/06/2015 2:59 PM EDT Neutrophilia DIFFERENTIAL, AUTOMATED Routine 09/06/2015 2:59 PM EDT Neutrophilia CREATININE STAT 09/06/2015 2:59 PM EDT Leukocytosis, unspecified type CBC (WITH DIFF) Routine 09/06/2015 2:59 PM EDT Neutrophilia documented in this encounter Results * (ABNORMAL) Differential, Automated (09/06/2015 2:59 PM EDT) Neutrophil % 62.7 % [facility] Neutrophil Absolute 9.07(H) 1.50 - 6.30 x10(3)/[facility] Lymph % 29.2 % [facility] Lymphocytes Abs 4.2(H) 1.0 - 3.6 x10(3)/[facility] Monocyte % 5.3 % [facility] Monocyte Abs 0.8 0.2 - 1.0 x10(3)/[facility] Eos % 1.9 % [facility] Eosinophils Abs 0.3 0.0 - 0.5 x10(3)/[facility] Basophil % 0.3 % [facility] Baso Absolute 0.0 0.0 - 0.2 x10(3)/[facility] LABOR[facility] Immature Gran % 0.60 % [facility] Comment: Immature granulocytes(IG's)percentage and absolute count will include metamyelocytes, myelocytes, and promyelocytes. Blood smears from CBCs yielding IG's will be scanned manually for concordance. If this scan disagrees with the automated IG or if promyelocytes are noted, a manual differential will be performed. Immature Gran Absolute 0.08(H) 0.00 - 0.05 x10(3)/[facility] LAB[facility] Blood specimen (specimen) 09/06/2015 2:59 PM EDT 09/06/2015 3:07 PM EDT Narrative Resulting Agency Comment Spec In Lab Mena Eagle MD HEMATOLOGY ORDERABLE S [facility] [place] [address] * (ABNORMAL) Hemogram (09/06/2015 2:59 PM EDT) White Blood Cell 14.4(H) 4.0 - 10.0 x10(3)/[facility] Red Blood Cell 4.95 3.93 - 5.22 x10(6)/mc L [facility] Hemoglobin 13.0 11.2 - 15.7 gm/dL [facility] Hematocrit 39.6 34.0 - 45.0 % [facility] Mean Cell Volume 80.0 79.0 - 94.0 fL [facility] Mean Cell Hemoglobin 26.3(L) 26.6 - 32.2 pg [facility] Mean Cell Hemoglobin Concentration 32.8 32.0 - 36.5 gm/dL [facility] Platelet 306 145 - 370 x10(3)/mc L [facility] RDW Standard Deviation 42.1 35.0 - 46.0 fL [facility] RDW coefficient of variation 14.5(H) 10.9 - 14.4 % [facility] Mean Platelet Volume 9.9 9.0 - 12.0 fL [facility] NRBC% auto 0.0 % [facility] NRBC Absolute 0.000 0.000 - 0.012 x10(3)/mc L [facility] Blood specimen (specimen) 09/06/2015 2:59 PM EDT 09/06/2015 3:07 PM EDT Narrative Resulting Agency Comment Spec In Lab Mena Eagle MD HEMATOLOGY ORDERABLE S Performing Organization Address City/State/[facility] Co de Phone Number [facility] [place] [address] * (ABNORMAL) Creatinine (09/06/2015 2:59 PM EDT) Creatinine 0.69(L) 0.70 - 1.20 mg/dL [facility] Comment: Please note that the pediatric reference intervals supplied above were not validated at [facility]. Results from pediatric patients should be interpreted in conjunction to the patient's age, height and muscle mass. Est Glomerular Filtration Rate >60 >=60 [facility] Comment: This estimated GFR (eGFR) value was calculated using the MDRD equation which has been validated on patients between the ages of 18 and 70. The MDRD should not be used to assess kidney function in patients < 18 years of age or in patients with extremes of body mass, or in patients with acute kidney failure. This value should be multiplied by 1.2 for patients. For further information please copy and paste the following links into your internet browser. [email or web address] [email or web address] [email or web address] Blood specimen (specimen) 09/06/2015 2:59 PM EDT 09/06/2015 3:06 PM EDT Narrative Resulting Agency Comment Spec In Lab Mena Eagle MD CHEMISTRY ORDERABLES [facility] [place] [address] documented in this encounter Visit Diagnoses Diagnosis Neutrophilia Other specified disease of white blood cells Leukocytosis, unspecified type documented in this encounter Care Teams Boilermaker Ship Relationship Specialty Start Date End Date Digna Lemon APRN PCP - General Family Medicine 01/19/15 09/04/18 documented as of this encounter
--- OUTSIDE RECORDS SUMMARY | 2023-10-18 21:27 | XMS_ITS | Encounter Summary ---
Author Organization [facility] [place] [address] Care Team Providers Care Histological Illustrator Name Role Phone Digna Lemon APRN Primary Care Provider Encounter Details Date Type Department Care Team (Late st Contact Info) Description 09/13/2015 Orders Only [place] [address] Mena Eagle MD [facility] DR [place]EMATOLOGY [place] [address] Social History Tobacco Use Types Packs/Day Years [...] on filedocumented in this encounter Care Teams Histological Illustrator Relationship Specialty Start Date End Date Digna Lemon APRN PCP - General Family Medicine 01/19/15 09/04/18 documented as of this encounter
--- OUTSIDE RECORDS SUMMARY | 2023-10-18 21:27 | XMS_ITS | Encounter Summary ---
Author Organization [facility] Address [facility] [place] [address] Care Team Providers Care Autotransfusionist Name Role Phone Ashleigh Gaston APRN Primary Care Provider [phone] Encounter Details Date Type Department Care Team ([facility] st Contact Info) Description 09/25/2016 Orders Only Radiology and Cardiology Results [address] [place] [address] Apd Conversion, Results Provider, Social [...] C ANTIBODY Routine 09/25/2016 12:50 PM EDT VITAMIN D, 25-HYDROXY Routine 09/25/2016 12:50 PM EDT RHEUMATOID FACTOR, QUANT Routine 09/25/2016 12:50 PM EDT VITAMIN B12 Routine 09/25/2016 12:50 PM EDT documented in this encounter Results * (ABNORMAL) Vitamin B12 (09/25/2016 12:50 PM EDT) Vitamin B12 470([facility] [employer] [facility] Lab) 211 - 946 pg/mL SHELIA WOODS CONVERSION 09/25/2016 12:5 0 PM EDT Results Provider Apd Conversion MD CORTES TELLEZ ORDERABLES SHELIA CONVERSION * (ABNORMAL) Rheumatoid factor, quant (09/25/2016 12:50 PM EDT) Rheumatoid Factor <10.0(Exte rnal Lab) 0.0 - 13.9 IU/mL SHELIA WOODS CONVERSION 09/25/2016 12:5 0 PM EDT Results Provider Apd Conversion MD CORTES TELLEZ ORDERABLES SHLEIA CONVERSION * (ABNORMAL) Vitamin D, 25-Hydroxy (09/25/2016 12:50 PM EDT) Vitamin D Total 25 OH 37.0(Exter nal Lab) 30.0 - 100.0 ng/mL SHELIA WOODS CONVERSION 09/25/2016 12:5 0 PM EDT Results Provider Apd Conversion MD CORTES TELLEZ ORDERABLES CONVERSION * (ABNORMAL) Hepatitis C Antibody (09/25/2016 12:50 PM EDT) Hepatitis C Antibody <0.1(Exter nal Lab) 0.0 - 0.9 SHELIA WOODS CONVERSION 09/25/2016 12:5 0 PM EDT Results Provider Apd Conversion MD CORTES TELLEZ ORDERABLES SHELIA CONVERSION documented in this encounter Visit Diagnoses Not on filedocumented in this encounter Care Teams Autotransfusionist Relationship Specialty Start Date End Date Ashleigh Gaston, UTILIZATION REVIEW COORDINATOR [address] [facility] [place] [address] PCP - General Family Medicine 11/11/18 08/02/22 documented as of this encounter
--- OUTSIDE RECORDS SUMMARY | 2023-10-18 21:27 | XMS_ITS | Encounter Summary ---
Author Organization [facility] [place] [address] Care Team Providers Care Overnight Houseperson Name Role Phone Ashleigh Gaston APRN Primary Care Provider Reason for Referral * Consultation (Routine) - Closed Specialty Diagnoses / Procedures Referred By Contac t Referred To Contact Endocrinology Diagnoses Type 2 diabetes mellitus without complication, with long-term current use of insulin Jennifer Michel MD [facility] [place] [address] [facility] Endocrinology [address] [place] [phone] Referral ID Status Reason Start Date Expiration Date V isits Requested Visits Authorized [id number] Closed Consult, Test & Treat 05/30/2019 05/29/2020 1 1 Reason for Visit * Consultation (Routine) - Specialty Diagnoses / Procedures Referred By Contac t Referred To Contact Endocrinology Diagnoses Type 2 diabetes mellitus without complications Ashleigh Gaston APRN [address] [place] [address] [facility] Endocrinology [address] [place] [phone] Referral ID Status Reason Start Date Expiration Date V isits Requested Visits Authorized [id number] Consult, Test & Treat [facility] PCP Updated and/or Approved 05/01/2019 11/01/2019 6 6 Encounter Details Date Type Department Care Team (Latest Contact Info) Description 05/30/2019 2:00 PM EDT TH Visit (TeleHealth) Endocrinology at [facility] [place] [address] Galen Degroot MD [facility] [place] [address] Jennifer Michel MD [facility] [place] [address] Type 2 diabetes mellitus without complication, with long-term current use of insulin Social History Tobacco Use Types Packs/Day Years [...] on file documented as of this encounter Patient Instructions * Patient Instructions* Jennifer Michel - 05/30/2019 2:00 PM EDT Insulin Instructions Instructions for Lantus Insulin This is the long-acting insulin. Inject Lantus at the same time each day. Your current dose is 60 units. If the BG before breakfast is higher than 150 for two days in a row, add TWO units to the Lantus dose. This becomes your new dose. If the BG before breakfast is lower than 90, subtract TWO units from the Lantus dose and that will be your new dose. Continue to adjust the dose by 1-2 units every 2 days until your morning BG is in the target range of 90-140. If you should forget to take your Lantus, take your usual dose as soon as you realize it was missed. Gradually work back to taking it at your usual time, moving it by 2 - 3 hours each day. documented in this encounter Progress Notes * Jennifer Michel - 05/30/2019 2:00 PM EDT Subjective: Patient ID: Alis Cardenas is a 48 y.o. female. This visit was conducted via telephone given the current COVID-19 pandemic, to which pt consented verbally prior to the beginning of the visit. HPI Alis Cardenas is a 48 y/o female with a past medical hx significant for bipolar d/o, borderlinepersonality d/o, chronic leukocytosis of unclear etiology, pate's esophagus, and moderate persistent asthma presenting in referral from Ashleigh Gaston APRN for discussion related to DMII management. Was initially begun on metformin- didn't agree with her system- was begun on glipizide at that point. Insulin was begun shortly after the glipizide. Alis reports that she was borderline gestational diabetes with 2 of her pregnancies. Was able to wean off glipizide but then things got out ofcontrol. Does forget insulin sometimes, like last night. Alis reports that she shuts down when overwhelmed and it takes her a while to pick this up. Has been losing weight, has reduced from 314-->270- wants her glands checked thoroughly because she feels like she's at a plateau. Reports that she was taken off glipizide about 3 months ago due to severe hypoglycemia related to this med. Does not forget the jardiance, does sometimes forget bydureon. Is experiencing a yeast infection currently and feels like she's experienced one long yeast infection lately. Denies post prandial abdominal pain or nausea. Tolerating bydureon without difficulties, due for re-dosing Sunday. Diabetes Mellitus Type II * Diagnosed (year): Gestational DM borderline in pregnancies 25 years ago * Last Hgb A1C: 8.0% in April with PCP ( I do not have formal documentation of this) - Current DM medications: - Orals: jardiance - Injectables: insulin nightly 60U, bydureon once weekly - Monitors sugars: is not checking BG levels- only checks if she feels real terrible, if it's real low feels like she's breathing in laughing gas - History of hypoglycemia: rare since d/c glipizide - [place] for DM[place] [facility] [place] Diabetes-related complications: * Nephropathy: 12.4 microg/mg * Retinopathy: Recently, no retinopathy * Neuropathy: 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, reports that it could be due to Lyme * Autonomic dysfunction: Does have some * History of amputations or foot ulcers: none Lifestyle: 24-hour diet history: 1 meal/day snacks/day * Breakfast: Does not eat breakfast * Lunch: Something light rarely * Dinner: Meat and potatoes between 5-7, eats part of it, takes meds and has more later 1-2 hours later * Snacks: sometimes * Desserts: Not many * Drinks: Sugar free soda 2019QI Support and Resources: - Visit with reacher in the last 2 years: has not- when she's scheduled she misses the appointments- tries to read what's good and what isn't Social Hx: Shelby Reich Went on leave from [employer] - 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 Victoza 3-Fabian 0.6 mg/0.1 mL (18 mg/3 mL) Pen Injector, Inject 0.6mg daily. After 1 week, increase to 1.2mg daily., Disp: 9 mL, Rfl: 3 ??? fluconazole (Diflucan) 150 mg Tablet, Take 1 tablet. If symptoms persist after 72 hours, take the second tablet., Disp: 1 tablet, Rfl: 0 ??? Jardiance 25 mg Tablet, Take 25 mg by mouth daily., Disp: , Rfl: ??? omeprazole (PriLOSEC) 40 mg Capsule, Delayed Release(E.C.), Take 40 mg by mouth daily., Disp: ,Rfl: ??? BD Ultra-Fine Mini Pen Needle 31 gauge x 3/16 Needle, Inject 1 each subcutaneously nightly., Disp: , Rfl: ??? cholecalciferol, Vitamin D3, (Vitamin D3) 1,000 unit Tablet, Take 1,000 Units by mouth daily., Disp: , Rfl: ??? ONETOUCH ULTRA TEST Strip, , Disp: , Rfl: ??? hydrOXYzine (ATARAX) 25 mg Tablet, TAKE ONE TABLET BY MOUTH AT BEDTIME NEEDED, Disp: , Rfl: 3 ??? LANTUS SOLOSTAR U-100 INSULIN pen, INJECT 20 UNITS UNDER THE SKIN EVERY MORNING AND 30 UNITS ATBEDTIME, Disp: , Rfl: 5 ??? nystatin (MYCOSTATIN) 500,000 unit Tablet, TAKE TWO TABLETS BY MOUTH FOUR TIMES A DAY OR DIRECTED, Disp: , Rfl: 5 ??? rosuvastatin (CRESTOR) 40 mg Tablet, nightly., Disp: , Rfl: ??? topiramate (TOPAMAX) 50 mg Tablet, 50 mg daily., Disp: , Rfl: ??? LYRICA 150 mg Capsule, Take 150 mg by mouth nightly., Disp: , Rfl: 1 ??? ADVAIR HFA 115-21 mcg/actuation HFA Aerosol Inhaler, Inhale 2 puffs into the lungs daily as needed., Disp: , Rfl: 3 ??? MARIJUANA INHL, Inhale into the lungs as needed., Disp: , Rfl: ??? SUMAtriptan (IMITREX) 25 mg Tablet, Take 25 mg by mouth as needed., Disp: , Rfl: 3 ??? loratadine (CLARITIN) 10 mg Tablet, Take 10 mg by mouth daily., Disp: , Rfl: ??? mirtazapine (REMERON) 15 mg Tablet, Take 15 mg by mouth nightly., Disp: , Rfl: ??? tiZANidine (ZANAFLEX) 4 mg Tablet, Take 4 mg by mouth every 6 hours as needed., Disp: , Rfl: ??? sertraline (ZOLOFT) 100 mg tablet, Take 100 mg by mouth 2 times daily., Disp: , Rfl: ??? EPINEPHrine (EPIPEN) 0.3 mg/0.3 mL (1:1,000) injection, Inject 0.3 mLs into the muscle once as needed (difficulty breathing, throat swelling, loss of consciousness) for up to 1 dose. Call 911., Disp: 2 each, Rfl: 1 ??? LEVALBUTEROL HCL (XOPENEX INHL), Inhale 2 puffs into the lungs daily as needed., Disp: , Rfl: ??? ferrous sulfate 325 mg (65 mg iron) EC tablet, Take 325 mg by mouth daily., Disp: , Rfl: Current Facility-Administered Medications: ??? albuterol (PROVENTIL) nebulizer solution 2.5 mg, 2.5 mg, Nebulization, Continuous PRN, Angi Burch MD, 2.5 mg at 07/03/14 1540 Review of Systems As per HPI active yeast infection, otherwise per HPI Objective: Physical Exam This was a telephone visit, as such pt was not examined Assessment and Plan: Alis Cardenas is a 48 y/o female with a past medical hx significant for DMII, moderately-well controlled without significant co-morbidities presenting in referral from Ashleigh Gaston APRN for medication management related to this condition. Currently, Alis is taking an SGLT2 inhibitor, an older GLP-1 agonist, and insulin. Alis does admit to missing her insulin doses at times, and she is notcurrently checking her blood glucose levels frequently. Additionally, Alis currently is experiencing symptoms suggestive of a yeast infection. It sounds as though this is not the first yeast infection that is occurred since starting the SGLT2 inhibitor. Today, I discussed with Alis the fact that we can treat this yeast infection but if it does not resolve completely, we should consider discontinuation of the SGLT2 inhibitor given increased risk of genitourinary infections with this medication, including Oliver's gangrene. I would also like toswitch Alis to a stronger GLP-1 agonist, namely Victoza. In order to limit the likelihood of gastrointestinal side effects following initiation, I will start at 0.6 mg daily and uptitrate to 1.2 mg daily as tolerated. GLP-1 agonists are weight negative and have significant cardiovascular mortality benefits. The next dose of bydureon is due on Sunday; will initiate Victoza at that time. It is possible that Alis may need to down titrate her Lantus based upon the switch from bydureon to Victoza, and as such I have provided instructions to do this based upon fasting blood glucose levels. Alis currently does have lancets, test strips and a glucometer so she is fully prepared to check her blood glucose levels fasting. Finally, I will refer the record to our dietitian for discussion related to dietary modifications that could help drop the A1c down to less than 7.0%. #DMII, moderately well controlled with HbA1c 8.0%, without microvascular complications at this time -goal HbA1c is 7.0% or less -refer pt to perinatal educator for discussion related to dietary modification -provided 1x rx for fluconazole 150mg, re-dose after 72 hours if sx do not resolve -if yeast infection does not resolve with this medication, may need to discontinue SGLT-2 inhibitorgiven increase risk of yeast infections, UTI with this -switch bydureon to liraglutide, a stronger GLP-1 agonist -initiate at 0.6mg daily, increase to 1.2mg after 1 week -warned against risk of pancreatitis with this med -continue lantus 60U qhs, down-titrate based upon fasting BG level -check BG level each AM, titrate based upon instructions below -microalbumin/creat normal 1 year ago, perform annually -pt is on a high intensity statin at this time -had dilated eye exam 1 year ago, perform annually Insulin Instructions Instructions for Lantus Insulin This is the long-acting insulin. Inject Lantus at the same time each day. Your current dose is 60 units. If the BG before breakfast is higher than 150 for two days in a row, add TWO units to the Lantus dose. This becomes your new dose. If the BG before breakfast is lower than 90, subtract TWO units from the Lantus dose and that will be your new dose. Continue to adjust the dose by 1-2 units every 2 days until your morning BG is in the target range of 90-140. If you should forget to take your Lantus, take your usual dose as soon as you realize it was missed. Gradually work back to taking it at your usual time, moving it by 2 - 3 hours each day. Case discussed with staff Ammunition Specialist, Galen Degroot MD. Will talk with Alis again in 1month from today at 11AM. Jennifer Michel MD PGY-5 [facility] [place]ocr[place] Fellow Pager #[phone] * Galen Degroot MD - 05/30/2019 2:00 PM EDT I have reviewed patient's chart and Dr. Michel's Telehealth note and I agree with the details as written. The assessment and plan were formulated in discussion with me and I agree with them as documented. Galen Degroot MD, PhD, FACP, FACE documented in this encounter Plan of Treatment Scheduled Referrals Name Type Priority Associated Diagnoses Orde r Schedule Referral to Diabetic Education Outpatient Referral Routine Type 2 diabetes mellitus without complication, with long-term current use of insulin Ordered: 05/30/2019 documented as of this encounter Visit Diagnoses Diagnosis Type 2 diabetes mellitus without complication, with long-term current use of insulin documented in this encounter Care Teams Overnight Houseperson Relationship Specialty Start Date End Date Ashleigh Gaston, SALLY [address] [place] [address] PCP - General Family Medicine 11/11/18 08/02/22 documented as of this encounter
--- OUTSIDE RECORDS SUMMARY | 2023-10-18 21:27 | XMS_ITS | Encounter Summary ---
Author Organization [facility] [place] [address] Care Team Providers Care Vp Integrity Name Role Phone Ashleigh Gaston APRN Primary Care Provider [phone] Reason for Visit * Reason Onset Date Comments Prior Authorization 05/30/2019 for medicati on for victoza Encounter Details Date Type Department Care Team (Late st Contact Info) Description 05/30/2019 Telephone [place] [id number] Chiquita Aponte CCMA Prior Authorization (for medication for victoza) Social History Tobacco Use Types Packs/Day Years [...] encounter Miscellaneous Notes * Telephone Encounter - Melba Ward CMA - 06/04/2019 9:34 AM EDT Medication Prior Authorization for Primary Care Approved: Victoza Start Date: 06/03/2019 End Date: 06/02/2020 Case/Reference #: [id number] See Approval Letter in scanned documents. Additional Notes: * Telephone Encounter - Chiquita Aponte CCMA - 05/30/2019 3:40 PM EDT Medication Prior Authorization for Primary Care [facility] [place] [phone] Request received via: CMM Patient: Alis Cardenas Patient : 1970 Insurance Company: [place] Medicaid Sent via: CMM Kuhn: [id number] Physician: Ashleigh Gaston APRN Medication Requested:Victoza 3-Fabian 0.6 mg/0.1 mL (18 mg/3 mL) Pen Injector Frequency/Sig: ct 0.6mg daily. After 1 week, increase to 1.2mg daily. Disp: 9 ML Refills: 3 Currently taking: NO If yes, how long: Diagnosis for this medication: ICD-10 code: E11.9 Prior medications trialed in this patient: Medication: Jardiance Approx Dates: 2019 Outcome/Adverse Reactions: inadequate Response by itself Medication: glipizide Approx Dates: 2019 Outcome/Adverse Reactions: Inadequate response Medication: Lantus solostar Approx Dates: 2017 Outcome/Adverse Reactions: inadequate response Medication:bydureon Approx: 2019 Outcome: Inadequate response Additional Notes: documented in this encounter Plan of Treatment Not on file documented as of this encounter Visit Diagnoses Not on filedocumented in this encounter Care Teams Vp Integrity Relationship Specialty Start Date End Date Ashleigh Gaston APRN [address] [place] [address] PCP - General Family Medicine 11/11/18 08/02/22 documented as of this encounter
--- OUTSIDE RECORDS SUMMARY | 2023-10-18 21:27 | XMS_ITS | Encounter Summary ---
Author Organization [facility] Address [facility] [place] [address] Care Team Providers Care Commercial Relationship Manager Name Role Phone Ashleigh Gaston APRN Primary Care Provider [phone] Encounter Details Date Type Department Care Team ([facility] st Contact Info) Description 09/25/2016 Orders Only Radiology and Cardiology Results [address] [place] [address] Apd Conversion, Results Provider, Social [...] Procedure Name Priority Date/Time Associated Diagnosis Comments SEDIMENTATION RATE Routine 09/25/2016 12 :50 PM EDT documented in this encounter Results * (ABNORMAL) Sedimentation rate (09/25/2016 12:50 PM EDT) Sedimentation Rate Automated 44(ExtH) 0 - 20 mm/hr SHELIA WOODS CONVERSION 09/25/2016 12:5 0 PM EDT Results Provider Apd Conversion HEMAT OLOGY ORDERABLES SHELIA WOODS DAY CONVERSION documented in this encounter Visit Diagnoses Not on filedocumented in this encounter Care Teams Commercial Relationship Manager Relationship Specialty Start Date End Date Ashleigh Gaston, MEDIA RELATIONS DIRECTOR [address] [place] [address] PCP - General Family Medicine 11/11/18 08/02/22 documented as of this encounter
--- OUTSIDE RECORDS SUMMARY | 2023-10-18 21:27 | XMS_ITS | Encounter Summary ---
Author Organization [facility] Address [facility] [place] [address] Care Team Providers Care Cheese Production Supervisor Name Role Phone Digna Lemon APRN Primary Care Provider [phone] Reason for Visit * Reason Comments Follow-up Encounter Details Date Type Department Care Team (Late st Contact Info) Description 11/22/2015 1:30 PM EDT Office Visit Hematology [place] [address] Maxwell Eagle MD [facility] [place] [address] Neutrophilia Social History Tobacco Use Types Packs/Day Years [...] Sign Reading Time Taken Comments Blood Pressure 148/85 11/22/2015 12:35 PM EDT Pulse 117 11/22/2015 12:35 PM EDT Temperature 36.7 ??C (98.1 ??F) 11/22/2015 1 2:35 PM EDT Respiratory Rate 22 11/22/2015 12:3 5 PM EDT Oxygen Saturation 96% 11/22/2015 12: 35 PM EDT Inhaled Oxygen Concentration - - Weight 137.3 kg (302 lb 9.6 oz) 016 12:35 PM EDT Height 158 cm (5' 2.21) 11/22/2015 12: 35 PM EDT Body Mass Index 54.98 11/22/2015 12:35 PM EDT documented in this encounter Progress Notes * Maxwell Eagle MD - 11/22/2015 1:30 PM EDT Heme/Onc Outpatient Follow Up Date of Follow Up: 11/22/15 Reason for Follow Up: Neutrophilia Interval Hx (08/20/15) Not feeling well since last visit. Very tired. Night sweats. Nausea. HPI Alis Cardenas is a 45 y.o. female with PMH significant for DJD and fibromyalgia who reports a long-standing hx of leukocytosis as well. She reports that she was advised to have it investigated earlier but she was afraid to do so. She denies any constitutional symptoms including fever, chills, weight loss, or night sweats. She denies new or enlarging lymph nodes. She does report a history of smoking though she quit 1 month ago. She smokes medical marijuana for her back pain/fibromyalgia. She also has a hx of sleep apnea but she does not use her CPAP machine. Patient Active Problem List Diagnosis Date Noted ??? Encounter for long-term (current) use of other medications 06/08/2014 ??? Radiculopathy of cervical region 06/08/2014 ??? Neck pain 05/05/2014 Chronic ??? Allergic reaction to spider bite 09/17/2013 ??? Nasal congestion 09/17/2013 ??? Mold exposure 09/17/2013 ??? Moderate persistent asthma 09/17/2013 ??? Fibromyalgia 03/16/2011 ??? Back pain 03/16/2011 ??? S/P cervical discectomy 03/16/2011 ??? Depression 03/16/2011 ??? Vitamin D deficiency 03/16/2011 Past Medical History Diagnosis Date ??? Asthma Past Surgical History Procedure Laterality Date ??? Tonsillectomy ??? Adenoidectomy Family History: Uncle with leukemia (? CLL) Father MS Social History: 3 children 21, 13, 14 Not able to work due to her physical disability Smoked up until l1 month ago +medical marijuana for pain No etoh Social History Social History ??? Marital status: Spouse name: N/A ??? Number of children: N/A ??? Years of education: N/A Occupational History ??? Not on file. Social History Main Topics ??? Smoking status: Former Smoker Packs/day: 0.50 Years: 10.00 Types: Cigarettes Quit date: 04/04/2015 ??? Smokeless tobacco: Never Used ??? Alcohol use Yes Comment: Socially, 1-2 times per month ??? Drug use: No ??? Sexual activity: No Other Topics Concern ??? Not on file Social History Narrative Allergies: Allergies Allergen Reactions ??? Codeine Nausea And Vomiting ??? Augmentin [Amoxicillin-Pot Clavulanate] Hives ??? Cymbalta [Duloxetine] Other (See Comments) Nausea and chest pain ??? Lactose Diarrhea and Nausea And Vomiting Medications: Current Outpatient Prescriptions Medication Sig Dispense Refill ??? SUMAtriptan (IMITREX) 25 mg Tablet Take 25 mg by mouth as needed. 3 ??? topiramate (TOPAMAX) 25 mg Tablet Take 25 mg by mouth 2 times daily as needed. 1 ??? hydrOXYzine (ATARAX) 10 mg Tablet Take 10 mg by mouth 3 times daily as needed for Itching. ??? loratadine (CLARITIN) 10 mg Tablet Take 10 mg by mouth daily. ??? mirtazapine (REMERON) 15 mg Tablet Take 15 mg by mouth nightly. ??? tiZANidine (ZANAFLEX) 4 mg Tablet Take 4 mg by mouth every 6 hours as needed. ??? propranolol (INDERAL) 10 mg Tablet Take 30 mg by mouth every evening. ??? cloNIDine HCl (CATAPRES) 0.1 mg Tablet Take 0.1 mg by mouth nightly. ??? sertraline (ZOLOFT) 100 mg tablet Take 100 mg by mouth 2 times daily. ??? EPINEPHrine (EPIPEN) 0.3 mg/0.3 mL (1:1,000) injection Inject 0.3 mLs into the muscle once as needed (difficulty breathing, throat swelling, loss of consciousness) for up to 1 dose. Call 911. 2 each 1 ??? LEVALBUTEROL HCL (XOPENEX INHL) Inhale into the lungs. ??? pregabalin (LYRICA) 75 mg capsule Take 100 mg by mouth 2 times daily. ??? ferrous sulfate 325 mg (65 mg iron) EC tablet Take 325 mg by mouth daily. ??? Cholecalciferol, Vitamin D3, (VITAMIN D-3) 2,000 unit Cap Take by mouth 2 times daily. ??? prochlorperazine (COMPAZINE) 10 mg Tablet Take 10 mg by mouth as needed. 3 Current Facility-Administered Medications Medication Dose Route Frequency Provider Last Rate Last Dose ??? albuterol (PROVENTIL) nebulizer solution 2.5 mg 2.5 mg Nebulization Continuous PRN Angi Burch MD 2.5 mg at 07/03/14 1540 Review of Systems Review of Systems - History obtained from the patient General ROS: negative for - chills, fever, malaise or weight loss Psychological ROS: negative Ophthalmic ROS: negative ENT ROS: negative Allergy and Immunology ROS: negative Hematological and Lymphatic ROS: negative for - bleeding problems, blood clots, blood transfusions,bruising, jaundice, night sweats, pallor, swollen lymph nodes or weight loss Endocrine ROS: negative Respiratory ROS: no cough, shortness of breath, or wheezing Cardiovascular ROS: no chest pain or dyspnea on exertion Gastrointestinal ROS: no abdominal pain, change in bowel habits, or black or bloody stools Genito-Urinary ROS: no dysuria, trouble voiding, or hematuria Musculoskeletal ROS: positive for - joint pain and muscle pain Neurological ROS: positive for - weakness and R sided weakness Dermatological ROS: negative Physical Exam BP 148/85 (Patient Position: Sitting) Pulse 117 Temp 36.7 ??C (98.1 ??F) (Oral) Resp 22 Ht 158 cm (5' 2.21) Wt (!) 137.3 kg (302 lb 9.6 oz) SpO2 96% BMI 54.98 kg/m2 General Appearance: Alert, cooperative, no distress, appears stated age Head: Normocephalic, without obvious abnormality, atraumatic Eyes: PERRL, conjunctiva/corneas clear, EOM's intact Nose: Nares normal, septum midline,mucosa normal, no drainage or sinus tenderness Throat: Lips, mucosa, and tongue normal; teeth and gums normal Neck: Supple, symmetrical, trachea midline, no adenopathy; Back: Symmetric, no curvature, ROM normal, no CVA tenderness Lungs: Clear to auscultation bilaterally, respirations unlabored Heart: Regular rate and rhythm, S1 and S2 normal, no murmur, rub, or gallop Abdomen: Obese, no palpable organomegaly, no tenderness Extremities: Extremities normal, atraumatic, no cyanosis or edema Skin: Skin color, texture, turgor normal, no rashes or lesions Lymph nodes: Cervical, supraclavicular, and axillary nodes normal Neurologic: Normal Lab Results Component Value Date WBC 11.5 (H) 11/22/2015 RBC 5.06 11/22/2015 HGB 13.0 11/22/2015 HCT 40.6 11/22/2015 MCV 80.2 (L) 11/22/2015 MCH 25.7 (L) 11/22/2015 MCHC 32.0 11/22/2015 PLATELET 313 11/22/2015 RDWCV 13.9 11/22/2015 Assessment and Plan Alis Cardenas is a 45 y.o. female With leukocytosis of unclear etiology - Peripheral blood sent for flow cytometry today (pending) -JAK2 and BCR ABl are negative -ESR and CRP are both elevated -My suspicion is that her neutrophilia is a reactive process rather than a primary hematologic condition -She has no other cytopenias -If anything, her neutrophilia is improving but her symptoms are worsening -I will forward these results to her PCP MAXWELL EAGLE MD 11/22/2015 documented in this encounter Plan of Treatment Not on file documented as of this encounter Results * High Sensitivity CRP (11/22/2015 12:17 PM EDT) [facility] C-Reactive Protein High Sensitivity 26.7 mg/L [facility] Comment: Interpretations: 1) For accurate cardiac [...] Narrative Resulting Agency Comment Spec In Lab Maxwell Eagle MD CHEMISTRY ORDERABLES Performing Organization Address [facility] [[email or web address]] Co de Phone Number [facility] [place] [address] * (ABNORMAL) Sedimentation rate (11/22/2015 12:17 PM EDT) Sedimentation Rate Automated 29(H) 0 - 20 mm/hr [facility] Blood specimen (specimen) 11/22/2015 12:17 PM EDT 11/22/2015 12:31 PM EDT Narrative Resulting Agency Comment Spec In Lab Maxwell Eagle MD HEMATOLOGY ORDERABLE S Performing Organization Address [facility] [[email or web address]] Co de Phone Number [facility] [place] [address] documented in this encounter Visit Diagnoses Diagnosis Neutrophilia Other specified disease of white blood cells documented in this encounter Care Teams Cheese Production Supervisor Relationship Specialty Start Date End Date Digna Lemon APRN PCP - General Family Medicine 01/19/15 09/04/18 documented as of this encounter
--- OUTSIDE RECORDS SUMMARY | 2023-10-18 21:27 | XMS_ITS | Encounter Summary ---
Author Organization [facility] [place] [address] Care Team Providers Care Cashier Payments Received Name Role Phone Digna Lemon APRN Primary Care Provider [phone] Encounter Details Date Type Department Care Team (Late st Contact Info) Description 11/24/2015 Telephone Hematology [place] [id number] Mena Eagle MD [facility] [address] [place] [address] Social History Tobacco Use Types Packs/Day Years [...] Telephone Encounter - Mena Eagle MD - 11/24/2015 12:18 PM EDT Blood work was reviewed. I sent her note wit the findings to her PCP on the day I saw her. * Telephone Encounter - Mena Eagle MD - 11/24/2015 12:15 PM EDT ----- Message from Elvira Mclean Romaddison sent at 11/24/2015 11:56 AM EDT ----- Regarding: LAB RESULTS Contact: Alis Espinosa called looking for her lab results. She said you told her to call in if she hadn't heard anything by today. Can you please call her? Alis can be reached at [phone]. Thank you, Elvira documented in this encounter Plan of Treatment Not on file documented as of this encounter Visit Diagnoses Not on filedocumented in this encounter Care Teams Cashier Payments Received Relationship Specialty Start Date End Date Digna Lemon APRN PCP - General Family Medicine 01/19/15 09/04/18 documented as of this encounter
--- OUTSIDE RECORDS SUMMARY | 2023-10-18 21:27 | XMS_ITS | Encounter Summary ---
Author Organization [facility] Address [facility] [place] [address] Care Team Providers Care Operations Inspector Name Role Phone Ashleigh Gaston APRN Primary Care Provider Reason for Visit * Reason Comments Medication Refill Encounter Details Date Type Department Care Team (Late st Contact Info) Description 06/02/2019 Refill [place] [address] Jennifer Michel MD [facility] [place] [address] Social History Tobacco Use Types Packs/Day Years [...] on filedocumented in this encounter Care Teams Operations Inspector Relationship Specialty Start Date End Date Ashleigh Gaston APRN [address] [place], [place] [id number] PCP - General Family Medicine 11/11/18 08/02/22 documented as of this encounter
--- OUTSIDE RECORDS SUMMARY | 2023-10-18 21:27 | XMS_ITS | Encounter Summary ---
Author Organization [facility] Address [facility] [place] [address] Care Team Providers Care Auto Inspector Name Role Phone Digna Lemon APRN Primary Care Provider [phone] Reason for Visit * Reason Comments Pain Management Neck Pain Encounter Details Date Type Department Care Team (Late st Contact Info) Description 06/08/2016 3:30 PM EDT Office [place] [address] Souleymane Venegas MD [facility] [place] [address] Back pain, unspecified back location, unspecified back pain laterality, unspecified chronicity; Fibromyalgia Social History Tobacco Use Types Packs/Day Years [...] Sign Reading Time Taken Comments Blood Pressure 133/85 06/08/2016 3:14 PM EDT Pulse 116 06/08/2016 3:14 PM EDT Temperature - - Respiratory Rate - - Oxygen Saturation 98% 06/08/2016 3:14 PM EDT Inhaled Oxygen Concentration - - Weight 137 kg (302 lb) 06/08/2016 3:14 PM EDT Height 160 cm (5' 3) 06/08/2016 3:14 PM EDT Body Mass Index 53.5 06/08/2016 3:14 PM EDT documented in this encounter Progress Notes * Soulemyane Venegas MD - 06/08/2016 3:30 PM EDT Mr. Cardenas presents today for medical marijuana paperwork. I completed the paperwork for her 1 year ago. This was contingent upon the fact that she would quit smoking. She still does not smoke. She lives with her mother, who is a smoker, although her mother has to quit now too because they just changed the rules at her apartment, and so has become a no smoking apartment. She is using cannabis effectively and responsibly. She has had no side effects. She is alert, articulate, clear headed today, walking with a normal gait, displaying a normal range of emotion. I have completed the paperwork for her again. Her diagnosis is post-laminectomy pain syndrome, intractable pain. She lives in the [facility] [place], [place]. documented in this encounter Plan of Treatment Not on file documented as of this encounter Visit Diagnoses Diagnosis Back pain, unspecified back location, unspecified back pain laterality, unspecified chronicity Fibromyalgia Mylagia and myositis, unspecified documented in this encounter Care Teams Auto Inspector Relationship Specialty Start Date End Date Digna Lemon APRN PCP - General Family Medicine 01/19/15 09/04/18 documented as of this encounter
--- OUTSIDE RECORDS SUMMARY | 2023-10-18 21:27 | XMS_ITS | Encounter Summary ---
Author Organization [facility] Address [facility] [place] [address] Care Team Providers Care Aml Analyst Name Role Phone Ashleigh Gaston APRN Primary Care Provider [phone] Encounter Details Date Type Department Care Team ([facility] st Contact Info) Description 09/25/2016 Orders Only Radiology and Cardiology Results [address] [place] [address] Apd Conversion, Results Provider, Social [...] Procedure Name Priority Date/Time Associated Diagnosis Comments IRON AND TIBC Routine 09/25/2016 12:50 PM EDT documented in this encounter Results * (ABNORMAL) Iron and TIBC (09/25/2016 12:50 PM EDT) TIBC 274(Sap Basis Administrator al Lab) 250 - 450 ug/dL SHELIA TURNER CONVERSION 09/25/2016 12:5 0 PM EDT Results Provider Apd Conversion MD CORTES TELLEZ ORDERABLES SHELIA WOODS DAY CONVERSION documented in this encounter Visit Diagnoses Not on filedocumented in this encounter Care Teams Aml Analyst Relationship Specialty Start Date End Date Ashleigh Gaston, ADULT PSYCHIATRIST [address] [place] [address] PCP - General Family Medicine 11/11/18 08/02/22 documented as of this encounter
--- OUTSIDE RECORDS SUMMARY | 2023-10-18 21:27 | XMS_ITS | Encounter Summary ---
[place] [address] Care Team Providers Care Alcoholic Counselor Name Role Phone Clari Hernandez APRN Primary Care Provider [phone] Reason for Referral * Consultation (Routine) - Closed Specialty Diagnoses / Procedures Referred By Contac t Referred To Contact Obstetrics and Gynecology Diagnoses Obesity, unspecified classification, unspecified obesity type, unspecified whether serious comorbidity present Abnormal uterine and vaginal bleeding, unspecified Type 2 diabetes mellitus with hyperglycemia, unspecified whether halfway insulin use Luz Elena Stahl DO [address] [place] [address] [place] [address] [facility] Pile Driver Operator [address] [address] Referral ID Status Reason Start Date Expiration Date V isits Requested Visits Authorized [id number] Closed Consult, Test & Treat PCP Updated and/or Approved 08/03/2022 08/03/2023 6 6 Encounter Details Date Type Department Care Team (Late st Contact Info) Description 08/03/2022 Transcribe Orders eDH Incoming Referrals [phone] Luz Elena Stahl DO [address] [place] [address] [place] [address] Obesity, unspecified classification, unspecified obesity type, unspecified whether serious comorbidity present; Abnormal uterine and vaginal bleeding, unspecified; Type 2 diabetes mellitus with hyperglycemia, unspecified whether halfway insulin use Social History Tobacco Use Types Packs/Day Years [...] as of this encounter Plan of Treatment Scheduled Referrals Name Type Priority Associated Diagnoses Orde r Schedule Referral to Ob-Silver Cleaner Outpatient Referral Routine Obesity, unspecified classification, unspecified obesity type, unspecified whether serious comorbidity present Abnormal uterine and vaginal bleeding, unspecified Type 2 diabetes mellitus with hyperglycemia, unspecified whether halfway insulin use Ordered: 08/03/2022 documented as of this encounter Visit Diagnoses Diagnosis Obesity, unspecified classification, unspecified obesity type, unspecified whether serious comorbidity present Abnormal uterine and vaginal bleeding, unspecified Type 2 diabetes mellitus with hyperglycemia, unspecified whether terminal block assembler insulin use documented in this encounter Care Teams Alcoholic Counselor Relationship Specialty Start Date End Date Clari [place] [address] PCP - General Family Medicine 08/03/22 documented as of this encounter
--- OUTSIDE RECORDS SUMMARY | 2023-10-18 21:27 | XMS_ITS | Encounter Summary ---
Author Organization [facility] Address [facility] [place] [address] Care Team Providers Care Electronic Pagination System Operator Name Role Phone Ashleigh Gaston APRN Primary Care Provider [phone] Encounter Details Date Type Department Care Team ([facility] st Contact Info) Description 09/25/2016 Orders Only Radiology and Cardiology Results [address] [place] [address] Apd Conversion, Results Provider, Social [...] Procedure Name Priority Date/Time Associated Diagnosis Comments T3, FREE Routine 09/25/2016 12:50 PM EDT TSH Routine 09/25/2016 12:50 PM EDT T4, FREE Routine 09/25/2016 12:50 PM EDT IRON Routine 09/25/2016 12:50 PM EDT FERRITIN Routine 09/25/2016 12:50 PM EDT documented in this encounter Results * (ABNORMAL) T3, free (09/25/2016 12:50 PM EDT) Free T3 2.89(Exter nal Lab) 2.18 - 3.98 pg/mL SHELIA WOODS DAY CONVERSION 09/25/2016 12:5 0 PM EDT Results Provider Apd Conversion MD CHEMI STRY ORDERABLES Performing Organization Address City/[facility]/ZIP Co de Phone Number SHELIA WOODS CONVERSION * (ABNORMAL) Ferritin (09/25/2016 12:50 PM EDT) Ferritin 92(Externa l Lab) 8 - 388 ng/mL SHELIA WOODS CONVERSION 09/25/2016 12:5 0 PM EDT Results Provider Apd Conversion CHEMI STRAdrianne ORDERABLES Performing Organization Address [facility] Co de Phone Number SHELIA WOODS CONVERSION * (ABNORMAL) TSH (09/25/2016 12:50 PM EDT) Thyroid Stimulating Hormone 1.062(Ext ernal Lab) 0.358 - 3.740 uIU/mL SHELIA WOODS CONVERSION 09/25/2016 12:5 0 PM EDT Results Provider Apd Conversion CHEMI STRAdrianne ORDERABLES Performing Organization Address [facility] Co de Phone Number SHELIA WOODS CONVERSION * (ABNORMAL) T4, free (09/25/2016 12:50 PM EDT) Free T4 1.09(Exter nal Lab) 0.76 - 1.46 ng/dL SHELIA WOODS CONVERSION 09/25/2016 12:5 0 PM EDT Results Provider Apd Conversion CHEMI STRAdrianne ORDERABLES SHELIA WOODS CONVERSION * (ABNORMAL) Iron (09/25/2016 12:50 PM EDT) Iron 43(ExtL) 50 - 170 ug/dL SHELIA WOODS CONVERSION 09/25/2016 12:5 0 PM EDT Results Provider Apd Conversion MD CORTES TELLEZ ORDERABLES SHELIA WOODS CONVERSION documented in this encounter Visit Diagnoses Not on filedocumented in this encounter Care Teams Electronic Pagination System Operator Relationship Specialty Start Date End Date Ashleigh Gaston, SALLY [address] [facility] [place] [address] PCP - General Family Medicine 11/11/18 08/02/22 documented as of this encounter
--- OUTSIDE RECORDS SUMMARY | 2023-10-18 21:28 | XMS_ITS | Encounter Summary ---
Author Organization [facility] Address [address] [place] [address] Care Team Providers Care Tetryl Blender Operator Name Role Phone Ashleigh Gaston BART Primary Care Provider [phone] Encounter Details Date Type Department Care Team (Late st Contact Info) Description 01/02/2023 Lab Requisition [facility] Pathology & Laboratory Medicine - [facility] [address] [place] [address] Nghia Lorenz MD [address] [place] [address] Abnormal uterine and vaginal bleeding, unspecified Social History Tobacco Use Types Packs/Day Years Used Date Smoking Tobacco: Former Cigarettes Q uit: 2012 Smokeless Tobacco: Never Interpersonal Safety Answer Date Record ed Physically Hurt Never 06/22/2020 Verbally Threaten Not on file 06/22/2020 Sex and Gender Information Value Date Recorded Sex Assigned at Not on file Gender Identity Female 07/01/2020 14:24 EDT Sexual Orientation Not on file documented as of this encounter Functional Status Functional Status Response Date of Assess ment Because of a physical, menta l, or emotional condition, does this person have difficulty doing errands alone such as visiting a doctor's office or shopping? Yes 07/06/2020 Cognitive Status Response Date of Assessm ent Because of a physical, menta l, or emotional condition, does this person have serious difficulty concentrating, remembering, or making decisions? Yes 01/13/2021 documented as of this encounter Plan of Treatment Not on file documented as of this encounter Procedures Procedure Name Priority Date/Time Associated Diagnosis Comments SURGICAL PATHOLOGY Today 01/02/2023 7: 30 EST Abnormal uterine and vaginal bleeding, unspecified documented in this encounter Results * SURGICAL PATHOLOGY (01/02/2023 7:30 EST) Note to Patient The following pathology results have been interpreted by your pathologist and may be available to you before your health provider has had the opportunity to review them. Please allow time for your provider to receive these results and explore management options, if applicable. 01/05/2023 15:14 [facility] Final Diagnosis A. ENDOMETRIUM, CURETTAGE: - Features suggestive of endometrial polyp. - Strips of proliferative endometrium. - Benign squamous and endocervical mucosa. - No cytologic atypia identified. 01/05/2023 15:14 [facility] Attestation There was significant resident/fellow involvement in the diagnostic evaluation of this case. By the signature below, the attending physician certifies that they have personally conducted a gross and/or microscopic examination of the described specimens and rendered or confirmed the above diagnosis. 01/05/2023 15:14 [facility] at 1514 Clinical History Clinical diagnosis code: N93.9 01/05/2023 15:14 [facility] Gross Description A. Received in formalin labelled with proper patient identification (initials A, R) and endometrial curettings is a 3.0 x 2.3 x 0.6 cm aggregate of guzman-osei soft tissue and mucus. The specimen is entirely submitted in A1. SHASHANK NAVARRETE(ASCP) 01/03/2023 8:22 01/05/2023 15:14 [facility] Resident/Ramsey w: Sherman Otto DO 01/05/2023 15:14 [facility] Performing Lab [facility] 01/05/2023 15:14 [facility] Scanned Images 01/05/2023 15:14 [facility] Tissue ENDOMETRIAL STRUCTURE / Unknown 01/02/2023 7:30 EST 01/02/2023 17:14 EST Nghia Lorenz MD PATHOLOGY ORDERABLES [facility] [address] [place] [address] documented in this encounter Visit Diagnoses Diagnosis Abnormal uterine and vaginal bleeding, unspecified documented in this encounter Care Teams Tetryl Blender Operator Relationship Specialty Start Date End Date Ashleigh Gaston FNP [facility] [place] [address] PCP - General 01/13/21 documented as of this encounter
--- OUTSIDE RECORDS SUMMARY | 2023-10-18 21:28 | XMS_ITS | Encounter Summary ---
Author Organization [facility] [place] [address] Care Team Providers Care Manager Aerospace Name Role Phone Digna Lemon APRN Primary Care Provider Encounter Details Date Type Department Care Team (Late st Contact Info) Description 08/30/2015 Orders Only Hematology [place] [address] Mena Eagle MD [facility] [address] HEMATOLOGY [place] [address] Neutrophilia Social History Tobacco Use Types Packs/Day [...] as of this encounter Visit Diagnoses Diagnosis Neutrophilia Other specified disease of white blood cells documented in this encounter Care Teams Manager Aerospace Relationship Specialty Start Date End Date Digna Lemon APRN PCP - General Family Medicine 01/19/15 09/04/18 documented as of this encounter
--- OUTSIDE RECORDS SUMMARY | 2023-10-18 21:28 | XMS_ITS | Encounter Summary ---
Author Organization [facility] Address [facility] [place] [address] Care Team Providers Care Scaffold Worker Name Role Phone Adenike Chung APRN Primary Care Provider + Encounter Details Date Type Department Care Team (Late st Contact Info) Description 05/13/2011 External Results XRay at [address] [place] [address] Adenike Chung APRN [address] [place] [address] Social History Tobacco Use Types Packs/Day Years Used Date Smoking Tobacco: Every Day Cigarettes 0.5 10 Smokeless Tobacco: Never Alcohol Use Standard Drinks/Week [...] Procedure Name Priority Date/Time Associated Diagnosis Comments MRI/MRA SCAN Routine 11/24/2009 DIAGNOSTIC RADIOLOGY SCAN Routine 07/14/2009 MRI/MRA SCAN Routine 11/12/2008 MRI/MRA SCAN Routine 11/15/2007 DIAGNOSTIC RADIOLOGY SCAN Routine 01/03/2007 documented in this encounter Results * Scan Doc: MRI/MRA (11/24/2009) Anatomical Region Laterality Modality Other Adenike Chung APRN MEDIA MGR SCAN E XT ORDR/RSLT * Scan Doc: Diagnostic Radiology (07/14/2009) Anatomical Region Laterality Modality Other Adenike Chung APRN MEDIA MGR SCAN E XT ORDR/RSLT * Scan Doc: MRI/MRA (11/12/2008) Anatomical Region Laterality Modality Other Adenike Chung APRN MEDIA MGR SCAN E XT ORDR/RSLT * Scan Doc: MRI/MRA (11/15/2007) Anatomical Region Laterality Modality Other Adenike Chung APRN MEDIA MGR SCAN E XT ORDR/RSLT * Scan Doc: Diagnostic Radiology (01/03/2007) Anatomical Region Laterality Modality Other Nishant Sorto MD MEDIA MGR SCAN EXT O RDR/RSLT documented in this encounter Visit Diagnoses Not on filedocumented in this encounter Care Teams Scaffold Worker Relationship Specialty Start Date End Date Adenike Chung APRN PCP - General 03/14/11 01/18/15 documented as of this encounter
--- OUTSIDE RECORDS SUMMARY | 2023-10-18 21:28 | XMS_ITS | Encounter Summary ---
Author Organization [facility] Address [facility] [place] [address] Care Team Providers Care Water Pump Servicer Name Role Phone Adenike Chung APRN Primary Care Provider + Encounter Details Date Type Department Care Team (Late st Contact Info) Description 05/09/2011 External Results [place] [address] Anna Kemp MD [address] [address] Social History Tobacco Use Types Packs/Day Years [...] Date/Time Associated Diagnosis Comments MRI/MRA SCAN Routine 03/30/2010 documented in this encounter Results * Scan Doc: MRI/MRA (03/30/2010) Anatomical Region Laterality Modality Other Anna Kemp MD MEDIA MGR SCAN EXT ORDR/RSLT documented in this encounter Visit Diagnoses Not on filedocumented in this encounter Care Teams Water Pump Servicer Relationship Specialty Start Date End Date Adenike Chung APRN PCP - General 03/14/11 01/18/15 documented as of this encounter
--- OUTSIDE RECORDS SUMMARY | 2023-10-18 21:28 | XMS_ITS | Encounter Summary ---
Author Organization [facility] Address [facility] [place] [address] Care Team Providers Care Etcher Electrolytic Name Role Phone Adenike Chung APRN Primary Care Provider + Encounter Details Date Type Department Care Team (Late st Contact Info) Description 11/24/2009 [place] [address] Nader Crawford MD [facility] [place] [address] Social History Tobacco Use Types Packs/Day Years Used Date Smoking Tobacco: Never Assessed Sex and Gender Information Value Date Recorded Sex Assigned at Not on file Gender Identity Not on file Sexual Orientation Not on file documented as of this encounter Plan of Treatment Not on file documented as of this encounter Procedures Procedure Name Priority Date/Time Associated Diagnosis Comments FILM LIBRARY STORAGE ONLY MR HEAD Routine 11/24/2009 4:07 PM EDT documented in this encounter Results * FILM LIBRARY- STORAGE ONLY MR HEAD (11/24/2009 4:07 PM EDT) 11/24/2009 4:07 PM EDT Narrative [facility] - 07/01/2013 1:46 PM EDT This is a non-reportable exam. Procedure Note Matias Kee - 07/01/2013 This is a non-reportable exam. Nader Crawford MD [facility] FILM LIBRARY ORD ERABLES RAD [email or web address] [facility] [address] documented in this encounter Visit Diagnoses Not on filedocumented in this encounter Care Teams Etcher Electrolytic Relationship Specialty Start Date End Date Adenike Chung APRN PCP - General 03/14/11 01/18/15 documented as of this encounter
--- OUTSIDE RECORDS SUMMARY | 2023-10-18 21:28 | XMS_ITS | Encounter Summary ---
Author Organization [facility] [place] [address] Care Team Providers Care Mill Manager Name Role Phone Adenike Chung APRN Primary Care Provider + Reason for Visit * Reason Onset Date Comments Medication Refill 07/08/2014 Encounter Details Date Type Department Care Team (Late st Contact Info) Description 07/08/2014 [place] [address] Suly Theodore RN Environmental allergies Social History Tobacco Use Types Packs/Day Years [...] encounter Miscellaneous Notes * Telephone Encounter - Suly Theodore RN - 07/08/2014 10:16 AM EDT LM to inform Ms. Cardenas that prescription for loratidine has bee called in to [facility]. Left [phone] to call back if she desires to update us on how she is doing since allergic reaction on 07/03/2014 documented in this encounter Plan of Treatment Not on file documented as of this encounter Visit Diagnoses Diagnosis Environmental allergies Allergic rhinitis, cause unspecified documented in this encounter Care Teams Mill Manager Relationship Specialty Start Date End Date Adenike Chung, SALLY PCP - General 03/14/11 01/18/15 documented as of this encounter
--- OUTSIDE RECORDS SUMMARY | 2023-10-18 21:28 | XMS_ITS | Encounter Summary ---
Author Organization [facility] Address [facility] [place] [address] Care Team Providers Care Computer Systems Administrator Name Role Phone Adenike Chung APRN Primary Care Provider + Encounter Details Date Type Department Care Team (Late st Contact Info) Description 10/28/2010 [place] [address] Nader Crawford MD [facility] [place] [address] Social History Tobacco Use Types Packs/Day Years [...] FILM LIBRARY STORAGE ONLY MR HEAD Routine 10/28/2010 10:26 AM EDT documented in this encounter Results * FILM LIBRARY- STORAGE ONLY MR HEAD (10/28/2010 10:26 AM EDT) 10/28/2010 10:2 6 AM EDT Narrative [facility] - 07/01/2013 1:46 PM EDT This is a non-reportable exam. Procedure Note Matias Kee - 07/01/2013 This is a non-reportable exam. Nader Crawford MD IMG FILM LIBRARY ORD ERABLES RAD [address] [employer] [facility] [place] [address] documented in this encounter Visit Diagnoses Not on filedocumented in this encounter Care Teams Computer Systems Administrator Relationship Specialty Start Date End Date Adenike Chung APRN PCP - General 03/14/11 01/18/15 documented as of this encounter
--- OUTSIDE RECORDS SUMMARY | 2023-10-18 21:28 | XMS_ITS | Encounter Summary ---
Author Organization [facility] Address [facility] [place] [address] Care Team Providers Care Forklift Technician Name Role Phone Adenike Chung APRN Primary Care Provider + Encounter Details Date Type Department Care Team (Late st Contact Info) Description 10/21/2010 [place] [address] Nader Crawford MD [facility] [place] [address] Social History Tobacco Use Types Packs/Day Years [...] Diagnosis Comments FILM LIBRARY STORAGE ONLY MR SPINE Routine 10/21/2010 9:08 AM EDT documented in this encounter Results * FILM LIBRARY- STORAGE ONLY MR SPINE (10/21/2010 9:08 AM EDT) 10/21/2010 9:08 AM EDT Narrative [facility] - 07/01/2013 1:46 PM EDT This is a non-reportable exam. Procedure Note Matias Kee - 07/01/2013 This is a non-reportable exam. Nader Crawford MD [facility] FILM LIBRARY ORD ERABLES RAD [address] [email or web address] [facility] [place] [address] documented in this encounter Visit Diagnoses Not on filedocumented in this encounter Care Teams Forklift Technician Relationship Specialty Start Date End Date Adenike Chung APRN PCP - General 03/14/11 01/18/15 documented as of this encounter
--- OUTSIDE RECORDS SUMMARY | 2023-10-18 21:28 | XMS_ITS | Clinical Summary ---
Author Organization [facility] Address [address] [place] [address] Care Team Providers Care Screen Tender Helper Name Role Phone Ashleigh Gaston BART Primary Care Provider [phone] Allergies Active Allergy Reactions Criticality Noted Date Comments Amoxicillin-Pot Clavulanate Hives,Nausea And Vomiting 07/06/2020 Codeine Nausea And Vomiting High 03/16/2011 Duloxetine Other (See Comments),Nausea And Vomiting Medium 05/05/2014 Other reaction(s): NAUSEA, V/D Nausea and chest pain Medications Medication Sig Dispensed Refills Start Date End Date Status EPINEPHrine (EPIPEN) 0.3 mg/0.3 mL injection Use as directed. 04/08/2020 Active LANTUS SOLOSTAR U-100 INSULIN 100 unit/mL (3 mL) injection pen INJECT 60 UNITS SUBCUTANEOUSLY EVERY NIGHT 06/22/2020 Active VICTOZA 2-MARTIN 0.6 mg/0.1 mL (18 mg/3 mL) injectable pen INJECT 0.6MG UNDER THE SKIN ONCE DAILY 06/22/2020 Active loratadine (CLARITIN) 10 mg tablet Take 10 mg by mouth daily. Active hydrOXYzine (ATARAX) 25 mg tablet Take 25 mg by mouth at bedtime as needed. 04/27/2020 Active mirtazapine (REMERON) 15 mg tablet Take 15 mg by mouth. Acti ve sertraline (ZOLOFT) 100 mg tablet Take 100 mg by mouth. Act jacques topiramate (TOPAMAX) 50 mg tablet Take 50 mg by mouth 2 times daily. 04/02/2020 Active SUMAtriptan (IMITREX) 25 mg tablet TAKE 1 TABLET BY MOUTH NEEDED FOR HEADACHE MAY REPEAT IN 2 HOURS IF HEADACHE NOT IMPROVED OR RECURS 06/22/2020 Active pregabalin (LYRICA) 150 mg capsule Take by mouth 2 times daily. 04/09/2020 Active tiZANidine (ZANAFLEX) 4 mg tablet Take 4 mg by mouth every 6 hours as needed. Active cholecalciferol, Vitamin D3, 25 mcg (1,000 unit) tablet Take 1,000 Units by mouth daily. 03/25/2019 Active Active Problems No known active problems Social History Tobacco Use Types Packs/Day Years Used Date Smoking Tobacco: Former Cigarettes Q uit: 2011 Smokeless Tobacco: Never Interpersonal Safety Answer Date Record ed Physically Hurt Never 06/22/2020 Verbally Threaten Not on file 06/22/2020 Sex and Gender Information Value Date Recorded Sex Assigned at Not on file Gender Identity Female 07/01/2020 14:24 EDT Sexual Orientation Not on file Obstetrics History Last Filed Vital Signs Vital Sign Reading Time Taken Comments Blood Pressure 134/78 01/13/2021 1556 EST Pulse 78 01/13/2021 1556 EST Temperature - - Respiratory Rate 18 01/13/2021 1556 EST Oxygen Saturation - - Inhaled Oxygen Concentration - - Weight 124.7 kg (275 lb) 01/13/2021 1556 EST Height 157.5 cm (5' 2) 01/13/2021 1556 EST Body Mass Index 50.3 01/13/2021 1556 EST Plan of Treatment Health Maintenance Due Date Last Done Comments Hepatitis C Screen 1972 Hepatitis B Vaccine (1 of 3 - 19+ 3-dose series) 08/23 COVID-19 Vaccine ( season) 2023 Care Teams Screen Tender Helper Relationship Specialty Start Date End Date Ashleigh Gaston FNP [address] [place] [address] PCP - General 01/13/21
--- OUTSIDE RECORDS SUMMARY | 2023-10-18 21:28 | XMS_ITS | Encounter Summary ---
Author Organization [facility] Address [facility] [place] [address] Care Team Providers Care Tire Balancer Name Role Phone Adenike Chung APRN Primary Care Provider + Encounter Details Date Type Department Care Team (Late st Contact Info) Description 01/03/2007 [place] [address] Nader Crawford MD [facility] [place] [address] Social History Tobacco Use Types Packs/Day Years [...] Associated Diagnosis Comments FILM LIBRARY STORAGE ONLY DX SPINE Routine 01/03/2007 4:12 PM EST documented in this encounter Results * FILM LIBRARY- STORAGE ONLY DX SPINE (01/03/2007 4:12 PM EST) 01/03/2007 4:12 PM EST Narrative [facility] - 07/16/2013 2:59 PM EDT This is a non-reportable exam. Procedure Note Matias Kee - 07/16/2013 This is a non-reportable exam. Nader Crawford MD [facility] FILM LIBRARY ORD ERABLES RAD [address] [facility] [place] [address] documented in this encounter Visit Diagnoses Not on filedocumented in this encounter Care Teams Tire Balancer Relationship Specialty Start Date End Date Adenike Chung APRN PCP - General 03/14/11 01/18/15 documented as of this encounter
--- OUTSIDE RECORDS SUMMARY | 2023-10-18 21:28 | XMS_ITS | Encounter Summary ---
Author Organization [facility] Address [facility] [place] [address] Care Team Providers Care Concrete Plant Laborer Name Role Phone Adenike Chung APRN Primary Care Provider + Encounter Details Date Type Department Care Team (Late st Contact Info) Description 11/12/2008 Orders [place] [address] Nader Crawford MD [facility] [place] [address] Social History Tobacco Use Types Packs/Day Years [...] FILM LIBRARY STORAGE ONLY MR HEAD Routine 11/12/2008 4:10 PM EDT documented in this encounter Results * FILM LIBRARY- STORAGE ONLY MR HEAD (11/12/2008 4:10 PM EDT) 11/12/2008 4:10 PM EDT Narrative [facility] - 07/01/2013 1:46 PM EDT This is a non-reportable exam. Procedure Note Matias Kee - 07/01/2013 This is a non-reportable exam. Nader Crawford MD [facility] FILM LIBRARY ORD ERABLES RAD [address] [facility] [place] [address] documented in this encounter Visit Diagnoses Not on filedocumented in this encounter Care Teams Concrete Plant Laborer Relationship Specialty Start Date End Date Adenike Chung APRN PCP - General 03/14/11 01/18/15 documented as of this encounter
--- OUTSIDE RECORDS SUMMARY | 2023-10-18 21:28 | XMS_ITS | Encounter Summary ---
Author Organization [facility] Address [address] [place] [address] Care Team Providers Care Tram Inspector Name Role Phone Ashleigh Gaston BART Primary Care Provider Encounter Details Date Type Department Care Team (Late st Contact Info) Description 05/31/2022 Lab Requisition [facility] Pathology & Laboratory Medicine - [facility] [address] [place] [address] Outr Resulting Lab, Provider Social History Tobacco Use Types Packs/Day Years [...] Procedure Name Priority Date/Time Associated Diagnosis Comments CHLAMYDIA/N. GONORRHOEAE AMPLIFIED NUCLEIC ACID Routine 05/30/2022 14:30 EDT documented in this encounter Results * CHLAMYDIA/N. GONORRHOEAE AMPLIFIED RNA (05/30/2022 14:30 EDT) Neisseria gonorrhoeae Result Negative Negative 06/01/2022 15:15 EDT [facility] Chlamydia trachomatis Result Negative Negative 06/01/2022 15:15 EDT [facility] Urine URINE / Unknown 05/30/2022 1 4:30 EDT 05/31/2022 17:19 EDT Narrative [facility] - 06/01/2022 15:15 EDT A first catch urine specimen is acceptable for detection of Gonorrhea and Chlamydia, but might detect up to 10% fewer infections when compared with vaginal and endocervical swab samples. Provider Outr Resulting Lab MICROBIOLOGY - GENERAL ORDERABLES [facility] [address] [place] [address] documented in this encounter Visit Diagnoses Not on filedocumented in this encounter Care Teams Tram Inspector Relationship Specialty Start Date End Date Ashleigh Gaston F[place] [address] PCP - General 01/13/21 documented as of this encounter
--- OUTSIDE RECORDS SUMMARY | 2023-10-18 21:28 | XMS_ITS | Encounter Summary ---
Author Organization [facility] Address [address] [place] [address] Care Team Providers Care Siebel Crm Developer Name Role Phone Ashleigh Gaston BART Primary Care Provider [phone] Encounter Details Date Type Department Care Team (Late st Contact Info) Description 01/13/2021 17:00 EST Phlebotomy Only [facility] 2 Phlebotomy [address] [place], [place] [address] Plate Driller, Acc Phlebotomy Fibromyalgia Social History Tobacco Use Types Packs/Day [...] Procedure Name Priority Date/Time Associated Diagnosis Comments THYROID CASCADE Routine 01/13/2021 17:04 EST Fibromyalgia CK Routine 01/13/2021 17:04 EST Fibromyalgia documented in this encounter Results * CK (01/13/2021 17:04 EST) CK 30 30 - 135 U/L 01/13/2021 17:48 EST [facility] Blood VENOUS BLOOD / Unknown Venipuncture / Unknown 01/13/2021 17:04 EST 01/13/2021 17:16 EST Karan Serrato MD CHEMISTRY & BLOOD GA S ORDERABLES Performing Organization Address City/[facility] Co de Phone Number [facility] [address] [place] [address] * THYROID CASCADE (01/13/2021 17:04 EST) TSH 1.02 0.47 - 4.68 ??IU/mL 01/13/2021 18:22 EST [facility] Blood VENOUS BLOOD / Unknown Venipuncture / Unknown 01/13/2021 17:04 EST 01/13/2021 17:16 EST Narrative [facility] - 01/13/2021 18:22 EST NOTE: The results of this assay can be falsely lowered due to the consumption of Biotin. Karan Serrato MD CHEMISTRY & BLOOD GA S ORDERABLES Performing Organization Address [facility] Co de Phone Number [facility] [address] [place] [address] documented in this encounter Visit Diagnoses Diagnosis Fibromyalgia Mylagia and myositis, unspecified documented in this encounter Care Teams Siebel Crm Developer Relationship Specialty Start Date End Date Ashleigh Gaston F[place] [address] PCP - General 01/13/21 documented as of this encounter
--- OUTSIDE RECORDS SUMMARY | 2023-10-18 21:28 | XMS_ITS | Encounter Summary ---
Author Organization [facility] [place] [address] Care Team Providers Care Electrostatic Painter Name Role Phone Adenike Chung APRN Primary Care Provider + Reason for Visit * Reason Comments Pain Encounter Details Date Type Department Care Team (Late st Contact Info) Description 04/25/2011 2:00 PM EDT Follow-Up Neurology at [facility] [place] [address] ELECTROENCEPHALOG [place], NEURO [facility] [place] [address] Nader Crawford MD [facility] [place] [address] Cervical radiculopathy (Primary Dx) Discharge Disposition: Home Social History Tobacco Use [...] Sign Reading Time Taken Comments Blood Pressure 120/68 04/25/2011 2:21 PM EDT Pulse 74 04/25/2011 2:21 PM EDT Temperature - - Respiratory Rate - - Oxygen Saturation - - Inhaled Oxygen Concentration - - Weight 120.9 kg (266 lb 9.6 oz) 04/25/2011 2:21 PM EDT Height 157.5 cm (5' 2) 04/25/2011 2:21 PM EDT r eported Body Mass Index 48.76 04/25/2011 2:21 PM EDT documented in this encounter Patient Instructions * Patient Instructions* Nader Crawford MD - 04/25/2011 3:57 PM EDT I think you are doing about the same. Your blood tests and the electrical tests of vision were all normal. I do not believe you have MS You have had injury to nerves in your neck, and your symptoms are worse because of anxiety and depression. I suggest you start zoloft 25 mg daily. This can gradually be increased. Please also try to increase The amount of exercise you take. I will see you back in 4 months documented in this encounter Progress Notes * Nader Crawford MD - 04/25/2011 3:38 PM EDT Neurology attending consultation note CC: Paresthesias, pain History: 40 year old right handed woman. Referred by Adenike Chung, and Anna Banks. Normal and development. Did OK in school. Did dance and figure skating and had normal coordination. No major childhood illnesses. Had meningitis after delivery of son, 17 years ago (had toxemia and ), suspected viral meningitis, treated in [facility]. Made good recovery. Had 2 subsequent deliveries by . A few years later noticed tightness in legs an bad balance and coordination. Symptoms fluctuating over weeks. Gradually right side noted to feel weaker and to have more paresthesias and some loss of control. Sometimes this also happened on the left. Also had some urinary urgency and occasional incontinence. Paresthesias in both legs. About 4 years ago had worsening neck pain radiating into ? Right arm and had C5- 6 discectomy in [place] with some some relief of symptoms. Since then then has pain and paresthesias in various parts of her body, poor memory, stuttering speech. F/U MRI of C-spine show stable disc bulge at C4-5. Reports but not images seen) MRI of brain [id number] all normal by report and to my review. Since I last saw her there is no real change. Laboratory Studies as note below all essentially normal. PMH: Patient Active Problem List Diagnoses Code ??? Fibromyalgia 729.1AV ??? Back pain 724.5E ??? S/P cervical discectomy V45.89LW ??? Depression 311L ??? Vitamin D deficiency 268.9G FH: Diabetes Father had multiple sclerosis SH: Lives with 3 sons. from . Not on disability. Has health insurance ROS: 1. Eating: Irregular 2. Sleeping: Poor 3. Bowels: Normal 4. Bladder: urgency 5. Other systems: Normal Medications: Current outpatient prescriptions Medication Sig Dispense Refill ??? FLUTICASONE PROPIONATE (FLOVENT HFA INHL) Inhale into the lungs. ??? LEVALBUTEROL HCL (XOPENEX INHL) Inhale into the lungs. ??? pregabalin (LYRICA) 75 mg capsule Take 75 mg by mouth 2 times daily. ??? ferrous sulfate 325 mg (65 mg iron) EC tablet Take 325 mg by mouth daily. ??? Cholecalciferol, Vitamin D3, (VITAMIN D-3) 2,000 unit Cap Take by mouth 2 times daily. ??? lisdexamfetamine (VYVANSE) 50 mg capsule Take 50 mg by mouth every morning. ??? cyclobenzaprine (FLEXERIL) 10 mg tablet Take 10 mg by mouth nightly. ??? hydroCODone-acetaminophen (VICODIN) 5-500 mg per tablet Take 1 tablet by mouth 2 times daily asneeded. ? sertraline (ZOLOFT) 25 mg tablet Take 1 tablet by mouth daily. 30 tablet 11 Allergies: Allergies Allergen Reactions ??? Codeine Nausea And Vomiting ??? Lactose Nausea And Vomiting And diarrhea Physical Exam: VS: BP 120/68 Pulse 74 Ht 157.5 cm (5' 2) Wt 120.929 kg (266 lb 9.6 oz) BMI 48.76 kg/m2 HEENT: Normal Heart: Normal S1, S2, no abnormal sounds Lungs: Clear Abdomen: Benign , obese Extremities: Normal Neurological exam: Mental state: Normal , depressed Speech: Normal Cranial nerves: I: Not tested II: Normal vision III, IV, : EOMs full V: Facial sensation decreased right. VII: Facial strength normal VIII: Hearing normal ?decreased IX, X: Palate movement normal XI: Shoulder shrug normal XII: Tongue movement normal Motor: Strength: Normal 5/5 left, 5-/[address] quality, but stronger today than at last visit Fine motor: Normal ? but not very good on either side Tone: Normal Abnormal movements: None DTR: 2+, Babinski sign: None Other reflexes: + Wartenberg sign noted on right at last visit not apparent today. Sensation: Decreased in all modalities on right side including vibration sense decreased on right side of skull. Cerebellar: Finger to nose: Normal but slow Heel to wade: Normal but awkward due to obesity Gait: antalgic, slight drag of right leg Labs: All essentially normal except elevated WBC of 13K (? Baseline) ??? Hepatic function panel ??? Basic metabolic panel (non-fasting) ??? Tsh ??? Vitamin b12 ??? T4 ??? Magnesium ??? Cbc (with diff) ??? Phosphorus ??? Sedimentation rate ? ? Lyme igg & igm antibody ??? Tissue transglutaminase, iga ??? Radha ??? Cardiolipin antibody screen ??? Protein electrophoresis, serum ??? Angiotensin converting enzyme ??? Rheumatoid factor, quant ??? Ck Visual evoked potential test: normal Impression and suggestions: Pateint with complex constellation of symptoms and signs that have a large psychosomatic component. I concur with diagnosis of fibromyalgia. There is no convincing evidence of multiple sclerosis. Ken MRIs and visual evoked potential studyall normal. I would not do an LP. Additional lab studies as noted above all normal. He right body symptoms and signs are suggestive of a residue from cervical radiculopathy and myelopathy, possibly related to disc disease. requested her to bring pre and post-surgical cervical MRI scans, but she did not. There is I am sure a large psychosomatic component in her right sided sensory loss. I advised an exercise and weight loss program. I have taken the liberty of stating er on zoloft 25 mg daily. If she tolerates this I would favor increasing the dose to 100-200mg daily. I will defer to her PCP in this regard. I had a long discussion with her and explained my view that she has had injury to nerves in her neck, does not have any other disease, and that depresssion and stress are making her feel worse than she otherwise would. I will see her back in 4 months. Thank you for this consultation Nader Crawford MD CC: Dr. Sheldon Kemp documented in this encounter Plan of Treatment Not on file documented as of this encounter Visit Diagnoses Diagnosis Cervical radiculopathy- Primary Brachial neuritis or radiculitis nos documented in this encounter Care Teams Electrostatic Painter Relationship Specialty Start Date End Date Adenike Chung, RN SANE PCP - General 03/14/11 01/18/15 documented as of this encounter
--- OUTSIDE RECORDS SUMMARY | 2023-10-18 21:28 | XMS_ITS | Encounter Summary ---
Author Organization [facility] Address [facility] [place] [address] Care Team Providers Care Concrete Paving Supervisor Name Role Phone Digna Lemon APRN Primary Care Provider [phone] Reason for Referral * Diagnostic Test (Routine) - Closed Specialty Diagnoses / Procedures Referred By Contac t Referred To Contact Radiology Diagnoses Fatigue, unspecified type Procedures CT Chest With Contrast CT Chest With/Wo Contrast Mena Eagle MD [facility] [place] [address] [facility] [place] [address] Referral ID Status Reason Start Date Expiration Date V isits Requested Visits Authorized [id number] Closed Specialty Service Requested 09/03/2015 09/02/2016 1 1 * Diagnostic Test (Routine) - Closed Specialty Diagnoses / Procedures Referred By Contac t Referred To Contact Radiology Diagnoses Fatigue, unspecified type Procedures CT Neck Soft Tissue With Contrast (GENERIC) CT Neck Soft Tissue With/Wo Contrast Mena Eagle MD [facility] [place] [address] [facility] [place] [address] Referral ID Status Reason Start Date Expiration Date V isits Requested Visits Authorized [id number] Closed Specialty Service Requested 09/03/2015 09/02/2016 1 1 * Diagnostic Test (Routine) - Closed Specialty Diagnoses / Procedures Referred By Maura ferrell Referred To Contact Radiology Diagnoses Fatigue, unspecified type Procedures CT Abdomen And Pelvis With Contrast CT Abdomen With/Wo Contrast Mena Eagle MD [facility] [place] [address] [facility] [place] [address] Referral ID Status Reason Start Date Expiration Date V isits Requested Visits Authorized [id number] Closed Specialty Service Requested 09/02/2015 12/01/2015 1 1 Encounter Details Date Type Department Care Team (Late st Contact Info) Description 08/30/2015 Orders Only [place] [address] Mena Eagle MD [facility] [address] [place] [address] Fatigue, unspecified type Social History Tobacco Use Types [...] on file documented as of this encounter Progress Notes * Cat Briones - 08/30/2015 3:49 PM EDT Alis Cardenas 1. Weight: 290 2. Mobility Concerns? YES - SPINAL ISSUES, MAY NEED HELP GETTING OFF TABLE ?? If Yes, describe: 3. Does the patient have a Mediport? NO 4. Is the patient coming from a skilled care facility? HOME ?? If yes, the patient must be accompanied by a caregiver for the enter exam/transportation arrangements must be made in advance. documented in this encounter Plan of Treatment Not on file documented as of this encounter Results * CT Chest With Contrast (09/06/2015 5:07 PM EDT) Anatomical Region Laterality Modality Chest Computed Tomogra phy Impressions 09/06/2015 7:06 PM EDT Impression: No significant cardiopulmonary abnormality. Hepatic steatosis. Narrative 09/06/2015 7:06 PM EDT EXAMINATION: CT CHEST WITH CONTRAST CLINICAL HISTORY: 45 yo f with vague constitutional symptoms TECHNIQUE: Helical CT of the chest was performed following intravenous administration of 60ml of Ominpaque 350. Multiplanar reformatted images were generated. COMPARISON: None ? FINDINGS: Lungs and airways: Sub-5 mm nodules in RIGHT middle and lower lobes most consistent with benign intrapulmonary lymph nodes (series 3 images 23 and 29). Lungs otherwise clear. Pleura and pericardium: No effusions. Heart and vasculature: Heart size normal. No coronary artery calcifications. Great vessels normal in course and caliber. Mediastinum and hilar structures: No lymphadenopathy Limited views of the upper abdomen diffuse low density of the liver No focal lytic or sclerotic osseous lesion. ? Procedure Note Joesph García MD - 09/06/2015 EXAMINATION: CT CHEST WITH CONTRAST CLINICAL HISTORY: 45 yo f with vague constitutional symptoms TECHNIQUE: Helical CT of the chest was performed following intravenous administration of 60ml of Ominpaque 350. Multiplanar reformatted imageswere generated. COMPARISON: None ? FINDINGS: Lungs and airways: Sub-5 mm nodules in RIGHT middle and lower lobes most consistent with benign intrapulmonary lymph nodes (series 3 images 23 and29). Lungs otherwise clear. Pleura and pericardium: No effusions. Heart and vasculature: Heart size normal. No coronary arterycalcifications. Great vessels normal in course and caliber. Mediastinum and hilar structures: No lymphadenopathy Limited views of the upper abdomen diffuse low density of the liver No focal lytic or sclerotic osseous lesion. ? IMPRESSION Impression: No significant cardiopulmonary abnormality. Hepatic steatosis. Mena Eagle MD IMG CT ORDERABLES * CT Neck Soft Tissue With Contrast (GENERIC) (09/06/2015 5:07 PM EDT) Anatomical Region Laterality Modality Neck, Head Computed Tomogra phy Impressions 09/07/2015 8:00 AM EDT No mass or pathologic adenopathy in the neck. Narrative 09/07/2015 8:00 AM EDT EXAMINATION: CT NECK SOFT TISSUE WITH CONTRAST CLINICAL HISTORY: 45 yo f with vague constitutional symptoms TECHNIQUE: CT of the neck performed following intravenous administration of 110 cc Omnipaque 350 COMPARISON: Plain films 07/14/2009 FINDINGS: There is no mass or pathologic adenopathy in the neck. There are lymph nodes in the usual locations in the neck, which have a benign appearance. There has been prior anterior cervical fusion at C5-C6 with degenerative changes at C4-C5. There is no aggressive osseous lesion. Paranasal sinuses are normally aerated. The right carotid takes a retropharyngeal course, and anatomic variant. Procedure Note Praveen Joaquin MD - 09/07/2015 EXAMINATION: CT NECK SOFT TISSUE WITH CONTRAST CLINICAL HISTORY: 45 yo f with vague constitutional symptoms TECHNIQUE: CT of the neck performed following intravenous administrationof 110 cc Omnipaque 350 COMPARISON: Plain films 07/14/2009 FINDINGS: There is no mass or pathologic adenopathy in the neck. There arelymph nodes in the usual locations in the neck, which have a benign appearance.There has been prior anterior cervical fusion at C5-C6 with degenerative changesat C4-C5. There is no aggressive osseous lesion. Paranasal sinuses arenormally aerated. The right carotid takes a retropharyngeal course, and anatomicvariant. IMPRESSION No mass or pathologic adenopathy in the neck. Mena Eagle MD IMG CT ORDERABLES * CT Abdomen And Pelvis With Contrast (09/06/2015 5:07 PM EDT) Anatomical Region Laterality Modality Abdomen, Pelvis Computed Tomogra phy Impressions 09/07/2015 8:31 AM EDT 1. ??Hepatic steatosis with borderline hepatomegaly. 2. ??Spleen size at the upper limits of normal. 3. ??No lymphadenopathy. 4. ??Bilateral nonobstructing renal calculi. Narrative 09/07/2015 8:31 AM EDT EXAMINATION: ??CT ABDOMEN AND PELVIS WITH CONTRAST CLINICAL HISTORY: ??45 yo f with vague constitutional symptoms TECHNIQUE: Helical CT of the abdomen and pelvis was performed following the intravenous administration of contrast. 110 cc of Omnipaque 350 was given. ??Oral contrast was administered. A chest CT was performed at the same time and has been dictated separately. COMPARISON: ??None FINDINGS: Liver: ??At the upper limits of normal in size. Diffusely low attenuation (26 Hounsfield units). No focal lesions. Patent portal and hepatic veins. Bile ducts: ??Nondilated Gallbladder: ??Surgically absent Pancreas: ??Normal Spleen: ??Punctate calcifications indicative of old granulomatous disease. Spleen measures 14 cm in length. Adrenals: ??Normal Kidneys: ??There are 2 nonobstructing left lower pole renal calculi, the larger measuring 8 mm. A solitary nonobstructing right renal calculus is present. No renal masses or hydronephrosis. Lymph Nodes: ??No enlarged lymph nodes. Bowel: Normal caliber. No adjacent inflammatory changes or wall thickening. Peritoneum: No ascites or free air, no fluid collection. Reproductive organs: Uterus and ovaries are normal in appearance for the patient's age. A 2.6 cm left ovarian cyst is likely functional. Focal symmetric high density foci are seen, one along the course of each fallopian tube; question prior tubal occlusion. Correlation with surgical history is needed. Bones: No suspicious lesions. Procedure Note Della Salcido MD - 09/07/2015 EXAMINATION: CT ABDOMEN AND PELVIS WITH CONTRAST CLINICAL HISTORY: 45 yo f with vague constitutional symptoms TECHNIQUE: Helical CT of the abdomen and pelvis was performed followingthe intravenous administration of contrast. 110 cc of Omnipaque 350 was given.Oral contrast was administered. A chest CT was performed at the same time andhas been dictated separately. COMPARISON: None FINDINGS: Liver: At the upper limits of normal in size. Diffusely low attenuation(26 Hounsfield units). No focal lesions. Patent portal and hepatic veins. Bile ducts: Nondilated Gallbladder: Surgically absent Pancreas: Normal Spleen: Punctate calcifications indicative of old granulomatous disease.Spleen measures 14 cm in length. Adrenals: Normal Kidneys: There are 2 nonobstructing left lower pole renal calculi, thelarger measuring 8 mm. A solitary nonobstructing right renal calculus is present.No renal masses or hydronephrosis. Lymph Nodes: No enlarged lymph nodes. Bowel: Normal caliber. No adjacent inflammatory changes or wallthickening. Peritoneum: No ascites or free air, no fluid collection. Reproductive organs: Uterus and ovaries are normal in appearance for the patient's age. A 2.6 cm left ovarian cyst is likely functional. Focalsymmetric high density foci are seen, one along the course of each fallopian tube; question prior tubal occlusion. Correlation with surgical history isneeded. Bones: No suspicious lesions. IMPRESSION 1. Hepatic steatosis with borderline hepatomegaly. 2. Spleen size at the upper limits of normal. 3. No lymphadenopathy. 4. Bilateral nonobstructing renal calculi. Mena Eagle MD IMG CT ORDERABLES documented in this encounter Visit Diagnoses Diagnosis Fatigue, unspecified type Fatigue, unspecified type documented in this encounter Care Teams Concrete Paving Supervisor Relationship Specialty Start Date End Date Digna Lemon APRN PCP - General Family Medicine 01/19/15 09/04/18 documented as of this encounter
--- OUTSIDE RECORDS SUMMARY | 2023-10-18 21:28 | XMS_ITS | Encounter Summary ---
Author Organization [facility] Address [facility] [place] [address] Care Team Providers Care Packing Supervisor Name Role Phone Adenike Chung APRN Primary Care Provider + Reason for Visit * Reason Comments Pain Management Neck And Back Pain Encounter Details Date Type Department Care Team (Late st Contact Info) Description 06/08/2014 1:00 PM EDT Office [place] [address] Souleymane Venegas MD [facility] [place] [address] Encounter for long-term (current) use of other medications; Radiculopathy of cervical region Discharge Disposition: Home Social History Tobacco Use [...] Sign Reading Time Taken Comments Blood Pressure 135/79 06/08/2014 1:48 PM EDT Pulse 94 06/08/2014 1:48 PM EDT Temperature - - Respiratory Rate - - Oxygen Saturation 100% 06/08/2014 1:48 PM EDT Inhaled Oxygen Concentration - - Weight 128.4 kg (283 lb) 06/08/2014 1:48 PM EDT Height 160 cm (5' 3) 06/08/2014 1:48 PM EDT Body Mass Index 50.13 06/08/2014 1:48 PM EDT documented in this encounter Progress Notes * Souleymane Venegas MD - 06/08/2014 2:32 PM EDT I am seeing Ms. Cardenas at the request of Ms. Adenike Cainkaty for recommendations and treatment regarding her chronic pain syndrome. Thanks so much Ms. Chung for allowing me to participate in the care of Ms. Alis Cardenas who, as you know, is a very pleasant 43-year-old woman with a chief complaint of pain in her bilateral upper extremities, right greater than left, shoulders to elbows. She is recently been seen in the spine center and I have thoroughly reviewed the notes there. I have also reviewed her MRI, which shows an anterior cervical fusion at C5-C6 and quite dramatic narrowing of the central canal, particularly at the C6 and C5 nerve root levels. Her pain began approximately eight years ago. She had her fusion approximately six years ago. She is a little better than she was a year ago. She states that last summer she could barely use her right arm at all. Her pain on average is a 6 or 7 on a 0 to 10 verbal numerical scale, with almost any activity, it becomes unbearable. She was treated with hydrocodone, but she states that the providers in her practice have stopped using opioids to a large degree except under very specific circumstances and she feels like she really misses it and that it did help with her pain a lot. She was using 10 and 20 mg tablets, she tells me. I has had a discussion with her today and I advised her if I were to use opioids, I would use 10 mg tablets only and only three per day. She states that she has never had urine toxicologies inconsistent with her reported use of drug and she states that she did have a stolen prescription once and that she has been on opioids on and off for many years. Her past medical history is significant for fibromyalgia. She sates she has decreased sensation in her right side and she was seen here by Dr. Nader Crawford for this and he felt that it was largely psychological. She has a history of bipolar disorder, depression, and anxiety. She has not really seen anybody for a year, but she states that she is going to start seeing somebody every two weeks soon. I have discussed with her the fact that, that is a little bit of disconnect that she really has not seen anybody in a year and yet she is going to start out with such intense treatment and she states she really needs it and I should see her at home. She also has a history of hypothyroidism, she tells me. SOCIAL HISTORY: She lives in [place] with her 20-year-old son who just moved back in with her and her 13-year-old and 11-year-old children. She states she basically does not leave the house because of depression, bipolar disorder, anxiety, and chronic pain. She has applied for disability, but it was denied. She has no prior history of alcoholism or drug abuse. She smokes half a pack of cigarettes a day. PAST SURGICAL HISTORY: She has had C-sections on three occasions. She has had terminations x3, cholecystectomy, and T and A. FAMILY HISTORY: Her mom is alive at the age of 62 with diabetes. Her dad in his late 50s from multiple sclerosis. REVIEW OF SYSTEMS: Ten systems were reviewed in detail and were all negative except for the fact that she states that she has alternating constipation and diarrhea. She states that she has fuzzy vision sometimes and she states she will occasionally have rash on her neck and chest, which looks like she has been scratching, but she states that she has not been scratching. She states she used to like to walk and she is hopeful that with the better weather and with some relief she will be able to walk again. PHYSICAL EXAMINATION: Her sclerae are nonicteric. Her throat is clear. She has remarkably good range of motion of the cervical spine considering her MRI. She has normal hearing to finger rub bilaterally. There are no skin rashes or lesions noted. I did not do a total body exam. She has no joint redness, tenderness, or swelling. Auscultation of the heart reveals a regular rate and rhythm. Her lungs are clear to auscultation. Her abdomen is soft and nontender. There is costovertebral angle tenderness. Patellar, ankle, biceps, and brachioradialis deep tendon reflexes are 3+ and brisk, but symmetrical. She has a tingling sensation in both the right upper and lower extremities. She has been working up for this before as I mentioned by Dr. Crawford and there is no physiological cause for it as far as he can tell. She has normal strength in her upper and lower extremities. Radial pulses were 2+ and symmetrical. ASSESSMENT: Cervical radiculopathy. Her pain really is in the C5 or C6 level and her MRI is pretty consistent with the pain and she is status post this fusion with hardware placement. PLAN: We discussed an epidural steroid injection and she states that she is so anxious that should have to be knocked out for it, and I have advised her that we would not do that because we would be worried about damaging her spinal cord and she knows that this is the case. She is using Lyrica 100 mg twice a day, she tried higher doses, but it makes her sleepy. She has tried gabapentin, but it gives her headaches, and she is using sertraline 200 mg a day. It sounds like she is going to be seeing a mental health provider. She is getting virtually no exercise because of her uncontrolled mental illness. It does appear to me that she has objective evidence of a painful disorder by my review of her MRI. I was going to treat her with opioids 10 mg of hydrocodone three times a day. She advised me that she is using marijuana and gets reasonable relief from marijuana as well. She does live in the [facility]. And we are faced with the decision between attesting to the fact that she has a medical condition which qualifies her for the use of marijuana in the [facility] versus long-term treatment with opioids, I would much rather use the marijuana especially since she is smoking it already. I am giving her prescription today for 90 of the 10 mg hydrocodone tablet, this is intended to last her for six months until she comes back and sees me again in six months, at which point unless you object Ms. Chung, I will be completing her paperwork for medical cannabis in the [facility]. We will discuss some goals of treatment at that time, while the whole year for her to try to improve if she has access to this drug and hopefully she will. documented in this encounter Plan of Treatment Not on file documented as of this encounter Procedures Procedure Name Priority Date/Time Associated Diagnosis Comments DRUG SCREEN WITH CONFIRMATION, URINE (SEND OUT) Routine 06/08/2014 2:31 PM EDT Encounter for long-term (current) use of other medications documented in this encounter Results * Drug Screen with Confirmation, Urine (06/08/2014 2:31 PM EDT) U NEO w/Conf Test ? Result ?? Flag ??Unit ?? RefValue --------- Pain Clinic Drug Screen, U ??Amphetamines ? Negative ? ng/mL ??Cutoff: 500 ??Barbiturates ? Negative ? ng/mL ??Cutoff: 200 ??Benzodiazepines ?Negative ? ng/mL ??Cutoff: 200 ??Cocaine Metabolite ? Negative ? ng/mL ??Cutoff: 150 ??Methadone ?Negative ? ng/mL ??Cutoff: 300 ??Opiates ?Negative ? ng/mL ??Cutoff: 300 ??Phencyclidine ?Negative ? ng/mL ??Cutoff: 25 ??Tetrahydrocanna binols ?Negative ? ng/mL ??Cutoff: 50 ??Ethanol ?Negative ? mg/dL ??Cutoff: 10 --ADDITIONAL INFORMATION------ Results from this test are presumptive; for positive results refer to the corresponding drug confirmation for the definitive result. This report is intended for use in clinical monitoring and management of patients. It is not intended for use in employment-relate d drug testing. ??Confirmation - Opiates ?? Negative ??Codeine ?Negative ? ng/mL ??<100 ??Hydrocodone ?Negative ? ng/mL ??<100 ??Hydromorphone ?Negative ? ng/mL ??<100 ??Morphine ? Negative ? ng/mL ??<100 ??Oxycodone ?Negative ? ng/mL ??<100 ??Oxymorphone ?Negative ? ng/mL ??<100 --ADDITIONAL INFORMATION------ This report is intended for use in clinical monitoring and management of patients. It is not intended for use in employment-relate d drug testing. Test Performed by: [facility] [address], [place] [address] Wire Winding Machine Tender: Kim Vázquez, Ph.D. GORGE HIMANSHUTERRA Urine specimen (specimen) 06/08/2014 2:31 PM EDT 06/08/2014 3:43 PM EDT Narrative Resulting Agency Comment Spec In Lab Souleymane Venegas MD URINE ORDERABLES GORGE FRIEDMAN documented in this encounter Visit Diagnoses Diagnosis Encounter for long-term (current) use of other medications Radiculopathy of cervical region Brachial neuritis or radiculitis nos documented in this encounter Care Teams Packing Supervisor Relationship Specialty Start Date End Date Adenike Chung APRN PCP - General 03/14/11 01/18/15 documented as of this encounter
--- OUTSIDE RECORDS SUMMARY | 2023-10-18 21:28 | XMS_ITS | Encounter Summary ---
Author Organization [facility] Address [facility] [place] [address] Care Team Providers Care Customer Advisor Specialist Name Role Phone Adenike Chung APRN Primary Care Provider + Reason for Visit * Reason Onset Date Comments Other 07/24/2012 Encounter Details Date Type Department Care Team (Late st Contact Info) Description 07/24/2012 [place] [address] Nader Crawford MD [facility] [place] [address] Other Social History Tobacco Use Types Packs/Day Years [...] encounter Miscellaneous Notes * Telephone Encounter - Nader Crawford MD - 07/26/2012 4:28 PM EDT It has been over a year since I saw the patient. I called but could not get her directly. I left a message in her personal mailbox. I reviewed MRI scan of the brain and cervical spine. The brain is normal. Her cervical spine MRI shows degenerative changes at multiple levels most prominent at C4-5, and I note that she has had surgery at C5-6. There is nothing particularly threatening or alarming about the study, although there are certainlyreasons for her to have neck, back and arm pain. I recommended that if she was having problems I would be very happy to see her for a follow-up visit in clinic. I note that she canceled her regular follow-up appointment many months ago. Nader Crawford M.D. * Telephone Encounter - Nader Crawford MD - 07/26/2012 2:53 PM EDT * Telephone Encounter - Mayra Mahan - 07/24/2012 3:10 PM EDT Patient called in to follow-up from her last appointment from 04/2011. She would like to know if found anything on her imaging that may provide insight to her issues. She notes that there was discussion about this possibly being related to a surgery she had on her neck. She also notes that she was supposed to have a follow-up, but she recently went through a difficult divorce and was unable to make that appointment. She would like a call back to discuss and reports it is OK to leave a message on her personal cell phone. documented in this encounter Plan of Treatment Not on file documented as of this encounter Visit Diagnoses Not on filedocumented in this encounter Care Teams Customer Advisor Specialist Relationship Specialty Start Date End Date Adenike Chung APRN PCP - General 03/14/11 01/18/15 documented as of this encounter
--- OUTSIDE RECORDS SUMMARY | 2023-10-18 21:28 | XMS_ITS | Referral Summary ---
Author Organization [facility] Address [address] [place] [address] Care Team Providers Care Ground Hand Name Role Phone Ashleigh Gaston BART Primary Care Provider [phone] Allergies Active Allergy Reactions Criticality Noted Date [...] 14:24 EDT Sexual Orientation Not on file Last Filed [...] Body Mass Index 50.3 01/13/2021 1556 EST Functional Status Functional Status Response Date of [...] concentrating, remembering, or making decisions? Yes 01/13/2021 Plan of Treatment Not on file Care Teams Ground Hand Relationship Specialty Start Date End Date Ashleigh Gaston FNP [address] [place] [address] PCP - General 01/13/21
--- OUTSIDE RECORDS SUMMARY | 2023-10-18 21:28 | XMS_ITS | Encounter Summary ---
Author Organization [facility] Address [facility] [place] [address] Care Team Providers Care Tangible Personal Property Appraiser Name Role Phone Digna Lemon APRN Primary Care Provider [phone] Reason for Referral * Diagnostic Test (Routine) - Closed Specialty Diagnoses / Procedures Referred By Contac t Referred To Contact Radiology Diagnoses Fatigue, unspecified type Procedures CT Chest With Contrast CT Chest With/Wo Contrast Mena Eagle MD [facility] [address] HEMATOLOGY [place] [address] [facility] [place] [address] Referral ID Status Reason Start Date Expiration Date V isits Requested Visits Authorized [id number] Closed Specialty Service Requested 09/03/2015 09/02/2016 1 1 * Diagnostic Test (Routine) - Closed Specialty Diagnoses / Procedures Referred By Contac t Referred To Contact Radiology Diagnoses Fatigue, unspecified type Procedures CT Neck Soft Tissue With Contrast (GENERIC) CT Neck Soft Tissue With/Wo Contrast Mena Eagle MD [facility] HEMATOLOGY [place] [address] [facility] [place] [address] Referral ID Status Reason Start Date Expiration Date V isits Requested Visits Authorized [id number] Closed Specialty Service Requested 09/03/2015 09/02/2016 1 1 * Diagnostic Test (Routine) - Closed Specialty Diagnoses / Procedures Referred By Contac t Referred To Contact Radiology Diagnoses Fatigue, unspecified type Procedures CT Abdomen And Pelvis With Contrast CT Abdomen With/Wo Contrast Mena Eagle MD [facility] [place] [address] [facility] [place] [address] Referral ID Status Reason Start Date Expiration Date V isits Requested Visits Authorized [id number] Closed Specialty Service Requested 09/02/2015 12/01/2015 1 1 Reason for Visit * Diagnostic Test (Routine) - Closed Specialty Diagnoses / Procedures Referred By Contac t Referred To Contact Radiology Diagnoses Fatigue, unspecified type Procedures CT Abdomen And Pelvis With Contrast CT Abdomen With/Wo Contrast Mena Eagle MD [facility] [place] [address] [facility] [place] [address] Referral ID Status Reason Start Date Expiration Date V isits Requested Visits Authorized [id number] Closed Specialty Service Requested 09/02/2015 12/01/2015 1 1 Encounter Details Date Type Department Care Team (Latest Contact Info) Description 09/06/2015 2:37 PM EDT - 09/06/2015 11:59 PM EDT Hospital [place] [address] Mena Eagle MD [facility] [place] [address] Fatigue, unspecified type Discharge Disposition: Home Social History Tobacco Use [...] Sig Dispensed Refills Start Date End Date loratadine (CLARITIN) 10 mg Tablet Take 10 [...] tablet Take 325 mg by mouth daily. hydrOXYzine (ATARAX) 10 mg Tablet Take 10 mg by mouth 3 times daily as needed for Itching. 06/25/2017 propranolol (INDERAL) 10 mg Tablet Take 30 mg by mouth every evening. 06/08/2016 cloNIDine HCl (CATAPRES) 0.1 mg Tablet Take 0.1 mg by mouth nightly. 06/25/2017 FLUTICASONE PROPIONATE (FLOVENT HFA INHL) Inhale into the lungs. 11/22/2015 pregabalin (LYRICA) 75 mg capsule Take 100 mg by mouth 2 times daily. 06/25/2017 Cholecalciferol, Vitamin D3, (VITAMIN D-3) 2,000 unit Cap Take 2,000 Units by mouth daily. 05/30/2019 documented as of this encounter Plan of Treatment Not on file documented as of this encounter Procedures Procedure Name Priority Date/Time Associated Diagnosis Comments CT ABDOMEN AND PELVIS W CONTRAST Routine 09/06/2015 5:07 PM EDT Fatigue, unspecified type CT CHEST W CONTRAST Routine 09/06/2015 5 :07 PM EDT Fatigue, unspecified type CT NECK SOFT TISSUE W CONTRAST Routine 09/06/2015 5:07 PM EDT Fatigue, unspecified type documented in this encounter Results * CT Chest With [...] cardiopulmonary abnormality. Hepatic steatosis. Mena Eagle MD IM CT ORDERABLES * CT Neck Soft Tissue [...] encounter Visit Diagnoses Diagnosis Fatigue, unspecified type documented in this encounter Administered Medications Inactive Administered Medications - up to 3 most recent administrations Medication Order MAR Action Action Date Dose Rate Site iohexol (OMNIPAQUE) 350 mg/mL solution 17,500 mg 17,500 mg (50 mL), Oral, ONCE PRN, 1 dose, Starting on Sun09/06/15 at 1642, Until Sun09/06/15 at 1642, Per Protocol, Warning Vesicant/Irritant Medication , Routine Given 09/06/2015 4:42 PM EDT 17,500 mg iohexol (OMNIPAQUE) 350 mg/mL solution 38,500 mg 38,500 mg (110 mL), Intravenous, ONCE PRN, 1 dose, Starting on Sun09/06/15 at 1642, Until Sun09/06/15 at 1642, Per Protocol, Warning Vesicant/Irritant Medication , Routine Given 09/06/2015 4:42 PM EDT 38,500 mg documented in this encounter Care Teams Tangible Personal Property Appraiser Relationship Specialty Start Date End Date Digna Lemon APRN PCP - General Family Medicine 01/19/15 09/04/18 documented as of this encounter
--- OUTSIDE RECORDS SUMMARY | 2023-10-18 21:28 | XMS_ITS | Encounter Summary ---
Author Organization [facility] Address [facility] [place] [address] Care Team Providers Care Physical Education Department Chair Name Role Phone Adenike Chung APRN Primary Care Provider + Reason for Visit * Reason Comments Pain Encounter Details Date Type Department Care Team (Late st Contact Info) Description 03/16/2011 12:20 PM EST [place] [address] Nader Crawford MD [facility] [place] [address] Paresthesias (Primary Dx) Discharge Disposition: Home Social History Tobacco Use Types Packs/Day Years Used Date Smoking Tobacco: Every Day Cigarettes Smokeless Tobacco: Never Alcohol Use Standard Drinks/Week Comments Yes 0 (1 standard drink = 0.6 oz pur e alcohol) rare Sex and Gender Information Value Date Recorded Sex Assigned at Not on file Gender Identity Not on file Sexual Orientation Not on file documented as of this encounter Last Filed Vital Signs Vital Sign Reading Time Taken Comments Blood Pressure 126/59 03/16/2011 10:36 AM EST Pulse 87 03/16/2011 10:36 AM EST Temperature - - Respiratory Rate - - Oxygen Saturation - - Inhaled Oxygen Concentration - - Weight 117.9 kg (260 lb) 03/16/2011 10:36 AM EST Height 157.5 cm (5' 2) 03/16/2011 10:36 AM EST Body Mass Index 47.55 03/16/2011 10:36 AM EST documented in this encounter Patient Instructions * Patient Instructions* Nader Crawford MD - 03/16/2011 2:21 PM EST I thinkyou have fibromyalgia and have suffered an injury to nerves in your neck I doubt you have multiple sclerosis but we will do some additional tests. Please get blood tests done today. I will see you back in a few weeks along with a visual evoked potential study. Please discuss treatment for depression with your PCP documented in this encounter Progress Notes * Nader Crawford MD - 03/16/2011 1:58 PM EST Neurology attending consultation note CC: Paresthesias, pain History: 40 year old right handed woman.refeeed by Dr. Chung, lydia [facility]. Normal and development. Did OK in school. Did dance and figure skating and had normal coordination. No major childhood illnesses. Had meningitis after delivery of son, 17 years ago (had toxemia and ), suspected viral treated in [facility]. Made good recovery. 2 subsequent deliveries by . . A few years later noticed tightness in legs an bad balance and coordination. Symptoms fluctuating over weeks. Gradually right side noted to feel weaker and to have more paresthesias and some los of control. Sometimes happens on the left. Some urinary urgency and occasional incontinence. Paresthesias in legs. About 4 years ago had neck pain radiating into ? Right arm and had C5-6 discectomy in [place] with some some relief of symptoms. Since then then has pain and paresthesias in various parts of her body, poor memory, stuttering speech. F/U MRI of C-spine show stable disc bulge at C4-5. Reports but not images seen) MRI of brain x3 [id number] all normal by report and to my review. PMH: Patient Active Problem List Diagnoses Code [...] tablet by mouth 2 times daily asneeded. ??? predniSONE (DELTASONE) 10 mg tablet Take 10 mg by mouth as needed. Allergies: Allergies Allergen Reactions ??? Codeine Nausea And Vomiting ??? Lactose Nausea And Vomiting And diarrhea Physical Exam: VS: Stable HEENT: Normal Heart: Normal S1, S2, no abnormal sounds Lungs: Clear Abdomen: Benign, obese Extremities: Normal Neurological exam: Mental state: Normal, depressed Speech: Normal Cranial nerves: I: Not tested II: Normal vision III, IV, : EOMs full V: Facial sensation decreased right. VII: Facial strength normal VIII: Hearing normal ?decreased IX, X: Palate movement normal XI: Shoulder shrug normal XII: Tongue movement normal Motor: Strength: Normal 5/5 left, 5-/[address] quality Fine motor: Normal ? but not very good on either side Tone: Normal Abnormal movements: None DTR: 2+ Babinski sign: None Other reflexes: + Wartenberg sign noted on right. Sensation: Decreased in all modalities on right side including vibration sense decreased on right side of skull. Cerebellar: Finger to nose: Normal but slow Heel to wade: Normal but awkward due to obesity Gait: antalgic, slight drag of right leg Labs: Orders Placed This Encounter Procedure ??? Hepatic function panel ??? Basic metabolic panel (non-fasting) ??? Tsh ??? Vitamin b12 ??? T4 ??? Magnesium ??? Cbc (with diff) ??? Phosphorus ??? Sedimentation rate ? ? Lyme igg & igm antibody ??? Tissue transglutaminase, iga ??? Radha ??? Cardiolipin antibody screen ??? Protein electrophoresis, serum ??? Angiotensin converting enzyme ??? Rheumatoid factor, quant ??? Ck ??? Visual evoked potential test Impression and suggestions: Pateint with complex constellation of symptoms and signs that have a large psychosomatic component. I concur with diagnosis of fibromyalgia. There is no convincing evidence of multiple sclerosis. But I think it is reasonable to do a visual evoked potential study and I will arrange for that. I would not do an LP. Lm screening her with additional lab studies as noted above. He right body symptoms and signs are suggestive of a residue from cervical radiculopathy and myelopathy, possibly related to disc disease. I have requested her to bring pre and post-surgical cervicalMRI scans. There is however I am sure a large psychosomatic component in her right sided sensory loss. There is no structural basis for a difference in perception of vibration on the two sides of the head. I advised an exercise and weight loss program and I think she could benefit from an anti-depressant. Wellbutrin which is alerting might willie good choice. She triggered a suicide alarm on one of our questionnaires but on questioning had no specific plan. I will see her back in 4-6 weeks along with her evoked potential study. Thank you for this consultation Nader Crawford MD CC: Dr. Sheldon Kemp documented in this encounter Plan of Treatment Not on file documented as of this encounter Procedures Procedure Name Priority Date/Time Associated Diagnosis Comments LYME IGG & IGM ANTIBODY Routine 03/16/2011 2:51 PM EST Paresthesias DIFFERENTIAL, AUTOMATED Routine 03/16/2011 2:51 PM EST TISSUE TRANSGLUTAMINASE, IGA Routine 03/16/2011 2:51 PM EST Paresthesias CARDIOLIPIN ANTIBODY SCREEN Routine 03/16/2011 2:51 PM EST Paresthesias SEDIMENTATION RATE Routine 03/16/2011 2: 51 PM EST Paresthesias CBC (WITH DIFF) Routine 03/16/2011 2:51 PM EST Paresthesias RHEUMATOID FACTOR, QUANT Routine 03/16/2011 2:51 PM EST Paresthesias ANGIOTENSIN CONVERTING ENZYME Routine 03/16/2011 2:51 PM EST Paresthesias RADHA ANTIBODY SCREEN Routine 03/16/2011 2 :51 PM EST Paresthesias TSH Routine 03/16/2011 2:51 PM EST Paresthesias T4 TOTAL Routine 03/16/2011 2:51 PM EST Paresthesias PROTEIN ELECTROPHORESIS, SERUM Routine 03/16/2011 2:51 PM EST Paresthesias PHOSPHORUS Routine 03/16/2011 2:51 PM EST Paresthesias MAGNESIUM Routine 03/16/2011 2:51 PM EST Paresthesias VITAMIN B12 Routine 03/16/2011 2:51 PM EST Paresthesias CK Routine 03/16/2011 2:51 PM EST Paresthesias HEPATIC FUNCTION PANEL Routine 2 2:51 PM EST Paresthesias BASIC METABOLIC PANEL Routine 03/16/2011 2:51 PM EST Paresthesias documented in this encounter Results * Visual evoked potential test (05/25/2011 1:44 PM EDT) Alis Hernandez RN - 05/25/2011 1:44 PM EDT ? VEP#: 46/ Visual Evoked Potentials (VEP) Name: ?Alis Cardenas Date of Study: ??04/25/2011 Referring Provider: Nader Crawford MD Clinical History: This is 40 year old female with 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 Procedure: ??Monocular, whole field, 16-check pattern-reversal visual evoked potentials ??were recorded over mid-occipital and right and left occipital cortices. Visual Acuity Left ??Right 20/50 20/50 ?Latency (msec) Generator Wave Left Right Left/Right Difference Normal Occipital Neocortex P100 98.8 98.8 0.0 < 117.6 (Difference < 7.3) NR = Not Reproducible NA = Not Applicable ?? Cc: Procedure Note Kade Quezada - 04/25/2011 2:05 PM EDT VEP#: 46/12 Visual Evoked Potentials (VEP) Name: Alis Cardenas Date of Study: 04/25/2011 Referring Provider: Nader Crawford MD Clinical History: This is 40 year old female with possible demyelinationdisease. Procedure: Monocular, whole field, 16-check pattern-reversal visualevoked potentials were recorded over mid-occipital and right and left occipitalcortices. Visual Acuity Left Right 20/50 20/50 Latency (msec) Generator Wave Left Right Left/Right Difference Normal Occipital Neocortex P100 98.8 98.8 0.0 < 117.6 (Difference < 7.3) NR = Not Reproducible NA = Not Applicable Cc: Nader Crawford MD NEUROLOGY ORDERABLES * (ABNORMAL) DIFFERENTIAL, AUTOMATED (03/16/2011 2:51 PM EST) Neutrophil % 64.0 34.0 - 71.0 % CERNER MILLENNIUM Neutrophil Absolute 8.42(H) 1.50 - 6.30 x10(3)/mc L CERNER MILLENNIUM Lymph % 28.6 19.0 - 53.0 % CERNER MILLENNIUM Lymphocytes Abs 3.8(H) 1.0 - 3.6 x10(3)/mc L CERNER MILLENNIUM Monocyte % 5.2 4.0 - 13.0 % CERNER MILLENNIUM Monocyte Abs 0.7 0.2 - 1.0 x10(3)/mc L CERNER MILLENNIUM Eos % 1.7 0.0 - 7.0 % CERNER MILLENNIUM Eosinophils Abs 0.2 0.0 - 0.5 x10(3)/mc L CERNER MILLENNIUM Basophil % 0.2 0.0 - 2.0 % CERNER MILLENNIUM Baso Absolute 0.0 0.0 - 0.2 x10(3)/mc L CERNER MILLENNIUM Immature Gran % 0.30 0.00 - 0.66 % CERNER MILLENNIUM Comment: Immature granulocytes(IG's)percentage and absolute count will include metamyelocytes, myelocytes, and promyelocytes. Blood smears from CBCs yielding IG's will be scanned manually for concordance. If this scan disagrees with the automated IG or if promyelocytes are noted, a manual differential will be performed. Immature Gran Absolute 0.04 0.00 - 0.05 x10(3)/mc L [facility] Blood specimen (specimen) 03/16/2011 2:51 PM EST 03/16/2011 2:57 PM EST Nader Crawford MD HEMATOLOGY ORDERABLE S Performing Organization Address City/[facility] Co de Phone Number [facility] * CK (03/16/2011 2:51 PM EST) Creatine Kinase <20 0 - 160 unit/L [facility] Blood specimen (specimen) 03/16/2011 2:51 PM EST 03/16/2011 2:57 PM EST Nader Crawford MD CHEMISTRY ORDERABLES [facility] * Rheumatoid factor, quant (03/16/2011 2:51 PM EST) Rheumatoid Factor <10 <=14 IU/mL [facility] Blood specimen (specimen) 03/16/2011 2:51 PM EST 03/16/2011 2:57 PM EST Nader Crawford MD CHEMISTRY ORDERABLES Performing Organization Address [facility]/ZIP Co de Phone Number [facility] * Angiotensin Converting Enzyme (03/16/2011 2:51 PM EST) Pathologist [facility] (JUNE) 53 8 - 53 unit/L CERNER MILLENNIUM Comment: Test Performed by: [facility] [place] [address] Mop Machine Operator: Kim Snyder, Ph.D. Blood specimen (specimen) 03/16/2011 2:51 PM EST 03/16/2011 4:26 PM EST Nader Crawford MD LAB SEND OUT ORDERAB LES Performing Organization Address [facility] Co de Phone Number [facility] * Protein Electrophoresis, serum (03/16/2011 2:51 PM EST) [facility] Total Prot Electrophoresis 7.1 6.1 - 8.0 gm/dL CERNER MILLENNIUM Albumin Electrophoresis 4.26 3.60 - 6.00 gm/dL CERNER MILLENNIUM Alpha 1 Globulin 0.21 0.10 - 0.30 gm/dL CERNER MILLENNIUM Alpha 2 Globulin 0.83 0.40 - 0.90 gm/dL CERN[facility] MILLENNIUM Beta Globulin 0.77 0.50 - 1.00 gm/dL CERNER MILLENNIUM Gamma Globulin 1.03 0.50 - 1.30 gm/dL CERNER MILLENNIUM M1 Band None Detected None Detected gm/dL [facility]ERN[facility] MILLENNIUM Scan See Note [facility] MILLENNIUM Comment:Please see scanned r eport in Chart Review under the [facility] Heading. Blood specimen (specimen) 03/16/2011 2:51 PM EST 03/16/2011 2:57 PM EST Nader Crawford MD CHEMISTRY ORDERABLES Performing Organization Address [facility] Co de Phone Number [facility] * Cardiolipin Antibody Screen (03/16/2011 2:51 PM EST) [facility] Cardiolipin Antibody IgG <23 <=22 GPL unit(s) [facility] Comment: Ranges ? GPL ------- ? ------ Normal ?<23 Low Positive ? 23-35 Moderate Positive ?36-50 High Positive ? >50 Cardiolipin Antibody IgM <11 <=10 MPL unit(s) [facility] Comment: Ranges ?MPL ----- ?----- Normal ?<11 Low Positive ? 11-20 Moderate Positive ?21-30 High Positive ? >30 Blood specimen (specimen) 03/16/2011 2:51 PM EST 03/17/2011 8:12 AM EST Nader Crawford MD IMMUNOLOGY ORDERABLE S [facility] * RADHA (03/16/2011 2:51 PM EST) RADHA Neg Neg [facility] Blood specimen (specimen) 03/16/2011 2:51 PM EST 03/17/2011 8:13 AM EST Nader Crawford MD LAB SEND OUT ORDERAB LES Performing Organization Address [facility] Phone Number [facility] * Tissue transglutaminase, IgA (03/16/2011 2:51 PM EST) TTG IgA Ab <4.0 <=3.9 u/ml [facility] Comment: Result Interpretation: Negative: ?<4 U/mL Weak Positive: ??4-10 U/mL Positive: ?>10 U/mL Blood specimen (specimen) 03/16/2011 2:51 PM EST 03/17/2011 8:12 AM EST Nader Crawford MD IMMUNOLOGY ORDERABLE S Performing Organization Address [facility] Number [facility] * Lyme IgG & IgM Antibody (03/16/2011 2:51 PM EST) Pathologist [facility] Lyme Antibody Negative Negative [facility] Blood specimen (specimen) 03/16/2011 2:51 PM EST 03/17/2011 8:05 AM EST Nader Crawford MD IMMUNOLOGY ORDERABLE S Performing Organization Address [facility] Number [facility] * (ABNORMAL) Sedimentation rate (03/16/2011 2:51 PM EST) [facility] Sedimentation Rate Automated 32(H) 0 - 20 mm/hr [facility] Blood specimen (specimen) 03/16/2011 2:51 PM EST 03/16/2011 2:57 PM EST Nader Crawford MD HEMATOLOGY ORDERABLE S Performing Organization Address [facility] Number [facility] * Phosphorus (03/16/2011 2:51 PM EST) Pathologist [facility] Phosphorus 3.5 2.5 - 4.5 mg/dL [facility] Blood specimen (specimen) 03/16/2011 2:51 PM EST 03/16/2011 2:57 PM EST Narrative Authorizing Provider Result Meredith Crawford MD CHEMISTRY ORDERABLES Performing Organization Address [facility] de Phone Number [facility]ENNI[facility] * (ABNORMAL) CBC (with Diff) (03/16/2011 2:51 PM EST) White Blood Cell 13.2(H) 4.0 - 10.0 x10(3)/mc L CERNER MILLENNIUM Red Blood Cell 4.56 3.93 - 5.22 x10(6)/mc L CERN[facility] MILLENNIUM Hemoglobin 12.7 11.2 - 15.7 gm/dL [facility]ERN[facility] MILLENNIUM Hematocrit 38.0 34.0 - 45.0 % CERNER MILLENNIUM Mean Cell Volume 83.3 79.0 - 94.0 fL CERNER MILLENNIUM Mean Cell Hemoglobin 27.9 26.6 - 32.2 pg CERNER MILLENNIUM Mean Cell Hemoglobin Concentration 33.4 32.0 - 36.5 gm/dL CERNER MILLENNIUM Platelet 291 145 - 370 x10(3)/mc L CERNER MILLENNIUM RDW Standard Deviation 43.7 35.0 - 46.0 fL CERNER MILLENNIUM RDW coefficient of variation 14.4 10.9 - 14.4 % CERNER MILLENNIUM Mean Platelet Volume 10.4 9.0 - 12.0 fL [facility] MILLENNIUM Blood specimen (specimen) 03/16/2011 2:51 PM EST 03/16/2011 2:57 PM EST Narrative Authorizing Provider Result Meredith Crawford MD HEMATOLOGY ORDERABLE S Performing Organization Address [facility] de Phone Number [facility] * Magnesium (03/16/2011 2:51 PM EST) Magnesium 0.85 0.69 - 1.07 mmol/L [facility] MILLENNIUM Blood specimen (specimen) 03/16/2011 2:51 PM EST 03/16/2011 2:57 PM EST Narrative Authorizing Provider Result Meredith Crawford MD CHEMISTRY ORDERABLES Performing Organization Address [facility] Phone Number [facility] * T4 (03/16/2011 2:51 PM EST) T4 Total 8.1 5.1 - 10.8 mcg/dL [facility] Comment: Reference Range: [place] Cord Blood: ??6.9-14.4 mcg/dL Females: ??7.2-14.2 mcg/dL Pediatric ranges: ??Interpret with caution-ranges have not been verified Blood specimen (specimen) 03/16/2011 2:51 PM EST 03/16/2011 2:57 PM EST Nader Crawford MD CHEMISTRY ORDERABLES Performing Organization Address [facility] Number [facility] * Vitamin B12 (03/16/2011 2:51 PM EST) [facility] Vitamin B12 691 207 - 974 pg/mL [facility] Blood specimen (specimen) 03/16/2011 2:51 PM EST 03/16/2011 2:57 PM EST Nader Crawford MD CHEMISTRY ORDERABLES Performing Organization Address [facility] Number [facility] * TSH (03/16/2011 2:51 PM EST) [facility] Thyroid Stimulating Hormone 0.94 0.27 - 4.20 mcIU/mL [facility] Blood specimen (specimen) 03/16/2011 2:51 PM EST 03/16/2011 2:57 PM EST Nader Crawford MD CHEMISTRY ORDERABLES Performing Organization Address [facility] Number [facility] * (ABNORMAL) Basic Metabolic Panel (non-fasting) (03/16/2011 2:51 PM EST) [facility] Glucose 90 60 - 199 mg/dL [facility] Comment:Diabetes: >=200 mg/d L plus symptoms Blood [...] MILLENNIUM Est Glomerular Filtration Rate >60 >=60 CERNER MILLENNIUM Comment: The National Kidney Disease Education Program [...] PM EST Nader Crawford MD CHEMISTRY ORDERABLES Performing Organization Address [facility] Co de Phone Number [facility] * Hepatic Function Panel (03/16/2011 2:51 PM EST) Protein, Total 7.4 6.4 - 8.3 gm/dL CERN[facility] MILLENNIUM Albumin 4.1 3.2 - 5.2 gm/dL CERNER MILLENNIUM Aspartate Aminotransferase 21 0 - 30 unit/L CERNER MILLENNIUM Alanine Aminotransferase 20 0 - 30 unit/L CERNER MILLENNIUM Alkaline Phosphatase 69 40 - 104 unit/L CERNER MILLENNIUM Bilirubin, Total 0.2 0.2 - 1.3 mg/dL CERNER MILLENNIUM Bilirubin, Direct 0.1 0.0 - 0.3 mg/dL [facility] MILLENNIUM Blood specimen (specimen) 03/16/2011 2:51 PM EST 03/16/2011 2:57 PM EST Nader Crawford MD CHEMISTRY ORDERABLES Performing Organization Address [facility] Co de Phone Number [facility] FRIED[facility] documented in this encounter Visit Diagnoses Diagnosis Paresthesias- Primary Disturbance of skin sensation Paresthesias- Primary Disturbance of skin sensation documented in this encounter Care Teams Physical Education Department Chair Relationship Specialty Start Date End Date Adenike Chung APRN PCP - General 03/14/11 01/18/15 documented as of this encounter
--- OUTSIDE RECORDS SUMMARY | 2023-10-18 21:28 | XMS_ITS | Encounter Summary ---
Author Organization [facility] Address [facility] [place] [address] Care Team Providers Care Plastics Bench Mechanic Name Role Phone Ion Digna Huston APRN Primary Care Provider Encounter Details Date Type Department Care Team (Latest Contact Info) Description 08/20/2015 1:00 PM EDT - 08/20/2015 11:59 PM EDT Hospital Encounter [place]ology [place] [address] Bandemia; Leukocytosis, unspecified type Discharge Disposition: Home Social History [...] Procedure Name Priority Date/Time Associated Diagnosis Comments IMMUNOPHENOTYPING FLOW CYTOMETRY (BLOOD) Routine 08/20/2015 1:21 PM EDT Bandemia FLOW CYTOMETRY REPORT Routine 08/20/2015 1:21 PM EDT HEMOGRAM Routine 08/20/2015 1:21 PM EDT Leukocytosis, unspecified type DIFFERENTIAL, AUTOMATED Routine 08/20/19 16 1:21 PM EDT Leukocytosis, unspecified type CBC (WITH DIFF) Routine 08/20/2015 1:21 PM EDT Leukocytosis, unspecified type documented in this encounter Results * Flow Cytometry Report (08/20/2015 1:21 PM EDT) Flow Cytometry Report [id number] ?Location: The signing pathologist has (i) examined the relevant preparation(s) for the specimen(s) and (ii) rendered or confirmed the diagnosis(es). . ?Flow Cytometry DIAGNOSIS Normal immunophenotyping results. No monotypic B-cell population or phenotypically abnormal T-cell population or increase in blasts is detected. 08/23/15 PK 08/23/15 Verified by: ? Javier Whatley MD ?Hematopathologist ?(Electronic Signature) DISCUSSION Blasts based on CD45 expression and orthogonal light scatter, are not increased. The CD19 positive B-cells have a polytypic expression of surface immunoglobulin light chain (Moyers:Lambda ratio at 1.2). The T-cells are an admixture of CD4+ and CD8+ T lymphocytes (ratio of 3.1). No loss or atypical intensity distributions are seen for any buck T antigen (CD2, 3, 4+8, 5, 7). There is no increase in GW76-uqsoltkn/CD3-ne g NK cells. Flow analysis is an ancillary study. A definite diagnosis requires correlation with the morphologic features of this process and if necessary, correlation with other ancillary studies like immunohistochemistry , enzyme cytochemistry and/or cyto/molecular genetics. This test was developed and its performance characteristics determined by the Clinical Flow Cytometry Laboratory at [facility]. It has not been cleared or approved by the U.S. Food and Drug Administration. ??The FDA has determined that such clearance or approval is not necessary. ??This test is used for clinical purposes. ??It should not be regarded as investigational or for research. ??This laboratory is certified under the Clinical Laboratory Improvement Act of 1988 (CLIA) as qualified to perform high complexity clinical laboratory testing. SPECIMEN PROCESSING [id number] Cells for immunophenotypic analysis were derived from peripheral blood. ??CD45 vs side scatter gating was utilized to identify a lymphoid analysis region that comprises approximately 15-16% of all cells. The following markers were assessed: CD2, CD3, CD4, CD5, CD7, CD8, CD10, CD19, CD45, CD56, kappa light chain, and lambda light chain. CLINICAL INFORMATION leukocytosis [facility] 08/20/2015 1:21 PM EDT Mena Eagle MD PATHOLOGY/CYTOLOGY O RDERAAMARA [facility] [place] [place] [address] * (ABNORMAL) Differential, Automated (08/20/2015 1:21 PM EDT) Neutrophil % 70.2 % [facility] Neutrophil Absolute 11.62(H) 1.50 - 6.30 x10(3)/mc L [facility] Lymph % 23.1 % [facility] Lymphocytes Abs 3.8(H) 1.0 - 3.6 x10(3)/mc L [facility] Monocyte % 5.1 % [facility] Monocyte Abs 0.8 0.2 - 1.0 x10(3)/mc L [facility] Eos % 0.6 % [facility] Eosinophils Abs 0.1 0.0 - 0.5 x10(3)/ L [facility] Basophil % 0.2 % [facility] Baso Absolute 0.0 0.0 - 0.2 x10(3)/mc L [facility] Immature Gran % 0.80 % [facility] Comment: Immature granulocytes(IG's)percentage and absolute count will include metamyelocytes, myelocytes, and promyelocytes. Blood smears from CBCs yielding IG's will be scanned manually for concordance. If this scan disagrees with the automated IG or if promyelocytes are noted, a manual differential will be performed. Immature Gran Absolute 0.14(H) 0.00 - 0.05 x10(3)/mc L [facility] Blood specimen (specimen) 08/20/2015 1:21 PM EDT 08/20/2015 1:30 PM EDT Narrative Resulting Agency Comment Spec In Lab Mena Eagle MD HEMATOLOGY ORDERABLE S [facility] [place] [place] [address] * (ABNORMAL) Hemogram (08/20/2015 1:21 PM EDT) White Blood Cell 16.6(H) 4.0 - 10.0 x10(3)/mc L [facility] Red Blood Cell 5.01 3.93 - 5.22 x10(6)/mc L [facility] Hemoglobin 13.3 11.2 - 15.7 gm/dL [facility] Hematocrit 40.7 34.0 - 45.0 % [facility] Mean Cell Volume 81.2 79.0 - 94.0 fL [facility] Mean Cell Hemoglobin 26.5(L) 26.6 - 32.2 pg [facility] Mean Cell Hemoglobin Concentration 32.7 32.0 - 36.5 gm/dL [facility] Platelet 329 145 - 370 x10(3)/mc L [facility] RDW Standard Deviation 44.2 35.0 - 46.0 fL [facility] RDW coefficient of variation 15.0(H) 10.9 - 14.4 % [facility] Mean Platelet Volume 10.6 9.0 - 12.0 fL [facility] Blood specimen (specimen) 08/20/2015 1:21 PM EDT 08/20/2015 1:30 PM EDT Narrative Resulting Agency Comment Spec In Lab Mena Eagle MD HEMATOLOGY ORDERABLE S [facility] [place] [place] [address] * Immunophenotyping Flow Cytometry (08/20/2015 1:21 PM EDT) Immunophenotyping Flow See Comment [facility] Comment: When completed by the Pathologist, the Flow Cytometry Report ([id number]) will display under the Pathology Results section within eDH. Specimen of unknown material (specimen) 08/20/2015 1:21 PM EDT 08/20/2015 1:30 PM EDT Narrative Resulting Agency Comment Spec In Lab Mena Eagle MD HEMATOLOGY ORDERABLE S Performing Organization Address City/State[facility] Co de Phone Number [facility] [place] [phone] documented in this encounter Visit Diagnoses Diagnosis Bandemia Leukocytosis, unspecified type documented in this encounter Care Teams Plastics Bench Mechanic Relationship Specialty Start Date End Date Digna Lemon APRN PCP - General Family Medicine 01/19/15 09/04/18 documented as of this encounter
--- OUTSIDE RECORDS SUMMARY | 2023-10-18 21:28 | XMS_ITS | Encounter Summary ---
Author Organization [facility] Address [address] [place] [address] Care Team Providers Care Huc Name Role Phone Ashleigh Gaston BART Primary Care Provider [phone] Encounter Details Date Type Department Care Team (Late st Contact Info) Description 06/29/2022 Lab Requisition [facility] Pathology & Laboratory Medicine - [facility] [address] [place] [address] Luz Elena Stahl [address] [place] [address] [facility] [place] [id number] Encounter for other general examination Social History Tobacco Use Types Packs/Day Years [...] Date/Time Associated Diagnosis Comments SURGICAL PATHOLOGY Today 06/28/2022 15 :05 EDT Encounter for other general examination documented in this encounter Results * SURGICAL PATHOLOGY (06/28/2022 15:05 EDT) Note to Patient The following pathology results have been interpreted by your pathologist and may be available to you before your health provider has had the opportunity to review them. Please allow time for your provider to receive these results and explore management options, if applicable. 07/04/2022 9:56 [facility] Final Diagnosis A. ENDOCERVIX, CURETTAGE: - Fragments of benign endocervix with squamous metaplasia. B. ENDOMETRIUM, CURETTAGE: - Benign endometrium with changes consistent with progestin effect. - Benign endometrial polyp. 07/04/2022 9:56 [facility] Attestation By the signature below, the attending physician certifies that they have 1) personally conducted a gross and/or microscopic examination of the described specimen(s), and/or personally interpreted the results of laboratory testing of the described specimen(s), and 2) personally rendered or confirmed the above diagnosis. 07/04/2022 9:56 [facility] at 0956 Clinical History Postmenopausal bleeding 07/04/2022 9:56 [facility] Gross Description A. Received in formalin labelled with proper patient identification (initials A, R) and endocervical curetting is an aggregate of blood clot and mucus, 0.8 x 0.8 x 0.4 cm. Entirely submitted in A1. B. Received in formalin labelled with proper patient identification (initials A, R) and endometrial curetting are soft and rubbery guzman-osei tissue fragments with admixed blood clot and mucus aggregating 2.0 x 1.0 x 1.0 cm. Entirely submitted in B1-B3. SHASHANK MOTT(ASCP) 06/29/2022 11:15 07/04/2022 9:56 [facility] Performing Lab [facility] 07/04/2022 9:56 [facility] Scanned Images 07/04/2022 9:56 [facility] Tissue ENTIRE ENDOMETRIUM / Unknown 06/28/2022 15:05 EDT 06/29/2022 8:45 EDT Tissue specimen (specimen) ENDOMETRIAL STRUCTURE / Unknown 06/28/2022 15:05 EDT 06/29/2022 8:45 EDT Luz Elena Stahl PATHOLOGY ORDERABLES [facility] [address] [place] [address] documented in this encounter Visit Diagnoses Diagnosis Encounter for other general examination documented in this encounter Care Teams Huc Relationship Specialty Start Date End Date Ashleigh Gaston [place] [address] [address] [place] [address] PCP - General 01/13/21 documented as of this encounter
--- OUTSIDE RECORDS SUMMARY | 2023-10-18 21:28 | XMS_ITS | Encounter Summary ---
Author Organization [facility] Address [facility] [place] [address] Care Team Providers Care Journal Clerk Name Role Phone Adenike Chung APRN Primary Care Provider + Encounter Details Date Type Department Care Team (Late st Contact Info) Description 12/11/2013 Orders Only Functional Sabianist Program at [facility] [address] [place] [address] Kolton Richardson MD [facility] [place] [address] Social History Tobacco Use Types Packs/Day Years [...] FILM LIBRARY STORAGE ONLY MR SPINE Routine 12/11/2013 3:23 PM EST documented in this encounter Results * Film Library- Storage only MR Spine (12/11/2013 3:23 PM EST) Anatomical Region Laterality Modality Other 12/11/2013 3:23 PM EST Narrative 12/16/2013 3:24 PM EST This is a Non-reportable exam Procedure Note ELO, UNSIGNED REPORT - 12/16/2013 This is a Non-reportable exam Kolton Richardson MD [facility] FILM LIBRARY ORD ERABLES documented in this encounter Visit Diagnoses Not on filedocumented in this encounter Care Teams Journal Clerk Relationship Specialty Start Date End Date Adenike Chung APRN PCP - General 03/14/11 01/18/15 documented as of this encounter
--- OUTSIDE RECORDS SUMMARY | 2023-10-18 21:28 | XMS_ITS | Encounter Summary ---
Author Organization [facility] Address [facility] [place] [address] Care Team Providers Care Watch Electrician Name Role Phone iDgna Lemon APRN Primary Care Provider [phone] Encounter Details Date Type Department Care Team (Late st Contact Info) Description 05/06/2015 Telephone Hematology [place] [address] Mena Eagle MD [facility] [address] [place] [address] Social History Tobacco Use Types Packs/Day Years [...] Telephone Encounter - Mena Eagle MD - 05/06/2015 4:43 PM EDT Called back with results of blood work. Will plan for f/u in 3 months. documented in this encounter Plan of Treatment Not on file documented as of this encounter Visit Diagnoses Not on filedocumented in this encounter Care Teams Watch Electrician Relationship Specialty Start Date End Date Digna Lemon APRN PCP - General Family Medicine 01/19/15 09/04/18 documented as of this encounter
--- OUTSIDE RECORDS SUMMARY | 2023-10-18 21:28 | XMS_ITS | Encounter Summary ---
Author Organization [facility] Address [facility] [place] [address] Care Team Providers Care Data Steward Name Role Phone Ion Digna Betzaida ZAVALA Primary Care Provider [phone] Encounter Details Date Type Department Care Team (Late st Contact Info) Description 09/06/2015 Orders Only Hematology [place] [address] Mena Eagle MD [facility] [address] [place]ATOLOGY [place] [address] Leukocytosis, unspecified type Social History Tobacco Use [...] documented as of this encounter Results * (ABNORMAL) Creatinine (09/06/2015 2:59 PM EDT) Creatinine 0.69(L) 0.70 - 1.20 mg/dL [facility] Comment: Please note that the pediatric reference intervals supplied above were not validated at [facility]. Results from pediatric patients should be interpreted [...] the following links into your internet browser. [email or web address] Blood specimen (specimen) 09/06/2015 2:59 PM EDT 09/06/2015 3:06 PM EDT Narrative Resulting Agency Comment Spec In Lab Mena Eagle MD CHEMISTRY ORDERABLES [facility] [place] [address] documented in this encounter Visit Diagnoses Diagnosis Leukocytosis, unspecified type documented in this encounter Care Teams Data Steward Relationship Specialty Start Date End Date Digna Lemon APRN PCP - General Family Medicine 01/19/15 09/04/18 documented as of this encounter
--- OUTSIDE RECORDS SUMMARY | 2023-10-18 21:28 | XMS_ITS | Encounter Summary ---
Author Organization [facility] Address [facility] [place] [address] Care Team Providers Care Mixer Lever Operator Name Role Phone Adenike Chung APRN Primary Care Provider + Reason for Visit * Reason Comments Allergic Reaction Encounter Details Date Type Department Care Team (Late st Contact Info) Description 07/03/2014 5:22 PM EDT - 07/03/2014 8:30 PM EDT [place] [address] Chiara Figueroa MD [facility] [place] [address] Allergic reaction, initial encounter Discharge Disposition: Home Social History Tobacco Use [...] Sign Reading Time Taken Comments Blood Pressure 124/80 07/03/2014 7:22 PM EDT Pulse 81 07/03/2014 7:22 PM EDT Temperature 36.7 ??C (98.1 ??F) 07/03/2014 7:22 PM ED T Respiratory Rate 18 07/03/2014 7:22 PM EDT Oxygen Saturation 98% 07/03/2014 7:22 PM EDT Inhaled Oxygen Concentration - - Weight - - Height - - Body Mass Index - - documented in this encounter Discharge Instructions * Discharge Instructions* Chiara Figueroa MD - 07/03/2014 6:30 PM EDT Images from the original note were not included. [facility] Allergic Reaction: After Your Visit Your Care Instructions An allergic reaction is an excessive response from your immune system to a medicine, chemical, food, insect bite, or other substance. A reaction can range from mild to life-threatening. Some people have a mild rash, hives, and itching or stomach cramps. In severe reactions, swelling of your tongue and throat can close up your airway so that you cannot breathe. Follow-up care is a hughes part of your treatment and safety. Be sure to make and go to all appointments, and call your doctor if you are having problems. It's also a good idea to know your test resultsand keep a list of the medicines you take. How can you care for yourself at home? ?? If you know what caused your allergic reaction, be sure to avoid it. Your allergy may become more severe each time you have a reaction. ?? Take an sojd-edu-uodwwen antihistamine, such as cetirizine (Zyrtec) or loratadine (Claritin), totreat mild symptoms. Read and follow directions on the label. Some antihistamines can make you feelsleepy. Do not give antihistamines to a child unless you have checked with your doctor first. ?? Do not scratch hives or a rash. Put a cold, moist towel on them or take cool baths to relieve itching. Put ice packs on hives, swelling, or insect stings for 10 to 15 minutes at a time. Put a thincloth between the ice pack and your skin. Do not take hot baths or showers. They will make the itching worse. ?? Your doctor may prescribe a shot of epinephrine to carry with you in case you have a severe reaction. Learn how to give yourself the shot and keep it with you at all times. Make sure it is not . ?? Go to the emergency room every time you have a severe reaction, even if you have used your shot of epinephrine and are feeling better. Symptoms can come back after a shot. ?? Wear medical alert jewelry that lists your allergies. You can buy this at most drugsPaybubblees. ?? If your child has a severe allergy, make sure that his or her teachers, babysitters, coaches, and other caregivers know about the allergy. They should have an epinephrine shot, know how and when to give it, and have a plan to take your child to the hospital. When should you call for help? Call 911 anytime you think you may need emergency care. For example, call if: ?? You have symptoms of a severe allergic reaction. These may include: ?? Sudden raised, red areas (hives) all over your body. ?? Swelling of the throat, mouth, lips, or tongue. ?? Trouble breathing. ?? Passing out (losing consciousness). Or you may feel very lightheaded or suddenly feel weak, confused, or restless. Call your doctor now or seek immediate medical care if: ?? You have symptoms of an allergic reaction, such as: ?? A rash or hives (raised, red areas on the skin). ?? Itching. ?? Swelling. ?? Belly pain, nausea, or vomiting. Watch closely for changes in your health, and be sure to contact your doctor if: ?? You do not get better as expected. Where can you learn more? Visit our health information library at [email or web address] You can also view health information on [employer], your personal patient account. Log in or sign up today. Enter E081 in the search box to learn more about Allergic Reaction: After Your Visit. ?? [id number] [employer], [employer]. Care instructions adapted under license by [facility]. This care instruction is for use with your licensed healthcare professional. If you have questions about a medical condition or this instruction, always ask your healthcare professional. [employer] disclaims any warranty or liability for your use of this information. Content Version: 10.4.681600; Current as of: April 16, 2013 documented in this encounter Medications at Time of Discharge Medication Sig Dispensed Refills Start Date End Date sertraline (ZOLOFT) 100 mg tablet Take 100 [...] tablet Take 325 mg by mouth daily. HYDROcodone-acetaminophe n (NORCO) 10-325 mg Tablet Take 1 tablet by mouth every 8 hours as needed for Pain for up to 30 days. 90 tablet 0 06/08/2014 07/08/2014 propranolol (INDERAL) 10 mg Tablet Take 30 mg by mouth every evening. 06/08/2016 cloNIDine HCl (CATAPRES) 0.1 mg Tablet Take 0.1 mg by mouth nightly. 06/25/2017 hydrOXYzine (ATARAX) 10 mg Tablet Take 20 mg by mouth every evening. 08/20/2015 FLUTICASONE PROPIONATE (FLOVENT HFA INHL) Inhale into the lungs. 11/22/2015 pregabalin (LYRICA) 75 mg capsule Take 100 mg by mouth 2 times daily. 06/25/2017 Cholecalciferol, Vitamin D3, (VITAMIN D-3) 2,000 unit Cap Take 2,000 Units by mouth daily. 05/30/2019 documented as of this encounter ED Notes * Diego Clark RN - 07/03/2014 6:16 PM EDT Pt is resting in wheelchair across from charge nurse desk. No complaints at this time. She remains on continuous pulse ox monitoring. Pt is awake, alert and oriented x 3. Skin color pink warm and dry. Respirations are regular. Breath sounds are clear and equal bilaterally. She is able to speak in full sentences. * Diego Clark RN - 07/03/2014 5:45 PM EDT Pt reportedly received the epi pen at 1600. There is no documentation from the allergy clinic on time medications were given. * Chiara Figueroa MD - 07/03/2014 5:36 PM EDT Chief Complaint Patient presents with ??? Allergic Reaction I saw this patient at 1730. HPI 43-year-old female with history of fibromyalgia, asthma, who presents to the emergency department for evaluation of allergic reaction in the hospital. She was in clinic today for allergy testing and states after the allergens were placed she started to feel short of breath and wheezy as well as nauseous. She received albuterol nebs, Benadryl and an EpiPen and was brought to the emergency department. She states she feels currently just a little bit jittery but her other symptoms have resolved. She's had no recent illness. No chest pain or difficulty breathing prior to this today. No change in bowel or bladder function. No other associated symptoms. No particular ectopy or alleviating features. Allergies Allergen Reactions ??? Codeine Nausea And Vomiting ??? Cymbalta [Duloxetine] Other (See Comments) Nausea and chest pain ??? Lactose Diarrhea and Nausea And Vomiting Review of Systems Constitutional: Negative for fever and activity change. Respiratory: Positive for chest tightness, shortness of breath and wheezing. Gastrointestinal: Positive for nausea. Negative for vomiting. Genitourinary: Negative. Musculoskeletal: Negative. Skin: Negative. All other systems reviewed and are negative. Physical Exam Constitutional: She is oriented to person, place, and time. She appears well- developed and well-nourished. HENT: Head: Normocephalic and atraumatic. Mouth/Throat: Oropharynx is clear and moist. Eyes: Conjunctivae and EOM are normal. Pupils are equal, round, and reactive to light. Neck: Normal range of motion. Neck supple. Cardiovascular: Normal rate, regular rhythm, normal heart sounds and intact distal pulses. Pulmonary/Chest: Effort normal and breath sounds normal. No respiratory distress. She has no wheezes. She has no rales. Abdominal: Soft. Bowel sounds are normal. She exhibits no distension. There is no tenderness. Thereis no rebound and no guarding. Musculoskeletal: Normal range of motion. She exhibits no edema or tenderness. Neurological: She is alert and oriented to person, place, and time. No cranial nerve deficit. She exhibits normal muscle tone. Coordination normal. Skin: Skin is warm and dry. Psychiatric: She has a normal mood and affect. Her behavior is normal. Judgment and thought contentnormal. Nursing note and vitals reviewed. Procedures MDM ED Course: 43-year-old female with an apparent allergic reaction with only faint wheezing and nausea. No angioedema or evidence of anaphylaxis. Currently asymptomatic with normal vital signs. We'll plan prolonged observation and if continues to do well, it is very discharged with follow-up. Dose of EPI at 1538. Chiara Figueroa MD 07/03/14 1831 documented in this encounter Miscellaneous Notes * ED Triage - Diego Clark RN - 07/03/2014 5:29 PM EDT Pt was in the allergy clinic getting allergy testing. She started to have some itching and redness on her back, dizziness and wheezing. She received a dose of epinephrine, benadryl and loratidine andalbuterol. She was sent to the ER for further evalauation secondary to epinephrine being given. Currently Patient is awake, alert and oriented x 3. Skin color is pink warm and dry. Respirations are regular. Breath sounds are clear and equal bilaterally. She is able to speak in full sentences. Pt islocated across from the charge nurse desk. documented in this encounter Plan of Treatment Not on file documented as of this encounter Procedures Procedure Name Priority Date/Time Associated Diagnosis Comments PFT SCAN 08/05/2014 12:00 AM EDT documented in this encounter Results * SCAN DOC: PFT (08/05/2014 12:00 AM EDT) Scanning Provider MEDIA MGR SCAN EXT O RDR/RSLT documented in this encounter Visit Diagnoses Diagnosis Allergic reaction, initial encounter documented in this encounter Care Teams Mixer Lever Operator Relationship Specialty Start Date End Date Adenike Chung APRN [phone] (work) PCP - General 03/14/11 01/18/15 documented as of this encounter
--- OUTSIDE RECORDS SUMMARY | 2023-10-18 21:28 | XMS_ITS | Encounter Summary ---
Author Organization [facility] [place] [address] Care Team Providers Care Gis Specialist Name Role Phone Adenike Chung APRN Primary Care Provider + Reason for Visit * Reason Onset Date Comments Other 12/08/2014 Encounter Details Date Type Department Care Team ([facility] st Contact Info) Description 12/08/2014 [place] [id number] Rosa Serrano LPN Other Social History Tobacco Use Types Packs/Day [...] encounter Miscellaneous Notes * Telephone Encounter - Rosa Serrano LPN - 12/10/2014 1:27 PM EST Went over the below results with patient. No questions at tthis time. She did ask for a copy of thenote to be mailed to her. Will print this note and send to patient. No questions at this time. Asked to call back if she has any questions or problems. * Telephone Encounter - Angi Burch MD - 12/09/2014 3:40 PM EST Labs from [facility] reviewed. Labs collected 11/20/14. Allergy antibody levels ( IgE) elevated to Alternaria, DF and DP dust mites. Allergy antibody levels to grass pollen, tree pollens, weed pollens, Aspergillus, cladosporium and Penicillium were unremarkable. Elevated total IgE level consistent with history of allergies. Based on these results, patient has Alternaria and dust mite allergies. In addition to the recommendations made during her last visit, she can apply the following the environmental control and avoidance measures: ALLERGY SEASONS & AVOIDANCE: Dust mites: Year-round, especially Fall 1. Dust mite encasings, pillow and mattress ( ie From [employer]: [employer]; [employer], [employer], [employer], [employer], [employer]) 2. Wash bedding in hot water (no hotter than 120 degrees F) weekly 3. Humidity control, 30-50% 4. Minimize carpet, decorative pillows and stuffed animal exposure Molds: Year-round, especially Fall and more humid days 1. Remove obvious mold 2. Minimize moisture / leaks 3. Humidity control, 30-50% 4. Nightly hair washing during pollen seasons 5. Keep windows closed, consider window a/c unit with filter 6. Do not place fans in windows 7. Do not dry clothes outside. Patient to be contacted by allergy nursing staff with test results and recommendations. Labs were sent to medical records for scanning. * Telephone Encounter - Rosa Serrano LPN - 12/08/2014 1:22 PM EST Talked with patient. She had her labs drawn at [facility]. We will contact the lab there and get the lab results. Once we have them will call patient back with theresults of her labs. * Telephone Encounter - Rosa Serrano LPN - 12/08/2014 1:22 PM EST ----- Message from Amber Wagner sent at 12/07/2014 2:41 PM EST ----- Contact: alis Looking for lab results from outside. documented in this encounter Plan of Treatment Not on file documented as of this encounter Visit Diagnoses Not on filedocumented in this encounter Care Teams Gis Specialist Relationship Specialty Start Date End Date Adenike Chung, SALLY PCP - General 03/14/11 01/18/15 documented as of this encounter
--- OUTSIDE RECORDS SUMMARY | 2023-10-18 21:28 | XMS_ITS | Encounter Summary ---
Author Organization [facility] Address [facility] [place] [address] Care Team Providers Care Desktop Administrator Name Role Phone Adenike Chung APRN Primary Care Provider + Reason for Visit * Reason Onset Date Comments Follow-up 07/06/2014 Encounter Details Date Type Department Care Team (Late st Contact Info) Description 07/06/2014 [place] [address] Angi Burch MD [facility] DR ALLERGY [place] [address] Follow-up Social History Tobacco Use Types Packs/Day Years [...] encounter Miscellaneous Notes * Telephone Encounter - Amber Wagner - 07/07/2014 11:51 AM EDT Mailed lab slips from Dr. Burch to patient today. * Telephone Encounter - Angi Burch MD - 07/06/2014 4:17 PM EDT Patient contacted. She is feeling better today after her allergic reaction during allergy skin tests on Thursday July 03, 2014. Her back felt pruritic over the weekend. The pruritus improved with oral Benadryl and topical hydrocortisone cream applied to the back. Her breathing is at baseline. She would like to pursue allergy testing with serum IgE. Patient advised to resume her daily antihistamine ( which she picked up today from the pharmacy). We will send her the lab slips for serum IgE to common environmental aeroallergens. Patient to callus after she has completed the labs for the test results and to schedule a follow up visit. Patient advised to call the allergy clinic with any questions or concerns. She was also advised to notify us if she has symptoms of allergic reaction. The patient understood and agreed with what was discussed. All questions were answered. documented in this encounter Plan of Treatment Not on file documented as of this encounter Visit Diagnoses Diagnosis Allergic reaction, sequela Moderate persistent asthma, uncomplicated Unspecified asthma documented in this encounter Care Teams Desktop Administrator Relationship Specialty Start Date End Date Adenike Chung, SALLY PCP - General 03/14/11 01/18/15 documented as of this encounter
--- OUTSIDE RECORDS SUMMARY | 2023-10-18 21:28 | XMS_ITS | Encounter Summary ---
Author Organization [facility] Address [facility] [place] [address] Care Team Providers Care Area Field Worker Name Role Phone Adenike Chung APRN Primary Care Provider + Reason for Visit * Reason Comments Follow-up Asthma Encounter Details Date Type Department Care Team ([facility] st Contact Info) Description 07/03/2014 1:45 PM EDT [place] [address] Angi Burch MD [facility] [address] Anaphylaxis, initial encounter; Allergic rhinoconjunctivitis, bilateral; Moderate persistent asthma, uncomplicated Discharge Disposition: Home Social History Tobacco Use [...] Sign Reading Time Taken Comments Blood Pressure 155/75 07/03/2014 2:19 PM EDT Pulse 92 07/03/2014 2:19 PM EDT Temperature - - Respiratory Rate 20 07/03/2014 2:19 PM EDT Oxygen Saturation - - Inhaled Oxygen Concentration - - Weight 128 kg (282 lb 3 oz) 07/03/2014 2:19 PM E DT Height 160 cm (5' 2.99) 07/03/2014 2:19 PM EDT Body Mass Index 50 07/03/2014 2:19 PM EDT documented in this encounter Progress Notes * Amber Wagner - 08/05/2014 1:26 PM EDT Spoke w/patient who said she has not yet had her labs drawn that Dr. Burch wanted her to have drawnbecause she is trying to find a ride and also because sometimes she forgets. She said she would call Dr. Burch the day she has them drawn. * Suly Theodore RN - 07/03/2014 4:58 PM EDT NURSE'S NOT OF ANAPHYLACTIC EPISODE Ms. Cardenas received skin prick test for adult panel per order of Dr. Burch at approx 15:10. Within less than 2 minutes of last prick application, patient stated that she felt like she couldn't breath well. She was asked if she is afraid of needles or has had anything like this in the past. She said no. Within seconds she had audible wheezing and c/o headache. O2 sat = 93-97% Dr. Burch summoned to room. 15:17 Back being washed of prick test application and Dr. Burch in room assessing lung sounds &reports wheezing auscultated. 15:21 B/P = 141/104 HR = 92 RR = 25 O2 sat = 100 50 mg liquid benadryl administered orally 15:27 B/P = 151/95 HR = 89 RR = 25 O2 sat = 97 Nebulizer (albuterol) being administered via wall oxygen set-up Patient sitting up with legs elevated with pillows. Patient c/o nausea. 15:35 B/P = 128/70 HR = 88 O2 sat = 100 Patient lying with head slightly elevated, legs elevated with 3 pillows, nebulizer still being administered, patient c/o itching around neck & that her ears feel hot. Nurse notes that her face ismuch more flushed than earlier. Time? B/P = 140/84 HR = 79 RR = 26 O2 sat = 100, 2nd nebulizer being administered via wall oxygen set-up. 15:38 Adult EpiPen administered in right vastus lateralis. Redness in face/chest/ears. Patient lying with flat with legs elevated w/3 pillows. 15:40 B/P = 147/66 HR = 80 RR = 26 O2 sat = 100, 2nd nebulizer still being administered. 15:44 10 mg Alavert orally disintegrating tablet administered. 15:50 20 mg prednisone tablet x 3 (60 mg total) administered orally. 16:10 B/P =130/79 HR = 87 RR = 23 O2 sat = 98 Redness and c/o itching under left breast, right breast is clear of redness. Lungs reported to be clear upon auscultation per Dr. Burch. Patient states that her nausea is better. 16:20 B/P = 152/89 HR 101 O2 sat = 100. Nebulizer completed. Flushing is decreasing in face Itching continues in several places: under left breast, on back, on right upper arm, both ears 16:30 B/P = 161/78 HR = 76 O2 sat = 100 (room air). Itching unresolved. 16:37 Code White Team called [phone] in order to transport patient to ED for several hours observation. 16:45 Code White Team arrived. Report given to this team. Dr. Burch phoned report to ED MD. This author phoned report to charge nurse in ED. * Angi Burch MD - 07/03/2014 2:36 PM EDT Chief Complaint Patient presents with ??? Follow-up ??? Asthma HPI. Alis Cardenas Is here today for a follow up visit. Last encounter in this section was on 01/08/2014 Here with her friend Fartun who was present for part of the visit. Black mold exposure Allergic rhinoconjunctivitis Patient is here for allergy skin tests. She stopped taking loratadine at least five days ago. She has black mold in her bathroom. She has rhinorrhea and nasal congestion in the winter and with season changes. Mild persistent asthma She is on Flovent 2 puffs BID with spacer. Rinses mouth after use. She takes albuterol along with Flovent, but has not needed any additional doses. No nocturnal awakenings, limitations in ADLs, ER visits or hospitalizations for asthma since her last visit. She has restarted smoking since her last visit. Review of Systems: All other systems reviewed and negative, except as noted below. Review of Systems Constitution: Positive for malaise/fatigue. All other systems reviewed and are negative. Allergies, medications, past medical/ surgical history were reviewed and updated in eDH. Allergies: Codeine; Cymbalta; and Lactose Medications: Current Facility-Administered Medications for the 07/03/14 encounter (Follow-Up) with Angi Burch MD Medication Dose Route Frequency Provider Last Rate Last Dose ??? [COMPLETED] EPINEPHrine (EpiPen) injection 0.3 mg 0.3 mg Intramuscular Once Angi Burch MD0.3 mg at 07/03/14 1538 ??? albuterol (PROVENTIL) nebulizer solution 2.5 mg 2.5 mg Nebulization Continuous PRN Angi Burch MD 2.5 mg at 07/03/14 1540 ??? [COMPLETED] loratadine (CLARITIN REDITABS) dissolvable tablet 10 mg 10 mg Oral Once Angi Burch MD 10 mg at 07/03/14 1544 ??? [COMPLETED] predniSONE (DELTASONE) tablet 60 mg 60 mg Oral Once Angi Burch MD 60 mg at 07/03/14 1550 ??? [COMPLETED] diphenhydrAMINE (BENADRYL) 12.5 mg/5 mL Oral elixir 50 mg 50 mg Oral Once Angi Burch MD 50 mg at 07/03/14 1521 Outpatient Prescriptions Marked as Taking for the 07/03/14 encounter (Follow-Up) with Angi Burch MD Medication Sig Dispense Refill ??? propranolol (INDERAL) 10 mg Tablet Take 30 mg by mouth every evening. ??? HYDROcodone-acetaminophen (NORCO) 10-325 mg Tablet Take 1 tablet by mouth every 8 hours as needed for Pain for up to 30 days. 90 tablet 0 ??? cloNIDine HCl (CATAPRES) 0.1 mg Tablet Take 0.1 mg by mouth nightly. ??? hydrOXYzine (ATARAX) 10 mg Tablet Take 20 mg by mouth every evening. ??? sertraline (ZOLOFT) 100 mg tablet Take 100 mg by mouth 2 times daily. ??? FLUTICASONE PROPIONATE (FLOVENT HFA INHL) Inhale into the lungs. ??? pregabalin (LYRICA) 75 mg capsule Take 100 mg by mouth 2 times daily. ??? ferrous sulfate 325 mg (65 mg iron) EC tablet Take 325 mg by mouth daily. ??? Cholecalciferol, Vitamin D3, (VITAMIN D-3) 2,000 unit Cap Take by mouth 2 times daily. Past Medical and Social History: Past Medical History Diagnosis Date ??? Asthma Past Surgical History Procedure Laterality Date ??? Tonsillectomy ??? Adenoidectomy Family history: Family History Problem Relation Age of Onset ??? Asthma Mother ??? Allergic Rhinitis Mother ??? Allergic Rhinitis Father ??? Asthma Father ??? Asthma Sister ??? Allergic Rhinitis Sister ??? Asthma Brother ??? Allergic Rhinitis Brother Social history: History Social History ??? Marital Status: Spouse Name: N/A Number of Children: N/A ??? Years of Education: N/A Social History Main Topics ??? Smoking status: Current Every Day Smoker -- 0.50 packs/day for 10 years Types: Cigarettes ??? Smokeless tobacco: Never Used ??? Alcohol Use: Yes Comment: Socially, 1-2 times per month ??? Drug Use: No ??? Sexual Activity: No Other Topics Concern ??? None Social History Narrative Physical Exam: Vital signs reviewed. Normal Except General: - No apparent distress - obese Eyes: - Conjunctivae without injection; - No eyelid swelling ENT: - No erythema of the tympanic membranes - Normal external ear canals - Nl nasal mucosa, septum, and turbinates; - Oropharynx well hydrated without lesions or exudates; - Face & sinuses non-tender to palpation/percussion Neck: - Symmetrical, no masses, trachea midline; Resp: - Unlabored breathing with symmetrical and equal bilateral expansion; - CTA w/o wheezes, rales, or rhonchi; CV: - Regular rate and rhythm - No pedal swelling GI: - Abdomen soft - Bowel sounds present - No hepatosplenomegaly Lymph: - No significant cervical, supraclavicular or infraclavicular lymphadenopathy Musculoskeletal: - Nl gait and station Extremities: - No clubbing, cyanosis, or edema Skin: - No rashes Neuro/Psych: - Nl and age appropriate mood and affect - Judgement and insight intact Tests or Procedures: 07-03-14 Spirometry Best Percent predicted FVC (L) 2.80 79 FEV1 (L) 2.01 69 FEV1/FVC 0.72 88 Interpretation: Mild restriction with reduced FEV1. Allergy skin tests were placed. Within one minute, she started to feel warm and SOB. Nurse Quintin reported an O2 sat between 94-97%. On physical exam: No rash with expiratory wheezing in all lung menendez. No uvular or tongue swelling. Vitals showed a stable BP and pulse ( on propranolol). Patient received albuterol nebs x2 and benadryl 50mg orally. Wheezing improved after the second neb, however, shedeveloped pruritus on the back, left breast and right arm along with flushing. She also felt nauseaBP had decreased to 128/70. Epipen was administered. She also received prednisone 60mg orally and Alavert 10mg. Legs were elevated. After about 15 minutes, the flushing improved. There was no wheezing on physical exam and her BP increased. She no longer complained of nausea. She continued to have persistent pruritus of the back ( where skin tests were placed) and under the left breast. She did not have hives. However, on PE she had an erythematous patch with 4 small papules under the left breast. Flushing had decreased. Lungs remained clear. She continued to have pruritus of the back , under the left breast and right arm. Decision was made to call a coleen shaffer and have the patient transferred to the ED for further observation and management. Coleen shaffer team arrived and patient was transferred on a stretcher. Sign out was given to Sree in the ED. The patient's friend Fartun, was present until EpiPen was given. She then left to eat and returned at the time of transfer. Impression Report Plan: #1 Anaphylaxis - Patient had an allergic reaction during her skin tests. She was treated acutely as noted above. She was transferred to the ED for observation and further management. Patient was stable at the time of transfer. All questions were answered. She was made aware of her condition and medications administered. She was able to call her family to notify them of her reaction and transfer to the ED. She was accompanied by her friend Fartun at the time of transfer. #2 Allergic rhinoconjunctivitis - Allergy skin tests could not be completed because of acute anaphylaxis during testing. - continue loratadine 10mg daily - Once the patient is feeling better, she can schedule a follow up visit to discuss further management - Serum IgE levels to common aeroallergens can be checked at her follow up visit #3 Asthma - Reviewed spirometry results with the patient - Continue Flovent and albuterol - Continue to follow up with PCP for management Medication ordered or changed during this encounter, will not show discontinued medications Medications ??? EPINEPHrine (EpiPen) injection 0.3 mg Sig: ??? albuterol (PROVENTIL) nebulizer solution 2.5 mg Sig: ??? loratadine (CLARITIN REDITABS) dissolvable tablet 10 mg Sig: ??? predniSONE (DELTASONE) tablet 60 mg Sig: ??? diphenhydrAMINE (BENADRYL) 12.5 mg/5 mL Oral elixir 50 mg Sig: RTC as needed for allergies. eDH record was reviewed. Written instructions were reviewed and provided to the patient. No learning barriers were identified. The risks, benefits, alternatives and indications for the useof mediations prescribed or recommended during today's visit were reviewed with the patient. The patient understood and agreed with what was discussed. All questions were answered. documented in this encounter Plan of Treatment Not on file documented as of this encounter Visit Diagnoses Diagnosis Anaphylaxis, initial encounter Allergic rhinoconjunctivitis, bilateral Moderate persistent asthma, uncomplicated Unspecified asthma documented in this encounter Administered Medications Active Administered Medications - up to 3 most recent administrations Medication Order MAR Action Action Date Dose Rate Site albuterol (PROVENTIL) nebulizer solution 2.5 mg 2.5 mg, Nebulization, CONTINUOUS PRN, Starting on Sun07/03/14 at 1530, Until Discontinued, Wheezing, Routine New Bag 07/03/2014 3:40 PM EDT 2.5 mg New Bag 07/03/2014 3:27 PM EDT 2.5 mg Inactive Administered Medications - up to 3 most recent administrations Medication Order MAR Action Action Date Dose Rate Site diphenhydrAMINE (BENADRYL) 12.5 mg/5 mL Oral elixir 50 mg 50 mg, Oral, ONCE, 1 dose, On Sun07/03/14 at 1530, Routine Given 07/03/2014 3:21 PM EDT 50 mg EPINEPHrine (EpiPen) injection 0.3 mg 0.3 mg, Intramuscular, ONCE, 1 dose, On Sun07/03/14 at 1545, Routine Given 07/03/2014 3:38 PM EDT 0.3 mg 20-Other (document in comment section) loratadine (CLARITIN REDITABS) dissolvable tablet 10 mg 10 mg, Oral, ONCE, 1 dose, On Sun07/03/14 at 1545, Routine Given 07/03/2014 3:44 PM EDT 10 mg predniSONE (DELTASONE) tablet 60 mg 60 mg, Oral, ONCE, 1 dose, On Sun07/03/14 at 1545, Routine Given 07/03/2014 3:50 PM EDT 60 mg documented in this encounter Care Teams Area Field Worker Relationship Specialty Start Date End Date Adenike Chung APRN PCP - General 03/14/11 01/18/15 documented as of this encounter
--- OUTSIDE RECORDS SUMMARY | 2023-10-18 21:28 | XMS_ITS | Encounter Summary ---
Author Organization [facility] [place] [address] Care Team Providers Care Canvas Shrinker Name Role Phone Ion Digna Huston APRN Primary Care Provider [phone] Encounter Details Date Type Department Care Team (Late st Contact Info) Description 08/30/2015 Telephone Hematology [place] [id number] Mena Eagle MD [facility] [address] HEMATOLOGY [place] [address] Social History Tobacco Use Types Packs/Day Years [...] Telephone Encounter - Mena Eagle MD - 08/30/2015 3:44 PM EDT Still need not feeling well. Will order a Ct scan to check for adenopathy or occult infection. F/u with me in 3 months * Telephone Encounter - Mena Eagle MD - 08/30/2015 3:43 PM EDT ----- Message from Cat Briones sent at 08/30/2015 3:09 PM EDT ----- Regarding: Pt returned your call Alis San called for you, she says she is returning your call. She says to call her any time at [phone]. Thanks! Fariba documented in this encounter Plan of Treatment Not on file documented as of this encounter Visit Diagnoses Not on filedocumented in this encounter Care Teams Canvas Shrinker Relationship Specialty Start Date End Date Digna Lemon, SALLY PCP - General Family Medicine 01/19/15 09/04/18 documented as of this encounter
--- OUTSIDE RECORDS SUMMARY | 2023-10-18 21:28 | XMS_ITS | Encounter Summary ---
Author Organization [facility] Address [facility] [place] [address] Care Team Providers Care Cyber Software Engineer Name Role Phone Digna Lemon APRN Primary Care Provider [phone]- [phone] Reason for Visit * Reason Comments Schedule Office Case * Consultation (Routine) - Closed Specialty Diagnoses / Procedures Referred By Contalla t Referred To Contact Hematology and Oncology Diagnoses Disorder of white blood cells, unspecified Digna Lemon APRN [address] [place] [address] [address] [place] [address] [facility] [address] [place] [address] Referral ID Status Reason Start Date Expiration Date V isits Requested Visits Authorized [id number] Closed Consult, Test & Treat Connection Center 04/27/2015 04/26/2016 1 1 Encounter Details Date Type Department Care Team (Late st Contact Info) Description 05/03/2015 3:00 PM EDT Office Visit Hematology [place] [address] Maxwell Eagle MD [facility] [address] HEMATOLOGY [place] [address] Bandemia Social History Tobacco Use Types Packs/Day Years [...] Reading Time Taken Comments Blood Pressure 148/85 05/03/2015 3:23 PM EDT Pulse 94 05/03/2015 3:23 PM EDT Temperature 36.5 ??C (97.7 ??F) 05/03/2015 3:23 PM ED T Respiratory Rate 22 05/03/2015 3:23 PM EDT Oxygen Saturation 97% 05/03/2015 3:23 PM EDT Inhaled Oxygen Concentration - - Weight 133.9 kg (295 lb 3.2 oz) 05/03/2015 3:23 PM EDT Height 158.2 cm (5' 2.3) 05/03/2015 3:23 PM EDT Body Mass Index 53.47 05/03/2015 3:23 PM EDT documented in this encounter Progress Notes * Maxwell Eagle MD - 05/03/2015 5:50 PM EDT Heme/Onc Outpatient Consultation Date of Consultation: 05/03/2015 Reason for Consult: We are seeing this patient at the request of Digna Rao, LEAD SYSTEMS ENGINEER [address], [place] [address] for the evaluation of leukocytosis. I have reviewed the available records, interviewed and examined the patient. KAREN Cardenas is a 44 y.o. female with PMH significant for DJD [...] ago +medical marijuana for pain No etoh History Social History ??? Marital Status: Spouse Name: N/A Number of Children: N/A ??? Years of Education: N/A Occupational History ??? Not on file. Social History Main Topics ??? Smoking status: Former Smoker -- 0.50 packs/day for 10 years Types: Cigarettes Quit date: 04/04/2015 ??? Smokeless tobacco: Never Used ??? Alcohol Use: Yes Comment: Socially, 1-2 times per month ??? Drug Use: No ??? Sexual Activity: No Other Topics Concern ??? Not on file Social History Narrative Allergies: Allergies Allergen Reactions ??? Codeine Nausea And Vomiting ??? Cymbalta [Duloxetine] Other (See Comments) Nausea and chest pain ??? Lactose Diarrhea and Nausea And Vomiting Medications: Current Outpatient Prescriptions Medication Sig Dispense Refill ??? tiZANidine (ZANAFLEX) 4 mg Tablet Take [...] dose. Call 911. 2 each 1 ??? pregabalin (LYRICA) 75 mg capsule Take 100 mg by mouth 2 times daily. ??? ferrous sulfate 325 mg (65 mg iron) EC tablet Take 325 mg by mouth daily. ??? Cholecalciferol, Vitamin D3, (VITAMIN D-3) 2,000 unit Cap Take by mouth 2 times daily. ??? FLUTICASONE PROPIONATE (FLOVENT HFA INHL) Inhale into the lungs. ??? LEVALBUTEROL HCL (XOPENEX INHL) Inhale into the lungs. Current Facility-Administered Medications Medication Dose Route Frequency [...] Dermatological ROS: negative Physical Exam BP 148/85 mmHg Pulse 94 Temp(Src) 36.5 ??C (97.7 ??F) (Oral) Resp 22 Ht 158.2 cm (5' 2.3) Wt 133.902 kg (295 lb 3.2 oz) BMI 53.50 kg/m2 SpO2 97% General Appearance: Alert, cooperative, no distress, appears [...] Normal Lab Results Component Value Date WBC 14.7* 05/03/2015 RBC 5.02 05/03/2015 HGB 13.6 05/03/2015 HCT 41.1 05/03/2015 MCV 81.9 05/03/2015 MCH 27.1 05/03/2015 MCHC 33.1 05/03/2015 PLATELET 350 05/03/2015 RDWCV 13.9 05/03/2015 Assessment and Plan Alis Cardenas is a 44 y.o. female With leukocytosis of unclear etiology -she recently quit smoking and this is a common cause of chronic leukocytosis - Peripheral blood sent for flow cytometry and peripheral smear -JAK2 and BCR ABl are pending -IF initial testing is negative, I would recommend 3 month f/u with continued smoking cessation to monitor for improvement -We will defer a bone marrow biopsy for the time unless above testing indicates the need. -She is in agreement with this plan MAXWELL EAGLE MD 05/03/2015 documented in this encounter Plan of Treatment Not on file documented as of this encounter Procedures Procedure Name Priority Date/Time Associated Diagnosis Comments PATHOLOGY SLIDE REVIEW Routine 6 4:52 PM EDT PATHOLOGY SLIDE REVIEW Routine 6 4:12 PM EDT Bandemia JAK2 Routine 05/03/2015 4:12 PM EDT Bandemia BCR-ABL BY PCR Routine 05/03/2015 4:12 PM EDT Bandemia SCAN, PERIPHERAL BLOOD Routine 201 6 4:12 PM EDT JAK2 Routine 05/03/2015 4:12 PM EDT Bandemia BCR-ABL1 (P210) BY RT-PCR, QUANTITATIVE Routine 05/03/2015 4:12 PM EDT Bandemia HEMOGRAM Routine 05/03/2015 4:12 PM EDT Bandemia DIFFERENTIAL, AUTOMATED Routine 05/03/2015 4:12 PM EDT Bandemia CBC (WITH DIFF) Routine 05/03/2015 4:12 PM EDT Bandemia LACTATE DEHYDROGENASE Routine 05/03/2015 4:12 PM EDT Bandemia documented in this encounter Results * Immunophenotyping Flow Cytometry (08/20/2015 1:21 PM EDT) Immunophenotyping Flow See Comment [facility] Comment: When completed by the Pathologist, the Flow Cytometry Report ([id number]) will display under the Pathology Results section within eDH. Specimen of unknown material (specimen) 08/20/2015 1:21 PM EDT 08/20/2015 1:30 PM EDT Narrative Resulting Agency Comment Spec In Lab Maxwell Eagle MD HEMATOLOGY ORDERABLE S Performing Organization Address City/State/[facility] Co de Phone Number [facility] [place] [address] * Smear Review Report (05/03/2015 4:52 PM EDT) Smear Review Report [id number] ?Location: 3K The signing pathologist has (i) examined the relevant preparation(s) for the specimen(s) and (ii) rendered or confirmed the diagnosis(es). . ? Smear Review DIAGNOSIS Absolute neutrophilia (See Discussion) 05/04/15 JVR 05/04/15 Verified by: ? Phylicia ROLDAN, Javier ?Hematopathologist ?(Electronic Signature) The attending pathologist whose signature appears on this report has reviewed all diagnostic slides and has edited the gross and/or microscopic portion of the report in rendering the final pathologic diagnosis. DISCUSSION Absolute neutrophilia may be seen secondary to infection, inflammation, medication. ??In light of her recent smoking history, neutrophilia may be a reactive event secondary to smoking. ??However, given the chronicity, myeloproliferative neoplasm cannot be ruled out. ??JAK2 and BCR-ABL studies are pending. Should all reactive etiologies be ruled out , BM studies maybe indicated. Case dictated by Keanu Cochran MD ??(Hematopathology Fellow) As the attending physician, I attest that I examined the histologic slides, and confirm Dr. Cochran's diagnosis. ADDITIONAL STUDIES WBC 14.67K/ul; RBC 5.63h868/ul; Hgb 13.6; MCV 81.9; RDW 13.9; PLT 350K/ul There is no anemia. The red blood cells show normal morphology. ??There is absolute neutrophilia with rare myelocyte seen. The white blood cells show otherwise show normal morphology. Platelets show normal platelet morphology. CLINICAL INFORMATION 44 yo woman with long standing leukocytosis, recently quit smoking. [facility] 05/03/2015 4:52 PM EDT Maxwell Eagle MD HEMATOLOGY ORDERABLE S [facility] [place] [address] * Scan, Peripheral Blood (05/03/2015 4:12 PM EDT) Plat estimate Normal [facility] RBC Morphology Normal [facility] [place] rings Present >1/HPF [facility] Blood specimen (specimen) 05/03/2015 4:12 PM EDT 05/03/2015 4:36 PM EDT Narrative Resulting Agency Comment Spec In Lab Maxwell Eagle MD HEMATOLOGY ORDERABLE S [facility] [place] [address] * JAK2 (05/03/2015 4:12 PM EDT) JAK2 (Interp) Specimen Type: Blood Indication for Study: Leukocytosis Analysis: ??Examination of DNA extracted from peripheral blood leukocytes for the V617F somatic mutation in the Janus Kinase 2 (JAK2) gene. DNA is analyzed using primers and probes specific to the wild type and mutant sequence of the gene region of interest (V617F,)followed by SNP detection on an STEVE Mark43 7500 Sequence Detection System. Results: ??Negative for the V617F mutation (see comment). Comments: ??This genotyping result, negative for the V617F mutation, indicates that this patient does not have the mutation associated with polycythemia vera. However, it does not completely exclude the possibility of this diagnosis in this patient. Recent literature indicates that this mutation is present in greater than 80% of polycythemia vera patients and in approximately 40% of essential thrombocythemia and idiopathic myelofibrosis patients. Therefore, it is possible to have one of these myeloproliferatiove disorders and not have the described mutation Methods: ??Genomic DNA was extracted from the submitted specimen using the Qiagen EZ1 BioRobot. The real time PCR was performed on the STEVE 7500 system using fluorescently labeled probes for allelic discrimination References: ??Pizarro et al. Lancet 2005;365:5218-1010; Diego et al. Nature 2005;1-5; Delarosa et al. Lancet 2005;366:6642-2800; Brown et al. Blood 2005;106:9173-8068. [facility] Comment: [VERIFIED DATE]05.06.15 Verified By:Nghia Blakely MD (Electronic Signature) Blood specimen (specimen) 05/03/2015 4:12 PM EDT 05/04/2015 8:57 AM EDT Narrative Resulting Agency Comment Spec In Lab Maxwell Eagle MD HEMATOLOGY ORDERABLE S [facility] [place] [address] * BCR-ABL BY PCR (05/03/2015 4:12 PM EDT) BCR/ABL Report Quantitative BCR-ABL Analysis by Real Time PCR INDICATION FOR STUDY: Bandemia, Evaluate BCR-ABL status. ANALYSIS: ??Quantitative assessment of the BCR-ABL translocation (p210) characteristic of CML. SAMPLE TYPE: Peripheral Blood METHODS: ??Real time, reverse transcriptase polymerase chain reaction (PCR) of RNA that has been stabilized and isolated from peripheral blood or bone marrow leukocytes using the GeneXpert BCR-ABL assay. In a single reaction, labeled probes for the BCR-ABL fusion product and the ABL gene are compared to quantitatively determine the amount of BCR-ABL fusion present. RESULTS: ??No signal for the FAM labeled BCR-ABL probe corresponding to the presence of the BCR-ABL chimeric RNA transcript was detected. Appropriate results were obtained for the endogenous ABL transcript. INTERPRETATION: ??Negative for the BCR-ABL transcript. No Previous lab testing for BCR-ABL transcript. COMMENT: ??The BCR-ABL translocation may on occasion occur outside of the major breakpoint cluster region and may not be detected by this assay. Clinical correlation is recommended. This assay is purchased from [employer] ([employer], [place]) as an R.U.O. assay. However, it's performance characteristics have been clinically validated and determined to be of high clinical utility by the ??Molecular Pathology Laboratory at the [facility]. It has not been cleared or approved by the U.S. Food and Drug Administration. The Molecular Pathology Laboratory is a CLIA certified laboratory for high complexity clinical testing. [facility] BCR/ABL Report Neg [facility] Comment: [VERIFIED DATE]05.05.15 Verified By:Nghia Blakely MD (Electronic Signature) Blood specimen (specimen) 05/03/2015 4:12 PM EDT 05/04/2015 8:57 AM EDT Narrative Resulting Agency Comment Spec In Lab Maxwell Eagle MD HEMATOLOGY ORDERABLE S [facility] [place] [address] * (ABNORMAL) Differential, Automated (05/03/2015 4:12 PM EDT) Neutrophil % 67.9 % [facility] Neutrophil Absolute 9.96(H) 1.50 - 6.30 x10(3)/ L [facility] Lymph % 25.7 % [facility] Lymphocytes Abs 3.8(H) 1.0 - 3.6 x10(3)/[facility] Monocyte % 3.8 % [facility] Monocyte Abs 0.6 0.2 - 1.0 x10(3)/[facility] Eos % 1.9 % [facility] Eosinophils Abs 0.3 0.0 - 0.5 x10(3)/[facility] Basophil % 0.2 % [facility] Baso Absolute 0.0 0.0 - 0.2 x10(3)/[facility] Immature Gran % 0.50 % [facility] Comment: Immature granulocytes(IG's)percentage and absolute count will include metamyelocytes, myelocytes, and promyelocytes. Blood smears from CBCs yielding IG's will be scanned manually for concordance. If this scan disagrees with the automated IG or if promyelocytes are noted, a manual differential will be performed. Immature Gran Absolute 0.07(H) 0.00 - 0.05 x10(3)/ L [facility] Blood specimen (specimen) 05/03/2015 4:12 PM EDT 05/03/2015 4:36 PM EDT Narrative Resulting Agency Comment Spec In Lab Maxwell Eagle MD HEMATOLOGY ORDERABLE S Performing Organization Address City/[facility]/ZIP Co de Phone Number [facility] [place] [address] * (ABNORMAL) Hemogram (05/03/2015 4:12 PM EDT) White Blood Cell 14.7(H) 4.0 - 10.0 x10(3)/ L [facility] Red Blood Cell 5.02 3.93 - 5.22 x10(6)/mc L [facility] Hemoglobin 13.6 11.2 - 15.7 gm/dL [facility] Hematocrit 41.1 34.0 - 45.0 % [facility] Mean Cell Volume 81.9 79.0 - 94.0 fL [facility] Mean Cell Hemoglobin 27.1 26.6 - 32.2 pg [facility] Mean Cell Hemoglobin Concentration 33.1 32.0 - 36.5 gm/dL [facility] Platelet 350 145 - 370 x10(3)/ L [facility] RDW Standard Deviation 41.4 35.0 - 46.0 fL [facility] RDW coefficient of variation 13.9 10.9 - 14.4 % [facility] Mean Platelet Volume 10.7 9.0 - 12.0 fL [facility] Blood specimen (specimen) 05/03/2015 4:12 PM EDT 05/03/2015 4:36 PM EDT Narrative Resulting Agency Comment Spec In Lab Maxwell Eagle MD HEMATOLOGY ORDERABLE S [facility] [place] [address] * Lactate Dehydrogenase (05/03/2015 4:12 PM EDT) Lactate Dehydrogenase 179 110 - 220 unit/L [facility] Blood specimen (specimen) 05/03/2015 4:12 PM EDT 05/03/2015 4:36 PM EDT Narrative Resulting Agency Comment Spec In Lab Maxwell Eagle MD CHEMISTRY ORDERABLES Performing Organization Address [facility] Co de Phone Number [facility] [place] [address] * Peripheral Smear Review (05/03/2015 4:12 PM EDT) Peripheral Smear Review See Comment [facility] Comment: When completed by the Pathologist, report [id number] will display under Hematopathology Reports. Blood specimen (specimen) 05/03/2015 4:12 PM EDT 05/03/2015 4:36 PM EDT Narrative Resulting Agency Comment Spec In Lab Maxwell Eagle MD HEMATOLOGY ORDERABLE S Performing Organization Address [facility] Co de Phone Number [facility] [place] [address] documented in this encounter Visit Diagnoses Diagnosis Bandemia documented in this encounter Care Teams Cyber Software Engineer Relationship Specialty Start Date End Date Digna Lemon APRN PCP - General Family Medicine 01/19/15 09/04/18 documented as of this encounter
--- OUTSIDE RECORDS SUMMARY | 2023-10-18 21:28 | XMS_ITS | Encounter Summary ---
Author Organization [facility] [place] [address] Care Team Providers Care Material Expeditor Name Role Phone Adenike Chung APRN Primary Care Provider + Reason for Visit * Reason Comments Procedure VEP Encounter Details Date Type Department Care Team (Latest Contact Info) Description 04/25/2011 12:30 PM EDT [place] [address] Paresthesias (Primary Dx) Social History Tobacco Use Types Packs/Day Years [...] on file documented as of this encounter Procedure Notes * Kade Quezada - 04/25/2011 2:05 PM EDTAssociated Order(s): VISUAL EVOKED POTENTIAL TEST Pre-Procedure Diagnose(s): Paresthesias VEP#: 46/[id number] Visual Evoked Potentials (VEP) Name: Alis Cardenas Date of Study: 04/25/2011 Referring Provider: Nader Crawford MD Clinical History: This is 40 year old female with 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 Procedure: Monocular, whole field, 16-check pattern-reversal visual evoked potentials were recorded over mid-occipital and right and left occipital cortices. Visual Acuity Left Right 20/50 20/50 Latency (msec) Generator Wave Left Right Left/Right Difference Normal Occipital Neocortex P100 98.8 98.8 0.0 < 117.6 (Difference < 7.3) NR = Not Reproducible NA = Not Applicable Cc: documented in this encounter Plan of Treatment Not on file documented as of this encounter Procedures Procedure Name Priority Date/Time Associated Diagnosis Comments VISUAL EVOKED POTENTIAL TEST Routine 05/25/2011 1:44 PM EDT Paresthesias documented in this encounter Results * Visual evoked potential test (05/25/2011 1:44 PM EDT) Alis Hernandez RN - 05/25/2011 1:44 PM EDT ? VEP#: [id number] Visual Evoked Potentials (VEP) Name: ?Alis Cardenas [...] Quezada - 04/25/2011 2:05 PM EDT VEP#: [id number] Visual Evoked Potentials (VEP) Name: Alis Cardenas [...] Applicable Cc: Nader Crawford MD NEUROLOGY ORDERABLES documented in this encounter Visit Diagnoses Diagnosis Paresthesias- Primary Disturbance of skin sensation documented in this encounter Care Teams Material Expeditor Relationship Specialty Start Date End Date Adenike Chung APRN PCP - General 03/14/11 01/18/15 documented as of this encounter
--- OUTSIDE RECORDS SUMMARY | 2023-10-18 21:28 | XMS_ITS | Encounter Summary ---
Author Organization [facility] Address [facility] [place] [address] Care Team Providers Care Boilermaking Supervisor Name Role Phone Digna Lemon APRN Primary Care Provider [phone]- [phone] Reason for Visit * Reason Comments Pain Management Encounter Details Date Type Department Care Team (Late st Contact Info) Description 01/19/2015 9:30 AM EST Office [place] [address] Souleymane Venegas MD [facility] [place] [address] Neck pain; Fibromyalgia Social History Tobacco Use Types Packs/Day [...] Sign Reading Time Taken Comments Blood Pressure 144/80 01/19/2015 9:21 AM EST Pulse 106 01/19/2015 9:21 AM EST Temperature - - Respiratory Rate - - Oxygen Saturation 97% 01/19/2015 9:21 AM EST Inhaled Oxygen Concentration - - Weight 132 kg (291 lb) 01/19/2015 9:21 AM EST Height 160 cm (5' 3) 01/19/2015 9:21 AM EST Body Mass Index 51.55 01/19/2015 9:21 AM EST documented in this encounter Progress Notes * Souleymane Venegas MD - 01/19/2015 9:46 AM EST Ms. Cardenas presents today having used up all of her 90 Percocet tablets that she got here last time within a couple of months of my giving them to her. She has talked to about receiving more Percocet and Dr. Lemon, she tells me, has advised her that she would not and I agree with that. The decision today is opioids versus cannabis versus nothing. She is already using cannabis anyway and I do have a bonafide physician patient relationship with her. She has applied for disability and she does not really leave the house because of her significant psychiatric issues. She has tolerated cannabis again in the past. She continues to smoke cigarettes. The agreement today was that I would complete the paper work for her for medical cannabis and that when I saw her back in a year if she wished me to complete this paper back again she must have stopped smoking cigarettes. She was agreeable. Hopefully she will do okay. She is alert, clear headed. Sclerae are nonicteric. Walks with a normal gait. Moderately obese. I will be seeing her back probably in a year. I do not believe she is a good candidate for opioids. I believe she is a fair candidate for cannabis, but she is using it already anyway. documented in this encounter Plan of Treatment Not on file documented as of this encounter Visit Diagnoses Diagnosis Neck pain Cervicalgia Fibromyalgia Mylagia and myositis, unspecified documented in this encounter Care Teams Boilermaking Supervisor Relationship Specialty Start Date End Date Digna Lemon APRN PCP - General Family Medicine 01/19/15 09/04/18 documented as of this encounter
--- OUTSIDE RECORDS SUMMARY | 2023-10-18 21:28 | XMS_ITS | Encounter Summary ---
Author Organization [facility] Address [facility] [place] [address] Care Team Providers Care Clinical Specialist Vascular Name Role Phone Adenike Chung APRN Primary Care Provider + Encounter Details Date Type Department Care Team (Late st Contact Info) Description 03/30/2010 [place] [address] Nader Crawford MD [facility] [place] [address] Social History Tobacco Use Types Packs/Day Years [...] FILM LIBRARY STORAGE ONLY MR SPINE Routine 03/30/2010 9:29 AM EST documented in this encounter Results * FILM LIBRARY- STORAGE ONLY MR SPINE (03/30/2010 9:29 AM EST) 03/30/2010 9:29 AM EST Narrative [facility] - 07/01/2013 1:46 PM EDT This is a non-reportable exam. Procedure Note Matias Kee - 07/01/2013 This is a non-reportable exam. Nader Crawford MD [facility] FILM LIBRARY ORD ERABLES RAD [address] [facility] [place] [address] documented in this encounter Visit Diagnoses Not on filedocumented in this encounter Care Teams Clinical Specialist Vascular Relationship Specialty Start Date End Date Adeniek Chung APRN PCP - General 03/14/11 01/18/15 documented as of this encounter
--- OUTSIDE RECORDS SUMMARY | 2023-10-18 21:28 | XMS_ITS | Encounter Summary ---
Author Organization [facility] [place] [address] Care Team Providers Care Chain Saw Mechanic Name Role Phone Digna Lemon APRN Primary Care Provider [phone]- [phone] Encounter Details Date Type Department Care Team (Late st Contact Info) Description 08/27/2015 Telephone Hematology [place] [address] Mena Eagle MD [facility] [address] [place] [address] Social History Tobacco Use Types Packs/Day Years [...] Telephone Encounter - Mena Eagle MD - 08/27/2015 4:58 PM EDT Left a message to call me back. documented in this encounter Plan of Treatment Not on file documented as of this encounter Visit Diagnoses Not on filedocumented in this encounter Care Teams Chain Saw Mechanic Relationship Specialty Start Date End Date Digna Lemon APRN PCP - General Family Medicine 01/19/15 09/04/18 documented as of this encounter
--- OUTSIDE RECORDS SUMMARY | 2023-10-18 21:28 | XMS_ITS | Encounter Summary ---
Author Organization Formerly [facility], 1928–1983 Address [facility] [place] [address] Care Team Providers Care Plant Engineering Supervisor Name Role Phone Adenike Chung APRN Primary Care Provider + Reason for Referral * Physical Therapy (Routine) - Complete - Unable to Contact Patient Specialty Diagnoses / Procedures Referred By Contac t Referred To Contact Physical Therapy Diagnoses Neck pain Felicitas Rendon APRN [facility] [address] [facility] [place] [address] Referral ID Status Reason Start Date Expiration Date Visits Requested Visits Authorized [id number] Complete - Unable to Contact Patient Evaluate and Treat 05/05/2014 05/05/2015 12 12 * Consultation (Routine) - Closed Specialty Diagnoses / Procedures Referred By Contac t Referred To Contact Pain Management Diagnoses Neck pain Felicitas Rendon HUMAN RESOURCES PARTNER [facility] [place] [address] [facility] [address] [place] [id number] Referral ID Status Reason Start Date Expiration Date V isits Requested Visits Authorized [id number] Closed Consult, Test & Treat 05/05/2014 05/05/2015 3 3 Reason for Visit * Reason Comments Neck And Shoulder Pain Encounter Details Date Type Department Care Team (Late st Contact Info) Description 05/05/2014 3:15 PM EDT Office [place] [address] Felicitas Rendon, SALLY [facility] [place] [address] Neck pain (Primary Dx); S/P cervical discectomy Discharge Disposition: Home Social History Tobacco Use [...] Sign Reading Time Taken Comments Blood Pressure - - Pulse - - Temperature - - Respiratory Rate - - Oxygen Saturation - - Inhaled Oxygen Concentration - - Weight 122.5 kg (270 lb) 05/05/2014 4:15 PM EDT Height 158.8 cm (5' 2.5) 05/05/2014 4:15 PM EDT Body Mass Index 48.6 05/05/2014 4:15 PM EDT documented in this encounter Progress Notes * Felicitas Rendon, SALLY - 05/05/2014 5:07 PM EDT Chief complaint: Chief Complaint Patient presents with ??? Neck And Shoulder Pain History of present illness:This patient is a 43 y.o. female that presents to the spine center for neck pain that is chronic and Right shoulder and arm pain. She also has right-sided total-body numbness. She's been evaluated by for those symptoms by Dr. Rolo choudhary in the past. Most of the pain is in the right shoulder and deltoid. It's 6-7 or more on a scale of 10. She drops things. Nothing makes it better and any activity makes it worse. Last year she was walking 5 miles a day but has become more and more inactive over the last year. Past medical history:prior discectomy and fusion, bipolar disorder, colitis, fibromyalgia, by hip bursitis. Social and family history:Alis is . She is not currently working in applied for disability but has been denied several times. She doesn't use alcohol. She smokes 5-10 cigarettes a day and has gone up and down on her smoking levels forever. Problem List: Patient Active Problem List Diagnosis Code ??? Fibromyalgia 729.1 ??? Back pain 724.5 ??? S/P cervical discectomy V45.89 ??? Depression 311 ??? Vitamin D deficiency 268.9 ??? Allergic reaction to spider bite 989.5, E905.1 ??? Nasal congestion 478.19 ??? Mold exposure V87.31 ??? Moderate persistent asthma 493.90 ??? Neck pain 723.1 Review of Systems:positive for night sweats and her weight varies and goes up and down. Negative for other GI, , constitutional symptoms. Medications and allergies were reviewed and updated. Physical Examination:this is an overweight female age 43. She is right-hand dominant. Her shoulders, hips, knees are grossly level to inspection. She is tender to palpation in the neck and bilateral shoulders. She can tandem walk without any difficulties she can single leg balance. She has reduced range of motion in the cervical spine secondary to pain. She has a decreased sensation in the right whole side including the trunk which she reports that for a long time and Dr. Dillard he is evaluated in the past. She has normal strength and her reflexes are symmetrical throughout with no Whatley or clonus and Babinski with downgoing toes. There are palpable distal pulses. Diagnostic data:we reviewed her MRI of her cervical spine done in December 2013 which does reveal adjacent segment disorder at the level above her fusion which is at C5-6. This would give her symptoms in the C5 distribution bilaterally which would explain her initial symptoms of shoulder pain but they have now more into only right-sided whole arm pain which is not something that would be consistent with her MRI. 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 She is not particularly interested in the gap assessment but he did give her material charlesw. I did make her an appointment to see the pain clinic and also to see the physical therapiston the same day. If she up for an injection I will see HER-2 weeks afterwards. All questions were answered and I gave her printed material to review about the injection and the optional evangelical program. This note was written with voice recognition software documented in this encounter Plan of Treatment Scheduled Referrals Name Type Priority Associated Diagnoses Orde r Schedule Referral to Pain Clinic Outpatient Referral Routine Neck pain Ordered: 05/05/2014 Referral to Physical Therapy Outpatient Referral Routine Neck pain Ordered: 05/05/2014 documented as of this encounter Visit Diagnoses Diagnosis Neck pain- Primary Cervicalgia S/P cervical discectomy Other postprocedural status documented in this encounter Care Teams Plant Engineering Supervisor Relationship Specialty Start Date End Date Adenike Chung APRN PCP - General 03/14/11 01/18/15 documented as of this encounter
--- OUTSIDE RECORDS SUMMARY | 2023-10-18 21:28 | XMS_ITS | Encounter Summary ---
Author Organization [facility] Address [facility] [place] [address] Care Team Providers Care Stove Mounter Name Role Phone Adenike Chung APRN Primary Care Provider + Encounter Details Date Type Department Care Team (Late st Contact Info) Description 11/15/2007 [place] [address] Nader Crawford MD [facility] [place] [address] Social History Tobacco Use Types Packs/Day Years [...] FILM LIBRARY STORAGE ONLY MR SPINE Routine 11/15/2007 4:11 PM EDT documented in this encounter Results * FILM LIBRARY- STORAGE ONLY MR SPINE (11/15/2007 4:11 PM EDT) 11/15/2007 4:11 PM EDT Narrative [facility] - 07/16/2013 2:59 PM EDT This is a non-reportable exam. Procedure Note Matias Kee - 07/16/2013 This is a non-reportable exam. Nader Crawford MD [facility] FILM LIBRARY ORD ERABLES RAD [address] [facility] [place] [address] documented in this encounter Visit Diagnoses Not on filedocumented in this encounter Care Teams Stove Mounter Relationship Specialty Start Date End Date Adenike Chung APRN PCP - General 03/14/11 01/18/15 documented as of this encounter
--- OUTSIDE RECORDS SUMMARY | 2023-10-18 21:28 | XMS_ITS | Encounter Summary ---
Author Organization [facility] Address [facility] [place] [address] Care Team Providers Care Skip Pit Worker Name Role Phone Adenike Chung APRN Primary Care Provider + Encounter Details Date Type Department Care Team (Late st Contact Info) Description 07/14/2009 [place] [address] aNder Crawford MD [facility] [place] [address] Social History Tobacco Use Types Packs/Day Years [...] FILM LIBRARY STORAGE ONLY DX SPINE Routine 07/14/2009 4:09 PM EDT documented in this encounter Results * FILM LIBRARY- STORAGE ONLY DX SPINE (07/14/2009 4:09 PM EDT) 07/14/2009 4:09 PM EDT Narrative [facility] - 07/01/2013 1:46 PM EDT This is a non-reportable exam. Procedure Note Matias Kee - 07/01/2013 This is a non-reportable exam. Nader Crawford MD [facility] [place]M LIBRARY ORD ERABLES RAD [address] [facility] [place] [address] documented in this encounter Visit Diagnoses Not on filedocumented in this encounter Care Teams Skip Pit Worker Relationship Specialty Start Date End Date Adenike Chung APRN PCP - General 03/14/11 01/18/15 documented as of this encounter
--- OUTSIDE RECORDS SUMMARY | 2023-10-18 21:28 | XMS_ITS | Encounter Summary ---
Author Organization Formerly [facility] [place] [address] Care Team Providers Care Rn Building Name Role Phone Adenike Chung APRN Primary Care Provider + Reason for Visit * Reason Comments Other Encounter Details Date Type Department Care Team (Late st Contact Info) Description 07/07/2014 [place] [id number] Angi Burch MD [facility] [address] [place] [address] Social History Tobacco Use Types Packs/Day Years [...] encounter Miscellaneous Notes * Telephone Encounter - Angi Burch MD - 07/07/2014 5:07 PM EDT Loratadine rx refilled. * Telephone Encounter - Angi Burch MD - 07/07/2014 5:07 PM EDT ----- Message from Jada Pryor sent at 07/07/2014 12:45 PM EDT ----- Contact: patient Patient said that she does not have any more RX for loratadine and she doesn't get along with her primary so she was wondering if you could call it in for her to [facility] . Patient documented in this encounter Plan of Treatment Not on file documented as of this encounter Visit Diagnoses Not on filedocumented in this encounter Care Teams Rn Building Relationship Specialty Start Date End Date Adenike Chung APRN PCP - General 03/14/11 01/18/15 documented as of this encounter
--- OUTSIDE RECORDS SUMMARY | 2023-10-18 21:28 | XMS_ITS | Encounter Summary ---
Author Organization [facility] Address [facility] [address] Care Team Providers Care Wheel Lacer And Truer Name Role Phone Digna Lemon APRN Primary Care Provider [phone] Reason for Visit * Reason Comments Follow-up Encounter Details Date Type Department Care Team (Late st Contact Info) Description 08/20/2015 2:00 PM EDT Office Visit Hematology [place] [address] Maxwell Eagle MD [facility] DR HEMATOLOGY [place] [address] Neutrophilia Social History Tobacco Use Types Packs/Day [...] Sign Reading Time Taken Comments Blood Pressure 133/74 08/20/2015 1:54 PM EDT Pulse 79 08/20/2015 1:54 PM EDT Temperature 36.2 ??C (97.2 ??F) 08/20/2015 1:54 PM ED T Respiratory Rate - - Oxygen Saturation 99% 08/20/2015 1:54 PM EDT Inhaled Oxygen Concentration - - Weight 133.7 kg (294 lb 12.8 oz) 08/20/2015 1:54 PM EDT Height 158.2 cm (5' 2.28) 08/20/2015 1:54 PM ED T Body Mass Index 53.43 08/20/2015 1:54 PM EDT documented in this encounter Progress Notes * Maxwell Eagle MD - 08/20/2015 2:00 PM EDT Heme/Onc Outpatient Follow Up Date of Follow Up: 08/21/15 Reason for Follow Up: Neutrophilia Interval Hx (08/20/15) Feeling well since last visit. No constitutional symptoms. No fevers, chills, weight loss, or night sweats. HPI Alis Cardenas is a 44 y.o. female with [...] Outpatient Prescriptions Medication Sig Dispense Refill ??? hydrOXYzine (ATARAX) 10 mg Tablet Take [...] Take by mouth 2 times daily. ??? EPINEPHrine (EPIPEN) 0.3 mg/0.3 mL (1:1,000) injection Inject 0.3 mLs into the muscle once as needed (difficulty breathing, throat swelling, loss of consciousness) for up to 1 dose. Call 911. (Patient not taking: Reported on 08/20/2015) 2 each 1 Current Facility-Administered Medications Medication Dose Route Frequency [...] weakness Dermatological ROS: negative Physical Exam BP 133/74 (Patient Position: Sitting) Pulse 79 Temp 36.2 ??C (97.2 ??F) (Temporal) Ht 158.2 cm (5' 2.28) Wt (!) 133.7 kg (294 lb 12.8 oz) SpO2 99% BMI 53.43 kg/m2 General Appearance: Alert, cooperative, no distress, [...] Normal Lab Results Component Value Date WBC 16.6 (H) 08/20/2015 RBC 5.01 08/20/2015 HGB 13.3 08/20/2015 HCT 40.7 08/20/2015 MCV 81.2 08/20/2015 MCH 26.5 (L) 08/20/2015 MCHC 32.7 08/20/2015 PLATELET 329 08/20/2015 RDWCV 15.0 (H) 08/20/2015 Assessment and Plan Alis Cardenas is a 44 y.o. female With leukocytosis of unclear etiology - Peripheral blood sent for flow cytometry today (pending) -JAK2 and BCR ABl are negative -If flow cytometry is negative - I will recheck ESR and CRP -My suspicion is that her neutrophilia is a reactive process rather than a primary hematologic condition MAXWELL EAGLE MD 08/21/2015 documented in this encounter Plan of Treatment Not on file documented as of this encounter Visit Diagnoses Diagnosis Neutrophilia Other specified disease of white blood cells documented in this encounter Care Teams Wheel Lacer And Truer Relationship Specialty Start Date End Date Digna Lemon APRN PCP - General Family Medicine 01/19/15 09/04/18 documented as of this encounter
--- OUTSIDE RECORDS SUMMARY | 2023-10-18 21:28 | XMS_ITS | Encounter Summary ---
Author Organization [facility] Address [facility] [place] [address] Care Team Providers Care Tax Assistant Name Role Phone Adenike Chung APRN Primary Care Provider + Reason for Visit * Reason Comments Cough Allergies Encounter Details Date Type Department Care Team (Late st Contact Info) Description 09/17/2013 9:45 AM EDT [place] [address] Angi Burch MD [facility] DR ALLERGY [place] [address] Mold exposure (Primary Dx); Moderate persistent asthma, uncomplicated; Nasal congestion; Allergic reaction to spider bite, initial encounter; Tongue irritation Discharge Disposition: Home Social History Tobacco Use [...] Sign Reading Time Taken Comments Blood Pressure 136/82 09/17/2013 9:28 AM EDT Pulse 77 09/17/2013 9:28 AM EDT Temperature - - Respiratory Rate - - Oxygen Saturation - - Inhaled Oxygen Concentration - - Weight 121.9 kg (268 lb 12.8 oz) 09/17/2013 9:28 AM EDT Height 160 cm (5' 3) 09/17/2013 9:28 AM EDT Body Mass Index 47.62 09/17/2013 9:28 AM EDT documented in this encounter Patient Instructions * Patient Instructions* Angi Burch MD - 09/17/2013 10:34 AM EDT - Always have EpiPen available - take precautions to minimize risk of being bittent by spider - Please stop all antihistamines ( ie benadryl, loratadine) at least five days prior to skin testing appt. documented in this encounter Progress Notes * Angi Burch MD - 09/17/2013 10:08 AM EDT Chief Complaint Patient presents with ??? Cough ??? Allergies Summary of outside records: 10/22/12, Adenike Chung, [facility]. Patient reported living in an apt with mold. Has nasal congestion, intermittent cough and sore throat on loratadine and Flonae. Uses bleach to clean mold that returns promptly. Complained to landlord without any change. Smoker. PE: Edematous turbinates w/o discharge. Erythema of posterior palate Plan: Refer to allergy for allergy testing. Has elevated WBC, plan is further workup if allergy testing is unremarkable. HPI The patient is a pleasant 43 y.o. year old female whose consultation was requested by . The reason for consultation is evaluation and management of black mold exposure and allergy testing. Black mold exposure Patient has black mold growing around her window eduardo and bathroom. She cleans weekly with bleach. It has been there since she has moved to the apt. She has been living there for six to seven years. She has cough, wheezing and shortness of breath. No night time awakenings because of cough, wheezing, SOB. She has JOB and has nighttime awakenings from JOB. She has CPAP and is not non- compliant with its use. She has not used it in over one week. She has SOB with going up a flight of stairs. She has chronic nasal congestion and rhinorrhea. She takes loratadine with mild relief. She took itthis morning. Her sense of smell and taste are reduced. She has no history of sinus or nose surgery. S/p T&A as a child. She feels her colds last a long time. URIs can last months. She has associated fatigue. She feels her tongue is irritated when she eats spicy foods. She feels there is a film on her tongue. No heartburn or reflux sensation. She has a history of asthma. She is on Flovent 2 puffs BID ( dose unknown). She uses Xopenex about a few times per week. She uses a spacer with her inhalers. She has received prednisone for asthma. Last time needed for asthma was once in the last year. She has no prior allergy testing in the past. Spider bite reactions She has difficulty breathing and a local erythematous rash where she is bitten. She takes benadryl with some relief. No ER evaluation. She has had this happen multiple times. She does not have an EpiPen. Smoker. Quit in May and has increased stress and restarted smoking 1/2 ppd. Second hand smoke exposure currently. Has four cats that enter the bedroom. No woodstove or fireplace. Unemployed. Review of Systems: All other systems reviewed and negative except as noted below: Review of Systems Constitution: Positive for malaise/fatigue and weight gain. HENT: Positive for congestion. Rhinorrhea, postnasal drip, facial pain, ear pain, sneezing Eyes: Itchy eyes Respiratory: Positive for cough, snoring and wheezing. Gastrointestinal: Positive for nausea. Neurological: Headache Allergies, medications, past medical/ surgical history were reviewed and updated in eD. Allergies: Codeine and Lactose Medications: Outpatient Prescriptions Marked as Taking for the 09/17/13 encounter (Office Visit) with Angi Burch MD Medication Sig Dispense Refill ??? clonazePAM (KLONOPIN) 2 mg tablet Take 2 mg by mouth 2 times daily. ??? sertraline (ZOLOFT) 100 mg tablet Take [...] Take by mouth 2 times daily. ??? hydroCODone-acetaminophen (VICODIN) 5-500 mg per tablet Take 1 tablet by mouth 2 times daily asneeded. Past Medical and Social History: Past Medical History Diagnosis Date ??? Asthma Past Surgical History Procedure Date ??? Tonsillectomy ??? Adenoidectomy Family history: [...] Smoking status: Current Every Day Smoker -- 0.5 packs/day for 10 years Types: Cigarettes ??? Smokeless tobacco: Never Used ??? Alcohol Use: Yes Comment: Socially, 1-2 times per month ??? Drug Use: No ??? Sexually Active: No Other Topics Concern ??? None Social History Narrative ??? None Physical Exam: Vital signs reviewed. Normal Except General: - No apparent distress Eyes: - Conjunctivae without injection; - No eyelid swelling ENT: - No erythema of the tympanic membranes - Normal external ear canals - Nl nasal mucosa and turbinates; - Oropharynx well hydrated without lesions or exudates; - Face & sinuses non-tender to palpation/percussion - Left nasal septal deviation Neck: - Symmetrical, no masses, trachea midline; [...] cyanosis, or edema Skin: - No rashes Neuro: - Nl gait and station Psych: - Nl and age appropriate mood and affect - Judgement and insight intact TESTS/PROCEDURES IMPRESSION/REPORT/PLAN #1 Mold exposure #2 Nasal congestion and sinusitis - Skin testing not performed today because of antihistamine use within the last 24 hours. - Offered to check RAST tests, however, patient prefers skin tests - Recommend stopping antihistamines five days prior to allergy skin test appt - Take precautions to minimize exposure to mold #3 Moderate persistent asthma - co- morbidities: obesity, job. ? Reflux - Continue Flovent and albuterol - Continue to follow up with PCP for managment #4 Spider bite allergic reactions - Discussed with patient that we do not have any allergy testing to evaluate for spider bite allergies. - Take precautions to minimize risk of being stung - EpiPen be administered if s he develops dyspnea, throat swelling or loss of consciousness. If EpiPen is administered 911 should be called immediately. The risks, benefits, alternatives, storage methods, indications and administration technique of EpiPen were reviewed with the patient. She was able to demonstrate understanding of the use of EpiPen. #5 Tongue sensation after eating spicy food - Suspect related to silent reflux - May avoid food triggers - Consider ENT evaluation for LPR Medication ordered or changed during this encounter, will not show discontinued medications Medications ??? EPINEPHrine (EPIPEN) 0.3 mg/0.3 mL (1:1,000) injection Sig: Inject 0.3 mLs into the muscle once as needed (difficulty breathing, throat swelling, loss of consciousness) for up to 1 dose. Call 911. Dispense: 2 each Refill: 1 RTC for allergy skin testing eDH record was reviewed. Written instructions were [...] as of this encounter Visit Diagnoses Diagnosis Mold exposure- Primary Contact with and (suspected) exposure to mold Moderate persistent asthma, uncomplicated Unspecified asthma Nasal congestion Other diseases of nasal cavity and sinuses Allergic reaction to spider bite, initial encounter Tongue irritation Unspecified condition of the tongue documented in this encounter Care Teams Tax Assistant Relationship Specialty Start Date End Date Adenike Chung APRN PCP - General 03/14/11 01/18/15 documented as of this encounter
--- OUTSIDE RECORDS SUMMARY | 2023-10-18 21:29 | XMS_ITS | Encounter Summary ---
Author Organization [facility] Address [address] [place] [address] Care Team Providers Care Data Integrity Specialist Name Role Phone Unavailable Primary Care Provider Unavailabl e Encounter Details Date Type Department Care Team (Latest Contact Info) Description 11/25/2007 17:31 EDT Hospital Encounter [facility] Emergency Department - [facility] [address] [place] [address] Emergency, Default, MD Discharge Disposition: Home or Self Care Social History Tobacco Use Types Packs/Day Years Used Date Smoking Tobacco: Never Assessed Sex and Gender Information Value Date Recorded Sex Assigned at Not on file Gender Identity Female 07/01/2020 14:24 EDT Sexual Orientation Not on file documented as of this encounter Discharge Disposition Disposition Code Departure Means Destination Home or Self Care documented in this encounter Plan of Treatment Not on file documented as of this encounter Visit Diagnoses Not on filedocumented in this encounter
--- OUTSIDE RECORDS SUMMARY | 2023-10-18 21:29 | XMS_ITS | Encounter Summary ---
Author Organization [facility] Address [address] [place] [address] Care Team Providers Care Chef De Froid Name Role Phone Nishant Sorto MD Primary Care Provider Unknown, Provider Primary Care Provider [phone] Encounter Details Date Type Department Care Team (Late st Contact Info) Description 06/19/2001 Results Only [facility] - Maple conversion [address] [place] [address] Raiza Weathers MD [address] [place] [address] [place] [address] Social History Tobacco Use Types Packs/Day Years Used Date Smoking Tobacco: Never Assessed Sex and Gender Information Value Date Recorded Sex Assigned at Not on file Gender Identity Female 07/01/2020 14:24 EDT Sexual Orientation Not on file documented as of this encounter Plan of Treatment Not on file documented as of this encounter Procedures Procedure Name Priority Date/Time Associated Diagnosis Comments CYTOPATHOLOGY Routine 06/19/2001 0:00 EDT documented in this encounter Results * CYTOPATHOLOGY (06/19/2001 0:00 EDT) Pathology Report: CYTOPATHOLOGY REPORT Reports generated via electronic interface contain original data; however they are lacking the format of the original report. Caution should be taken when reading/interpreti ng unformatted reports. Name: ? BRIAN CARDENAS V ? Accession #: ? [id number] : ? 1970 (Age: 30) ??F ?Collect Date: ? 06/19/2001 Location: ? [facility] ? Receive Date: ? 06/20/2001 Provider: ?RAIZA WEATHERS MD Copy to: ? Specimen/Source: ?ThinPrep Pap Test, Cervix/Endocervix Last Menstrual Period: ? 06/13/01 Menstrual/Pregnanc y Status: ? Post ? SPECIMEN ADEQUACY ? Satisfactory for Evaluation - transformation zone component present GENERAL CATEGORIZATION ? Negative for Intraepithelial Lesion or Malignancy ? Document reviewed and electronically signed by: ? NASIM Perez(ASCP) ? Report Date: ??06/24/2001 10:25 End of Report BILLIE VILLALBA 06/19/2001 06/20/2001 Raiza Weathers MD PATHOLOGY ORDERABLES Performing Organization Address City/State/[facility] Co de Phone Number BILLIE EPPERSON [facility] [address] [place] [address] documented in this encounter Visit Diagnoses Not on filedocumented in this encounter Care Teams Chef De Froid Relationship Specialty Start Date End Date Nishant Sorto MD PCP - General 09/24/08 06/30/20 Unknown, ProviderMD PCP - General 05/28/08 09/23/08 documented as of this encounter
--- OUTSIDE RECORDS SUMMARY | 2023-10-18 21:29 | XMS_ITS | Encounter Summary ---
Author Organization [facility] Address [address] [place] [address] Care Team Providers Care Line Server Name Role Phone Unknown, Provider Primary Care Provider [phone] Encounter Details Date Type Department Care Team (Late st Contact Info) Description 12/04/2007 Before PRISM Converted Visit (Maple) [facility] - Maple conversion [address] [place] [address] Nabil Weiss [facility] MA[facility] [address] [place] [address] Social History Tobacco Use Types Packs/Day Years Used Date Smoking Tobacco: Never Assessed Sex and Gender Information Value Date Recorded Sex Assigned at Not on file Gender Identity Female 07/01/2020 14:24 EDT Sexual Orientation Not on file documented as of this encounter Procedure Notes * Nabil Weiss - 08/27/2008 2206 EDT DIVISION OF PAIN MANAGEMENT PROCEDURE REPORT SERVICE DATE: 12/04/2007 Tristan Merlos MD SENIOR ANALYST MARKET INTELLIGENCE: Nabil Weiss MD PROCEDURE Left-sided C5-C6 transforaminal epidural steroid injection (procedure aborted). PREPROCEDURE DIAGNOSIS Cervical degenerative disk disease with radiculopathy. POSTPROCEDURE DIAGNOSIS Cervical degenerative disk disease with radiculopathy. INTERVAL HISTORY The patient is a 37-year-old white female who is being seen in consultation at the request of SHASHANK Newman. The patient has a history of neck pain that started in October. The pain is on the left side of her neck and radiates to her shoulder,arm and hand. The patient does complain of weakness throughout her forearm and hand. An MRI of the cervical spine from November 15, 2007, shows a largedisk herniation at the C5-6 level that is central left with significant neural foraminal narrowing on the left. Patient is currently taking Neurontin 1200 mg per day which takes the edge off her pain. REVIEW OF SYSTEMS Patient denies chest pain, shortness of air, nausea, vomiting, headache, bowel or bladder dysfunction. PHYSICAL EXAMINATION Patient is 5 feet3 inches tall and weighs 280 pounds. Blood pressure 137/83, pulse 106, [id number]. She is alert and oriented times three and appears anxious and tearful at times. There is tenderness to palpation in the left posterior aspect of the cervical region.Patient has 5/5 right upper extremity strength and 4/5 on the left. There is decreased sensation to touch in the lateral aspect of the arm and forearm. Cranial nerves II-XII are intact. ASSESSMENT Herniated nucleus pulposus at the C5-C6 level with radiculopathy. PLAN To proceed with a left-sided C5-C6 transforaminal epidural steroid injection at the request of SHASHANK Newman. The plan is to follow up with Mr. Pride. We also recommend increasing her gabapentin. The procedure was aborted secondary topatient discomfort and anxiety before final needle placement. Mr. Pride's office was contacted and they requested that she call Mr. Pride to discuss other options. Patient is to follow up in our clinic as needed or at the request of Mr. Pride. PROCEDURE NOTE After informed consent was obtained, the patient was placed supine on the fluoroscopy table. The patients left neck region was prepped and draped in sterile fashion. Using fluoroscopy the patientnative spinal anatomy was determined. The skin and subcutaneous tissue was anesthetized using approximate ly 2 mL of 2% lidocaine. A 3-1/2-inch, 25-gauge spinal needle was advanced to the C5-C6 neural foramen. Before final needle placement, patient requested to end the procedure secondary to anxiety anddiscomfort. The procedure was aborted. The needle was removed. The patient remained alert and oriented and conversant throughout the entire procedure. She was monitored after the procedure and had no complications. She was discharged in an ambulatory fashion to the care of her inventory associate and driver. I was present during the entire procedure. Signed by Tristan Merlos MD 12/14/2007 12:26 Nabil Weiss MD Tristan Merlos MD D: - Nabil Weiss MD - JOG Job ID: [id number] Doc ID: [id number] cc: SHASHANK Haney documented in this encounter Plan of Treatment Not on file documented as of this encounter Visit Diagnoses Not on filedocumented in this encounter Care Teams Line Server Relationship Specialty Start Date End Date Unknown, Provider, PCP - General 05/28/08 09/23/08 documented as of this encounter
--- OUTSIDE RECORDS SUMMARY | 2023-10-18 21:29 | XMS_ITS | Encounter Summary ---
Author Organization [facility] Address [address] [place] [address] Care Team Providers Care Associate Chemist Name Role Phone Nishant Sorto MD Primary Care Provider [phone] Encounter Details Date Type Department Care Team (Late st Contact Info) Description 05/03/2012 Results Only [facility] Laboratory Services - [facility] ([facility] [address] [place], [place] [id number] Alistair Marks, DO [address] [facility] [place], [place] [id number] Social History Tobacco Use Types Packs/Day Years Used Date Smoking Tobacco: Never Assessed Sex and Gender Information Value Date Recorded Sex Assigned at Not on file Gender Identity Female 07/01/2020 14:24 EDT Sexual Orientation Not on file documented as of this encounter Plan of Treatment Not on file documented as of this encounter Procedures Procedure Name Priority Date/Time Associated Diagnosis Comments SURGICAL PATHOLOGY Routine 05/03/2012 16 :41 EDT documented in this encounter Results * SURGICAL PATHOLOGY (05/03/2012 16:41 EDT) Pathology Report: SURGICAL PATHOLOGY REPORT Reports generated via electronic interface contain original data; however they are lacking the format of the original report. Caution should be taken when reading/interpreti ng unformatted reports. Name: ? BRIAN CARDENAS V ? Accession #: ? [id number] ? : ? 1970 (Age: 41) ??F ? Collect Date: ? 05/03/2012 ? Location: ? [facility] ? Receive Date: ? 05/03/2012 ? Provider: ALISTAIR MARKS DO Copy to: ARLEN PAREDES AUTOMOTIVE SERVICE TECHNICIAN ? Final Pathologic Diagnosis: ? A. ??Colon, sigmoid, biopsy: ? 1. ??No specific pathologic features. B. ??Rectum, biopsy: ? 1. ??No specific pathologic features. ? Document reviewed and electronically signed by: TIERRA ROSADO MD Report ??Date: 05/07/2012 15:45 By the signature above, the attending physician certifies that he/she has personally conducted a gross and/or microscopic examination of the described specimens and rendered or confirmed the above diagnosis. Specimen(s) Received: A. ?Bx sigmoid B. ? Bx rectum Clinical History: ? LLQ pain Gross Description: ? Received in formalin labelled Anair, Brian and bx sigmoid are four guzman-pink irregular soft tissue fragments ranging from 0.4 x 0.2 x 0.2 cm to 0.6 x 0.3 x 0.2 cm. ??The specimens are entirely submitted as (A1) and (A2). Received in formalin labelled Anair, Brian and bx rectum are three guzman-pink irregular soft tissue fragments ranging from 0.2 x 0.2 x 0.2 cm to 0.5 x 0.2 x 0.2 cm. ??The specimens are entirely submitted as (B1). ??(Yoel Mcwilliams)/alec End of Report BILLIE VILLALBA 05/03/2012 16:4 1 EDT 05/03/2012 16:41 EDT Alistair Marks DO PATHOLOGY ORDER MELANIE BILLIE [facility] [address] [place] [address] documented in this encounter Visit Diagnoses Not on filedocumented in this encounter Care Teams Associate Chemist Relationship Specialty Start Date End Date Nishant Sorto MD PCP - General 09/24/08 06/30/20 documented as of this encounter
--- OUTSIDE RECORDS SUMMARY | 2023-10-18 21:29 | XMS_ITS | Encounter Summary ---
Author Organization [facility] Address [address] [place] [address] Care Team Providers Care Motel Clerk Name Role Phone Unavailable Primary Care Provider Unavailabl e Encounter Details Date Type Department Care Team (Late st Contact Info) Description 12/04/2007 15:04 EDT Hospital Encounter [facility] - Maple conversion [address] [place], [place] [phone] [place] [address] [place] [phone] Nabil Weiss [facility] HOUSE STAFF MAIL [address] [place], [place] [phone] Discharge Disposition: Auto Discharge Social History Tobacco Use Types Packs/Day Years Used Date Smoking Tobacco: Never Assessed Sex and Gender Information Value Date Recorded Sex Assigned at Not on file Gender Identity Female 07/01/2020 14:24 EDT Sexual Orientation Not on file documented as of this encounter Discharge Disposition Disposition Code Departure Means Destination Auto Discharge documented in this encounter Plan of Treatment Not on file documented as of this encounter Visit Diagnoses Not on filedocumented in this encounter
--- OUTSIDE RECORDS SUMMARY | 2023-10-18 21:29 | XMS_ITS | Encounter Summary ---
Author Organization [facility] Address [address] [place] [address] Care Team Providers Care Straw Hat Presser Name Role Phone Unknown, Provider Primary Care Provider [phone] Encounter Details Date Type Department Care Team (Latest Contact Info) Description 07/01/2020 Travel Social History Tobacco Use Types Packs/Day Years Used Date Smoking Tobacco: Never Assessed Interpersonal Safety Answer Date Record ed Physically Hurt Never 06/22/2020 Verbally Threaten Not on file 06/22/2020 Sex and Gender Information Value Date Recorded Sex Assigned at Not on file Gender Identity Female 07/01/2020 14:24 EDT Sexual Orientation Not on file COVID-19 Exposure Response Date Recorded In the last month, have you been in contact with someone who was confirmed or suspected to have Coronavirus / COVID-19? No / Unsure 07/01/2020 14:22 EDT documented as of this encounter Plan of Treatment Not on file documented as of this encounter Visit Diagnoses Not on filedocumented in this encounter Care Teams Straw Hat Presser Relationship Specialty Start Date End Date Unknown, Provider, PCP - General 07/01/20 01/12/21 documented as of this encounter
--- OUTSIDE RECORDS SUMMARY | 2023-10-18 21:29 | XMS_ITS | Encounter Summary ---
Author Organization [facility] Address [address] [place] [address] Care Team Providers Care Labeling Specialist Name Role Phone Unknown, Provider Primary Care Provider Encounter Details Date Type Department Care Team (Late st Contact Info) Description 12/17/2007 Before PRISM Converted Visit (Maple) [facility] - Maple conversion [address] [place] [address] Adrian Bolton MD [address] [place] [address] Social History Tobacco Use Types Packs/Day Years Used Date Smoking Tobacco: Never Assessed Sex and Gender Information Value Date Recorded Sex Assigned at Not on file Gender Identity Female 07/01/2020 14:24 EDT Sexual Orientation Not on file documented as of this encounter Progress Notes * Adrian Bolton - 08/29/2008 0589 EDT [facility] [address] [place] [phone] PROGRESS/FOLLOWUP NOTE - 12/17/2007 Primary Care Provider: Nishant Sorto MD Consultation requested by: SHASHANK Haney Attending: Nishant Maravilla MD PROBLEM 1. Neck and left arm pain status post failed injections. 2. C5-6 disk herniation with associated stenosis. a. 50% neck pain, 50% left upper extremity pain. Was notable on the lateral arm and forearm. 3. Obesity. The patients height is 5 feet 3 inches, weight 273 pounds. HISTORY OF PRESENT ILLNESS The patient is a 37-year-old female who presents to this office in consultation at the request of Pacheco Pride with a chief complaint of 50% neck pain, 50% left upper extremity pain since September 2007. The patient reports that she was painting a room and moving furniture when she first noticed a twinge in her neck. At that time the patient reports that her pain radiated from her neck to her lateral shoulder but in the intervening months since that time it has begun to radiate down the lateral aspect of her arm. She reports that the pain now radiates to her lateral shoulder, lateral forearm, and radial three fingers. The patient also reports having a generalized numbness throughout her left upper extremity. The patient denies any bowel or bladder incontinence but does report having difficultywith balance and also difficulty with dropping items. She is left hand dominant. The patient reports that the pain is constant and shooting and at baseline rates a 6 out of 10 on the analog scale with pain increasing to a 10 out of 10 with flares. She reports that the pain is worse with prolonged si tting or standing and is particularly worse at night and keeps her from sleeping. At this point in time, the patient is takinggabapentin 300 mg every a.m. and 900 mg every p.m. as well as Flexeril 30mg daily and Vicodin three tablets per day, which she reports is the only thing capable of helping her pain. In addition, the patient reports that she is severely limited in her activities of daily living and has attempted treatment for this problem with a TENS unit, massage, and a chiropractor, all with no help. The patient immediately prior to this visit was recommended for a C5-6 transforaminal epidural steroid injection by Pacheco Pride. However, the patient did not tolerate the procedure and the procedure was forced to be aborted prior to completion. At this point in time the patient is notemployed but she is concerned because she feels that she would not be able to work as a result of her pain. PAST MEDICAL HISTORY The patients past medical history is significant for sleep apnea. Current medications include gabapentin, Flexeril, Vicodin, ibuprofen. PAST SURGICAL HISTORY Significant for x three, termination of pregnancyx three, cholecystectomy, and tonsillectomy and adenoidectomy. The patient reports an ALLERGY to CODEINE, which she reports as nausea. She reports smoking one half pack of cigarettes per day with occasional alcohol. She lives at home with her , who is a trailer tank truck driver, and her three sons. OBJECTIVE physical exam, the patient is an obese female who appears her stated age. She is 5 feet 3 inches tall, weighs 273 pounds. Her breathing is nonlabored. Her mood and affect is appropriate throughout. Thepatient stands erect and walks with a normal gait. The patient has a normal Romberg examination. The patient has significant tenderness to palpation in her lower cervical and upper thoracic spine. She has full range of motion about her neck but reports that she has increased neck pain, particularly with extension and left lateral flexion. The patient has a negative Spurlingtest. The patient has diminished sensation to light touch in her left upper extremity globally and normal sensation to light touch in her right upper extremity, bilateral lower extremities. The patient has 5/5 strength in all muscle groups in her bilateral upper and lower extremities. The patient is hyperreflexic globally with 3+ biceps, triceps, and brachioradialis bilaterally. Shehas a positive Hoffmanns on the left. The patient has 3+ knee and ankle reflexes with four beats ofclonus bilaterally and downgoing toes. X-rays and MRI from an outside institution were reviewed today. X-rays included AP lateral as well as oblique viewsof the cervical spine, which demonstrate no significant disk height loss or osteophyte formation and patent foramina throughout. 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 ASSESSMENT/PLAN patient is a 37-year-old left hand dominant female with C5-6 disk herniation associated radiculopathy. A lengthy discussion was had with the patient regarding her symptoms and their cause. It was explained to her that her symptoms are certainly compatible with the herniated disk that is seen on her MRI. The patient was offered another trial of transforaminal epidural steroid injection, however the patient declined this at this pointin time. A brief discussion was had with the patient regarding potential surgical treatment for this problem with an anterior cervical diskectomy and fusion. The relative risks and benefits were briefly outlined to the patient, however it was explained tothe patient that prior to embarking on this type of surgical management the patient must first quit smoking.To this end, the plan would be to have the patient quit smoking tomorrow, followup in one month in this office following the carboxyhemoglobin examination to evaluate whether the patient was able to f ollow through with smoking cessation. The patient understood all of this and all of her questions were answered. The patient was seen, examined, and discussed with Dr Maravilla. saw and examined the patient with the resident/fellow. I agree with the findings and plan of care documented in the resident's/fellow's note. Signed by Nishant Maravilla MD 12/24/2007 17:41 Adrian Bolton MD Nishant Maravilla MD - Adrian Bolton MD - JTB Job ID: [id number] Doc ID: [id number] cc: SHASHANK Haney documented in this encounter Plan of Treatment Not on file documented as of this encounter Visit Diagnoses Not on filedocumented in this encounter Care Teams Labeling Specialist Relationship Specialty Start Date End Date Unknown, Provider, PCP - General 05/28/08 09/23/08 documented as of this encounter
--- OUTSIDE RECORDS SUMMARY | 2023-10-18 21:29 | XMS_ITS | Encounter Summary ---
Author Organization [facility] Address [address] [place] [address] Care Team Providers Care Refuse And Recycling Worker Name Role Phone Unknown, Provider Primary Care Provider [phone] Encounter Details Date Type Department Care Team (Late st Contact Info) Description 07/26/2020 Orders Only [facility] Rheumatology & Immunology - [address] [id number] Gordon Sal MBBS [address] [place] [address], [address] [place] [phone] Social History Tobacco Use Types Packs/Day Years [...] 14:22 EDT documented as of this encounter Functional Status [...] difficulty concentrating, remembering, or making decisions? Yes 07/06/2020 documented as of this encounter Progress Notes * Gordon Sal MD - 07/26/2020 1303 EDT - (07/16/20) CXR: No acute pulmonary findings. Plan: - As per 07/06/20 documented in this encounter Plan of Treatment Not on file documented as of this encounter Visit Diagnoses Not on filedocumented in this encounter Care Teams Refuse And Recycling Worker Relationship Specialty Start Date End Date Unknown, Provider, PCP - General 07/01/20 01/12/21 documented as of this encounter
--- OUTSIDE RECORDS SUMMARY | 2023-10-18 21:29 | XMS_ITS | Encounter Summary ---
Author Organization [facility] Address [address] [place] [address] Care Team Providers Care Supervisor Treating And Pumping Name Role Phone Unknown, Provider Primary Care Provider [phone] Encounter Details Date Type Department Care Team (Late st Contact Info) Description 11/27/2007 Before PRISM Converted Visit (Maple) [facility] - Maple conversion [address] [place] [address] Zachariah Pride PA-C [address] [place] [address] [place] [address] Social History Tobacco Use Types Packs/Day Years Used Date Smoking Tobacco: Never Assessed Sex and Gender Information Value Date Recorded Sex Assigned at Not on file Gender Identity Female 07/01/2020 14:24 EDT Sexual Orientation Not on file documented as of this encounter Plan of Treatment Not on file documented as of this encounter Visit Diagnoses * Evaluation - Zachariah Pride MD - 08/27/2008 0957 EDT [facility] [place] (Sp[facility]) [facility] [address] [place] [address] NEW PATIENT EVALUATION - 11/27/2007 PROBLEM The patient is a 37-year-old female referred to the [facility] by Dr. Nishant Sorto for evaluation of neck pain and left upper extremity symptoms. SUBJECTIVE The patient states her discomfort began at the end of September/the start of October without inciting events. It radiates from the cervical spine, periscapular region on the left through the deltoid, dorsum of the forearm and into the whole hand. It is constant and has not improved since it started;it is only worsening. She feels significant numbness and loss of sensation in her hand. Her discomfort is exacerbated by turning her head, lifting and lying down, while nothing provides relief of hersymptoms, gabapentin provides some relief and ???takes the edge off?? , but no significant relief. She has seen a physical therapist/chiropractor in the past that performed minimal therapy without rel ief. She has not undergone injection therapy. She denies tripping, stumbling or falling down. She does have instances where she drops things in her left hand. She denies loss of control of her bladder and bowels and states 50% of her discomfort is focused in her back and 50% in her left upper extremity. The patient stated she has had a longhistory of low back pain and would like this addressed lori later date, but today she would like to focus on her cervical spine discomfort. PAST MEDICAL HISTORY Sleep apnea. PAST SURGICAL HISTORY Tonsillectomy, adenoidectomy, cholecystectomy, three C-sections and three termination of . ALLERGIES No known drug allergies. FAMILY HISTORY Denies. SOCIAL HISTORY smoking: One to one half pack per day for 15 years. ETOH: Occasionally. Drug use: Denies. The patient has been out of work. 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 She has been caring for her children. She is and has three children. REVIEW OF SYSTEMS Admits to a history of blurry vision, asthma, smoking, headache, depression and anxiety. She denieschest pain, palpitations, PA, circulatory problems, blood clots, double vision, confusion, seizures, diabetes, thyroid problems and weight loss. OBJECTIVE On physical exam she is 5 feet 3 inches and weighs 270 pounds. Her pulse is 102. She is oriented x3. Her facial movements are symmetrical. Voice is normal. Extraocular movements are intact. Respiration is normal. Chest expansion is normal. On inspection of the cervical spine there are no lesions, rashes or hair rayna. She has focal palpable tenderness throughout the cervical spine. No signs of muscle atrophy on the right compared to the left although she is obese. Range of motion of the cervical spine extremity is diminished by 20%, forward flexion chin three fingerbreadths from the chest; rotation to the left is reduced by 20%. Spurling's maneuver is negative. Upper extremity strength: Left external rotator 4/5, left wrist extensor 4/5, left wrist flexor 4+/5, intrinsics are 4/5 on the left. Reflex at the left triceps is 0,otherwise 2. Radial pulse is 2. Hoffmanns sign is positive for a flicker on the left. Tinelsign is positive for mild paresthesias in the hand. She has decreased sensation to soft touch through the deltoid, the dorsum of the forearm and into the whole hand, particularly C6- 7 distribution. Radiographs: AP and lateral views of the cervical spine reveal seven nonribbearing cervical vertebrae, lateral view reveals well preserved disk space height throughout the cervical spine; this was dated January 03, 2007. MR of the cervical spine dated November 15, 2007, reveals large disk herniation at C5-6 that is central left with significant neural foraminal narrowing on the left. ASSESSMENT The patient is a 37-year-old female with neck pain, left upper extremity pain in a C6-7 distribution concordant with MRI. At this point the patient would like to speak with the surgeon and discuss any surgical interventions that may be helpful in alleviating her pain. I suggested possibly starting with a transforaminalepidural steroid injection with a 70-80% chance of providing relief, 20-30% chance no change at all and a 1-2% chance of increasing her pain. If this works she could avoid surgery. If it helps for a short period of time we could repeat the injection. If she has no relief at all we will set up a follow up appointment with the next available surgeon. PLAN 1. Transforaminal epidural steroid injection at C5-6 on the left as above. 2. Continue current pain management regime. 3. I have asked her to discontinue the use of ibuprofen and aspirin and vitamin E prior to her injection. 4. Participate in normal daily activities as tolerated without limitation. 5. Phone follow up with me 10 days post injection to discuss symptoms and subjective complaints. Ifat that time her symptoms have not been alleviated satisfactorily we will move forward with a surgical consult. Thank you for allowing the [facility] to participate in the care of your patient. I look forward to working with you in the near future. Signed by SHASHANK Haney 12/05/2007 12:21 SHASHANK Haney - SHASHANK Haney - WILMA Job ID: [id number] Doc ID: [id number] cc: Nishant Sorto MD Ms. Alis Garciaarchie, [address] [place] [id number]* documented in this encounter Care Teams Supervisor Treating And Pumping Relationship Specialty Start Date End Date Unknown, Provider, PCP - General 05/28/08 09/23/08 documented as of this encounter
--- OUTSIDE RECORDS SUMMARY | 2023-10-18 21:29 | XMS_ITS | Encounter Summary ---
Author Organization [facility] Address [address] [place] [address] Care Team Providers Care Gate Attendant Name Role Phone Nishant Sorto MD Primary Care Provider [phone] Encounter Details Date Type Department Care Team (Late st Contact Info) Description 11/23/2008 Orders Only [facility] - [address] [place] [address] Nishant Maravilla MD [address] [place] [phone] Social History Tobacco Use Types Packs/Day Years Used Date Smoking Tobacco: Never Assessed Sex and Gender Information Value Date Recorded Sex Assigned at Not on file Gender Identity Female 07/01/2020 14:24 EDT Sexual Orientation Not on file documented as of this encounter Plan of Treatment Not on file documented as of this encounter Visit Diagnoses Not on filedocumented in this encounter Care Teams Gate Attendant Relationship Specialty Start Date End Date Nishant Sorto MD PCP - General 09/24/08 06/30/20 documented as of this encounter
--- OUTSIDE RECORDS SUMMARY | 2023-10-18 21:29 | XMS_ITS | Encounter Summary ---
Author Organization [facility] Address [address] [place] [address] Care Team Providers Care Senior Software Development Manager Name Role Phone Nishant Sorto MD Primary Care Provider Unknown, Provider Primary Care Provider Encounter Details Date Type Department Care Team (Late st Contact Info) Description 11/25/2007 Office Visit [facility] - Maple conversion [address] [place] [address] Diego Richard PA-C [address] [facility], [address] [place] [phone] Social History Tobacco Use Types Packs/Day Years Used Date Smoking Tobacco: Never Assessed Sex and Gender Information Value Date Recorded Sex Assigned at Not on file Gender Identity Female 07/01/2020 14:24 EDT Sexual Orientation Not on file documented as of this encounter Progress Notes * Diego Richard Jr., PA - 03/17/2009 1857 EST Department - Physician Summary Registration Date/Time: 11/25/2007 17:31 Arrived- By private vehicle. Historian- patient. HISTORY OF PRESENT ILLNESS Chief Complaint: WEAKNESS and PARESTHESIA. left arm weakness and tingling. This started about 3 months ago and is still present. She has had weakness, numbness and tingling. No impaired speech or swallowing, visual disturbance or recent fall (pt has disc herniation seen on mri 11/15/07 was suppose to be set up with surgeon , pt lives in [facility], arrives hoping for sooner appointment). No difficulty walking. At it's maximum deficit described as moderate. No dizziness, altered mental status or seizure. The patient has had similar symptoms previously. The patient was seen recently by a health care provider. (by [facility] in [facility]). REVIEW OF SYSTEMS No fever, headache, chest pain, difficulty breathing or cough. No sore throat, abdominal pain, nausea or vomiting. All systems otherwise negative, except as recorded above. PAST HISTORY See nurses notes. Medications: patient's medications have been reviewed. Allergies: The patient's allergies have been reviewed. SOCIAL HISTORY Smoker. ADDITIONAL NOTES The nursing notes have been reviewed. PHYSICAL EXAM Appearance: Alert. Patient in mild distress. Vital Signs: Have been reviewed. Neck: Normal inspection. moderaste tenderness all c spine to left posterior shoulder. Neuro: Alert. Oriented X 3. Mood/affect normal. Speech normal. No cerebellar findings. No motor deficit. full strength and grasp at left hand and arm. PROGRESS AND PROCEDURES E.D. Course: mri results reviewed, no further treatment at this time. Patient is stable. Patient/family counseled. ED Attending on duty and available for supervision: Fatemeh Yanes. Disposition: Condition: good. Discharged home. CLINICAL IMPRESSION Cervical radiculopathy. INSTRUCTIONS (you need to follow up with either spin e clinic or neurosurgery for further care, continue with all current meds). Follow-up: MATEUS SIU MD, SURGERY/NEUROSURGERY, , [address] [place] [address] ; [facility] [phone], [facility], [address] [place] [address]. Follow up. Call for an appointment. (Electronically signed by Linda Quick 11/25/2007 20:48) Department - Nursing Summary Registration Date/Time: 11/25/2007 17:31 TRIAGE Initial Assessment Triage time 17:32. Acuity: LEVEL 4. BP: 145 / 65. HR: 109. RR: 20. Temp: 37 tympanic. Alert. No acute distress. --1735 Margaret Chino R.N.. Medications (vicodin gabapentin flexeril *last dose of meds at 0230 this am). --1734 Margaret Chino R.N.. Allergies No known drug allergies. --1734 Margaret Chino R.N.. History Chief Complaint: (pt w/ neck pain for last 3-4 months. MRI done w/ bulging disk shown. Pt now w/ L arm and hand numbness and tingling). Pain level now: 8/10. PAST HX: (LBP, C Section x 3, choly, tonsillectomy and addenoidectomy). SOCIAL HX: Cigarette smoker: less than 1 pack per day. Occasional alcohol use. No report of abuse. Historian: patient. --1734 Margaret Chino R.N.. DISPOSITION / DISCHARGE Condition at departure: unchanged. Patient reports pain level on departure as 5/10. No learning barriers present. Discharge instructions reviewed with the patient. Reviewed warnings. Reviewed referrals for followup (Neuro surg or spine clinic). Patient verbalized understanding. Written instructionsprovided in Swedish. The patient was discharged home. The patient left the Emergency Department ambulatory. --1911 Luis Montesinos R.N.. Margaret Montesinos R.N. Locked/Released at 11/25/2007 19:12 by Luis Montesinos R.N. documented in this encounter Plan of Treatment Not on file documented as of this encounter Visit Diagnoses Not on filedocumented in this encounter Care Teams Senior Software Development Manager Relationship Specialty Start Date End Date Nishant Sorto MD PCP - General 09/24/08 06/30/20 Unknown, ProviderMD PCP - General 05/28/08 09/23/08 documented as of this encounter
--- OUTSIDE RECORDS SUMMARY | 2023-10-18 21:29 | XMS_ITS | Encounter Summary ---
Author Organization [facility] Address [address] [place] [address] Care Team Providers Care Neon Molder Name Role Phone Nishant Sorto MD Primary Care Provider [phone] Unknown, Provider Primary Care Provider [phone] Encounter Details Date Type Department Care Team (Late st Contact Info) Description 01/22/2003 Results Only [facility] - Maple conversion [address] [place] [address] Derrell Saleh MD [address] [place] [address] [address] RUSSELL [address] [place] [phone] Social History Tobacco Use Types Packs/Day Years Used Date Smoking Tobacco: Never Assessed Sex and Gender Information Value Date Recorded Sex Assigned at Not on file Gender Identity Female 07/01/2020 14:24 EDT Sexual Orientation Not on file documented as of this encounter Plan of Treatment Not on file documented as of this encounter Procedures Procedure Name Priority Date/Time Associated Diagnosis Comments CYTOPATHOLOGY Routine 01/22/2003 0:00 EST documented in this encounter Results * CYTOPATHOLOGY (01/22/2003 0:00 EST) Pathology Report: CYTOPATHOLOGY REPORT Reports generated via electronic interface contain original data; however they are lacking the format of the original report. Caution should be taken when reading/interpreti ng unformatted reports. Name: ? BRIAN CARDENAS V ? Accession #: ? [id number] : ? 1970 (Age: 32) ??F ?Collect Date: ? 01/22/2003 Location: ? [facility] ? Receive Date: ? 01/27/2003 Provider: ?DERRELL SALEH MD Copy to: ? Specimen/Source: ?ThinPrep Pap Test, Cervix/Endocervix Last Menstrual Period: ? prior to 2002 Menstrual/Pregnanc y Status: ? Post : delivered 12/07/02 ? SPECIMEN ADEQUACY ? Satisfactory for Evaluation - transformation zone component present GENERAL CATEGORIZATION ? Negative for Intraepithelial Lesion or Malignancy ? Document reviewed and electronically signed by: ? Judit Harmon, SCT(ASCP) ? Report Date: ??02/02/2003 11:29 End of Report [facility] 01/22/2003 01/27/2003 Derrell Saleh MD PATHOLOGY ORDERABLES [facility] [address] [place] [address] documented in this encounter Visit Diagnoses Not on filedocumented in this encounter Care Teams Neon Molder Relationship Specialty Start Date End Date Nishant Sorto MD PCP - General 09/24/08 06/30/20 Unknown, ProviderMD PCP - General 05/28/08 09/23/08 documented as of this encounter
--- OUTSIDE RECORDS SUMMARY | 2023-10-18 21:29 | XMS_ITS | Encounter Summary ---
Author Organization [facility] Address [address] [place] [address] Care Team Providers Care Label Paster Name Role Phone Unknown, Provider Primary Care Provider [phone] Encounter Details Date Type Department Care Team (Late st Contact Info) Description 12/17/2007 Before PRISM Converted Visit (Maple) [facility] - Maple conversion [address] [place] [address] Nishant Maravilla MD [address] [place] [phone] Social History Tobacco Use Types Packs/Day Years Used Date Smoking Tobacco: Never Assessed Sex and Gender Information Value Date Recorded Sex Assigned at Not on file Gender Identity Female 07/01/2020 14:24 EDT Sexual Orientation Not on file documented as of this encounter Consult Notes * Nishant Maravilla MD, MD - 08/29/[address] [facility] ([facility] [address] [place] [id number] CONSULTATION - 12/17/2007 Primary Care Provider: Nishant Sorto MD Consultation requested by: SHASHANK Newman Attending: Nishant Maravilla MD ADDENDUM TO THE FULL HISTORY AND PHYSICAL DICTATED BY MORELIA ADAN MD. PROBLEM Neck and left arm pain. SUBJECTIVE Alis Cardenas is a 37-year-old female seen today in consultation upon the request of Tete Albrecht evaluation of her 50% neck pain and 50% left arm pain thought to be related to a left C5-6 diskherniation.Alis notes the onset of pain in September of this year both in her neck and in her left arm radiating from her posterior shoulder to the lateral arm and dorsum of the forearm to the wrist and hand. This includes all five ofher fingers. She does report some vague left hand weakness. She is [id number]. She does have some numbness in the left wrist region as well as in her five digits and some clumsiness in her left hand, but no bowel or bladder disturbance. She rates her pain at 6-7/10 on average with flares to 10/10 with significant prolonged sitting or standing. Alis has undergone a number of conservative measures to treat her pain including antiinflammatory medication as well as gabapentin, Flexeril,and Vicodin. She has worked with a chiropractor and even had an attempt at an epidural steroid injection which she did not tolerate well. She is seen today with an interest in considering surgical options given her persistent pain and severe disability. OBJECTIVE Alis is a relatively healthy appearing 37-year-old female in no apparent distress. She is 5 feet3 inches tall and weighs 273 pounds. She was alert and oriented today and her vital signs stable. The majority of her examination will be dictated byDr. Adan. With reference to her neck, she did have some tenderness at the base of her neck, but no palpable stepoff or lesion. Her skin was intact. Her range of motion was reduced. She did have greater pain inher neck and in her left shoulder with extension. She did have a slightly positive Spurling's but this did not recreate full arm pain, rather posterior shoulder pain and neck pain. Examination of her upper extremities revealed decreased sensation in the dorsumof her hand and the digits, but reasonable strength throughout. Reflexes were increased at all sites including 3-4+ reflexes at the biceps, triceps, and brachioradialis. There seemed to be some spreading activation in these areas and positiveHoffmann's on the left. In the lower extremities she did have three beats of clonus but this was bilaterally symmetrical. Her toes were down going. She did have some hyperreflexia noted at her knees and ankles. 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 There appears to be someevidence of congenital stenosis throughout the cervical spine, but indeed no specific area of cord compression other than at the C5-6 level.There are mild to moderate degenerative changes noted in the C5-6 disk, but relatively good preservation of the other disks throughout the cervical spine. The plain films were relatively unremarkable with reasonable bone quality and overall alignment. ASSESSMENT Alis Cardenas is a 37-year-old female with a three-month history of 50% neck pain and 50% left arm pain, most likely due to a C5-6 disk herniation on the left. In addition to her radiculopathy, she does have very mild myelopathicsigns with hyperreflexia, some pathologic reflexes, and clumsiness in her left hand. This is likely related to a mild to moderate degree of underlying congenital stenosisessentially exacerbated by her large disk herniation at C5-6. We did spend at least one hour today with Alis and her friend in [id number] discussion, examination, and in review of her multiple imaging studies with greater than 50% of the visit today spent counseling her with respect to her options at thispoint in time. Alis is a smoker and we did recommend smoking cessation prior to proceeding with surgery. We would like to have her return in one month after a carboxyhemoglobin has demonstrated appropriate smoking cessation and will likely discussscheduling her for surgery at that point in time. We did offer her a repeat epidural steroid injection which she declined. She did not seem terribly interested in any other conservative measures to treat her problem at this point in time.Alis asked appropriate questions today and all questions were answered. She did understand and agree with the above plan and will follow up as mentioned above. PLAN 1. Follow up in one month with a carboxyhemoglobin obtained prior to the visit to assure that smoking cessation has occurred. 2. Consider scheduling surgery to involve a C5-6 anterior cervical discectomy and fusion. Signed by Nishant Maravilla MD 01/06/2008 17:48 Nishant Maravilla MD - Nishant Maravilla MD - SIMON Job ID: [id number] Doc ID: [id number] cc: Nishant Sorto MD Ms. Alis Garciaarchie, [address] [place] [address]* documented in this encounter Plan of Treatment Not on file documented as of this encounter Visit Diagnoses Not on filedocumented in this encounter Care Teams Label Paster Relationship Specialty Start Date End Date Unknown, Provider, PCP - General 05/28/08 09/23/08 documented as of this encounter
--- OUTSIDE RECORDS SUMMARY | 2023-10-18 21:29 | XMS_ITS | Encounter Summary ---
Author Organization [facility] Address [address] [place] [address] Care Team Providers Care Boiler Setter Name Role Phone Unavailable Primary Care Provider Unavailabl e Encounter Details Date Type Department Care Team (Latest Contact Info) Description 04/21/2008 11:55 EDT - 04/21/2008 11:59 EDT Hospital Encounter [facility] - Maple conversion [address] [place] [address] Nishant Maravilla MD [address] [place] [phone] Discharge Disposition: Auto Discharge Social History Tobacco [...]
--- OUTSIDE RECORDS SUMMARY | 2023-10-18 21:29 | XMS_ITS | Encounter Summary ---
Author Organization [facility] Address [address] [place] [address] Care Team Providers Care Telephone Quotation Clerk Name Role Phone Nishant Sorto MD Primary Care Provider Unknown, Provider Primary Care Provider Encounter Details Date Type Department Care Team (Late st Contact Info) Description 09/12/2000 Results Only [facility] - Maple conversion [address] [place] [address] Ro Hearn, [address] [id number] Social History Tobacco Use Types Packs/Day Years Used Date Smoking Tobacco: Never Assessed Sex and Gender Information Value Date Recorded Sex Assigned at Not on file Gender Identity Female 07/01/2020 14:24 EDT Sexual Orientation Not on file documented as of this encounter Plan of Treatment Not on file documented as of this encounter Procedures Procedure Name Priority Date/Time Associated Diagnosis Comments CYTOPATHOLOGY Routine 09/12/2000 0:00 EDT documented in this encounter Results * CYTOPATHOLOGY (09/12/2000 0:00 EDT) Pathology Report: CYTOPATHOLOGY REPORT Reports generated via electronic interface contain original data; however they are lacking the format of the original report. Caution should be taken when reading/interpreti ng unformatted reports. Name: ? BRIAN CARDENAS V ? Accession #: ? [id number] : ? 1970 (Age: 30) ??F ?Collect Date: ? 09/12/2000 Location: ? [facility] ? Receive Date: ? 09/13/2000 Provider: ?RO HEARN DATABASE MANAGEMENT SPECIALIST Copy to: ? Specimen/Source: ?ThinPrep Pap Test, Cervix/Endocervix Last Menstrual Period: ? 08/15/00 Menstrual/Pregnanc y Status: ? SPECIMEN ADEQUACY ? Satisfactory for evaluation. GENERAL CATEGORIZATION ? Within Normal Limits ? Document reviewed and electronically signed by: ? NASIM Maldonado(ASCP) ? Report Date: ??09/19/2000 11:19 End of Report [facility] 09/12/2000 09/13/2000 Ro DAVISP PATHOLOGY ORDERABLES Performing Organization Address City/State/[facility] Co de Phone Number BILLIE VILLALBA [address] [place] [address] documented in this encounter Visit Diagnoses Not on filedocumented in this encounter Care Teams Telephone Quotation Clerk Relationship Specialty Start Date End Date Nishant Sorto MD PCP - General 09/24/08 06/30/20 Unknown, ProviderMD PCP - General 05/28/08 09/23/08 documented as of this encounter
--- OUTSIDE RECORDS SUMMARY | 2023-10-18 21:29 | XMS_ITS | Encounter Summary ---
Author Organization [facility] Address [address] [place] [address] Care Team Providers Care Chemical Analyst Name Role Phone Unknown, Provider Primary Care Provider Encounter Details Date Type Department Care Team (Late st Contact Info) Description 12/27/2020 Documentation Visit [facility] Rheumatology & Immunology - [facility] [address] [place], [place] [address] Olive Ortez MA Social History Tobacco Use Types Packs/Day Years [...] as of this encounter Progress Notes * Olive Ortez MA - 12/27/2020 1235 EST Faxed over paperwork requested by [facility]. Forms filled out by Dr. Sal, Scanned into patient Chart. Attached visit information from 07/06/2020with Dr. Sal. Faxed over to [phone]. documented in this encounter Plan of Treatment Not on file documented as of this encounter Visit Diagnoses Not on filedocumented in this encounter Care Teams Chemical Analyst Relationship Specialty Start Date End Date Unknown, Provider, PCP - General 07/01/20 01/12/21 documented as of this encounter
--- OUTSIDE RECORDS SUMMARY | 2023-10-18 21:29 | XMS_ITS | Encounter Summary ---
Author Organization [facility] Address [address] [place] [address] Care Team Providers Care Lawn Care Professional Name Role Phone Nishant Sorto MD Primary Care Provider Unknown, Provider Primary Care Provider Encounter Details Date Type Department Care Team (Late st Contact Info) Description 01/25/1999 Results Only [facility] - Maple conversion [address] [place] [address] Unknown, Provider, Social History Tobacco Use Types Packs/Day Years Used Date Smoking Tobacco: Never Assessed Sex and Gender Information Value Date Recorded Sex Assigned at Not on file Gender Identity Female 07/01/2020 14:24 EDT Sexual Orientation Not on file documented as of this encounter Plan of Treatment Not on file documented as of this encounter Procedures Procedure Name Priority Date/Time Associated Diagnosis Comments ZZHEMOGLOBIN A1C Routine 01/25/1999 16:1 9 EST documented in this encounter Results * HEMOGLOBIN A1C (01/25/1999 16:19 EST) POCT Hgb A1C 4.8% 4.5 - 5.7 % BILLIE VILLAL[facility] Comment:Test Performed at [facility] 01/25/1999 16:1 9 EST 01/26/1999 8:51 EST Provider Unknown CHEMISTRY & BLOOD GA S ORDERABLES [facility] [address] [place] [address] documented in this encounter Visit Diagnoses Not on filedocumented in this encounter Care Teams Lawn Care Professional Relationship Specialty Start Date End Date Nishant Sorto MD PCP - General 09/24/08 06/30/20 Unknown, ProviderMD PCP - General 05/28/08 09/23/08 documented as of this encounter
--- OUTSIDE RECORDS SUMMARY | 2023-10-18 21:29 | XMS_ITS | Encounter Summary ---
Author Organization [facility] Address [address] [place] [address] Care Team Providers Care Top Former Name Role Phone Unavailable Primary Care Provider Unavailabl e Encounter Details Date Type Department Care Team (Late st Contact Info) Description 11/27/2007 14:05 EDT Hospital Encounter [facility] - Maple conversion [address] [place] [address] Zachariah Pride PA-C [address] [place] [phone] Social History Tobacco Use Types Packs/Day [...]
--- OUTSIDE RECORDS SUMMARY | 2023-10-18 21:29 | XMS_ITS | Encounter Summary ---
Author Organization [facility] Address [address] [place] [address] Care Team Providers Care Interactive Video Technician Name Role Phone Ashleigh Gaston BART Primary Care Provider [phone] Reason for Visit * Reason Comments Follow-up 3 month Joint Pain Nothing unusual - Sa me since last visit Encounter Details Date Type Department Care Team (Late st Contact Info) Description 01/13/2021 15:45 EST Office Visit [facility] Rheumatology & Immunology - [address] [id number] Gordon Sal MBBS [address] [place] [address], [address] [place] [address] Fibromyalgia (Primary Dx) Social History Tobacco Use Types [...] Body Mass Index 50.3 01/13/2021 1556 EST documented in this encounter Functional Status Functional Status Response [...] Yes 01/13/2021 documented as of this encounter Progress Notes * Gordon Sal MD - 01/13/2021 1545 EST [facility] Rheumatology Clinic Follow-up Visit Date of Service: 01/13/2021 Patient ID Alis Cardenas Chief Compliant: Fibromyalgia and OA Subjective / HPI: Pertinent Rheumatologic history and problem list:?? > PC: Fibromyalgia and OA > Workup: Autoimmune serology (DANIA, RF and CCP) negative. ESR and uric acid wnl. CXR no acute pathology ?? Subjective / HPI: Alis Cardenas is an 49-year-old woman with a background of fibromyalgia, mild??chronic leukocytosis, migraine, HLD, Flores's esophagus, T2DM, obesity, vitamin D deficiency, asthma, anxiety, depression, sleep apnea and tobacco use??who presented to [facility] rheumatology clinic for follow up visit. ?? Ms. Cardenas presented to [facility] rheumatology 07/06/20 with >10-year history of a arthralgia involvingPIP's (b/l), elbows (b/l), shoulders (b/l), neck, lower back, hips (b/l), knees (b/l) and ankles (b/l). Symptoms associated with 1-hour of morning stiffness, Light / sound sensitivity, poor sleep, fatigue,??low mood and??cognitive impact.??Physical examination limited by televideo. Autoimmune serology (DANIA, RF and CCP) negative in 2017 workup. ESR and uric acid wnl. CXR unremarkable. Patient diagnosed with fibromyalgia and likely co-existing OA. Patient counseled on conservative management. It was recommended that they continue pregabalin and tizanidine to promote restful sleep and the PCP could consider a referral for CBT / sleep study. Patient seen in clinic today for a face to face evaluation. On assessment today: - Arthralgia localized to every joint. Primarily: DIP (b/l), PIP (b/l), MCP (b/l), shoulders (b/l), neck, lower back, hip (b/l), knee (b/l) and ankles. - Intensity: 6 - 7 / 10. - Symptoms associated with morning stiffness (unspecified duration). - Subjective swelling of knees and hips which last ~ 1-day. - Joint pain limits ability to ambulate around a grocery store without pausing. - Light / sound / temperature sensitivity. Difficulty concentrating. Transient low mood, insomnia, bowel habit and fatigue. - FHx: Father exposure to agent orange. Review of Systems: A complete 10 point ROS was performed and pertinent positive and negative findings listed in HPI, otherwise negative. Puritis of lower extremities (managed with hydroxyzine) ??? Medications and allergies reviewed ??? Problem list reviewed ??? Past medical history and Past surgical history reviewed ??? Social history and family history reviewed Objective: Physical Exam BP 134/78 Pulse 78 Resp 18 Ht 157.5 cm (62) Wt (!) 124.7 kg (275 lb) BMI 50.30 kg/m?? General: No acute distress. Alert, fully oriented, pleasant, conversant. HEENT: Conjunctivae/corneas clear. Pupils equal, Sclerae anicteric. Mucus membranes moist; oropharynx clear. Neck supple, symmetrical, trachea midline Lungs: Normal expansion. Clear to auscultation bilaterally with no crackles, crepitations or wheeze. Heart: Regular rate and rhythm, I + II present with no murmur Abdomen: Soft, non-tender, non-distended. No organomegaly. Bowel sounds present. Extremities: Extremities without cyanosis or edema. Skin: No rashes or lesions. Dry skin over left elbow extensor surface Musculoskeletal: Hand: No synovitis, muscle wasting or deformity. Full range of movement. Right 5thPIP tenderness. Elbow: No tenderness on palpation of medial or lateral epicondyle. Normal range of motion. No nodules. Shoulder: No synovitis or swelling. Normal range of motion in shoulders bilaterally. Right shouldercrepitus Hip: No tenderness on palpation over anterior superior iliac crest, greater trochanter. Normal range of movement Knee: No asymmetry, muscle wasting, scars or deformities. No joint effusions or swellings. No tenderness on palpation of femoral epicondyle or tibial tuberosity. Foot: No tenderness on palpation of the ankles or MTP joint bilaterally. Normal range of movement. Tender points: +++ Investigations: Labs: - Reviewed Imaging: - (07/16/20) CXR: No acute pulmonary findings. Questionnaires: RAPID3 SCORES AND INTERPRETATION 01/13/2021 Functional Status 4.3 Pain Tolerance 5 Global Estimate 3.5 RAPID3 12.8 Interpretation High RAPID3 Score: As documented by Nurses/MAs during this visit and reviewed by me. Assessment & Plan: Arthralgia:??Light / sound / temperature sensitivity, poor sleep, fatigue,??low mood and??cognitiveimpact.??Autoimmune serology (DANIA, RF and CCP) negative in 2017 workup. ESR and uric acid wnl. CXR identified no acute pathology. Impression: Likely fibromyalgia with co-existing OA. Low suspicion for inflammatory arthritis. Negative CXR not suggestive of Tess's syndrome. On assessment today tender points present, normal range of motion without synovitis on examination. - Order CK and thyroid cascade. - Educated on fibromyalgia and central pain sensitization vs. Somatic and inflammatory causes of pain. - Counseled on lifestyle modification: Yoga, Jakob-Chi with regular aerobic exercise - Conservative management: physical therapy with pool therapy [patient will revisit this Summer 2021] -??Medical management: Did not tolerate duloxetine previously. Recommend continue pregabalin and tizanidine to promote restful sleep. Gabapentin could be considered as a alternative to pregabalin.??Recommend regular??continue??OTC analgesia: acetaminophen, ibuprofen and avoidance of opioids.??Theseagents could be??supplemented??with topical therapy (diclofenac,??lidocaine, capzasin or icy/hot). -??PCP consider referral for cognitive behavioral therapy and sleep study. ?? Follow up with Dr. Doron HYDE Patient seen and examined with Dr Serrato. Gordon Sal MD, PGY4 [phone] 01/13/2021 16:17 I spent a total of 30 minutes on the date of this encounter meeting with the patient and reviewing documentation/coordinating care as described in the above note. No procedures were performed at the time of the visit. Attestation statement: I performed or was present during the hughes or critical portions of the visit and participated in the management of the patient. I agree with the findings and plan of care documented in the resident's/fellow's note. I spent a total of 30 minutes on the date of this encounter meeting with the patient and reviewing documentation/coordinating care as described in the above note. No procedures were performed at the time of the visit. Karan Serrato MD documented in this encounter Plan of Treatment Not on file documented as of this encounter Results * CK (01/13/2021 17:04 EST) CK 30 30 - 135 U/L 01/13/2021 17:48 EST [facility] Blood VENOUS BLOOD / Unknown Venipuncture / Unknown 01/13/2021 17:04 EST 01/13/2021 17:16 EST Karan Serrato MD CHEMISTRY & BLOOD GA S ORDERABLES Performing Organization Address [facility] de Phone Number [facility] [address] [place] [address] * THYROID CASCADE (01/13/2021 17:04 EST) TSH 1.02 0.47 - 4.68 ??IU/mL 01/13/2021 18:22 EST [facility] Blood VENOUS BLOOD / Unknown Venipuncture / Unknown 01/13/2021 17:04 EST 01/13/2021 17:16 EST Narrative [facility] - 01/13/2021 18:22 EST NOTE: The results of this assay can be falsely lowered due to the consumption of Biotin. Karan Serrato MD CHEMISTRY & BLOOD GA S ORDERABLES Performing Organization Address [facility] Co de Phone Number [facility] [address] [place] [address] documented in this encounter Visit Diagnoses Diagnosis Fibromyalgia- Primary Mylagia and myositis, unspecified documented in this encounter Discontinued Medications Medication Sig Discontinue Reason Start Date End Da te diclofenac sodium 1 % gelIndications:Polyarth ralgia,Fibromyalgia Apply 2 Inches topically 3 times daily as needed for Pain. 07/06/2020 01/13/2021 omeprazole (PRILOSEC) 40 mg capsule Take 40 mg by mouth daily. 04/09/2019 01/13/2021 documented as of this encounter Care Teams Interactive Video Technician Relationship Specialty Start Date End Date Ashleigh Gaston FNP [address] [place] [address] PCP - General 01/13/21 documented as of this encounter
--- OUTSIDE RECORDS SUMMARY | 2023-10-18 21:29 | XMS_ITS | Encounter Summary ---
Author Organization [facility] Address [address] [place] [address] Care Team Providers Care Accounting Intern Name Role Phone Nishant Sorto MD Primary Care Provider Unknown, Yoli ROLDAN Primary Care Provider [phone] Encounter Details Date Type Department Care Team ([facility] st Contact Info) Description 01/24/1999 Results Only [facility] - Maple conversion [address] [place] [address] Benjamin Singer MD [address] [place] [address] Social History Tobacco Use Types Packs/Day Years [...] Date/Time Associated Diagnosis Comments ZZHEMOGLOBIN A1C Routine 01/24/1999 10:0 1 EST documented in this encounter Results * HEMOGLOBIN A1C (01/24/1999 10:01 EST) POCT Hgb A1C 4.8 4.5 - 5.7 % [facility] Comment:Test Performed at [facility] 01/24/1999 10:0 1 EST 01/27/1999 10:02 EST Benjamin Singer MD CHEMISTRY & BLO OD GAS ORDERABLES [facility] [address] [place] [address] documented in this encounter Visit Diagnoses Not on filedocumented in this encounter Care Teams Accounting Intern Relationship Specialty Start Date End Date Nishant Sorto MD PCP - General 09/24/08 06/30/20 Unknown, ProviderMD PCP - General 05/28/08 09/23/08 documented as of this encounter
--- OUTSIDE RECORDS SUMMARY | 2023-10-18 21:29 | XMS_ITS | Encounter Summary ---
Author Organization [facility] Address [address] [place] [address] Care Team Providers Care Buzzsaw Operator Name Role Phone Nishant Sorto MD Primary Care Provider [phone] Encounter Details Date Type Department Care Team (Late st Contact Info) Description 10/23/2011 Results Only [facility] - [facility] ([facility] [address] [place], [place] [id number] Arlen Paredes, QM CONSULTANT [address] [place] [address] Social History Tobacco Use Types Packs/Day Years Used Date Smoking Tobacco: Never Assessed Sex and Gender Information Value Date Recorded Sex Assigned at Not on file Gender Identity Female 07/01/2020 14:24 EDT Sexual Orientation Not on file documented as of this encounter Plan of Treatment Not on file documented as of this encounter Procedures Procedure Name Priority Date/Time Associated Diagnosis Comments PAP TEST- RESULT ONLY Routine 10/23/2011 0:00 EDT documented in this encounter Results * PAP TEST- RESULT ONLY (10/23/2011 0:00 EDT) Pathology Report: CYTOPATHOLOGY REPORT Reports generated via electronic interface contain original data; however they are lacking the format of the original report. Caution should be taken when reading/interpreti ng unformatted reports. Name: ? BRIAN CARDENAS V ? Accession #: ? [id number] : ? 1970 (Age: 41) ??F ?Collect Date: ? 10/23/2011 Location: ? [facility] ? Receive Date: ? 10/24/2011 Provider: ?ARLEN PAREDES QM CONSULTANT Copy to: ? Specimen/Source: ?Pap Test, Cervix/Endocervix, ThinPrep Imaging System with manual evaluation Last Menstrual Period: ? 10/09/11 ? SPECIMEN ADEQUACY ? Satisfactory for Evaluation - transformation zone component absent GENERAL CATEGORIZATION ? Negative for Intraepithelial Lesion or Malignancy INTERPRETATION ? Fungal organisms present morphologically consistent with Lulu species. Shift in yanique present suggestive of bacterial vaginosis. ? Document reviewed and electronically signed by: ? NASIM Chun(ASCP) ? Report Date: ??10/31/2011 13:18 End of Report [facility] 10/23/2011 10/24/2011 Arlen Paredes QM CONSULTANT PATHOLOGY ORDERABLES [facility] [address] [place] [address] documented in this encounter Visit Diagnoses Not on filedocumented in this encounter Care Teams Buzzsaw Operator Relationship Specialty Start Date End Date Nishant Sorto MD PCP - General 09/24/08 06/30/20 documented as of this encounter
--- OUTSIDE RECORDS SUMMARY | 2023-10-18 21:29 | XMS_ITS | Encounter Summary ---
Author Organization [facility] Address [address] [place] [address] Care Team Providers Care Cutter Apprentice Hand Name Role Phone Nishant Sorto MD Primary Care Provider [phone] Encounter Details Date Type Department Care Team (Latest Contact Info) Description 09/10/2013 12:26 EDT - 09/10/2013 23:59 EDT Hospital Encounter [address] [address] Unknown, Provider, Discharge Disposition: Home or Self Care Social History Tobacco Use Types Packs/Day Years Used Date Smoking Tobacco: Never Assessed Sex and Gender Information Value Date Recorded Sex Assigned at Not on file Gender Identity Female 07/01/2020 14:24 EDT Sexual Orientation Not on file documented as of this encounter Discharge Disposition Disposition Code Departure Means Destination Home or Self Prison documented in this encounter Plan of Treatment Not on file documented as of this encounter Visit Diagnoses Not on filedocumented in this encounter Care Teams Cutter Apprentice Hand Relationship Specialty Start Date End Date Nishant Sorto MD PCP - General 09/24/08 06/30/20 documented as of this encounter
--- OUTSIDE RECORDS SUMMARY | 2023-10-18 21:29 | XMS_ITS | Encounter Summary ---
Author Organization [facility] Address [address] [place] [address] Care Team Providers Care Residential Leasing Manager Name Role Phone Unknown, Provider Primary Care Provider Encounter Details Date Type Department Care Team (Late st Contact Info) Description 06/01/2008 Orders Only [facility] Spine Program [place] [place] [address] Nishant Maravilla MD [address] [place] [phone] Social History Tobacco Use Types Packs/Day Years Used Date Smoking Tobacco: Never Assessed Sex and Gender Information Value Date Recorded Sex Assigned at Not on file Gender Identity Female 07/01/2020 14:24 EDT Sexual Orientation Not on file documented as of this encounter Plan of Treatment Not on file documented as of this encounter Procedures Procedure Name Priority Date/Time Associated Diagnosis Comments CERVICAL SPINE 2-3 VIEWS 06/01/2008 11:46 EDT documented in this encounter Results * CERVICAL SPINE 2-3 VIEWS (06/01/2008 11:46 EDT) Anatomical Region Laterality Modality Other 06/01/2008 11:4 6 EDT 06/01/2008 12:39 EDT Narrative 06/01/2008 12:39 EDT CERVICAL SPINE 2-3 VIEWS ??Jun 01, 2008 11:46:00 AM Signs and Symptoms: ??Neck pain Findings: 2 views of the cervical spine to the previous examination demonstrate patient is status post C5-C6 anterior cervical discectomy and fusion. Hardware is unchanged. Flexion and extension views might be helpful to look for potential instability . Procedure Note 06/01/2008 CERVICAL SPINE 2-3 VIEWS Jun 01, 2008 11:46:00 AM Signs and Symptoms: Neck pain Findings: 2 views of the cervical spine to the previous examination demonstrate patient is status post C5-C6 anterior cervical discectomy and fusion. Hardware is unchanged. Flexion and extension views might be helpful to look for potential instability . Nishant Maravilla MD IMG DIAGNOSTIC IMAGI NG ORDERABLES documented in this encounter Visit Diagnoses Not on filedocumented in this encounter Care Teams Residential Leasing Manager Relationship Specialty Start Date End Date Unknown, Provider, PCP - General 05/28/08 09/23/08 documented as of this encounter
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
--- OUTSIDE RECORDS SUMMARY | 2023-10-18 21:29 | XMS_ITS | Encounter Summary ---
Author Organization [facility] Address [address] [place] [address] Care Team Providers Care Hereditary Cancer Program Coordinator Name Role Phone Rob Monahan MD Primary Care Provider [phone] Unknown, Yoli ROLDAN Primary Care Provider [phone] Encounter Details Date Type Department Care Team (Late st Contact Info) Description 03/15/2003 Results Only [facility] - Maple conversion [address] [place] [address] Alistair Marks, DO [address] [facility] [address] [place], [place] [address] Social History Tobacco Use Types Packs/Day Years [...] Date/Time Associated Diagnosis Comments SURGICAL PATHOLOGY Routine 03/15/2003 0:00 EST documented in this encounter Results * SURGICAL PATHOLOGY (03/15/2003 0:00 EST) Pathology Report: SURGICAL PATHOLOGY REPORT Reports generated via electronic interface contain original data; however they are lacking the format of the original report. Caution should be taken when reading/interpreti ng unformatted reports. Name: ? BRIAN CARDENAS V ? Accession #: ? [id number] ? : ? 1970 (Age: 32) ??F ? Collect Date: ? 03/15/2003 ? Location: ? [facility] ? Receive Date: ? 03/16/2003 ? Provider: ALISTAIR MARKS DO Copy to: ROB MONAHAN MD ? Final Pathologic Diagnosis: ? Gallbladder, cholecystectomy: 1. ?Chronic cholecystitis. 2. ?Cholelithiasis. Document reviewed and electronically signed by: Lea Rene MD Report ??Date: 03/17/2003 16:14 By the signature above, the attending physician certifies that he/she has personally conducted a gross and/or microscopic examination of the described specimens and rendered or confirmed the above diagnosis. Specimen(s) Received: ? Gallbladder Clinical History: ? Biliary colic, gallstones on ultrasound Gross Description: ? Received in formalin labelled Voutselas and gallbladder is a 7.9 x 3.0 x 2.0 cm opened gallbladder with a small portion of attached cystic duct. ??No cystic duct lymph node is grossly evident. ??The serosal surfaces are smooth, guzman and bile stained. ??The wall measures up to 0.2 cm. ??The lumen contains a small amount of green bile and three yellow ovoid gallstones averaging 0.9 cm. ??The mucosa is green and slightly trabeculated without circumscribed lesions or masses. ??There are a few additional smaller gallstones within the cystic duct measuring 0.2 to 0.4 cm. ??Estimator Jewelry sections of the gallbladder are submitted in one cassette. ??(Nishant Miguel/ernesto ?? End of Report BILLIE VILLALBA 03/15/2003 03/16/2003 15: 21 EST Alistair Marks DO PATHOLOGY ORDER MELANIE BILLIE EPPERSON [address] [address] documented in this encounter Visit Diagnoses Not on filedocumented in this encounter Care Teams Hereditary Cancer Program Coordinator Relationship Specialty Start Date End Date Rob Monahan MD PCP - General 09/24/08 06/30/20 Unknown, Provider, PCP - General 05/28/08 09/23/08 documented as of this encounter
--- OUTSIDE RECORDS SUMMARY | 2023-10-18 21:29 | XMS_ITS | Encounter Summary ---
Author Organization [facility] Address [address] [place] [address] Care Team Providers Care Sales Agent Business Services Name Role Phone Unavailable Primary Care Provider Unavailabl e Encounter Details Date Type Department Care Team ([facility] st Contact Info) Description 04/21/2008 14:30 EDT Hospital Encounter [facility] - Maple conversion [address] [place] [address] Nishant Maravilla MD [address] [place] [phone] Social History Tobacco Use Types Packs/Day Years [...]
--- OUTSIDE RECORDS SUMMARY | 2023-10-18 21:29 | XMS_ITS | Encounter Summary ---
Author Organization [facility] Address [address] [place] [address] Care Team Providers Care Cooker Tender Name Role Phone Unavailable Primary Care Provider Unavailabl e Encounter Details Date Type Department Care Team (Latest Contact Info) Description 12/17/2007 10:02 EST - 12/17/2007 11:59 EST Hospital Encounter [facility] - Maple conversion [address] [place] [address] Nishant Maravilla MD [address] [place] [phone] Discharge Disposition: Auto Discharge Social History Tobacco [...] Priority Date/Time Associated Diagnosis Comments CERVICAL SPINE 4 OR MORE VIEWS 12/17/2007 10:26 EST documented in this encounter Results * CERVICAL SPINE 4 OR MORE VIEWS (12/17/2007 10:26 EST) Anatomical Region Laterality Modality Other 12/17/2007 10:2 6 EST Narrative 06/22/2008 9:43 EDT neck pain r/o instability Cervical spine 12/17/2007 History: Neck pain, rule out instability Four views were obtained including lateral flexion and extension views. On the frontal view there is dextroscoliosis of the cervical spine. On lateral view the cervical spine is well imaged to the level of C7, the C7-T1 space is not well seen, however. Alignment is normal in the visualized cervical spine and maintained on both flexion and extension. There is mild disc space narrowing at the C4-C5 and at C5-C6 levels. The exam is otherwise unremarkable. Procedure Note Inderjit Parker MD - 06/22/2008 neck pain r/o instability Cervical spine 12/17/2007 History: Neck pain, rule out instability Four views were obtained including lateral flexion and extension views. On the frontal view there is dextroscoliosis of the cervical spine. On lateral view the cervical spine is well imaged to the level of C7, the C7-T1 space is not well seen, however. Alignment is normal in the visualized cervical spine and maintained on both flexion and extension. There is mild disc space narrowing at the C4-C5 and at C5-C6 levels. The exam is otherwise unremarkable. Nishant Maravilla MD IMG DIAGNOSTIC IMAGI NG ORDERABLES documented in this encounter Visit Diagnoses Not on filedocumented in this encounter
--- OUTSIDE RECORDS SUMMARY | 2023-10-18 21:29 | XMS_ITS | Encounter Summary ---
Author Organization [facility] Address [address] [place] [address] Care Team Providers Care Distribution System Operator Name Role Phone Nishant Sorto MD Primary Care Provider [phone] Encounter Details Date Type Department Care Team (Late st Contact Info) Description 09/10/2013 Results Only [facility] - [facility] ([facility]) [address] [place], [place] [phone] Raiza Weathers MD [address] [place] [address] [place] [phone] Social History Tobacco Use Types Packs/Day Years [...] Date/Time Associated Diagnosis Comments SURGICAL PATHOLOGY Routine 09/10/2013 9:13 EDT documented in this encounter Results * SURGICAL PATHOLOGY (09/10/2013 9:13 EDT) Pathology Report: SURGICAL PATHOLOGY REPORT Reports generated via electronic interface contain original data; however they are lacking the format of the original report. Caution should be taken when reading/interpreti ng unformatted reports. Name: ? BRIAN CARDENAS V ? Accession #: ? [id number] ? : ? 1970 (Age: 43) ??F ? Collect Date: ? 09/10/2013 ? Location: ? [facility] ? Receive Date: ? 09/11/2013 ? Provider: RAIZA WEATHERS MD Copy to: ARLEN PAREDES PARTS CLASSIFIER ? Final Pathologic Diagnosis: ENDOMETRIUM, BIOPSY: - ??Proliferative endometrium with focal disordered pattern and progestin effect. Document reviewed and electronically signed by: PRINCE SANDOVAL MD Report ??Date: 09/12/2013 15:35 By the signature above, the attending physician certifies that he/she has personally conducted a gross and/or microscopic examination of the described specimens and rendered or confirmed the above diagnosis. Specimen(s) Received: Endo bx (endometrium) Clinical History: DUB on Provera Gross Description: ? Received in formalin labelled with proper patient identification (initials A, R) and endometrium is an aggregate of red-brown hemorrhagic and clear mucinous material (1.8 x 1.8 x 0.5 cm). ??Submitted in toto in 1 following filtration. Anne-Marie Escobar 09/11/2013 09:54 AM End of Report BILLIE VILLALBA 09/10/2013 9:13 EDT 09/11/2013 9:13 EDT Raiza Weathers MD PATHOLOGY ORDERABLES BILLIE VILLALBA [address] [place] [address] documented in this encounter Visit Diagnoses Not on filedocumented in this encounter Care Teams Distribution System Operator Relationship Specialty Start Date End Date Nishant Sorto MD PCP - General 09/24/08 06/30/20 documented as of this encounter
--- OUTSIDE RECORDS SUMMARY | 2023-10-18 21:29 | XMS_ITS | Encounter Summary ---
Author Organization [facility] Address [address] [place] [address] Care Team Providers Care Emergency Services Professional Name Role Phone Unavailable Primary Care Provider Unavailabl e Encounter Details Date Type Department Care Team (Latest Contact Info) Description 02/17/2008 10:16 EST - 02/17/2008 11:59 EST Hospital Encounter [facility] [address] [place] [address] Nishant Maravilla MD [address] [place] [phone] Discharge Disposition: Auto Discharge Social History Tobacco [...] Procedure Name Priority Date/Time Associated Diagnosis Comments NM BONE WHOLE BODY WITH SPECT 02/17/2008 15:57 EST documented in this encounter Results * NM BONE WHOLE BODY WITH SPECT (02/17/2008 15:57 EST) Anatomical Region Laterality Modality Other 02/17/2008 15:5 7 EST Narrative 06/22/2008 10:29 EDT Neck and LBP w/ degenerative disc disease NM BONE WHOLE BODY WITH SPECT ??Feb 17, 2008 3:57:00 PM Signs and Symptoms: Neck and LBP w/ degenerative disc disease. Technique: Two and one half hours after the IV injection of 22 mCi Tc-99m MDP, standard whole body planar bone images were obtained. SPECT imaging of the entire body from the femoral heads to the base of the skull was also performed. An attenuation CT scan from the level of the femoral heads to the base of the skull was performed. Fused SPECT CT images were created and reviewed with an independent workstation. Findings: Increased symmetric uptake seen about the knees likely degenerative in nature. No abnormal uptake is seen in the spine. I have personally reviewed the images and the above interpretation and agree with the findings. Procedure Note Alistair Ballesteros MD / Manuel Maciel MD - 06/22/2008 Neck and LBP w/ degenerative disc disease NM BONE WHOLE BODY WITH SPECT Feb 17, 2008 3:57:00 PM Signs and Symptoms: Neck and LBP w/ degenerative disc disease. Technique: Two and one half hours after the IV injection of 22 mCi Tc-99m MDP, standard whole body planar bone images were obtained. SPECT imaging of the entire body from the femoral heads to the base of the skull was also performed. An attenuation CT scan from the level of the femoral heads to the base of the skull was performed. Fused SPECT CT images were created and reviewed with an independent workstation. Findings: Increased symmetric uptake seen about the knees likely degenerative in nature. No abnormal uptake is seen in the spine. I have personally reviewed the images and the above interpretation and agree with the findings. Nishant PADGETT NM ORDERABLES documented in this encounter Visit Diagnoses Not on filedocumented in this encounter
--- OUTSIDE RECORDS SUMMARY | 2023-10-18 21:29 | XMS_ITS | Encounter Summary ---
Author Organization [facility] Address [address] [place] [address] Care Team Providers Care Gas Station Service Attendant Name Role Phone Unavailable Primary Care Provider Unavailabl e Encounter Details Date Type Department Care Team (Latest Contact Info) Description 03/19/2008 6:09 EST - 03/19/2008 11:59 EST Hospital Encounter [facility] Perioperative Services- [facility] [address], [place] [id number] Nishant Maravilla MD [address] [place] [phone] Discharge Disposition: Home or Self Care Social History Tobacco Use Types Packs/Day Years Used Date Smoking Tobacco: Never Assessed Sex and Gender Information Value Date Recorded Sex Assigned at Not on file Gender Identity Female 07/01/2020 14:24 EDT Sexual Orientation Not on file documented as of this encounter Discharge Disposition Disposition Code Departure Means Destination Home or Self Care documented in this encounter OR Notes * OR Surgeon - Nishant Maravilla MD, MD - 03/19/2008 0000 EST PROCEDURE REPORT PT TYPE: OPPROC SERVICE DATE: 03/19/2008 SURGEON: Nishant Maravilla MD FORMING MACHINE ADJUSTER: Jluis Burton MD PREOPERATIVE DIAGNOSIS C5-6 herniated nucleus pulposus with associated degenerative changes. POSTOPERATIVE DIAGNOSIS C5-6 herniated nucleus pulposus with associated degenerative changes. PROCEDURE Anterior cervical diskectomy and fusion C5-6 with decompression involving complete diskectomy, followed by strut grafting with an allograft iliac crest bone graft strut and placement of an anterior H-plate from Gabriels. ANESTHESIA General endotracheal. INDICATIONS Alis Cardenas is a 37-year-old female with significant neck and left arm pain in the C6 distribution, very likely related to C5-6 degenerative changes and a disk herniation at this same level on the left side. Due to the severity of her pain, significant disability, and failure of conservative management over an extended period of time, she wished to consider surgery at this point in time. Alloptions were discussed on multiple occasions, nonoperative and operative, along with the associated risks, potential complications, and expected outcomes. Alis understood all of these. She asked appropriate questions and all questions were answered and she wished to proceed with an anterior cervicaldiskectomy and fusion at C5-6 with structural allograft bone grafting and an anterior plate. NARRATIVE Alis Cardenas was brought to the operating room, appropriately identified, and then intubated by the anesthesia department. After appropriate monitoring equipment was applied, she was further positioned in a supine position on a regular operating table with a towel roll between her shoulder blades and her arms taped to the side. Matias-Wells tongs were placed on the skull in a standard sterile manner with 10 pounds of axial traction. With all bony prominences appropriately padded and the patient in a stable and appropriate position on the operating table, the anterior neck was prepped and draped in the usual sterile fashion first with alcohol and subsequently with Hibiclens, alcohol, and DuraPrep. Prior to initiation of the procedure, a time-out was called and a brief performed outliningthe goals of the procedure with the operating room personnel. The procedure was initiated with a horizontal left neck incision at the level of C5-6 using sharp dissection through skin followed by electrocautery through the subcutaneous tissues. The platysma muscle was identified; however, a large subcutaneous vein was present right over the interval to be exploited to gain access to the spine. This was ligated appropriately with 2-0 Vicryl suture and then cut during the exposure. Using a handheld Cloward, blunt dissection was carried out between the trachea and esophagus medially as well as the strap muscles and laterally the sternocleidomastoid muscle as well as the contents of the carotidsheath. The anterior cervical spine was easily identified with longus coli muscles bilaterally. TheC5-6 level was marked with a spinal needle to assure that the appropriate levels were addressed. This marking film was confirmed by Radiology and then addition dissection carried out undermining the longus coli muscles bilaterally, placing medial and lateral retractors from the Shadow-Line system. The endotracheal tube cuff was then deflated and reinflated at less pressure prior to continuation of the procedure. The disk space at C5-6 was then entered using a 15 blade scalpel. A Castellon elevator was used to removed disk from the endplates. Microdissecting Carlens curettes and rongeurs were used to complete the diskectomy and enter the spinal canal posteriorly. Microdissecting Kerrison rongeurswere then used to complete the diskectomy posteriorly and remove posterior longitudinal ligament aswell as disk within the herniated region on the left. Additional osteophyte was removed posteriorly, both above and below the disk space and once the decompression completed, attention turned to prepa ration of the endplate and placement of the bone graft. The endplates were prepared, exposing punctate bleeding bone using a 4 mm round deanne. An allograft iliac crest strut was then customized into lordosis and to the appropriate height and depth and tamped into place at the C5-6 level with some additional tractionon the Matias-Wells tongs provided by Anesthesia. Once the graft was in place, the 10 pounds of skeletal skull traction was removed and a single cushion behind the head was removed to place the head in a more extended and somewhat lordotic position for fixation with instrumentation. An appropriate-sized H-plate made by Gabriels was then fitted. Two pins were used to hold the plate in place on the left side while the right-sided screws were placed. This involved drilling a site for the screw and then placement of two 14 mm screws on the left followed by removal of the pins and placement of the screws on the right. Fluoroscopy imageswere used during instrumentation to ensure that indeed instrumentation was placed appropriately andthat the overall fixation was optimal with respect to overall alignment. The screws were tightened to their final torque and then the wound copiously irrigated with antibiotic solution. The surrounding structures were inspected to ensure that no violations of these occurred and thenthe wound closedin a standard manner using 2-0 Vicryl suture to close the platysma muscle, which had been cut horizontally. The superficial tissues were closed in a standard manner using 2-0 Vicryl suture in the subcutaneous tissue and Dermabond on the skin. Matias-Wells tongs were removed at the end of the procedure. Patient tolerated the procedure well and was taken to the recovery room in stable condition postoperatively. ESTIMATED BLOOD LOSS Less than 100 mL. FLUIDS 1.5 L crystalloid. DRAINS None. COMPLICATIONS None. Signed by Nishant Maravilla MD 03/24/2008 19:05 Nishant Maravilla MD - Nishant Maravilla MD A - GR Job ID: [id number] Document ID: [id number] cc: MD Zachariah Carroll PA Joseph McLaughlin, MD documented in this encounter Plan of Treatment Not on file documented as of this encounter Procedures Procedure Name Priority Date/Time Associated Diagnosis Comments CERVICAL SPINE 2-3 VIEWS 03/19/2008 11:38 EST CERVICAL SPINE 1 VIEW 03/19/2008 10:02 EST GLUCOSE, GLUCOMETER Routine 03/19/2008 7 :57 EST documented in this encounter Results * CERVICAL SPINE 2-3 VIEWS (03/19/2008 11:38 EST) Anatomical Region Laterality Modality Other 03/19/2008 11:3 8 EST Narrative 06/22/2008 11:01 EDT CERVICAL DISC DISPLACEMENT C5-6 ACDF R/O CHECK LEVEL Cervical spine study 19 March 2008 History: ACDF. Check level. Findings: AP and lateral photo spot images using crosstable technique in the operating room are compared with the prior crosstable lateral view from 9:58 a.m. Fusion and C5-C6 level has been performed with anterior fixation by metallic plate and 4 screws. Anatomic alignment. No fracture. Procedure Note Ken Wang, DO - 06/22/2008 CERVICAL DISC DISPLACEMENT C5-6 ACDF R/O CHECK LEVEL Cervical spine study 19 March 2008 History: ACDF. Check level. Findings: AP and lateral photo spot images using crosstable technique in the operating room are compared with the prior crosstable lateral view from 9:58 a.m. Fusion and C5-C6 level has been performed with anterior fixation by metallic plate and 4 screws. Anatomic alignment. No fracture. Nishant Maravilla MD G DIAGNOSTIC IMAGI NG ORDERABLES * CERVICAL SPINE (03/19/2008 10:02 EST) Anatomical Region Laterality Modality Other 03/19/2008 10:0 2 EST Narrative 06/22/2008 11:00 EDT CERVICAL DISC DISPLACEMENT C5-6 ACDF R/O CHECK LEVEL Lateral cervical spine 19 March 2008 History: Cervical disc displacement at C5-C6. Check level. Findings: A crosstable lateral photo spot image of the cervical spine demonstrates that the localization needle image is superimposed on C5-C6 disc space. No misalignment noted. Procedure Note Ken Wang, DO - 06/22/2008 CERVICAL DISC DISPLACEMENT C5-6 ACDF R/O CHECK LEVEL Lateral cervical spine 19 March 2008 History: Cervical disc displacement at C5-C6. Check level. Findings: A crosstable lateral photo spot image of the cervical spine demonstrates that the localization needle image is superimposed on C5-C6 disc space. No misalignment noted. Nishant Maravilla MD [facility] DIAGNOSTIC IMAGI NG ORDERABLES * (ABNORMAL) GLUCOSE, GLUCOMETER (03/19/2008 7:57 EST) Glucose, Fingerstick 103(H) 70 - 100 mg/dl [facility] [place] ID [id number] Test Performed by Nursing Services [facility] 03/19/2008 7:57 EST 03/20/2008 4:58 EST Nishant Maravilla MD CHEMISTRY & BLOOD GA S ORDERABLES [facility] [address] [place] [address] documented in this encounter Visit Diagnoses Not on filedocumented in this encounter
--- OUTSIDE RECORDS SUMMARY | 2023-10-18 21:29 | XMS_ITS | Encounter Summary ---
Author Organization [facility] Address [address] [place] [address] Care Team Providers Care Restaurant Expeditor Name Role Phone Unknown, Provider Primary Care Provider [phone] Encounter Details Date Type Department Care Team (Late st Contact Info) Description 01/28/2008 Before PRISM Converted Visit (Maple) [facility] - Maple conversion [address] [place] [address] Nishant Maravilla MD [address] [place] [phone] Social History Tobacco Use Types Packs/Day Years Used Date Smoking Tobacco: Never Assessed Sex and Gender Information Value Date Recorded Sex Assigned at Not on file Gender Identity Female 07/01/2020 14:24 EDT Sexual Orientation Not on file documented as of this encounter Progress Notes * Nishant Maravilla MD, MD - 08/29/2008 1202 EDT [facility] [address] [place] [id number] PROGRESS/FOLLOWUP NOTE - 01/28/2008 Primary Care Provider: Nishant Sorto MD Referred by: SHASHANK Haney Attending: Nishant Maravilla MD SUBJECTIVE Alis Cardenas is a 37-year-old female originally seen by me last month with a chief complaint of 50% left neck pain and 50% left arm pain who is seen back today for further discussion of options having stopped smoking and potentially interested in discussing surgery. Alis has had essentially no change in her neck complaints; however, she has had somewhat of a flare in her low back pain symptoms. Bronson low back pain does not radiate to her lower extremities. It is therefore 100% axial low back pain. She is tender in the L4-5 region with significant superficial tenderness in this region. Her range of motion is actually quite reasonable but with pain at the extremes of all motions. Her pain is somewhat worse on left side bending. Her lower extremity examination reveals grossly intact sensation and motor function throughout. RADIOGRAPHIC DATA We did review Bronson films with her today. Not only of her cervical spine but reviewed an outsideCD of her lumbar spine as well as obtain lumbar spine films today. To review her cervical spine plain x-rays are rather benign with only mild degenerative changes at most but good preservation of alignment, good bone quality, and no evidence of instability on flexion extension. Her cervical MRI reveals asignificant left sided C5-6 disc herniation which appears to compress the exiting left C6 nerve root. In addition to the neck imaging, the lumbar spine plain films and MRI demonstrate mild to moderate degenerative changes throughout the lower levels of the lumbar spine but without any instability. There are no overall issues with spinal alignment or bone quality. The MRI does reveal some lowlevel degenerative change in the lowest three lumbar segments but without any significant disk herniation or neural compression. ASSESSMENT Alis Cardenas is a 37-year-old female with two separate areas of pain. Her neck seems to be the greatest area of concern for her and actually prompted our initial evaluation of Alis. Her symptoms include 50% left sided neckpain and 50% left arm pain in the C6 distribution very likely related to a disk herniation at the C5-6 level on the left. Due to the severity of this pain, associated disability, and the failure of conservative management over an extended period of time,Alis wishes to consider surgery at this point in time. We did discuss all options for treatment both operative and nonoperative along with the associated risks, potential complications, and expected outcome. After a lengthy discussion, we agreed uponan anterior cervical diskectomy and fusion at C5-6 with the use ofan allograft strut and anterior plate. We discussed the rationale for this approach and the associated risks and potential complications as well as expected outcomes associated with thisprocedure. Ella doherty asked appropriate questions and all of her questions were answered. She did understand and agreed with the above plan and wished to proceed with scheduling surgery. We did formally sign a consent today and again reviewed all the details of the procedure. We also discussed Bronson low back pain issues and have agreed to obtain a bone scan to help localize the source of her low back pain. This will likely be obtained before her cervical spine surgery and can also be used to assure that indeed any uptake in her cervical spine correlates with the planned operative level. We have also asked that Alis obtain a carboxy hemoglobin today to insure that indeed she is free of smoke. Again, she understood and agreed with this plan. We did spend at least 40 minutes today with Alis in face to face discussion, examination, and a review of her multiple imaging studies with greater than 50% of the visit spent counseling her with respect to the above. PLAN 1. Surgery to be scheduled at the next available time for the cervical spine. 2. Bone scan wit SPECT imaging to further workup low back pain issues. 3. Carboxy hemoglobin today. Signed by Nishant Maravilla MD 02/10/2008 17:57 Nishant Maravilla MD - Nishant Maravilla MD - HB Job ID: [id number] Doc ID: [id number] cc: MD Zachariah Rodriguez PA documented in this encounter Plan of Treatment Not on file documented as of this encounter Visit Diagnoses Not on filedocumented in this encounter Care Teams Restaurant Expeditor Relationship Specialty Start Date End Date Unknown, Provider, PCP - General 05/28/08 09/23/08 documented as of this encounter
--- OUTSIDE RECORDS SUMMARY | 2023-10-18 21:29 | XMS_ITS | Encounter Summary ---
Author Organization [facility] Address [address] [place] [address] Care Team Providers Care Dip Filler Name Role Phone Nishant Sorto MD Primary Care Provider [phone] Encounter Details Date Type Department Care Team (Late st Contact Info) Description 06/14/2010 Results Only [facility] Laboratory Services - [facility] ([facility] [place] [place] [address] [place], [place] [id number] Arlen Paredes, JEREMIE [address] [place] [phone] Social History Tobacco Use Types [...] Diagnosis Comments PAP TEST- RESULT ONLY Routine 06/14/2010 0:00 EDT documented in this encounter Results * PAP TEST- RESULT ONLY (06/14/2010 0:00 EDT) Pathology Report: CYTOPATHOLOGY REPORT ? Reports generated via electronic interface contain original data; ? however they are lacking the format of the original report. ? Caution should be taken when reading/interpreti ng unformatted reports. ? Name: ? ANAIR, BRIAN V ? Accession #: ? [id number] ? : ? 1970 (Age: 39) ??F ?Collect Date: ? 06/14/2010 ? Location: ? [facility] ? Receive Date: ? 06/15/2010 ? Provider: ARLEN PAREDES [facility] ? Copy to: ? Final Report ? SPECIMEN ADEQUACY ? Satisfactory for Evaluation ? - transformation zone component absent ? GENERAL CATEGORIZATION ? Negative for Intraepithelial Lesion or Malignancy ? INTERPRETATION ? Shift in yanique present suggestive of bacterial vaginosis. ? Last Menstural Period: 4/20/11 ? Treatment History: Miscellaneous treatment: cervical scrapping ? 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 years ago ? Specimen/Source: ??Pap Test, Cervix/Endocervix, ThinPrep Imaging System with ? manual evaluation ? Document reviewed and electronically signed by: ? NASIM Perez(ASCP) ? Report ??Date: 06/17/2010 13:26 ? HPV with Pap Test ? Date Ordered: ? 06/17/2010 ? Status: ?? Signed Out ?Date Complete: ? 06/22/2010 ? By: ??System Interface ? Date Reported: ? 06/22/2010 ? Interpretation ? RESULT: Negative for HPV types 16, 18, 31, 33, 35, 39, 45, 51, 52, ? 56, 58, 59, and 68. ? Comments ? Document reviewed and electronically signed by: ? System Interface ? Report date: 06/22/2010 ? By the signature above, the attending physician certifies that he/she has ? personally conducted a gross and/or microscopic examination of the described ? specimens and rendered or confirmed the above diagnosis. ? End of Report ? [facility] 06/14/2010 06/15/2010 Arlen Paredes [employer] [facility] PATHOLOGY ORDERABLES Performing Organization Address City/State/[facility] Co de Phone Number [facility] [address] [place] [address] documented in this encounter Visit Diagnoses Not on filedocumented in this encounter Care Teams Dip Filler Relationship Specialty Start Date End Date Nishant Sorto MD PCP - General 09/24/08 06/30/20 documented as of this encounter
--- OUTSIDE RECORDS SUMMARY | 2023-10-18 21:29 | XMS_ITS | Encounter Summary ---
Author Organization [facility] Address [address] [place] [address] Care Team Providers Care Chronometer Assembler And Adjuster Name Role Phone Unknown, Provider Primary Care Provider [phone] Reason for Visit * Reason Comments Telemedicine Video Visit New Patient Visit Joint Pain knees, hips Back Pain back pain radiating to neck * Referral (Routine) - Closed Specialty Diagnoses / Procedures Referred By Contalla t Referred To Contact Rheumatology Diagnoses Fibromyalgia Ashleigh Gaston FNP [address] [place] [address] [place] [address] [address] [place] [id number] Referral ID Status Reason Start Date Expiration Date Visits Re quested Visits Authorized [id number] Closed 1 1 Encounter Details Date Type Department Care Team (Late st Contact Info) Description 07/06/2020 13:00 EDT Telemedicine [facility] Rheumatology & Immunology - [address] [id number] Gordon Sal MBBS [address] [place] [address], [address] [place] [id number] Fibromyalgia (Primary Dx); Polyarthralgia Social History Tobacco Use Types Packs/Day Years [...] Yes 07/06/2020 documented as of this encounter Ordered Prescriptions Prescription Sig Dispensed Refills Start Date End Da te diclofenac sodium 1 % gelIndications:Polyarthr algia,Fibromyalgia Apply 2 Inches topically 3 times daily as needed for Pain. 1 Tube 1 07/06/2020 01/13/2021 documented in this encounter Progress Notes * Gordon Sal MD - 07/06/2020 1300 EDT [facility] Rheumatology and Clinical Immunology Initial Patient Visit Chief Complaint: Alis Cardenas presents today for Telemedicine Video Visit, New Patient Visit, Joint Pain (knees, hips), and Back Pain (back pain radiating to neck ) Patient ID: Alis Cardenas Date of Service: 06/28/2020 Patient age: 49 y.o. Patient gender: female Subjective / HPI: Alis Cardenas is an 49-year-old woman with a background of fibromyalgia, mild chronic leukocytosis, migraine, HLD, Flores's esophagus, T2DM, obesity, vitamin D deficiency, asthma, anxiety, depression, sleep apnea and tobacco use who presented to [facility] rheumatology clinic for a new patient assessment (07/06/20). Visit via televideo. Regarding recent medical history, Ms. Cardenas reports Spider bite and bullseye rash as a child diagnosed with chronic lyme disease and managed with doxycyline 09/2016 to 07/2017. She seen by [facility] Rheumatology ([place], [place]) 2017 and 2018 for polyarthralgia and her lawyer probate told her if she wanted to get on disability she would have to see a specialist in fibromyalgia. No evidence of inflammatory arthritis identified on examination. Autoimmune serology negative with exception of weakly positive CCP (repeat CCP negative). Patient was educated on fibromyalgia, osteoarthritis and recommended to discontinue doxycycline. Mr. Cardenas was most recently seen by her PCP 04/2020. Patient reported poorly tolerating generic pregabalin (associated with restless legs) and requested referrals to rheumatology, psychiatry, chronic pain clinic, medical cannabis card and advice on a disability lawyer probate. Physical examination identified normal gait and normal range of motion. Patient was referred to [facility] rheumatology for evaluation of fibromyalgia. On assessment today, Ms. Cardenas endorses an approximately >10 year of polyarthralgia principally localized to: - Fingers: B/l PIP and dorsal aspect of hands (R > L) - Wrists: No - Elbows: B/l - Shoulders: B/l (R > L) - Neck: Yes - Low back: Yes - Hips: B/l (radiates into groin) - Knees: B/l - Ankles: B/l - Feet/ toes: Pes planus Three most painful joints include: lower back, hips and knees. Additionally endorses pain at night which limits sleep. Morning stiffness lasts less than 1 hr. Transient swelling of ankles and knees which lasts days. Symptoms exacerbated by standing and relieved in response to rest. Patient unsure if pain is better or worse at the beginning or end of the day. Other aspects of history: Light sensitivity: Nausea Sound sensitivity: Causes disorientation Dizziness/POTS: Yes Mood: I have severe depression and anxiety. I have bipolar and borderline personality disorder Sleep: Difficulty maintaining sleep Post exertional malaise: Yes Brain fog: Yes Irregular bowel habits: Yes (varying constipation and diarrhea) *Prior pharmacologic therapies: - Duloxetine: Nausea, vomiting and diarrhea - Pregabalin (lyrica): Mildly beneficial - Minimal improvement in response to ibuprofen - Cannabis helps her sleep *Prior non -pharmacologic therapies: - Physical therapy: Mild improvement. Prefers pool therapy. - Attends counseling weekly. Has not tried cognitive behavioral therapy. Review of Systems: (+) Muscle cramps in face and hands. Night sweats. Dry mouth. Dental caries. Associated numbness / pin and needles sensation in hands. Self reported sensitivity to palpation on the lateral aspect of hips. Review of Systems: A complete 10 point ROS was performed and pertinent positive and negative findings listed in HPI, otherwise negative. Family History: - Father: Multiple sclerosis - Cousin: SLE - Maternal grandmother: RA Social History: - Grew up in [place]. Lives in [place]. - Occupation: [employer] (04/2019) - Significant psychosocial stressors (profession, personal and financial) - Pain limits ability to clean. - Exercise: Inactive limited by pain. - Former smoker (~20 pack year history). No ETOH use. Recreational drug use (cannabis). Objective: There were no vitals taken for this visit. There is no height or weight on file to calculate BMI. General: No acute distress. Alert, fully oriented. Extremities: Extremities without cyanosis or edema. Skin: No rashes or lesions Musculoskeletal: Hand: No synovitis, muscle wasting or deformity. Full range of movement. Elbow: Normal range of motion. No nodules. Shoulder: Normal range of motion in shoulders bilaterally. Investigations: - Labs reviewed Assessment & Plan: Alis Cardenas is an 49-year-old woman with a background of fibromyalgia, mild chronic leukocytosis, migraine, HLD, Flores's esophagus, T2DM, obesity, vitamin D deficiency, asthma, anxiety, depression, sleep apnea and tobacco use who presented to [facility] rheumatology clinic for a new patient assessment (07/06/20). Polyarthralgia: Light / sound sensitivity, poor sleep, fatigue, low mood and cognitive impact. Autoimmune serology (DANIA, RF and CCP) negative in 2017 workup. ESR and uric acid wnl. Impression: likelyfibromyalgia with co-existing OA. Lower suspicion for inflammatory arthritis or Tess's syndrome given report of transient swelling of ankles and knees - Order CXR (external) - Recommend patient attend [facility] rheumatology for physical examination to exclude underlying inflammatory arthritis. - Educated on fibromyalgia and central pain sensitization vs. Somatic and inflammatory causes of pain. - Counseled on lifestyle modification: Yoga, Jakob-Chi with regular aerobic exercise (30 minutes fourto five times a week) - Conservative management: physical therapy with pool therapy. - Medical management: Did not tolerate duloxetine previously. Recommend continue pregabalin and tizanidine to promote restful sleep. Gabapentin could be considered as a alternative to pregabalin. Recommend regular continue OTC analgesia: acetaminophen, ibuprofen and avoidance of opioids. These agents could be supplemented with topical therapy (diclofenac, lidocaine, capzasin or icy/hot). - PCP consider referral for cognitive behavioral therapy and sleep study Patient seen and examined with Dr. Dowd Follow up in 3-months Gordon Sal MD, PGY4 [phone] 06/28/2020 18:53 I spent a total of 60 minutes on the date of this encounter meeting with the patient and reviewing documentation/coordinating care as described in the above note. No procedures were performed at the time of the visit. The concept of ???Telemedicine?? has been described to the patient.? Patient has been informed of the anticipated benefits and possible risks.? Patient understands the information provided regardingtelemedicine, has had the opportunity to ask questions about this information, and all questions have been answered to patient???s satisfaction. Patient consents for the use of telemedicine in his/her medical care and authorizes the transmission of any relevant medical information to providers and their staff involved in patient???s medical or mental health care. TELEMEDICINE VIDEO VISIT Today's visit was provided through telemedicine video conferencing: The location of the patient: Home The location of the provider: Clinic The following staff and their role did participate in today's encounter visit: Dr. Sal and Dr. Dowd I spent a total of 60 minutes on the date of this encounter as indicated in the above progress note. Attestation statement: I performed or was present during the hughes or critical portions of the visit and participated in the management of the patient. I agree with the findings and plan of care documented in the resident's/fellow's note. Omar Dowd MD 07/06/2020 * Alta Zambrano MA - 07/06/2020 1300 EDT The concept of ???Telemedicine?? has been described to the patient.? Patient has been informed of the anticipated benefits and possible risks.? Patient understands the information provided regardingtelemedicine, has had the opportunity to ask questions about this information, and all questions have been answered to patient???s satisfaction. Patient consents for the use of telemedicine in his/her medical care and authorizes the transmission of any relevant medical information to providers and their staff involved in patient???s medical or mental health care. documented in this encounter Plan of Treatment Not on file documented as of this encounter Visit Diagnoses Diagnosis Fibromyalgia- Primary Mylagia and myositis, unspecified Polyarthralgia Pain in joint, multiple sites documented in this encounter Historical Medications * This list may reflect changes made after this encounter. Medication Sig Dispensed Refills Start Date End Date cholecalciferol, Vitamin D3, 25 mcg (1,000 unit) tablet Take 1,000 Units by mouth daily. 03/25/2019 tiZANidine (ZANAFLEX) 4 mg tablet Take 4 mg by mouth every 6 hours as needed. pregabalin (LYRICA) 150 mg capsule Take by mouth 2 times daily. 04/09/2020 SUMAtriptan (IMITREX) 25 mg tablet TAKE 1 TABLET BY MOUTH NEEDED FOR HEADACHE MAY REPEAT IN 2 HOURS IF HEADACHE NOT IMPROVED OR RECURS 06/22/2020 topiramate (TOPAMAX) 50 mg tablet Take 50 mg by mouth 2 times daily. 04/02/2020 sertraline (ZOLOFT) 100 mg tablet Take 100 mg by mouth. mirtazapine (REMERON) 15 mg tablet Take 15 mg by mouth. hydrOXYzine (ATARAX) 25 mg tablet Take 25 mg by mouth at bedtime as needed. 04/27/2020 loratadine (CLARITIN) 10 mg tablet Take 10 mg by mouth daily. VICTOZA 2-MARTIN 0.6 mg/0.1 mL (18 mg/3 mL) injectable pen INJECT 0.6MG UNDER THE SKIN ONCE DAILY 06/22/2020 LANTUS SOLOSTAR U-100 INSULIN 100 unit/mL (3 mL) injection pen INJECT 60 UNITS SUBCUTANEOUSLY EVERY NIGHT 06/22/2020 EPINEPHrine (EPIPEN) 0.3 mg/0.3 mL injection Use as directed. 04/08/2020 omeprazole (PRILOSEC) 40 mg capsule Take 40 mg by mouth daily. 04/09/2019 01/13/2021 added in this encounter Care Teams Chronometer Assembler And Adjuster Relationship Specialty Start Date End Date Unknown, Provider, PCP - General 07/01/20 01/12/21 documented as of this encounter
--- OUTSIDE RECORDS SUMMARY | 2023-10-18 21:29 | XMS_ITS | Encounter Summary ---
Author Organization [facility] Address [address] [place] [address] Care Team Providers Care Supervisor Stitching Department Name Role Phone Nishant Sorto MD Primary Care Provider Encounter Details Date Type Department Care Team (Late st Contact Info) Description 03/30/2009 Results Only [facility] Laboratory Services - [facility] ([facility] [address] [place], [place] [id number] Arlen Paredes, JEREMIE [address] [place] [address] Social History Tobacco Use Types [...] Priority Date/Time Associated Diagnosis Comments CYTOPATHOLOGY Routine 03/30/2009 0:00 EST documented in this encounter Results * CYTOPATHOLOGY (03/30/2009 0:00 EST) Pathology Report: CYTOPATHOLOGY REPORT ? Reports generated via electronic interface contain original data; ? however they are lacking the format of the original report. ? Caution should be taken when reading/interpreti ng unformatted reports. ? Name: ? ANAIR, BRIAN V ? Accession #: ? [id number] ? : ? 1970 (Age: 38) ??F ?Collect Date: ? 03/30/2009 ? Location: ? [facility] ? Receive Date: ? 04/01/2009 ? Provider: ?ARLEN PAREDES NP ? Copy to: ? Specimen/Source: ?Pap Test, Cervix/Endocervix, ThinPrep Imaging System ? with manual evaluation ? Last Menstrual Period: ? 02/15/10 ? Treatment History: ? Miscellaneous treatment: Cervix scraping 15 years ago ? Other: ? HPVA - HPV testing requested if ASC-US on the current ThinPrep Pap test. ? SPECIMEN ADEQUACY ? Satisfactory for Evaluation ? - transformation zone component absent ? GENERAL CATEGORIZATION ? Negative for Intraepithelial Lesion or Malignancy ? INTERPRETATION ? Shift in yanique present suggestive of bacterial vaginosis. ? Document reviewed and electronically signed by: ? Lynan Cristian, CT(ASCP) ? Report Date: ??04/02/2009 16:13 ? End of Report ? [facility] 03/30/2009 04/01/2009 Arlen Paredes MIXING MACHINE OPERATOR PATHOLOGY ORDERABLES [facility] [address] [place] [address] documented in this encounter Visit Diagnoses Not on filedocumented in this encounter Care Teams Supervisor Stitching Department Relationship Specialty Start Date End Date Nishant Sorto MD PCP - General 09/24/08 06/30/20 documented as of this encounter
--- OUTSIDE RECORDS SUMMARY | 2023-10-18 21:29 | XMS_ITS | Encounter Summary ---
Author Organization [facility] Address [address] [place] [address] Care Team Providers Care Director Of Career Services Name Role Phone Rob Monahan MD Primary Care Provider [phone] Unknown, Provider Primary Care Provider [phone] Encounter Details Date Type Department Care Team (Late st Contact Info) Description 12/19/2006 Results Only [facility] - [facility] [address] [place] [address] Rob Monahan MD [address] [place] [phone] Social History Tobacco Use Types Packs/Day Years [...] Date/Time Associated Diagnosis Comments SURGICAL PATHOLOGY Routine 12/19/2006 0:00 EST documented in this encounter Results * SURGICAL PATHOLOGY (12/19/2006 0:00 EST) Pathology Report: SURGICAL PATHOLOGY REPORT Reports generated via electronic interface contain original data; however they are lacking the format of the original report. Caution should be taken when reading/interpreti ng unformatted reports. Name: ? BRIAN CARDENAS V ? Accession #: ? [id number] ? : ? 1970 (Age: 36) ??F ? Collect Date: ? 12/19/2006 ? Location: ? [facility] ? Receive Date: ? 12/20/2006 ? Provider: ROB MONAHAN MD Copy to: ? Final Pathologic Diagnosis: ? Skin of shoulder, right, excision: 1. ?Melanocytic nevus, predominantly intradermal type. ? - Lesion is completely excised. Document reviewed and electronically signed by: Geovany Liriano MD Report ??Date: 12/25/2006 09:09 By the signature above, the attending physician certifies that he/she has personally conducted a gross and/or microscopic examination of the described specimens and rendered or confirmed the above diagnosis. Specimen(s) Received: ? Skin biopsy R shoulder Clinical History: ? Not listed Gross Description: ? Received in formalin labelled Anair and mole R shoulder/skin biopsy is an unoriented elliptical excision of skin which measures 1.3 x 0.6 cm and is excised to a depth of 0.3 cm. ??There is a central 0.6 x 0.5 x 0.2 cm variegated white to violaceous nodule. ??The margins are inked and the specimen is serially sectioned and is entirely submitted as follows: BLOCK GALLAGHER A1 ?Distal tips reverse en face A2,A3 ?Central sections (Dr. Hamilton)/[facility] End of Report [facility] 12/19/2006 12/20/2006 10: 11 EST Rob Monahan MD PATHOLOGY ORDERABLES [facility] [address] [place] [address] documented in this encounter Visit Diagnoses Not on filedocumented in this encounter Care Teams Director Of Career Services Relationship Specialty Start Date End Date Rob Monahan MD PCP - General 09/24/08 06/30/20 Unknown, ProviderMD PCP - General 05/28/08 09/23/08 documented as of this encounter
--- OUTSIDE RECORDS SUMMARY | 2023-10-18 21:29 | XMS_ITS | Encounter Summary ---
Author Organization [facility] Address [address] [place] [address] Care Team Providers Care Estimation Manager Name Role Phone Unknown, Provider Primary Care Provider [phone] Reason for Visit * (Routine) - Receiving Office to Obtain Authorization Specialty Diagnoses / Procedures Referred By Maura ferrell Referred To Contact Procedures XR OUTSIDE IMAGES CHEST Unknown, Provider, Referral ID Status Reason Start Date Expiration Date Visits Requested Visits Authorized [id number] Receiving Office to Obtain Authorization 07/19/2020 1 1 Encounter Details Date Type Department Care Team (Latest Contact Info) Description 07/16/2020 - 07/16/2020 23:59 EDT Hospital Encounter [facility] Secondary Reads [place] Discharge Disposition: Home or Self Care Social [...] Yes 07/06/2020 documented as of this encounter Medications at Time of Discharge Medication Sig Dispensed Refills Start Date End Date cholecalciferol, Vitamin D3, 25 mcg (1,000 unit) tablet Take 1,000 Units by mouth daily. 03/25/2019 EPINEPHrine (EPIPEN) 0.3 mg/0.3 mL injection Use as directed. 04/08/2020 hydrOXYzine (ATARAX) 25 mg tablet Take 25 mg by mouth at bedtime as needed. 04/27/2020 LANTUS SOLOSTAR U-100 INSULIN 100 unit/mL (3 mL) injection pen INJECT 60 UNITS SUBCUTANEOUSLY EVERY NIGHT 06/22/2020 loratadine (CLARITIN) 10 mg tablet Take 10 mg by mouth daily. mirtazapine (REMERON) 15 mg tablet Take 15 mg by mouth. pregabalin (LYRICA) 150 mg capsule Take by mouth 2 times daily. 04/09/2020 sertraline (ZOLOFT) 100 mg tablet Take 100 mg by mouth. SUMAtriptan (IMITREX) 25 mg tablet TAKE 1 TABLET BY MOUTH NEEDED FOR HEADACHE MAY REPEAT IN 2 HOURS IF HEADACHE NOT IMPROVED OR RECURS 06/22/2020 tiZANidine (ZANAFLEX) 4 mg tablet Take 4 mg by mouth every 6 hours as needed. topiramate (TOPAMAX) 50 mg tablet Take 50 mg by mouth 2 times daily. 04/02/2020 VICTOZA 2-MARTIN 0.6 mg/0.1 mL (18 mg/3 mL) injectable pen INJECT 0.6MG UNDER THE SKIN ONCE DAILY 06/22/2020 diclofenac sodium 1 % gelIndications:Polyar thralgia,Fibromyalgia Apply 2 Inches topically 3 times daily as needed for Pain. 1 Tube 1 07/06/2020 01/13/2021 omeprazole (PRILOSEC) 40 mg capsule Take 40 mg by mouth daily. 04/09/2019 01/13/2021 documented as of this encounter Discharge Disposition Disposition Code Departure Means Destination Home or Self Care documented in this encounter Plan of Treatment Not on file documented as of this encounter Procedures Procedure Name Priority Date/Time Associated Diagnosis Comments XR OUTSIDE IMAGES CHEST Routine 07/19/2020 9:47 EDT documented in this encounter Results * XR OUTSIDE IMAGES CHEST (07/19/2020 9:47 EDT) Narrative 07/19/2020 9:47 EDT This is a non-reportable exam. Provider Unknown MD [facility] OTHER IMAGING OR DERABLES documented in this encounter Visit Diagnoses Not on filedocumented in this encounter Care Teams Estimation Manager Relationship Specialty Start Date End Date Unknown, Provider, PCP - General 07/01/20 01/12/21 documented as of this encounter
--- OUTSIDE RECORDS SUMMARY | 2023-10-18 21:29 | XMS_ITS | Encounter Summary ---
Author Organization [facility] Address [address] [place] [address] Care Team Providers Care Report Specialist Name Role Phone Unavailable Primary Care Provider Unavailabl e Encounter Details Date Type Department Care Team ([facility] st Contact Info) Description 01/28/2008 10:51 EST Hospital Encounter [facility] - [facility] [address] [place] [address] Nishant Maravilla MD [address] [place] [phone] Social History Tobacco Use Types Packs/Day Years [...] Priority Date/Time Associated Diagnosis Comments CYTOPATHOLOGY Routine 02/04/2008 0:00 EST L SPINE 4 OR MORE VIEWS 01/28/2008 12:03 EST documented in this encounter Results * CYTOPATHOLOGY (02/04/2008 0:00 EST) Pathology Report: CYTOPATHOLOGY REPORT ? Reports generated via electronic interface contain original data; ? however they are lacking the format of the original report. ? Caution should be taken when reading/interpreti ng unformatted reports. ? Name: ? ANAIR, BRIAN V ? Accession #: ? [id number] ? : ? 1970 (Age: 37) ??F ?Collect Date: ? 02/04/2008 ? Location: ? [facility] ? Receive Date: ? 02/05/2008 ? Provider: ?ARLEN PAREDES TEXTILE SCREEN MAKER ? Copy to: ? Specimen/Source: ?Pap Test, Cervix/Endocervix, ThinPrep Imaging System ? with manual evaluation ? Last Menstrual Period: ? 12/05/08 ? Other: ? HPVA - HPV testing requested if ASC-US on the current ThinPrep Pap test. ? SPECIMEN ADEQUACY ? Satisfactory for Evaluation ? - transformation zone component present ? GENERAL CATEGORIZATION ? Negative for Intraepithelial Lesion or Malignancy ? INTERPRETATION ? Shift in yanique present suggestive of bacterial vaginosis. ? Document reviewed and electronically signed by: ? Jocelyn Mcarthur, CT(ASCP)(IAC) ? Report Date: ??02/10/2008 17:26 ? End of Report ? [facility] 02/04/2008 02/05/2008 Arlen Paredes NP PATHOLOGY ORDERABLES Performing Organization Address City/State/[facility] Co de Phone Number [facility] [address] [place] [address] * L SPINE 4 OR MORE VIEWS (01/28/2008 12:03 EST) Anatomical Region Laterality Modality Other 01/28/2008 12:0 3 EST Narrative 06/22/2008 9:30 EDT Lower back pain L SPINE 4 OR MORE VIEWS ??Jan 28, 2008 12:03:00 PM Signs and Symptoms: ??Lower back pain No comparison studies are available. Findings: AP and lateral upright views and lateral flexion and extension views were obtained. There are surgical clips in the right upper quadrant from prior cholecystectomy. The lumbar spine is in normal alignment. There is no evidence of instability on flexion or extension. The disc space heights are preserved. Impression: Negative plain film exam of the lumbar spine. Procedure Note Valorie Cisneros MD - 06/22/2008 Lower back pain L SPINE 4 OR MORE VIEWS Jan 28, 2008 12:03:00 PM Signs and Symptoms: Lower back pain No comparison studies are available. Findings: AP and lateral upright views and lateral flexion and extension views were obtained. There are surgical clips in the right upper quadrant from prior cholecystectomy. The lumbar spine is in normal alignment. There is no evidence of instability on flexion or extension. The disc space heights are preserved. Impression: Negative plain film exam of the lumbar spine. Nishant Maravilla MD IMG DIAGNOSTIC IMAGI NG ORDERABLES documented in this encounter Visit Diagnoses Not on filedocumented in this encounter
--- OUTSIDE RECORDS SUMMARY | 2023-10-18 21:29 | XMS_ITS | Encounter Summary ---
Author Organization [facility] Address [address] [place] [address] Care Team Providers Care Fertilizer Loader Name Role Phone Nishant Sorto MD Primary Care Provider [phone] Encounter Details Date Type Department Care Team (Late st Contact Info) Description 10/30/[address] [facility] [phone] Digna Ceja, SALLY [address] [place], [place] [id number] Social History Tobacco Use Types Packs/Day Years [...] Diagnosis Comments PAP TEST- RESULT ONLY Routine 10/30/2017 0:00 EDT documented in this encounter Results * PAP TEST- RESULT ONLY (10/30/2017 0:00 EDT) Pathology Report: CYTOPATHOLOGY REPORT Reports generated via electronic interface contain original data; however they are lacking the format of the original report. Caution should be taken when reading/interpreti ng unformatted reports. Name: ? BRIAN CARDENAS Edy ? Accession #: ? [id number] ? : ? 1970 (Age: 47) ??F ?Collect Date: ? 10/30/2017 ? Location: ? [facility] ? Receive Date: ? 11/01/2017 ? Provider: DIGNA CEJA APRN Copy to: ? Final Report SPECIMEN ADEQUACY ? Satisfactory for Evaluation - transformation zone component present GENERAL CATEGORIZATION ? Negative for Intraepithelial Lesion or Malignancy ?? Other: Additional clinical information: Z00.00, Z12.4, Z11.51 Specimen/Source: ??Pap Test, Cervix, ThinPrep Imaging System with manual evaluation Document reviewed and electronically signed by: ? Nora Hermosillo, CT(ASCP) ? Report ??Date: 11/07/2017 08:50 HPV with Pap Test ? Date Ordered: ? 11/07/2017 ? Status: ?? Signed Out ?Date Complete: ? 11/08/2017 ? By: ??System Interface ? Date Reported: ? 11/08/2017 ? Interpretation RESULT: Negative for HPV. No E6 or E7 mRNA is detected from HPV types 16,18,31,33,35, 39,45,51,52,56,58, 59,66, and 68 by spot facer mediated amplification. Comments Document reviewed and electronically signed by: ? System Interface ? Report date: 11/08/2017 By the signature above, the attending physician certifies that he/she has personally conducted a gross and/or microscopic examination of the described specimens and rendered or confirmed the above diagnosis. End of Report [facility] 10/30/2017 11/01/2017 Digna Ceja APRN PATHOLOGY ORDERABLES [facility] [address] [place] [address] documented in this encounter Visit Diagnoses Not on filedocumented in this encounter Care Teams Fertilizer Loader Relationship Specialty Start Date End Date Nishant Sorto MD PCP - General 09/24/08 06/30/20 documented as of this encounter
--- NOTE | 2023-10-18 22:02 | DI.VRAD_ITS ---
PROCEDURE INFORMATION: Exam: CT Abdomen And Pelvis With Contrast Exam date and time: 10/18/2023 8:46 PM Age: 53 years old Clinical indication: Other: Llq pain, tachycardia TECHNIQUE: Imaging protocol: Computed tomography of the abdomen and pelvis with contrast. Contrast material: OMNI 350; Contrast volume: 85 ml; Contrast route: INTRAVENOUS (IV); COMPARISON: CT Abdomen^ROUTINE ABDOMEN PELVIS WITH CONTRAST (Adult) 03/07/2018 2:27 PM FINDINGS: Lungs: The lungs are normal. Pleural spaces: There is no evidence of pneumothorax. There are no pleural effusions present. Heart: The cardiac structures are normal. Coronary arteries: No evidence of coronary artery atherosclerotic plaque or calcification. Liver: There is a diffuse decrease in hepatic parenchymal density, consistent with mild fatty infiltration. Gallbladder and biliary ducts: There has been a cholecystectomy. Pancreas: The pancreas is normal. Spleen: Calcifications within the splenic parenchyma consistent with old granulomatous exposure. The spleen is otherwise normal. Adrenal glands: The adrenal glands are normal. Kidneys and ureters: There is a nonobstructing 6.9 mm diameter lower pole calyceal calculus. The kidneys are otherwise normal. Stomach and bowel: There are diffuse fluid filled loops of small bowel and colon with scattered air fluid levels. The bowel loops are mildly distended. No associated bowel wall thickening or inflammatory changes. No evidence of obstruction. Findings most consistent with diffuse enterocolitis. Inflammatory changes present within the mucosa at the level of the rectum consider rectal proctitis. Appendix: A normal appendix is identified. There is no evidence of distention or periappendiceal inflammation to suggest appendicitis. Intraperitoneal space: There is no free intraperitoneal air. There is no evidence of free intraperitoneal or pelvic fluid. Vasculature: The aorta is unremarkable without evidence of significant atherosclerosis or aneurysmal disease. The peripheral arterial vascular system visualized is unremarkable. The portal venous system visualized is unremarkable. The peripheral venous vascular system visualized is unremarkable. Lymph nodes: There is no evidence of lymphadenopathy. Urinary bladder: There is nonspecific bladder wall thickening. This may be related to incomplete bladder filling. Reproductive: There is an IUD present. The uterus is normal. The ovaries are normal. Bones/joints: The skeletal structures and soft tissues show no evidence of fracture or other acute processes. The lumbar spine demonstrates mild degenerative changes. Soft tissues: See Bones/joints finding. IMPRESSION: 1. There are diffuse fluid filled loops of small bowel and colon with scattered air fluid levels. The bowel loops are mildly distended. No associated bowel wall thickening or inflammatory changes. No evidence of obstruction. Findings most consistent with diffuse enterocolitis. 2. Inflammatory changes present within the mucosa at the level of the rectum consider rectal proctitis. Hepatic steatosis. Dictated and Authenticated by: Erasto Hall MD. Ordering:RAGINI Alvarez MD
--- NOTE | 2023-10-18 22:02 | NUR.NOTE ---
Nursing Note:Report and transfer of care given to Bailee RN at this time
[2023-10-18] MEDS: Ondansetron 4 MG/2 ML VIAL IVP (22:48)
[2023-10-18] MEDS: Hyoscyamine 0.5 MG/ML VIAL 0.25 MG IVP (22:56)
--- NOTE | 2023-10-20 08:51 | NUR.NOTE ---
Addendum entered by Yoon Wu 10/20/23 08:52: Duplicate order cancelled. Original Note: Access chart to reconcile EKG orders and EKG's in [facility]. Nursing Note:
== END 2023-10-18 23:26 | disposition home or self-care (01) ==
PROVIDERS: Emergency Provider Physician Assistant; PCP Nurse Practitioner Family
DX: R10.32 Left lower quadrant pain (principal); R11.2 Nausea with vomiting, unspecified; R19.7 Diarrhea, unspecified; K52.9 Noninfective gastroenteritis and colitis, unspecified
CPT/HCPCS: 80053; 83690; 93005; 96365; 96375; 99285; 74177; 85025; 86140; 93010; 99283; J0131; J1980; J2405; J3490

== ENCOUNTER 2024-01-09 11:44 | Outpatient (REF) | payer MEDICAID, SELFPAY ==
[2024-01-09 20:17] LABS: Abs Immature Grans 0.05 10^3/uL (0.0-0.06); Absolute Basophil Count 0.04 10^3/uL (0.0-0.2); Absolute Eosinophil Count 0.13 10^3/uL (0.0-0.7); Absolute Lymphocyte Count 2.22 10^3/uL (1.2-3.4); Absolute Monocyte Count 0.45 10^3/uL (0.1-0.8); Basophils % 0.4 %; Eosinophils % 1.2 %; HCT 44.5 % (36.0-46.0); HGB 14.5 g/dL (11.2-15.7); Immature Grans % 0.5 %; Lymphocytes % 20.3 %; MCH 26.9 pg (27.0-33.0); MCHC 32.6 % (32.0-36.0); MCV 83 fL (80-95); MPV 11.6 fL (8.0-11.0); Monocytes % 4.1 %; Neutrophils % 73.5 %; Platelet Count 280 10^3/uL (130-400); RBC 5.39 10^6/uL (3.93-5.22); RDW 13.4 % (11.7-14.6); RDW-SD 39.6 fL; WBC 10.95 10^3/uL (4.4-10.8)
[2024-01-09 20:20] LABS: Absolute Neutrophil Count 8.05 10^3/uL (1.2-6.7)
[2024-01-09 21:03] LABS: ALT 23 U/L (14-59); AST 17 U/L (15-37); Albumin 3.8 g/dL (3.4-5.0); Alkaline Phosphatase 104 U/L (46-116); Anion Gap 11.5 mmol/L (3-11); BUN 18 mg/dL (7-18); Bilirubin, Total 0.33 mg/dL (0.2-1.0); CO2 23.5 mmol/L (21.0-32.0); CREATININE 0.7 mg/dL (0.55-1.02); Calcium 9.1 mg/dL (8.5-10.1); Calculated LDL 137 mg/dL (<100); Chloride 107 mmol/L (98-107); Cholesterol 216 mg/dL (<200); Estimated GFR 104.65 (mL/min/1.73m2); Folate 10.5 ng/mL (8.6-20.0); Glucose 104 mg/dL (74-106); HDL Cholesterol 57 mg/dL (40-60); Iron 39 ug/dL (50-170); Potassium 3.7 mmol/L (3.5-5.1); Sodium 142 mmol/L (136-145); Total Iron Binding Capacity 303 ug/dL (250-450); Total Protein 7.9 g/dL (6.4-8.2); Transferrin Sat 13 % (15-50); Triglyceride 111 mg/dL (<150); Vitamin B12 390 pg/mL (193-986); Vitamin D 25 Total 12.4 ng/mL (30-100)
[2024-01-09 21:06] LABS: COMMENT (LAB VIEW ONLY) 129.75 mg/dL; Microalb ug/mg Crea 7.3 ug/mg Cr
== END 2024-01-09 11:45 | disposition home or self-care (01) ==
LOC: NCHCN 11:44
PROVIDERS: PCP Nurse Practitioner Family; Visit Provider Nurse Practitioner Family
DX: I10 Essential (primary) hypertension (principal); E78.5 Hyperlipidemia, unspecified; E55.9 Vitamin D deficiency, unspecified; E11.9 Type 2 diabetes mellitus without complications
CPT/HCPCS: 80053; 80061; 82306; 82043; 82570; 82607; 82746; 83540; 83550; 85025

== ENCOUNTER 2024-02-11 02:10 | Outpatient (CLI) | payer MEDICAID, SELFPAY ==
--- NOTE | 2024-02-11 | DI.MRI_ITS ---
Exam(s) MR BRAIN WO EXAM: MR BRAIN WO CLINICAL HISTORY: ISOLATED HEAD TREMOR, G25.0, ESSENTIAL TREMOR, TREMOR OF HANDS, NEUROPATHY TECHNIQUE: Multiplanar multisequence MRI of the brain was performed. COMPARISON: MR MRI - BRAIN WO CONTRAST from 11/24/2009 FINDINGS: VENTRICLES AND EXTRA AXIAL SPACES: Normal in size and morphology for the patient's age. MIDLINE SHIFT: None. CEREBRAL PARENCHYMA: No focus of restricted diffusion to suggest acute infarct. No space-occupying le semaj identified. There are few scattered hyperintense foci in the white matter on the FLAIR and T2 we ighted images likely reflecting early small vessel ischemic disease. HEMORRHAGE: None. BRAINSTEM/CEREBELLUM: Normal. CALVARIUM: Normal. VISUALIZED PARANASAL SINUSES/MASTOIDS:Clear. [place]: Normal flow void. PITUITARY GLAND: Unremarkable. OTHER FINDINGS: None. IMPRESSION: 1. No evidence of an acute infarct. 2. There are few scattered white matter foci on the FLAIR and T2 weighted images likely reflecting ea rly small vessel ischemic disease. DATA REPOSITORY:
== END 2024-02-11 02:30 ==
LOC: DI 02:10
PROVIDERS: PCP Nurse Practitioner Family; Visit Provider Nurse Practitioner Family
DX: G25.0 Essential tremor (principal)
CPT/HCPCS: 70551

== ENCOUNTER 2024-02-12 14:18 | Emergency (ER) | payer MEDICAID, SELFPAY ==
--- NOTE | 2024-02-12 14:15 | RT.EKG_ITS ---
APPROVED REPORT Exam: Resting ECG Reason for Exam: chest pressure Patient Location: E HR:112 bpm ECG Measurements Heart Rate 112 AXIS TN 176 P 73 QRSd 82 QRS 269 QT 339 T 54 QTc 463 Conclusion Sinus tachycardia...rate> 99 Left anterior fascicular block...axis(240,-40), init forces inf Anterior infarct, old...Q >40mS, abnormal ST-T, V2-V5 No STEMI
[2024-02-12 14:23] VITALS: BP 118/84; PULSE 126; RESP 22; TEMP 36.9; O2SAT 97
--- NOTE | 2024-02-12 14:45 | DI.RAD_ITS ---
Exam(s) XR CHEST 2V PA LATERAL EXAM: XR CHEST 2V PA LATERAL CLINICAL HISTORY: shortness of breath TECHNIQUE: 2D digital imaging was performed of the chest. Two images were obtained. PA and lateral views were obtained. COMPARISON: CR XR CHEST 2V PA LATERAL from 02/08/2023 FINDINGS: MEDIASTINUM: Normal. HEART: Normal. PULMONARY VASCULATURE: Normal. LUNGS: Clear. PLEURAL SPACE: No pleural effusion or pneumothorax. BONE:Within normal limits for the patient's age. OTHER FINDINGS:Normal. IMPRESSION: No acute pulmonary findings. DATA REPOSITORY: RADIATION DOSE DELIVERED:
[2024-02-12 14:56] LABS: Abs Immature Grans 0.04 10^3/uL (0.0-0.06); Absolute Basophil Count 0.04 10^3/uL (0.0-0.2); Absolute Eosinophil Count 0.07 10^3/uL (0.0-0.7); Absolute Lymphocyte Count 2.16 10^3/uL (1.2-3.4); Absolute Monocyte Count 0.62 10^3/uL (0.1-0.8); Absolute Neutrophil Count 6.44 10^3/uL (1.2-6.7); Basophils % 0.4 %; Eosinophils % 0.7 %; HCT 42.9 % (36.0-46.0); Immature Grans % 0.4 %; Lymphocytes % 23.1 %; MCH 26.9 pg (27.0-33.0); MCHC 32.6 % (32.0-36.0); MCV 82 fL (80-95); MPV 10.1 fL (8.0-11.0); Monocytes % 6.6 %; Neutrophils % 68.8 %; Platelet Count 242 10^3/uL (130-400); RBC 5.21 10^6/uL (3.93-5.22); RDW 13.9 % (11.7-14.6); RDW-SD 41.1 fL; WBC 9.37 10^3/uL (4.4-10.8)
[2024-02-12] MEDS: predniSONE 20 MG TAB 40 MG PO (15:05)
[2024-02-12] MEDS: Acetaminophen 500 MG TAB 1000 MG PO (15:05)
[2024-02-12] MEDS: Albuterol HFA 8 GM 60 PUFF INH IH (15:05)
[2024-02-12 15:10] VITALS: BP 164/74; PULSE 68
[2024-02-12 15:12] LABS: ALT 17 U/L (14-59); AST 21 U/L (15-37); Albumin 3.7 g/dL (3.4-5.0); Alkaline Phosphatase 97 U/L (46-116); Anion Gap 11.4 mmol/L (3-11); BUN 11 mg/dL (7-18); Bilirubin, Total 0.51 mg/dL (0.2-1.0); CO2 23.6 mmol/L (21.0-32.0); CREATININE 0.9 mg/dL (0.55-1.02); Calcium 9.4 mg/dL (8.5-10.1); Chloride 105 mmol/L (98-107); Glucose 166 mg/dL (74-106); Potassium 3.8 mmol/L (3.5-5.1); Sodium 140 mmol/L (136-145); Total Protein 8.2 g/dL (6.4-8.2)
[2024-02-12 15:32] LABS: Influenza A PCR Negative (Negative); Influenza B PCR Negative (Negative); RSV PCR Negative (Negative)
[2024-02-12 15:34] LABS: COVID-19 PCR Positive (Negative)
[2024-02-12 15:35] LABS: Source Nasopharynx
--- NOTE | 2024-02-12 15:48 | W.ED.GENAD ---
Discharge Plan Disposition Patient Disposition: Home Condition: Stable Discharge Details Clinical Impression: COVID-19 Primary Care Provider: Clari Hernandez ED Provider: Kim Rutherford Home Meds and New Rx's Prescriptions: New prednisone 20 mg tablet 40 mg PO DAILY Qty: 10 0RF Paxlovid 300 mg (150 mg x 2)-100 mg tablets,dose pack See Rx Instructions .ROUTE .COMPLEX Qty: 30 0RF Rx Instructions: take TWO 150 mg tablets of nirmatrelvir with ONE 100 mg tablet of ritonavir twice daily for 5 days Continued Ozempic 0.25 mg or 0.5 mg (2 mg/3 mL) pen injector 0.5 mg subcut QWEEK sumatriptan succinate 25 mg Tablet 25 mg PO ONCE Rx Instructions: may repeat in 2 hours if needed hydroxyzine HCl 25 mg Tablet 25 mg PO HS PRN albuterol sulfate [Proventil HFA] 90 mcg/actuation Hfa Aerosol Inhaler 2 puff INHALATION Q4H PRN fluticasone propion-salmeterol [Advair HFA] 115-21 mcg/actuation Hfa Aerosol Inhaler 2 puff INHALATION BID rosuvastatin 40 mg Tablet 40 mg PO DAILY insulin glargine [Lantus Solostar U-100 Insulin] 100 unit/mL (3 mL) Insulin Pen 60 unit SUBCUT QPM ibuprofen 800 mg Tablet 800 mg PO TID PRN sertraline [Zoloft] 100 MG tablet 200 mg PO DAILY loratadine 10 MG tablet,disintegrating 10 mg PO DAILY epinephrine [EpiPen 2-Fabian] 0.3 MG/0.3 ML auto-injector 0.3 mg IM ONCE tizanidine 4 MG capsule 4 mg PO BID pregabalin [Lyrica] 100 MG capsule 150 mg PO BID mirtazapine 30 mg tablet 30 mg PO DAILY Patient Comments: TAKE 1 TABLET BY MOUTH EVERY NIGHT NEEDED FOR SLEEP fluticasone propionate 50 mcg/actuation spray,suspension 1 spray intranasal DAILY PRNQty: 16 0RF Rx Instructions: administer into each nostril Topiramate [Trokendi Xr] 50 MG Cap.Er.24h 50 mg PO BID lisinopril 5 mg tablet 5 mg PO ONCE Patient Comments: TAKE ONE TABLET BY MOUTH EVERY MORNING hyoscyamine sulfate [Levsin] 0.125 mg tablet 0.125 mg PO BID-QID PRNQty: 6 0RF potassium chloride 20 mEq tablet extended release 20 meq PO DAILY Qty: 5 0RF Discharge Instructions Instructions: COVID-19 ED Additional Instructions: You have COVID-19, you will be contagious and must isolate for 5 days, after the 5 days has been completed you may go out with a mask in place and when you are asymptomatic may remove the mask after 10 days Take the molnupiravir as prescribed, take the prednisone for 5 days in total, use your inhalers as prescribed and please return earlier should you have new or worsening complaints including worsening shortness of breath Referrals: Clari Hernandez [Primary Care Provider] - Discharge Data Discharge Date/Time-TO BE ENTERED AT DEPARTURE: 02/12/24 16:02 HPI General Date/Time Provider Initiated Documentation: 02/12/24 14:40. HPI Narrative: This 33-year-old female presents with cold symptoms starting 2 nights ago. Has had fever and chills subjectively. Has had some mild nausea and tiredness. Denies any calf pain or swelling, denies any rashes or lesions. Denies any known sick contacts. patient reports history of asthma and does not smoke. Related Data Home Medications ?Medication ?Instructions ?Recorded ?Confirmed pregabalin 100 mg capsule (Lyrica) 150 mg PO BID 05/03/12 02/12/24 tizanidine 4 mg capsule 4 mg PO BID 05/03/12 02/12/24 sertraline 100 mg tablet (Zoloft) 200 mg PO DAILY 07/22/12 02/12/24 epinephrine 0.3 mg/0.3 mL 0.3 mg IM ONCE 02/26/14 02/12/24 injection, auto-injector (EpiPen 2-Fabian) loratadine 10 mg disintegrating 10 mg PO DAILY 02/26/14 02/12/24 tablet Topiramate [Trokendi Xr] 50 mg PO BID 02/06/17 02/12/24 albuterol sulfate 90 mcg/actuation 2 puff inhalation Q4H PRN 12/30/18 02/12/24 aerosol inhaler (Proventil HFA) fluticasone propionate 115 2 puff inhalation BID 12/30/18 02/12/24 mcg-salmeterol 21 mcg/actuation HFA inhaler (Advair HFA) hydroxyzine HCl 25 mg tablet 25 mg PO HS PRN 12/30/18 02/12/24 sumatriptan succinate 25 mg tablet 25 mg PO ONCE 12/30/18 02/12/24 ibuprofen 800 mg tablet 800 mg PO TID PRN 08/11/19 02/12/24 insulin glargine 100 unit/mL (3 60 unit subcut QPM 08/11/19 02/12/24 mL) subcutaneous pen (Lantus Solostar U-100 Insulin) rosuvastatin 40 mg tablet 40 mg PO DAILY 08/11/19 02/12/24 semaglutide 0.25 mg or 0.5 mg (2 0.5 mg subcut QWEEK 07/25/22 02/12/24 mg/3 mL) subcutaneous pen injector (Ozempic) fluticasone propionate 50 1 spray intranasal DAILY PRN #16 09/10/22 02/12/24 mcg/actuation nasal grams spray,suspension mirtazapine 30 mg tablet 30 mg PO DAILY 09/10/22 02/12/24 hyoscyamine sulfate 0.125 mg 0.125 mg PO BID-QID PRN #6 tabs 10/18/23 02/12/24 tablet (Levsin) lisinopril 5 mg tablet 5 mg PO ONCE 10/18/23 02/12/24 potassium chloride 20 mEq 20 meq PO DAILY #5 tabs 10/18/23 02/12/24 tablet,extended release nirmatrelvir 300 mg (150 mg See Rx Instructions PO .COMPLEX 02/12/24 x2)-ritonavir 100 mg tablet,dose #30 dose pk pack (Paxlovid) prednisone 20 mg tablet 40 mg (2 x 20 mg) PO DAILY #10 tabs 02/12/24 Previous Rx's ?Medication ?Instructions ?Recorded fluticasone propionate 50 1 spray intranasal DAILY PRN #16 09/10/22 mcg/actuation nasal grams spray,suspension hyoscyamine sulfate 0.125 mg 0.125 mg PO BID-QID PRN #6 tabs 10/18/23 tablet (Levsin) potassium chloride 20 mEq 20 meq PO DAILY #5 tabs 10/18/23 tablet,extended release nirmatrelvir 300 mg (150 mg See Rx Instructions PO .COMPLEX 01/07/25 x2)-ritonavir 100 mg tablet,dose #30 dose pk pack (Paxlovid) prednisone 20 mg tablet 40 mg (2 x 20 mg) PO DAILY #10 tabs 02/12/24 Allergies Allergy/AdvReac Type Severity Reaction Status Date / Time amoxicillin trihydrate (From Allergy Intermediate Hives Verified 02/12/24 14:28 Augmentin) potassium clavulanate (From Allergy Intermediate Hives Verified 02/12/24 14:28 Augmentin) lactose Allergy Other (See Verified 02/12/24 14:28 Comment) Milk Containing Products Allergy Nausea Verified 02/12/24 14:28 (Dairy) (Milk Containing Products) ammonium lactate (From AdvReac Intermediate GI UPSET Verified 02/12/24 14:28 Lac-Hydrin) citalopram hydrobromide AdvReac Intermediate CHEST Verified 02/12/24 14:28 (From Celexa) PAINS, SOB codeine AdvReac Intermediate Nausea Verified 02/12/24 14:28 duloxetine (Duloxetine) AdvReac Intermediate SPACEY Verified 02/12/24 14:28 duloxetine HCl (From AdvReac Intermediate NAUSEA, V/D Verified 02/12/24 14:28 Cymbalta) hydromorphone HCl (From AdvReac Intermediate NAUSEA,VOMI Verified 02/12/24 14:28 Dilaudid) TINGGARRYI PATION milk AdvReac Mild NAUSEA Verified 02/12/24 14:28 environmental Allergy Severe Swelling/Ed Uncoded 02/12/24 14:28 gema General Stated Complaint: RespSymp LANIE: 4 Exam Narrative Exam Narrative: Alert and oriented 53-year-old female appears feeling unwell, lungs clear to auscultation, cardiac rate rhythm regular, no abdominal tenderness, no respiratory distress, alert and oriented x 4, no peripheral edema Course Vital Signs Vital signs: Vital Signs Temperature 36.9 C 02/12/24 14:23 Pulse 126 H 02/12/24 14:23 Respiratory Rate 22 02/12/24 14:23 Blood Pressure 118/84 02/12/24 14:23 Pulse Oximetry 97 02/12/24 14:23 Temperature 36.9 C 02/12/24 14:23 Pulse 68 02/12/24 15:10 Respiratory Rate 22 02/12/24 14:23 Respiratory Effort Short of Breath 02/12/24 15:11 Respiratory Depth Normal 02/12/24 15:11 Blood Pressure 164/74 H 02/12/24 15:10 Blood Pressure Mean 104 02/12/24 15:10 Pulse Oximetry 97 02/12/24 14:23 Pain Level 0 02/12/24 14:23 Lab/Test Results Lab/Test Results: Laboratory Tests Range/Units 02/12/24 02/12/24 14:45 14:50 WBC (4.4-10.8) 10^3/uL 9.37 RBC (3.93-5.22) 10^6/uL 5.21 Hgb (11.2-15.7) g/dL 14.0 Hct (36.0-46.0) % 42.9 MCV (80-95) fL 82 MCH (27.0-33.0) pg 26.9 L MCHC (32.0-36.0) % 32.6 RDW (11.7-14.6) % 13.9 Plt Count (130-400) 10^3/uL 242 MPV (8.0-11.0) fL 10.1 Immature Gran % % 0.4 Neutrophils % % 68.8 Lymphocytes % % 23.1 Monocytes % % 6.6 Eosinophils % % 0.7 Basophils % % 0.4 Nucleated RBC % (0.0-0.3) % 0.0 Absolute Neutrophils (1.2-6.7) 10^3/uL 6.44 Absolute Lymphocytes (1.2-3.4) 10^3/uL 2.16 Absolute Monocytes (0.1-0.8) 10^3/uL 0.62 Absolute Eosinophils (0.0-0.7) 10^3/uL 0.07 Absolute Basophils (0.0-0.2) 10^3/uL 0.04 Sodium (136-145) mmol/L 140 Potassium (3.5-5.1) mmol/L 3.8 Chloride (98-107) mmol/L 105 Carbon Dioxide (21.0-32.0) mmol/L 23.6 Anion Gap (3-11) mmol/L 11.4 H BUN (7-18) mg/dL 11 Creatinine (0.55-1.02) mg/dL 0.9 Est GFR (CKD-EPI 2020) (mL/min/1.73m2) 77.40 Glucose (74-106) mg/dL 166 H Calcium (8.5-10.1) mg/dL 9.4 Total Bilirubin (0.2-1.0) mg/dL 0.51 AST (15-37) U/L 21 ALT (14-59) U/L 17 Alkaline Phosphatase (46-116) U/L 97 Total Protein (6.4-8.2) g/dL 8.2 Albumin (3.4-5.0) g/dL 3.7 COVID-19 Source Nasopharynx SARS-CoV-2 (PCR) (Negative) Positive A Influenza Type A (PCR) (Negative) Negative Influenza Type B (PCR) (Negative) Negative RSV (PCR) (Negative) Negative Medical Decision Making 53-year-old female in no acute distress, COVID positive on Fluvid. Chest x-ray does not show evidence of pneumonia per radiology interpretation my review. I will write patient for Paxlovid, steroids, and she will use an inhaler 2 puffs every 4-6 hours as needed for cough, wheeze, shortness of breath. Patient will continue her inhaler encouraged to return with new or worsening complaints Quality:SDOH Health Related Social Needs: No Data to Display PFSH All Active Problems (Updated 02/12/24 @ 15:46 by SHASHANK Quiñones) COVID-19 (Acute) Abnormal uterine bleeding (Acute) Obesity (Chronic) Migraine (Chronic) Cervical myelopathy (Acute 07/25/12) JOB (obstructive sleep apnea) (Chronic) Diabetes mellitus type 2, uncontrolled (Chronic) Medical History Abnormal white blood cell leukocytes Allergic rhinitis Anxiety and depression Asthma Flores's esophagus Bilateral hand numbness Chronic low back pain Chronic pain Discharge planning issues Fibromyalgia Herniated cervical disc Hip pain, bilateral History of kidney stones History of tobacco use Hyperlipidemia Left ureteral stone Lyme disease Migraine headache Morbid obesity with BMI of 40.0-44.9, adult Sleep apnea Thickened endometrium Uterine fibroid Vitamin D deficiency Surgical History section x 3 discetomy and spinal fusion History of cholecystectomy Ligation of fallopian tube Postoperative state Status post hysteroscopy with dilation and curettage 06/28/2022 Family History Other Blood clotting disorder Breast cancer Diabetes Heart disease Hyperlipidemia Hypertension Osteoporosis Ovarian cancer Stroke Thyroid disorder Social History Smoking/Tobacco Use Status: Former Tobacco Use Quit Date: 02/06/16 Smoking risk assessment performed?: Yes Alcohol Intake: never Drug use: Daily Substance use type: marijuana Household members: children Housing: apartment Number of Children: 3 current occupation: [employer] What is your relationship status?: Panel score (0-1 are the most socially isolated patients): 0 What type of physical activity do you participate in: walking Do you feel safe at home: Yes Do you feel safe in your relationship?: Yes Female Reproductive History Menstrual Age of Menarche: 12 Duration of menses: other control method: permanent sterilization History History 5 Para 3 Hx # Term Pregnancies 2 Multiple births Hx # Pregnancies 1 Ectopic pregnancies AB induced 2 Hx Number of Living Children 3 AB spontaneous Past Pregnancies Del. Date GA/Weeks # Preg Succ Route Wgt Sex Labor Lgth Anesthesia Location [facility] 12/31/93 36 Yes 2721.554 g Male [facility] 05/08/01 38 Yes Male [facility] 12/07/02 37 Yes Male [facility] Delivery Date: 12/31/93 Last Updated by: Kesha Barrett patient reports preeclampsia, post infection
[2024-02-12 16:01] VITALS: BP 145/84; PULSE 88; RESP 16; TEMP 37.1; O2SAT 96
== END 2024-02-12 16:02 | disposition home or self-care (01) ==
PROVIDERS: Emergency Provider Physician Assistant; PCP Nurse Practitioner Family
DX: U07.1 COVID-19 (principal); R00.0 Tachycardia, unspecified; I44.4 Left anterior fascicular block; E11.9 Type 2 diabetes mellitus without complications; Z79.85 Long-term (current) use of injectable non-insulin antidiabetic drugs
CPT/HCPCS: 36415; 80053; 87637; 93005; 99285; 71046; 85025; 93010; 99284; J7512

== ENCOUNTER 2024-05-11 13:38 | Emergency (ER) | payer SELFPAY ==
[2024-05-11 13:42] VITALS: BP 118/87; PULSE 104; RESP 16; TEMP 36.4; O2SAT 97
--- NOTE | 2024-05-11 14:00 | W.ED.GENAD ---
Discharge Plan Disposition Patient Disposition: Home Condition: Stable Discharge Details Clinical Impression: Dental infection Primary Care Provider: Clari Hernandez ED Provider: Faby Machuca Home Meds and New Rx's Prescriptions: New clindamycin HCl 150 mg capsule 450 mg PO TID 7 Days Qty: 63 0RF Probiotic 3 billion cell capsule 3,000 mmu cells PO DAILY 7 Days Qty: 7 0RF Rx Instructions: administer with a meal No Action sumatriptan succinate 25 mg Tablet 25 mg PO ONCE Rx Instructions: may repeat in 2 hours if needed hydroxyzine HCl 25 mg Tablet 25 mg PO HS PRN albuterol sulfate [Proventil HFA] 90 mcg/actuation Hfa Aerosol Inhaler 2 puff INHALATION Q4H PRN fluticasone propion-salmeterol [Advair HFA] 115-21 mcg/actuation Hfa Aerosol Inhaler 2 puff INHALATION BID rosuvastatin 40 mg Tablet 40 mg PO DAILY insulin glargine [Lantus Solostar U-100 Insulin] 100 unit/mL (3 mL) Insulin Pen 60 unit SUBCUT QPM ibuprofen 800 mg Tablet 800 mg PO TID PRN sertraline [Zoloft] 100 MG tablet 200 mg PO DAILY loratadine 10 MG tablet,disintegrating 10 mg PO DAILY epinephrine [EpiPen 2-Fabian] 0.3 MG/0.3 ML auto-injector 0.3 mg IM ONCE tizanidine 4 MG capsule 4 mg PO BID pregabalin [Lyrica] 100 MG capsule 150 mg PO BID mirtazapine 30 mg tablet 30 mg PO DAILY Patient Comments: TAKE 1 TABLET BY MOUTH EVERY NIGHT NEEDED FOR SLEEP fluticasone propionate 50 mcg/actuation spray,suspension 1 spray intranasal DAILY PRNQty: 16 0RF Rx Instructions: administer into each nostril Topiramate [Trokendi Xr] 50 MG Cap.Er.24h 50 mg PO BID lisinopril 5 mg tablet 5 mg PO ONCE Patient Comments: TAKE ONE TABLET BY MOUTH EVERY MORNING potassium chloride 20 mEq tablet extended release 20 meq PO DAILY Qty: 5 0RF Trulicity 0.75 mg/0.5 mL pen injector 0.75 mg SUBCUT .weekly Patient Comments: INJECT 0.75MG UNDER THE SKIN EVERY WEEK Discharge Instructions Instructions: Dental Pain (DC) Additional Instructions: You were seen in the emergency department today for evaluation of tooth pain concerning for an early dental infection. You also have evidence of dental cavities, and need to call a dentist tomorrow to schedule follow-up for reevaluation, as definitive management includes extraction and/or filling of the tooth. You were started on antibiotics, please take this medication 3 times per day for the next week. You should take all the medication until it is gone, even if you start feeling better. I did provide you with a prescription for a probiotic to prevent or minimize GI upset, please take this while taking your antibiotics, or eat a live culture containing foods such as yogurt. Please keep your primary care appointment scheduled for , and return to care sooner if you develop a fever that does not respond to medications, sudden change or worsening of your pain or swelling, inability to open your mouth, etc. Thank you for allowing us to be part of your care. HPI General Mode of arrival: ambulatory. Date/Time Provider Initiated Documentation: 05/11/24 13:46. Limitations to Documentation: no limitations. Information obtained by: patient and old records reviewed. HPI Narrative: HPI: This is a 53-year-old female patient with a past medical history significant for JOB, diabetes, dental carry disease who is presenting for evaluation of right upper molar pain. She reports that she has had problems with that tooth for quite some time, but a few days ago developed worsening pain and noted some swelling in her right cheek. She reports that she has not had fevers, has been able to eat and drink and maintain her hydration, has been using salt water rinses to try to manage pain and tooth debris. The patient reports that she is attempting to get into a dental appointment but was concerned for infection given the swelling, prompting her to seek care. She does have a scheduled appointment with her primary care provider on . She reports no trismus, neck stiffness, vision changes, etc. Exam: Gen: Awake and alert, in no apparent distress HEENT: Non-icteric sclera, PERRL, EOMs full and without entrapment. She has no visual external facial swelling. The patient's tooth #2 on the right upper aspect has evidence of a deep dental carry, with surrounding mild erythema and a punctate area of purulence without periapical abscess. The remainder of her dental examination reveals scattered milder dental carry disease. Posterior pharynx without erythema, exudate, asymmetry. Mild tender submandibular lymphadenopathy right side, full range of motion of the jaw without trismus Neck: Supple, full range of motion of the neck without limitation, or stiffness Lungs: No apparent respiratory distress, normal respiratory effort. CV: Appears well perfused, strong distal pulse, normal rate at the time of this provider's examination Abdomen: Non-distended MSK: Moves 4 extremities without apparent limitation in ROM Skin: Visualized skin without rashes, cyanosis. Neuro: Normal Gait, no obvious focal deficits or facial asymmetry. Speaks in full, clear sentences. Psych: Appropriate for situation. MDM: This is a 53-year-old female patient presenting for evaluation of dental pain. Differential includes but is not limited to dental carry disease, early dental infection, no evidence on my exam for apical abscess, Mike's angina, and I am reassured against deep space infection in this patient without exam findings concerning for large abscess nor fever/hemodynamic instability. ED Course: Given the patient's well appearance I do not see an indication at this time to proceed with advanced imaging or laboratory studies. I do think that initiation of a course of antibiotics is prudent while awaiting dental follow-up. The patient has an allergy to Augmentin and so clindamycin as well as a course of probiotics were prescribed. I recommended Tylenol and ibuprofen for management of pain, ongoing salt water rinses and dental follow-up as soon as possible. At this time, the patient has had a full medical evaluation and is safe for discharge to home. They are hemodynamically stable, ambulatory, and tolerating PO. They are understanding of the follow-up plan and return precautions. They left our facility without incident. Faby Machuca MD Related Data Home Medications ?Medication ?Instructions ?Recorded ?Confirmed pregabalin 100 mg capsule (Lyrica) 150 mg PO BID 05/03/12 05/11/24 tizanidine 4 mg capsule 4 mg PO BID 05/03/12 05/11/24 sertraline 100 mg tablet (Zoloft) 200 mg PO DAILY 07/22/12 05/11/24 epinephrine 0.3 mg/0.3 mL 0.3 mg IM ONCE 02/26/14 05/11/24 injection, auto-injector (EpiPen 2-Fabian) loratadine 10 mg disintegrating 10 mg PO DAILY 02/26/14 05/11/24 tablet Topiramate [Trokendi Xr] 50 mg PO BID 02/06/17 05/11/24 albuterol sulfate 90 mcg/actuation 2 puff inhalation Q4H PRN 12/30/18 05/11/24 aerosol inhaler (Proventil HFA) fluticasone propionate 115 2 puff inhalation BID 12/30/18 05/11/24 mcg-salmeterol 21 mcg/actuation HFA inhaler (Advair HFA) hydroxyzine HCl 25 mg tablet 25 mg PO HS PRN 12/30/18 05/11/24 sumatriptan succinate 25 mg tablet 25 mg PO ONCE 12/30/18 05/11/24 ibuprofen 800 mg tablet 800 mg PO TID PRN 08/11/19 05/11/24 insulin glargine 100 unit/mL (3 60 unit subcut QPM 08/11/19 05/11/24 mL) subcutaneous pen (Lantus Solostar U-100 Insulin) rosuvastatin 40 mg tablet 40 mg PO DAILY 08/11/19 05/11/24 fluticasone propionate 50 1 spray intranasal DAILY PRN #16 09/10/22 05/11/24 mcg/actuation nasal grams spray,suspension mirtazapine 30 mg tablet 30 mg PO DAILY 09/10/22 05/11/24 lisinopril 5 mg tablet 5 mg PO ONCE 10/18/23 05/11/24 potassium chloride 20 mEq 20 meq PO DAILY #5 tabs 10/18/23 05/11/24 tablet,extended release clindamycin HCl 150 mg capsule 450 mg (3 x 150 mg) PO TID 7 days 05/11/24 #63 caps dulaglutide 0.75 mg/0.5 mL 0.75 mg subcut .weekly 05/11/24 05/11/24 subcutaneous pen injector (Trulicity) lactobacillus combination no.4 3 3,000 mmu cells PO DAILY 7 days #7 05/11/24 billion cell capsule (Probiotic) caps Previous Rx's ?Medication ?Instructions ?Recorded fluticasone propionate 50 1 spray intranasal DAILY PRN #16 09/10/22 mcg/actuation nasal grams spray,suspension potassium chloride 20 mEq 20 meq PO DAILY #5 tabs 10/18/23 tablet,extended release clindamycin HCl 150 mg capsule 450 mg (3 x 150 mg) PO TID 7 days 05/11/24 #63 caps lactobacillus combination no.4 3 3,000 mmu cells PO DAILY 7 days #7 05/11/24 billion cell capsule (Probiotic) caps Allergies Allergy/AdvReac Type Severity Reaction Status Date / Time amoxicillin trihydrate (From Allergy Intermediate Hives Verified 05/11/24 13:47 Augmentin) potassium clavulanate (From Allergy Intermediate Hives Verified 05/11/24 13:47 Augmentin) lactose Allergy Other (See Verified 05/11/24 13:47 Comment) Milk Containing Products Allergy Nausea Verified 05/11/24 13:47 (Dairy) (Milk Containing Products) ammonium lactate (From AdvReac Intermediate GI UPSET Verified 05/11/24 13:47 Lac-Hydrin) citalopram hydrobromide AdvReac Intermediate CHEST Verified 05/11/24 13:47 (From Celexa) PAINS, SOB codeine AdvReac Intermediate Nausea Verified 05/11/24 13:47 duloxetine (Duloxetine) AdvReac Intermediate SPACEY Verified 05/11/24 13:47 duloxetine HCl (From AdvReac Intermediate NAUSEA, V/D Verified 05/11/24 13:47 Cymbalta) hydromorphone HCl (From AdvReac Intermediate NAUSEA,VOMI Verified 05/11/24 13:47 Dilaudid) TING,CONSTI PATION milk AdvReac Mild NAUSEA Verified 05/11/24 13:47 environmental Allergy Severe Swelling/Ed Uncoded 05/11/24 13:47 gema General Stated Complaint: DentalOral LANIE: 4 Course Vital Signs Vital signs: Vital Signs Temperature 36.4 C 05/11/24 13:42 Pulse 104 H 05/11/24 13:42 Respiratory Rate 16 05/11/24 13:42 Blood Pressure 118/87 05/11/24 13:42 Pulse Oximetry 97 05/11/24 13:42 Temperature 36.4 C 05/11/24 13:42 Temperature Source Oral 05/11/24 13:42 Pulse 104 H 05/11/24 13:42 Respiratory Rate 16 05/11/24 13:42 Blood Pressure 118/87 05/11/24 13:42 Blood Pressure Position Sitting 05/11/24 13:42 Pulse Oximetry 97 05/11/24 13:42 Oxygen Delivery Method Room Air 05/11/24 13:42 Oxygen Flow Rate 0 04/06/25 13:42 Pain Level 7 05/11/24 13:42 Medical Decision Making Quality:SDOH Health Related Social Needs: No Data to Display PFSH All Active Problems (Updated 05/11/24 @ 14:00 by Faby Machuca MD) Dental infection (Acute) COVID-19 (Acute) Abnormal uterine bleeding (Acute) Obesity (Chronic) Migraine (Chronic) Cervical myelopathy (Acute 07/25/12) JOB (obstructive sleep apnea) (Chronic) Diabetes mellitus type 2, uncontrolled (Chronic) Medical History Abnormal white blood cell leukocytes Allergic rhinitis Anxiety and depression Asthma Flores's esophagus Bilateral hand numbness Chronic low back pain Chronic pain Discharge planning issues Fibromyalgia Herniated cervical disc Hip pain, bilateral History of kidney stones History of tobacco use Hyperlipidemia Left ureteral stone Lyme disease Migraine headache Morbid obesity with BMI of 40.0-44.9, adult Sleep apnea Thickened endometrium Uterine fibroid Vitamin D deficiency Surgical History section x 3 discetomy and spinal fusion History of cholecystectomy Ligation of fallopian tube Postoperative state Status post hysteroscopy with dilation and curettage 06/28/2022 Family History Other Blood clotting disorder Breast cancer Diabetes Heart disease Hyperlipidemia Hypertension Osteoporosis Ovarian cancer Stroke Thyroid disorder Social History Smoking/Tobacco Use Status: Former Tobacco Use Quit Date: 02/06/16 Smoking risk assessment performed?: Yes Alcohol Intake: never Drug use: Daily Substance use type: marijuana Household members: children Housing: apartment Number of Children: 3 current occupation: [employer] What is your relationship status?: Panel score (0-1 are the most socially isolated patients): 0 What type of physical activity do you participate in: walking Do you feel safe at home: Yes Do you feel safe in your relationship?: Yes Female Reproductive History Menstrual Age of Menarche: 12 Duration of menses: other control method: permanent sterilization History History 5 Para 3 Hx # Term Pregnancies 2 Multiple births Hx # Pregnancies 1 Ectopic pregnancies AB induced 2 Hx Number of Living Children 3 AB spontaneous Past Pregnancies Del. Date GA/Weeks # Preg Succ Route Wgt Sex Labor Lgth Anesthesia Location Prov Complic 12/31/93 36 Yes 2721.554 g Male [facility] 05/08/01 38 Yes Male [facility] 12/07/02 37 Yes Male [facility] Delivery Date: 12/31/93 Last Updated by: Kesha Barrett patient reports preeclampsia, post infection
== END 2024-05-11 14:02 | disposition home or self-care (01) ==
LOC: ER 14:06
PROVIDERS: Emergency Provider Emergency Medicine; PCP Nurse Practitioner Family
DX: K08.89 Other specified disorders of teeth and supporting structures (principal); K04.7 Periapical abscess without sinus; E11.9 Type 2 diabetes mellitus without complications; E78.5 Hyperlipidemia, unspecified; Z79.4 Long term (current) use of insulin; Z79.85 Long-term (current) use of injectable non-insulin antidiabetic drugs; Z87.891 Personal history of nicotine dependence
CPT/HCPCS: 99283

== ENCOUNTER 2024-09-22 18:48 | Outpatient (REF) | payer BC, SELFPAY ==
[2024-09-22 21:00] LABS: Abs Immature Grans 0.05 10^3/uL (0.0-0.06); HCT 42.9 % (36.0-46.0); HGB 14.1 g/dL (11.2-15.7); Immature Grans % 0.4 %; MCH 27.0 pg (27.0-33.0); MCHC 32.9 % (32.0-36.0); MCV 82 fL (80-95); MPV 10.8 fL (8.0-11.0); Platelet Count 314 10^3/uL (130-400); RBC 5.22 10^6/uL (3.93-5.22); RDW 13.1 % (11.7-14.6); RDW-SD 39.1 fL; WBC 11.26 10^3/uL (4.4-10.8)
[2024-09-22 21:19] LABS: ALT 23 U/L (14-59); AST 18 U/L (15-37); Albumin 3.7 g/dL (3.4-5.0); Alkaline Phosphatase 119 U/L (46-116); Anion Gap 11.2 mmol/L (3-11); BUN 14 mg/dL (7-18); Bilirubin, Total 0.3 mg/dL (0.2-1.0); CO2 24.8 mmol/L (21.0-32.0); Calcium 9.3 mg/dL (8.5-10.1); Calculated LDL 125 mg/dL (<100); Chloride 103 mmol/L (98-107); Cholesterol 201 mg/dL (<200); Estimated GFR 104.00 (mL/min/1.73m2); Glucose 201 mg/dL (74-106); HDL Cholesterol 48 mg/dL (>or=50); Potassium 4.0 mmol/L (3.5-5.1); Sodium 139 mmol/L (136-145); Total Protein 7.6 g/dL (6.4-8.2); Triglyceride 144 mg/dL (<150)
[2024-09-22 21:59] LABS: Vitamin D 25 Total 30 ng/mL (30-100)
== END 2024-09-22 18:49 | disposition home or self-care (01) ==
LOC: NCHCN 18:48
PROVIDERS: PCP Nurse Practitioner Family
DX: E11.9 Type 2 diabetes mellitus without complications (principal); E55.9 Vitamin D deficiency, unspecified
CPT/HCPCS: 80053; 80061; 82306; 85025

== ENCOUNTER 2025-01-12 16:22 | Outpatient (REF) | payer BC, SELFPAY ==
[2025-01-12 21:18] LABS: Microalb ug/mg Crea 2.2 ug/mg Cr
== END 2025-01-12 16:23 | disposition home or self-care (01) ==
LOC: NCHCN 16:22
PROVIDERS: PCP Nurse Practitioner Family
DX: I10 Essential (primary) hypertension (principal)
CPT/HCPCS: 82043; 82570